=== PATIENT | male | born 1965 | race Caucasian/White ===

== ENCOUNTER → 2017-08-29 08:12 | Outpatient (CLI) | payer OTHER, SELFPAY ==
--- NOTE | 2017-08-29 08:19 | RAD_ITS ---
STUDY: X-RAY CHEST REASON FOR EXAM: Male, 52 years old. Cough. TECHNIQUE: PA and lateral views of the chest. COMPARISON: Comparison is made with prior examination dated July 22, 2017. FINDINGS: Scattered calcified granulomas. There is no demonstrated pleural abnormality. Normal size heart. Normal mediastinum and farhad. Normal visualized pulmonary arteries. Normal visualized aortic arch and descending thoracic aorta. There are diffuse degenerative changes of the visualized thoracic spine. Normal visualized ribs, clavicles, and shoulders. There is no demonstrated abnormality of the visualized soft tissue structures of the upper abdomen. RAD/Chest PA and Lateral IMPRESSION: Scattered calcified granulomas. No acute abnormality is seen. Electronically Signed: Ernesto Schmitt MD at 12:41 EST Tel [phone], Service support ,
== END ==
PROVIDERS: Family Provider Internal Medicine; PCP Internal Medicine; Visit Provider Internal Medicine
DX: R05 Cough (principal)
CPT/HCPCS: 71046

== ENCOUNTER → 2018-02-04 12:45 | Outpatient (CLI) | payer OTHER, SELFPAY ==
--- NOTE | 2018-02-04 12:59 | CT_ITS ---
STUDY: CTA CHEST/THORAX REASON FOR EXAM: Male, 52 years old. Right-sided chest pain for one day. History of hypertension. RADIATION DOSAGE (If Supplied By Facility): CTDIvol = ( 28.57 ) mGy, DLP = ( 1014.52 ) mGycm TECHNIQUE: The examination was performed with the intravenous administration of 100 ml of Isovue 370 contrast material. Post-processing of the angiographic images was performed, with multiplanar reformation and 3D reconstruction. Individualized dose optimization techniques were used for this CT. COMPARISON: PA and lateral chest x-ray August 29, 2017. FINDINGS: Normal enhancement of the main pulmonary artery and right and left pulmonary arteries. Normal enhancement of the bilateral peripheral pulmonary arteries. There is no demonstrated pulmonary embolism. Normal thoracic aorta and visualized great vessels. There is no demonstrated aortic dissection. Normal heart and pericardium. There are calcifications of the coronary arteries. There are several subcentimeter, benign-appearing anterior mediastinal lymph nodes. There are also calcified pericarinal and bilateral hilar lymph nodes. Normal visualized trachea and bronchi. There are calcified granulomata in both lungs. One, measuring 6 mm, is within subsegmental atelectasis in the inferolateral lingula of the left upper lobe. Subsegmental atelectasis also seen in the bibasilar posterior lower lobes and, to a minimal degree, in the anteromedial lung lo. Normal pleura. Normal chest wall structures. There are degenerative changes of the thoracic spine. There is degenerative arthrosis of the left acromial clavicular joint, and degenerative calcifications project along the superior margin of the left glenohumeral articulation. Normal visualized upper abdomen. CT/CTA Chest W/WO Contrast IMPRESSION: 1. No demonstrated pulmonary embolism or arterial dissection. 2. Findings old calcified granulomatous disease. 3. Suboptimal respiratory effort with bilateral subsegmental atelectasis, as noted. 4. Atherosclerotic calcifications of the coronary arteries. Electronically Signed: Paulo Hoskins MD at 13:33 EDT , Service support ,
[2018-02-04 13:13] LABS: Anion Gap 6 (5-15); BUN 15 mg/dL (7-18); BUN/Creat Ratio 16.6 RATIO (10-20); Calcium,Total 8.5 mg/dL (8.5-10.1); Chloride 104 mmol/L (98-107); EST Glomerular Filtration Rate 94 mL/min (>60); Est Glom Filt Rate - Afr Amer 114 mL/min (>60); Glucose 89 mg/dL (74-106); Potassium 4.5 mmol/L (3.5-5.1); Sodium Level 138 mmol/L (136-145)
[2018-02-04 13:17] LABS: D-Dimer Quantitative (DVT/PE) 0.97 FEU/ug/m (0.27-0.49)
== END ==
PROVIDERS: Family Provider Internal Medicine; PCP Internal Medicine; Visit Provider Internal Medicine
DX: R07.9 Chest pain, unspecified (principal)
CPT/HCPCS: 36415; 71275; 80048; 85379; Q9967

== ENCOUNTER → 2018-05-22 09:04 | Outpatient (CLI) | payer OTHER, SELFPAY ==
--- NOTE | 2018-05-22 09:09 | RAD_ITS ---
HISTORY: Right elbow pain. No known injury Comparison: None Findings: No fracture, dislocation, or acute disease. Joint spaces appear preserved. The distal humeral fat pads are not displaced. No effusion. Small hypertrophic spur of the olecranon process at the triceps insertion. No significant bursitis seen. RAD/Elbow min 3 Views IMPRESSION: 1. No fracture or acute disease. 2. Small hypertrophic spur of the olecranon process at the triceps insertion. at 0247 Reported and signed by: Elieser Cortes MD Electronically Signed: Elieser Cortes, at 2:45 EDT Tel , Service support ,
== END ==
PROVIDERS: Family Provider Internal Medicine; PCP Internal Medicine; Referring Provider Internal Medicine; Visit Provider Internal Medicine
DX: M25.521 Pain in right elbow (principal)
CPT/HCPCS: 73080

== ENCOUNTER → 2018-05-29 06:46 | Outpatient (CLI) | payer OTHER, SELFPAY ==
--- NOTE | 2018-05-29 06:53 | ECHOCS_ITS ---
Reason For Study: ABN EKG Procedure This was a 2D Doppler, Color Flow transthoracic echocardiogram. The study was technically difficult. Contrast injection was performed. Exam performed in department. Left Ventricle Normal size and thickness. The estimated ejection fraction is 65 %. Septal motion consistent with IVCD. No regional wall motion abnormalities noted. Right Ventricle Moderately dilated right ventricle. Mild global right ventricular systolic dysfunction. Atria Normal left atrium. Normal right atrium. Normal atrial septum. Mitral Valve The mitral valve is structurally normal. No prolapse or stenosis seen. Tricuspid Valve Normal tricuspid valve. Unable to estimate RV systolic pressure due to inadequate jet, pulmonary artery pressure probably normal. Aortic Valve Normal aortic valve. Trisinus/trileaflet aortic valve. Pulmonic Valve The pulmonic valve is not well visualized. Great Vessels Normal aortic root. Normal arch. Normal inferior vena cava. Inferior vena cava collapse with sniff. Pericardium/Pleural No pericardial effusion. Medication Diluted definity 7ml given slow IV push to enhance endocardial definition. MMode/2D Measurements & Calculations LVIDd: 4.1 cm IVSd: 1.1 cm Ao root diam: 3.8 cm LVIDs: 2.8 cm LVPWd: 1.2 cm RVDd: 5.2 cm FS: 32.6 % LAV(MOD-bp): 60.0 ml LVAd ap4: 39.9 cm2 SV(MOD-sp4): 90.0 ml LAV(MOD-bp) Indexed: 23.9 ml/m2 EDV(MOD-sp4): 149.9 ml LAV(MOD-sp2): 52.9 ml EDV(sp4-el): 158.7 ml LAV(MOD-sp4): 57.8 ml LVAs ap4: 23.4 cm2 ESV(MOD-sp4): 59.9 ml ESV(sp4-el): 64.0 ml EF(MOD-sp4): 60.0 % EF(sp4-el): 59.7 % SV(sp4-el): 94.6 ml LA A4 area: 20.7 cm2 LA dimension(2D): 3.4 cm RA A4 area: 13.7 cm2 Time Measurements MV dec time: 0.43 sec Doppler Measurements & Calculations MV E max aftab: 37.5 cm/sec Lat Peak E' Aftab: 9.7 cm/sec Med Peak E' Aftab: 7.0 cm/sec MV A max aftab: 52.9 cm/sec E/E' lat: 3.9 E/E' med: 5.4 MV E/A: 0.71 Ao V2 max: 103.7 cm/sec LV V1 max: 82.5 cm/sec Ao max P.3 mmHg LV V1 max P.7 mmHg Interpretation Summary The estimated ejection fraction is 65 %. Moderately dilated right ventricle. Mild global right ventricular systolic dysfunction. Unable to estimate RV systolic pressure due to inadequate jet, pulmonary artery pressure probably normal. Compared to echo report dated 12/27/2014, LV function has improved from 50% to 65%. The study was technically difficult. Contrast injection was performed. Ordering Physician: Aparna Gutiérrez Referring Physician: Aparna Gutiérrez Performed By: Tabitha Weinstein, SOFIA, RVT
--- NOTE | 2018-05-29 17:06 | STRESSREP ---
Stress Test Report Pharmacologic myocardial perfusion stress test. 53-year-old male with a history of abnormal EKG. Resting EKG demonstrates normal sinus rhythm with a left bundle branch block patten rate of 70 bpm is noted. Blood pressure 130/90 meters of mercury. 0.4 mg of regadenoson was infused per usual protocol followed by rapid intravenous saline flush injection continuous EKG monitoring was performed. At rest there were no ST or T wave changes noted suggest abnormal flow reserve at peak infusion no ST or T wave changes were noted suggest abnormal flow reserve patient maintained left bundle branch block throughout the recording. The resting blood pressure 130/90 with a peak blood pressure 150/84 mmHg. Myocardial perfusion protocol. 14.7 mCi of technetium 99m sestamibi was injected 0.4 mg of regadenoson was infused per usual protocol peak infusion 44.8 mCi of technetium 99m sestamibi was injected stress images were obtained stress and rest images were reconstructed and compared in the short axis vertical long horizontal long axis. Gated images were also obtained per Perfusion SPECT analysis: Review of the stress images demonstrate normal uptake of tracer noted in the anterior septal wall the mid anterior wall and the anterolateral wall. The inferior septal and mid inferior torres appear to have reduced perfusion. There is significant GI attenuation artifact as well which appears to obscure the images and the above distributions. Obvious ischemia is not present though a previous infarct cannot be completely excluded. Gated SPECT analysis: The gated ejection fraction is noted to be 57%. Conclusion: Myocardial perfusion stress test with no obvious ischemia noted. Previous inferior infarct cannot be completely excluded. Preserved ejection fraction.
== END ==
PROVIDERS: Family Provider Internal Medicine; PCP Internal Medicine; Referring Provider Internal Medicine; Visit Provider Internal Medicine
DX: R94.31 Abnormal electrocardiogram [ECG] [EKG] (principal)
CPT/HCPCS: 78452; 93017; 93306; A9500; Q9957; A4216; C8929; J2785

== ENCOUNTER → 2018-06-19 08:28 | Outpatient (CLI) | payer OTHER, SELFPAY ==
[2018-06-19 08:01] VITALS: BMI 41.8
[2018-06-19 10:30] LABS: Prothrombin Time (Protime)PT. 13.4 SECONDS (11.7-14.9)
[2018-06-19 10:31] LABS: Partial Thromboplast Time 28.4 Seconds (24.1-36.2)
[2018-06-19 10:33] LABS: Absolute Lymphocyte Count 1.46 X10^3/ul (0.83-4.51); Basophil# 0.03 X10^3/uL; Basophil% 0.5 % (0-1); Eosinophil# 0.27 X10^3/uL; Eosinophils% 4.1 % (0-5); Hematocrit 45.8 % (40-54); Hemoglobin 15.8 g/dl (13.0-16.5); Lymphocyte # 1.46 X10^3/ul (4.0); Mean Corp Hgb Conc 34.5 g/gl (32-36); Mean Corpuscular Hgb 33.7 pg (27.0-32.0); Mean Corpuscular Volume 97.7 fL (80-94); Mean Platelet Vol. 10.5 fl (6.2-12.0); Monocyte# 0.87 X10^3/uL; Monocyte% 13.1 % (0-10); Neutrophil # 3.99 X10^3/uL (2.7-7.7); Platelet Count 192 K/mm3 (150-450); RBC Distribution Width CV 13.4 % (11.6-14.6); RBC Distribution Width SD 48.4 fl (35.1-43.9); Red Blood Count 4.69 M/mm3 (4.6-6.2); White Blood Count 6.6 K/mm3 (4.4-11.0)
[2018-06-19 10:36] LABS: Anion Gap 7 (5-15); BUN 25 mg/dL (7-18); BUN/Creat Ratio 28.7 RATIO (10-20); Calcium,Total 8.4 mg/dL (8.5-10.1); Chloride 105 mmol/L (98-107); Creatinine, Serum 0.87 mg/dL (0.70-1.30); EST Glomerular Filtration Rate 98 mL/min (>60); Est Glom Filt Rate - Afr Amer 118 mL/min (>60); Glucose 93 mg/dL (74-106); Potassium 4.6 mmol/L (3.5-5.1); Sodium Level 140 mmol/L (136-145)
[2018-06-19 10:37] LABS: POSITIVE COUNT NO; POSITIVE DIFFERENTIAL NO; POSITIVE MORPHOLOGY NO
--- OUTSIDE RECORDS SUMMARY | 2018-08-14 03:16 | XMS RPT_ITS | Continuity of Care Document ---
:1965 Author Organization [facility] Address [address] [facility] [address] [place] [address] Phone Care Team Providers Name Role Phone Aparna Gutiérrez DO Unavailable Mikey VELAZQUEZ, Prakash Peng Unavailable Desean VELAZQUEZ, Nathan Hightower Unavailable Dr. Sonu Fuentes Unavailable Liat Cruz Unavailable Unavailable Ginger Groves Unavailable Unavailable JARROD English Unavailable Unavailable Susy Rock Unavailable Unavailable Unavailable Unavailable Problems Name Dates Details abnormal echo Status: Active Abnormal echocardiogram (R93.1, 793.2) Status: Active Abnormal EKG (R94.31, 794.31) Status: Active Abnormal glucose tolerance test (R73.02, 790.22) Status: Active Abnormal lung function test (R94.2, 794.2) Status: Active Abnormal nuclear stress test (R94.39, 794.39) Status: Active Acute bilateral low back pain without sciatica (M54.5, 724.2) Comments: improved Status: Active Acute bronchitis (J20.9, 466.0) Status: Active KEV positive (R76.8, 795.79) Comments: double stranded dna neg and indicators of inflammation normal- told will need to monitor with his family hx Status: Active Asymptomatic microscopic hematuria (R31.21, 599.72) Comments: urine good Status: Active Benign positional vertigo (H81.10, 386.11) Comments: gave exercises to do Status: Active BMI 40.0-44.9, adult (Z68.41, V85.41) Status: Active Diverticulosis of large intestine without perforation or abscess without bleeding (K57.30, 562.10) Status: Active 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 (Z02.4, V70.3) Status: Active Epigastric pain (R10.13, 789.06) Status: Active Essential hypertension (I10, 401.9) Comments: chronic stable-continue present regimen Status: Active Gastritis (K29.70, 535.50) Comments: improved Status: Active Hypercholesterolemia (E78.00, 272.0) Comments: increase exerise with low good chol Status: Active Hyperkalemia (E87.5, 276.7) Status: Active Knee pain (M25.569, 719.46) Status: Active [facility] Status: Active Need for prophylactic vaccination and inoculation against influenza (Z23, V04.81) Status: Active Need for prophylactic vaccination and inoculation against influenza (Renamed from Need for immunization against influenza) (Z23, V04.81) Status: Active Need for prophylactic vaccination and inoculation against influenza (Renamed from Need for immunization against influenza) (Z23, V04.81) Status: Active Non-smoker (Z78.9, V49.89) Status: Active Obstructive sleep apnea, adult (G47.33, 327.23) Comments: saw Manju doing ok Status: Active Other allergic rhinitis (J30.89, 477.8) Comments: chronic stable-continue present regimen Status: Active Other general medical examination for administrative purposes (Z02.89, V70.3) Comments: 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 Status: Active Other hyperlipidemia (E78.49, 272.4) Comments: pretty good- hdl improving Status: Active Other premature beats (I49.49, 427.69) Status: Active Pain in unspecified joint (Renamed from Arthralgia) (M25.50, 719.40) Status: Active Psoriasis (L40.9, 696.1) Comments: gave rx mimyx creme which he used in past from [employer] and said worked Status: Active Right elbow pain (M25.521, 719.42) Status: Active Right-sided chest pain (R07.9, 786.50) Status: Active Screening for prostate cancer (Z12.5, V76.44) Status: Active Sinusitis,chronic (473.9) Status: Active Urinary frequency (R35.0, 788.41) Status: Active Varicose veins of left lower extremity with inflammation (I83.12, 454.1) Status: Active Vitamin D deficiency (E55.9, 268.9) Comments: he not taking vit d encoruage Status: Active Medications Name Dates Details FLONASE, 50MCG/ACT (Nasal Suspension) 2 puffs Suspension qd for 0 days Quantity: 1 {Clayton} Refills: 3 Ordered:16-Aug-2013 Fast DOAprila AFast DO, Aparna A Start : 16-Aug-2013 Active Losartan Potassium 100 MG Oral Tablet 1 (one) Tablet qd for 90 days Quantity: 90 {Tablet} Refills: 3 Ordered:27-Feb-2018 Fast DO Aparna AFast DO, Aparna A Start : 27-Feb-2018 Active Meloxicam 15 MG Oral Tablet 1 (one) Tablet daily, prn for 90 days Quantity: 90 {Tablet} Refills: 1 Ordered:27-Feb-2018 Fast DO Aparna AFast DO, Aparna A Start : 27-Feb-2018 Active Vitamin D3 5000 UNIT Oral Tablet 1 (one) Tablet qd for 0 days Quantity: 30 {Tablet} Refills: 0 Ordered:22-May-2018 Fast DO Aparna AFast DO, Aparna A Start : 22-May-2018 Active AVAPRO, 300MG (Oral Tablet) 1 (one) Tablet daily for 90 days Quantity: 90 {Tablet} Refills: 3 Ordered:02-Aug-2015 Ana Lacy Start : 31-Jul-2015 End : 02-Aug-2015 Inactive Biaxin XL Pac 500 MG Oral Tablet Extended Release 24 Hour 2 (two) Tablet ER 24HR daily for 10 days Quantity: 20 {Tablet} Refills: 0 Ordered:23-Jul-2017 Liat Cruz Start : 16-Jul-2017 End : 23-Jul-2017 Inactive BIAXIN XL PAC, 500MG (Oral Tablet Extended Release 24 Hour) 2 (two) Tablet ER 24HR daily for 14 days Quantity: 28 {Tablet_ER_24HR} Refills: 0 Ordered:06-Aug-2010 Yasemin Hills CNP Start : 06-Aug-2010 End : 20-Aug-2010 Inactive CLARINEX, 5MG (Oral Tablet) 1 tab Tablet QD for 0 days Quantity: 90 {Tablet} Refills: 3 Ordered:20-Dec-2009 Bibiana Harris Start : 13-Jan-2008 Inactive CORICIDIN HBP CONGESTION/COUGH, 10-200MG (Oral Capsule) 1 Capsule daily for 0 days Quantity: 30 {Capsule} Refills: 0 Ordered:09-May-2011 JARROD English Start : 06-Aug-2010 End : 09-May-2011 Inactive Cyclobenzaprine HCl 10 MG Oral Tablet 1 (one) Tablet Tablet qhs prn for 0 days Quantity: 20 {Tablet} Refills: 0 Ordered:08-Aug-2017 Aparna Gutiérrez DO, DO, Debra A Start : 01-Jan-2017 End : 08-Aug-2017 Inactive Comments:twenty - dont drive with as can sedate FlavoxATE HCl 100 MG Oral Tablet 2 (two) Tablet tid, prn for 10 days Quantity: 60 {Tablet} Refills: 0 Ordered:05-Jun-2016 Susy Rock Start : 05-Jun-2016 End : 15-Jun-2016 Inactive Levaquin 500 MG Oral Tablet 1 tab Tablet qd a48wzol for 0 days Quantity: 10 {Tablet} Refills: 0 Ordered:08-Aug-2017 Liat Cruz Start : 23-Jul-2017 End : 08-Aug-2017 Inactive Omeprazole 20 MG Oral Capsule Delayed Release 1 (one) Capsule qam for 0 days Quantity: 30 {Capsule} Refills: 1 Ordered:08-Aug-2017 Aparna Gutiérrez DO, DO, Debra A Start : 24-Jun-2017 End : 08-Aug-2017 Inactive PANTOPRAZOLE SODIUM, 40MG (Oral Tablet Delayed Release) [address] qd for 0 days Refills: 0 Ordered:03-Aug-2009 JARROD EnglishInactive PredniSONE 10 MG Oral Tablet 3 (three) Tablet Tablet pills for 3 days 2 pills for 3 days 1 pill for 3 days for 0 days Quantity: 18 {Tablet} Refills: 0 Ordered:08-Aug-2017 Liat Cruz Start : 22-Jul-2017 End : 08-Aug-2017 Inactive Comments:take with food in am SILVADENE, 1% (External Cream) 1 (one) Cream twice daily for 10 days Quantity: 1 {Bottle} Refills: 0 Ordered:07-Feb-2015 Yasemin Hills CNP Start : 07-Feb-2015 End : 17-Feb-2015 Inactive 1CC ALLERGY SYRINGE 28GX1/2 ( Misc) Not sure Not sure for 0 days Refills: 0 Ordered:01-Jun-2010 Susy Rock End : 01-Jun-2010 Discontinued Comments:This order discontinued per [facility]. ADVAIR DISKUS, 100-50MCG/DOSE (Inhalation Miscellaneous) 1 puff Misc bid for 0 days Refills: 0 Ordered:03-Aug-2009 Kera Thompson MD End : 03-Aug-2009 Discontinued Augmentin 875-125 MG Oral Tablet 1 Tablet BID for 0 days Quantity: 20 {Tablet} Refills: 0 Ordered:30-May-2016 Susy Rock Start : 09-Feb-2016 End : 30-May-2016 Discontinued AVALIDE, 300-25MG (Oral Tablet) 1 (one) Tablet qd for 0 days Quantity: 90 {Tablet} Refills: 3 Ordered:13-Feb-2010 Fast DO, Aparna AFast DO, Aparna A Start : 13-Feb-2010 End : 13-Feb-2010 Discontinued BENZONATATE, 100MG (Oral Capsule) 1 (one) Capsule TID/PRN for 0 days Quantity: 30 {Capsule} Refills: 0 Ordered:16-Jul-2006 Bibiana Harris Start : 16-Jul-2006 End : 23-Dec-2006 Discontinued Clarinex 30 mg qd End : 19-Dec-2006 Discontinued CLODERM, 0.1% (External Cream) 1 Cream apply thin layer daily for 2 weeks, then prn for 0 days Quantity: 30 {Gram(s)} Refills: 0 Ordered:23-Jun-2015 Iris Guillen LPN Start : 19-Oct-2012 End : 23-Jun-2015 Discontinued Comments:called to Elayne ROY, 103-18MCG/ACT (Inhalation Aerosol) 2 puffs qid for 0 days Refills: 0 Ordered:08-Feb-2008 Bibiana Harris End : 13-Jan-2008 Discontinued NIASPAN, 500MG (Oral Tablet Extended Release) 4 Tablet ER qd for 0 days Quantity: 120 {Tablet_ER} Refills: 3 Ordered:07-Jul-2015 Susy Rock Start : 10-Feb-2009 End : 07-Jul-2015 Discontinued NYSTATIN, 950554FRIE/ML (Mouth/Throat Suspension) Suspension for 0 days Refills: 0 Ordered:12-Nov-2007 Bibiana Harris Start : 12-Nov-2007 End : 11-Dec-2007 Discontinued Comments:swish and swallow 5 cc qid for 10 days TraMADol HCl 50 MG Oral Tablet 1-2 Tablet q 6hrs, prn for 0 days Quantity: 90 {Tablet} Refills: 0 Ordered:06-Jan-2017 Susy Rock Start : 03-Jan-2017 End : 06-Jan-2017 Discontinued Comments:NINETY WESTCORT, 0.2% (External Cream) apply as directed BID for 0 days Refills: 0 Ordered:08-Feb-2008 Bibiana Harris End : 23-Dec-2006 Discontinued ZETIA, 10MG (Oral Tablet) 1 Tablet qd for 90 days Quantity: 30 {Tablet} Refills: 3 Ordered:07-Jul-2015 Susy Rock Start : 16-Aug-2013 End : 07-Jul-2015 Discontinued Allergies and Adverse Reactions Name Dates Details Dovonex *DERMATOLOGICALS* (Allergy) Reaction: Rash Status: Active Comments: severe with burning Neosporin *DERMATOLOGICALS* (Allergy) Reaction: Rash Status: Active Past Medical History Name Dates Details Abnormal findings on diagnostic imaging of other specified body structures (R93.8, 793.99) Status: Resolved as of 19-May-2009 Acute pain of right knee (M25.561, 719.46) Status: Resolved as of 16-Jul-2017 Acute sinusitis, unspecified (J01.90, 461.9) 19-Jul-2011 Status: Resolved as of 17-Jan-2017 Allergic rhinitis (J30.9, 477.9) Status: Inactive as of 03-Aug-2009 Appendectomy Status: Inactive as of 03-Aug-2009 Bronchitis (J40, 490) 06-Aug-2010 Status: Resolved as of 28-Sep-2010 Burn (T30.0, 949.0) Status: Resolved as of 07-Jul-2015 Bursitis, prepatellar (726.65) 30-Jul-2011 Status: Resolved as of 17-Dec-2013 Carpal tunnel syndrome, unspecified laterality (G56.00, 354.0) Status: Inactive as of 24-Jun-2014 Cellulitis of right lower extremity (L03.115, 682.6) Status: Resolved as of 17-Jan-2017 choking Status: Resolved as of 19-May-2009 Chronic Sinusitis Status: Inactive as of 03-Aug-2009 Cough (R05, 786.2) 06-Aug-2010 Status: Inactive as of 30-Jul-2017 Diverticulitis (K57.92, 562.11) Comments: w/ abcess s/p sigmoid colectomy w/ div. 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 Status: Inactive as of 17-Jan-2017 Hyperlipidemia (E78.5, 272.4) Status: Inactive as of 03-Aug-2009 Hypoxemia (R09.02, 799.02) Status: Resolved as of 13-Apr-2008 hypoxia Status: Resolved as of 10-Feb-2009 lateral epicondylitis- discussed pathophys- tendinitis- nsaids, rest- and if no better call for ortho referral Status: Resolved as of 15-Sep-2009 leucocoytosis Status: Inactive as of 03-Aug-2009 Lung nodule (R91.1, 518.89) Comments: ct scans for 2 years stable Status: Inactive as of 09-May-2011 neck mass on the right Comments: ct neg and mass resolved on exam- will follow Status: Inactive as of 03-Aug-2009 Need for prophylactic vaccination and inoculation against influenza (Renamed from Need for immunization against influenza) (Z23, V04.81) Status: Inactive as of 17-Jan-2017 odot physical Status: Inactive as of 19-May-2009 oral thrush Status: Resolved as of 19-May-2009 Other abnormal glucose (R73.09, 790.29) Status: Resolved as of 07-Jul-2015 Other chest pain (R07.89, 786.59) Status: Resolved as of 17-Jan-2017 Other specified viral infection, in conditions classified elsewhere and of unspecified site (B97.89, 079.89) Status: Resolved as of 17-Jan-2017 Paresthesia (R20.2, 782.0) Status: Resolved as of 25-Dec-2014 Psoriasis Status: Inactive as of 03-Aug-2009 Septic infrapatellar bursitis, right (M71.161, 726.69) Comments: seeing ortho today Status: Resolved as of 17-Jan-2017 SYNCOPE, NOS (780.2) Comments: think vagal- but rule out heart disease with low normal ef Status: Resolved as of 19-May-2009 thumb pain get xray Status: Resolved as of 19-May-2009 Unspecified bacterial pneumonia (J15.9, 482.9) Status: Resolved as of 13-Apr-2008 Unspecified contact dermatitis, unspecified cause (L25.9, 692.9) Status: Inactive as of 03-Aug-2009 Unspecified Diagnosis Status: Inactive as of 17-Jan-2017 Unspecified Diagnosis Status: Inactive as of 19-May-2009 Procedures Procedure Dates Details Appendectomy Completed carpal tunnel- Tanya 2012- right Completed partial colectomy(sigmoidectomy 2003- due to Completed perforated diverticulitis with abscess) Tonsillectomy Completed Comments: with adenoids twice vein surgery both legs winter 2016- Bailey Completed Date Value Details 29-May-2018 Stress Report Result: Comments: See Note; NOTES: [facility] [address] [place] [address] MR#: [id number] Acct: [id number] Name: LISA MARQUES Rep #: [id number] : [birth year] 53 From: Arcenio Mccloud MD Primary Care: Brock DO,Aparna Status: REG CLI Ordering Dr: Sex: M C Stress Test Report Pharmacologic myocardial perfusion stress test. 53-year-old male with a history of abnormal EKG. Resting EKG demonstrates normal sinus rhythm with a left bundle branch block patten rate of 70 bpm is noted. Blood pressure 130/90 meters of mercury. 0.4 mg of regadenoson was infused pe r usual protocol followed by rapid intravenous saline flush injection continuous EKG monitoring was performed. At rest there were no ST or T wave changes noted suggest abnormal flow reserve at peak infu renate no ST or T wave changes were noted suggest abnormal flow reserve patient maintained left bundle branch block throughout the recording. The resting blood pressure 130/90 with a peak blood pressure 1 50/84 mmHg. Myocardial perfusion protocol. 14.7 mCi of technetium 99m sestamibi was injected 0.4 mg of regadenoson was infused per usual protocol peak infusion 44.8 mCi of technetium 99m sestamibi was injected stress images were obtained stress and rest images were reconstructed and compared in the short axis vertical long horizontal long axis. Gated images were also obtained per Perfusion SPECT kev lysis: Review of the stress images demonstrate normal uptake of tracer noted in the anterior septal wall the mid anterior wall and the anterolateral wall. The inferior septal and mid inferior torres appe ar to have reduced perfusion. There is significant GI attenuation artifact as well which appears to obscure the images and the above distributions. Obvious ischemia is not present though a previous infa rct cannot be completely excluded. Gated SPECT analysis: The gated ejection fraction is noted to be 57%. Conclusion: Myocardial perfusion stress test with no obvious ischemia noted. Previous inferior infarct cannot be completely excluded. Preserved ejection fraction. 05/29/180 <Electronically signed by Arcenio Mccloud MD> Date Prisca VELAZQUEZ CC: Aparna Gutiérrez DO Date Dictated: 05/29/181705 Date Transcribed: 05/29/181705 Supervisor Salvage: [place] Signed 29-May-2018 Echo, Complete w/ Contrast Result: Comments: See Note; NOTES: [facility] [address] [place] [address] Echo Complete W/ Contrast 05/29/18 0951 MR#: [id number] Acct: [id number] Name: LISA MARQUES Rep #: [id number] : 1965 53 From: Diallo Henderson MD Attending Dr: Aparna Gutiérrez DO Status: REG CLI Ordering Dr: Aparna Gutiérrez DO Date: 05/29/18 Location: [facility] Sex: M C Admitted: Reason For Study: ABN EKG Procedure This was a 2D Doppler, Color Flow transthoracic echocardiogram. The study was technically difficult. Contrast injection was performed. Exam performed in department. Left Ventr icle Normal size and thickness. The estimated ejection fraction is 65 %. Septal motion consistent with IVCD. No regional wall motion abnormalities noted. Right Ventricle Moderately dilated right ventri aravind. Mild global right ventricular systolic dysfunction. Atria Normal left atrium. Normal right atrium. Normal atrial septum. Mitral Valve The mitral valve is structurally normal. No prolapse or sten osis seen. Tricuspid Valve Normal tricuspid valve. Unable to estimate RV systolic pressure due to inadequate jet, pulmonary artery pressure probably normal. Aortic Valve Normal aortic valve. Trisinus/ trileaflet aortic valve. Pulmonic Valve The pulmonic valve is not well visualized. Great Vessels Normal aortic root. Normal arch. Normal inferior vena cava. Inferior vena cava collapse with sniff. P ericardium/Pleural No pericardial effusion. Medication Diluted definity 7ml given slow IV push to enhance endocardial definition. MMode/2D Measurements AND Calculations LVIDd: 4.1 cm IVSd: 1.1 cm Ao r oot diam: 3.8 cm LVIDs: 2.8 cm LVPWd: 1.2 cm RVDd: 5.2 cm FS: 32.6 % LAV(MOD-bp): 60.0 ml LVAd ap4: 39.9 cm2 SV(MOD-sp4 ): 90.0 ml LAV(MOD-bp) Indexed: 23.9 ml/m2 EDV(MOD-sp4): 149.9 ml LAV(MOD-sp2): 52.9 ml EDV(sp4-el): 158.7 ml LAV(MOD-sp4): 57.8 ml LVAs ap4: 23.4 cm2 ESV(MOD- sp4): 59.9 ml ESV(sp4-el): 64.0 ml EF(MOD-s p4): 60.0 % EF(sp4-el): 59.7 % SV(sp4-el): 94.6 ml LA A4 area: 20.7 cm2 LA dimension(2D): 3.4 cm RA A4 area: 13.7 cm2 Time Measurements MV dec time: 0.43 sec Doppler Measurements AND Calculations MV E max alba: 37.5 cm/sec Lat Peak E' V el: 9.7 cm/sec Med Peak E' Alba: 7.0 cm/sec MV A max alba: 52.9 cm/sec E/E' lat: 3.9 E/E' med: 5.4 MV E/A: 0.71 Ao V2 max : 103.7 cm/sec LV V1 max: 82.5 cm/sec Ao max P.3 mmHg LV V1 max P.7 mmHg Interpretation Summary The estimated ejection fraction is 65 %. Moderately dilated right ventricle. Mild global right ve ntricular systolic dysfunction. Unable to estimate RV systolic pressure due to inadequate jet, pulmonary artery pressure probably normal. Compared to echo report dated 12/27/2014, LV function has improve d from 50% to 65%. The study was technically difficult. Contrast injection was performed. Order ing Physician: Aparna Gutiérrez Referring Physician: Aparna Gutiérrez Performed By: Tabitha Weinstein, SOFIA, RVT 05/29/18 1423 Date _ Diallo Henderson MD CC: Aparna Gutiérrez DO Date Dictated: 05/29/1851 Date Transcribed: 05/29/18 1423 Supervisor Salvage: Signed 22-May-2018 Elbow min 3 Views Result: Comments: See Note; NOTES: [facility] Imaging Services [address] [place] [id number] Elbow min 3 Views MR#: [id number] Acct: [id number] Name: LISA MARQUES Rep #: [id number] : 1965 M 53 From: Elieser Cortes MD PCP: Aparna Gutiérrez DO Status: REG CLI Study: Elbow min 3 Views Date of Exam: 05/22/18 Exam# [id number] Ordering Dr: Aparna Gutiérrez DO HISTORY: Right elbow pain. No kno wn injury Comparison: None Findings: No fracture, dislocation, or acute disease. Joint spaces appear preserved. The distal humeral fat pads are not displaced. No effusion. Small hypertrophic spur of t he olecranon process at the triceps insertion. No significant bursitis seen. RAD/Elbow min 3 Views IMPRESSION: 1. No fracture or acute disease. 2. Small hypertrophic spur of the ole cranon process at the triceps insertion. at 0247 Reported and signed by: Elieser Cortes MD Electronically Signed: Elieser Cortes, 05/23 at 2:45 EDT Tel , Service support , CC: Aparna Gutiérrez DO Supervisor Salvage: Signed 04-Feb-2018 CTA Chest W/WO Contrast Result: Comments: See Note; NOTES: [facility] [address] [place] [address] CTA Chest W/WO Contrast MR#: [id number] Acct: [id number] Name: LISA MARQUES Rep #: [id number] : 1965 M 52 From: Nikunj Hoskins MD PCP: Aparna Gutiérrez DO Status: REG CLI Study: CTA Chest W/WO Contrast Date of Exam: 02/04/18 Exam# [id number] Ordering Dr: Aparna Gutiérrez DO STUDY: CTA CHEST/TH ORAX REASON FOR EXAM: Male, 52 years old. Right-sided chest pain for one day. History of hypertension. RADIATION DOSAGE (If Supplied By Facility): CTDIvol = ( 28.57 ) mGy, DLP = ( 1014.52 ) mGycm EDILMA HNIQUE: The examination was performed with the intravenous administration of 100 ml of Isovue 370 contrast material. Post-processing of the angiographic images was performed, with multiplanar reformatio n and 3D reconstruction. Individualized dose optimization techniques were used for this CT. COMPARISON: PA and lateral chest x-ray August 29, 2017. FINDINGS: Nor mal enhancement of the main pulmonary artery and right and left pulmonary arteries. Normal enhancement of the bilateral peripheral pulmonary arteries. There is no demonstrated pulmonary embolism. Suzi l thoracic aorta and visualized great vessels. There is no demonstrated aortic dissection. Normal heart and pericardium. There are calcifications of the coronary arteries. There are several subcentim eter, benign-appearing anterior mediastinal lymph nodes. There are also calcified pericarinal and bilateral hilar lymph nodes. Normal visualized trachea and bronchi. There are calcified granulomata in both lungs. One, measuring 6 mm, is within subsegmental atelectasis in the inferolateral lingula of the left upper lobe. Subsegmental atelectasis also seen in the bibasilar posterior lower lobes and, t o a minimal degree, in the anteromedial lung lo. Normal pleura. Normal chest wall structures. There are degenerative changes of the thoracic spine. There is degenerative arthrosis of the left acr omial clavicular joint, and degenerative calcifications project along the superior margin of the left glenohumeral articulation. Normal visualized upper abdomen. O RDER #: [id number] CT/CTA Chest W/WO Contrast IMPRESSION: 1. No demonstrated pulmonary embolism or arterial dissection. 2. Findings old calcified granulomatous disease. 3. Suboptimal respiratory effort w ith bilateral subsegmental atelectasis, as noted. 4. Atherosclerotic calcifications of the coronary arteries. Electronically Signed: Paulo Hoskins MD at 13:33 EDT , Se rvice support , CC: Aparna Gutiérrez DO Supervisor Salvage: Signed 29-Aug-2017 Chest PA and Lateral Result: Comments: See Note; NOTES: [facility] Services [address] [place] [id number] Chest PA and Lateral MR#: [id number] Acct: [id number] Name: LISA MARQUES Rep #: [id number] : 1965 M 52 From: Ernesto Schmitt MD PCP: Aparna Gutiérrez DO Status: REG CLI Study: Chest PA and Lateral Date of Exam: 08/29/17 Exam# [id number] Ordering Dr: Aparna Gutiérrez DO STUDY: X-RAY CHEST REASON FOR EXAM: Male, 52 years old. Cough. TECHNIQUE: PA and lateral views of the chest. COMPARISON: Comparison is made with prior examination dated July 22, 2017. __ FINDINGS: Scattered calcified granulomas. There is no demonstrated pleural abnormality. Normal size heart. Normal mediastinum and farhad. Normal visualized pulmonary arteries. Normal visualized aort ic arch and descending thoracic aorta. There are diffuse degenerative changes of the visualized thoracic spine. Normal visualized ribs, clavicles, and shoulders. There is no demonstrated abnormality o f the visualized soft tissue structures of the upper abdomen. RAD/Chest PA and Lateral IMPRESSION: Scattered calcified granulomas. No acute abnor mality is seen. Electronically Signed: Ernesto Schmitt MD at 12:41 EST Tel [phone], Service support , CC: Aparna Gutiérrez DO Supervisor Salvage: Signed 22-Jul-2017 Chest PA and Lateral Result: Comments: See Note; NOTES: [facility] Services [address] [place] [id number] Chest PA and Lateral MR#: [id number] Acct: [id number] Name: LISA MARQUES Rep #: [id number] : 1965 M 52 From: Ernesto Schmitt MD PCP: Aparna Gutiérrez DO Status: REG CLI Study: Chest PA and Lateral Date of Exam: 07/22/17 Exam# [id number] Ordering Dr: Aparna Gutiérrez DO STUDY: X-RAY CHEST REASON FOR EXAM: Male, 52 years old. 3 week history of illness. TECHNIQUE: PA and lateral views of the chest. COMPARISON: Comparison is made with prior study dated September 13, 2013. FINDINGS: Mild increased markings in the lingular segment of the left upper lobe suggestive of early infiltrate. Follow-up is recommended. There is no demonstrated pleural abnormali ty. Normal size heart. Normal mediastinum and farhad. Normal visualized pulmonary arteries. Normal visualized aortic arch and descending thoracic aorta. Normal visualized thoracic spine. Normal visualiz ed ribs, clavicles, and shoulders. There is no demonstrated abnormality of the visualized soft tissue structures of the upper abdomen. RAD/Chest PA and Lateral IMPRESSION: Increased lingular markings. Follow-up is recommended. Electronically Signed: Ernesto Schmitt MD at 14:50 EST Tel [phone], Service support , CC: Aparna Gutiérrez DO Supervisor Salvage: Signed 02-Jul-2017 Gallbladder Result: Comments: See Note; NOTES: [facility] Imaging Services [address] [place] [address] Gallbladder MR#: [id number] Acct: [id number] Name: LISA MARQUES Rep #: [id number] : [birth year] M 52 From: Ernesto Schmitt MD PCP: Aparna Gutiérrez DO Status: REG CLI Study: Gallbladder Date of Exam: 07/02/17 Exam# [id number] Ordering Dr: Aparna Gutiérrez DO STUDY: ABDOMINAL ULTRASOUND - RIGHT UP PER QUADRANT REASON FOR VISIT: Male, 52 years old. Epigastric pain. TECHNIQUE: Ultrasound evaluation of the right upper quadrant was performed with real-time and static corrigan-scale imaging. TECHNICAL QUALITY: Adequate. COMPARISON: None. FINDINGS: Liver: The liver is enlarged and measures 20.0 cm. There is increased echogenicity consistent with fatty infiltratio n. The bile ducts are within normal limits. There is hepatic color flow. The direction of portal flow is hepatopetal. There is no demonstrated mass lesion. Gallbladder: Normal distended gallbladder. Th e gallbladder wall measures 2.8 mm. There is a negative sonographic Gallegos's sign. There is no pericholecystic fluid. There are no gallstones. Common Bile Duct (C.B.D.): The common bile duct measures 5 .2 mm. Pancreas: There is nonvisualization of the pancreas due to overlying bowel gas. There is normal echogenicity of the pancreas. There is no demonstrated pancreatic mass or cyst. Right Kidney: Nor mal size of the right kidney. The right kidney measures 12.3 cm x 5.8 cm x 6.3 cm. Normal renal cortex. The right cortex measures 2.5 cm. There is no demonstrated renal mass or cyst. There is no right h ydronephrosis. US/Gallbladder IMPRESSION: Hepatomegaly and fatty infiltration of the liver. Electronically Signed: Ernesto Schmitt MD 09/02 at 9:24 EST Tel [phone], Service support , CC: Aparna Gutiérrez DO Supervisor Salvage: Signed 28-May-2017 TXT - Blood Flow Screening Result: Comments: See Note; NOTES: [facility] Cardiovascular Services [address] [place] [address] 05/27/17 0904 MR#: [id number] Acct: [id number] Name: LISA MARQUES Rep #: [id number] : 1965 52 From: David Vee MD Attending Dr: Aparna Gutiérrez DO Status: REG REF Ordering Dr: Date: 05/28/17 Location: [facility] Sex: M C Admitted: Reason For Study: Blood flow screening Carotid D uplex Ultrasound Abdominal Aorta The right maximum ICA velocity is 93.2/34.6 cm/s.The maximal outside diameter of the proximal The left maximum ICA velocity is 91.9/29.1 cm/s. aorta measures 2.0 cm in t he longitudinal axis. The right ECA velocity is less than 125 cm/s. The maximal outside diameter of the proximal The left ECA velocity is less than 125 cm/s. aorta measures 2.0 x 2.0 cm in the cross- Th ere is no plaque formation noted on the right sectional axis. side. There is no plaque formation noted on the left side. Ankle Brachial Index The right ankle/ brachial index is 1.0. The left ankle/ bra chial index is 1.0. Medical History and Assessment The client presents with a history of high blood pressure. The heart rate is 72 beats per minute. The heart rhythm is regular. The right blood pressur e is 148/86. The left blood pressure is 144/82. The assessment was performed by Kesha Ayala RVT. Interpretation Summary Normal carotid artery screening (0 to 15% narrowing). Normal aortic ultrasound e xam. The ankle/brachial index is normal (1.0 or greater). .rdering Physician: Aparna Gutiérrez D.O Per formed By: Esther Ayala RVT 05/28/17 0845 Date David Vee MD CC: Aparna bird DO Date Dictated: 05/27/1704 Date Transcribed: 05/28/1745 Supervisor Salvage: Signed 08-Dec-2016 Emergency Department Summary Result: Comments: See Note; NOTES: [facility] Medical Records Department [address] [place] [address] Emergency Department Summary MR#: [id number] Acct: [id number] Name: LISA MARQUES Rep #: [id number] : 1965 51 From: Jake Degroot MD PCP: Aparna Gutiérrez DO Status: [facility] DATE OF SERVICE: 12/07/2016 METHOD OF ARRIVAL: Private car. CHIEF COMPLAINT: Inability to urinate. HIS TORY OF PRESENT ILLNESS: A 51-year-old male patient of Dr. Gutiérrez who does not have a urologist reports that he has a history of psoriasis and that he has psoriasis in his genital region that he began hav ing a weak stream yesterday and last night he went to urinate and it was like a balloon came from the top of his penis and he does not feel like he is emptying his bladder. PHYSICAL EXAMINATION: GENERA L: Reveals alert male in no acute distress. VITAL SIGNS: Stable. GENITOURINARY: Significant physical exam findings includes the genital exam, which shows a normal circumcised male. His urethral meatus i s covered with a thin layer of skin preventing urination. The remainder of the physical exam is unremarkable. Please see T-sheet for details. TEST RESULTS: The patient had UA that shows leukocytes onl y. 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 TREATMENT PLAN: The patient was discussed with Dr. Cartagena, will be discharged with instructions to follow up with him for further definitive treatment. DISPOS ITION: Home, stable condition. IMPRESSION: 1. Stricture, urethral meatus. Jake Degroot MD C C: Aparna Rodrigues MD T: NTS JOB: [id number] 12/08/16 1714 <Electronically si gned by Jake Degroot MD> Date Jake Degroot MD Cosigner Signature (If Indicated): Date CC: Aparna Gutiérrez DO; Suraj Cartagena MD Date Dictated: 12/08/16815 Date Transcribed: 12/08/16815 Supervisor Salvage: Signed 08-Dec-2016 Discharge Instruction Result: Comments: See Note; NOTES: [facility] Medical Records Department [address] [place] [address] Discharge Instruction 12/07/16 1238 MR#: [id number] Acct: [id number] Name: BRADEN MARQUES Rep #: [id number] : 1965 51 From: Jake Degroot MD PCP: Aparna Gutiérrez DO Status: DEP ER ED Disposition - Plan for ED Patient: Chief Complaint: Complaint Instructions: ED Stricture Ure thral Referrals: Aparna Gutiérrez DO [Primary Care Provider] - Suraj Cartagena MD [STAFF PHYSICIAN] - 3-5 Days What to do if you have Problems For any increased pain, shortness of breath, bleeding, n ausea or vomiting, chest pain, or any unexpected problems, contact your Primary Care Provider. Call [facility] ([phone]) or report to the closest Emergency Room. Call 911 if necessary. 11/19 08/06 0659 <Electronically signed by Jake Degroot MD> Date Jake Degroot MD Cosigner Signature (If Indicated): Date ___ CC: Aparna Gutiérrez DO 11-Sep-2016 Venous Duplex Lower Extremity Result: Comments: See Note; NOTES: [facility] Cardiovascular Services [address] [place] [address] Venous Duplex US, Unilateral 09/05/16 0838 MR#: [id number] Acct: [id number] Name: LISA BENNETT Rep #: [id number] : 1965 51 From: Alex Bailey MD Attending Dr: Alex Bailey MD Status: REG CLI Ordering Dr: Alex Bailey MD Date: 09/05/16 Location: [facility] Sex: M C Admitted: Reason For Study: LEG PAIN AND SWELLING RIGHT LEFT CFV is compressible, spontaneous, phasic, CFV is compressible, spontaneous, phasic , competent and demonstrates normal competent, and demonstrates no rmal augmentation. augmentation. FV is compressible, spontaneous, phasic, competent and demonstrates normal augmentation. POP V is compressible, spontaneous, phasic, competent and demonstrates normal au gmentation. T/P Trunk is compressible. PTV is compressible. RT PerV is compressible. SFJ is INCOMPETENT GSV is INCOMPETENT with reflux greater than .5 sec and diameter of .37 x .38 cm SSV is INCOMPETENT with reflux greater than .5 sec and diameter of .31 x .31 cm. Procedure Exam performed in department. Interpretation Summary 1. Right leg no DVT or SVT. 2. Right gsv 4mm with relfux 3. Right lsv 3mm w ith reflux.. Ordering Physician: Alex Bailey Performed By: Esther Ayala RVT Electronical ly signed by: MD Alex Bailey on 09/11/2016 10:13 AM 09/11/16 1013 Date Alex Bailey MD CC: Alex Bailey MD; Aparna Gutiérrez DO Date Dictated: 0838 Date Transcribed: 09/11/16 1013 Supervisor Salvage: Signed 05-Jun-2016 Venous Duplex Lower Extremity Result: Comments: See Note; NOTES: [facility] Cardiovascular Services [address] [place] [address] Venous Duplex US, Unilateral 06/05/16 0849 MR#: [id number] Acct: [id number] Name: LISA BENNETT Rep #: [id number] : 1965 51 From: David Vee MD Attending Dr: Aparna Gutiérrez DO Status: REG CLI Ordering Dr: Aparna Gutiérrez DO Date: 06/05/16 Location: [facility] Sex: M C Admitted: Reason For Study: varicose veins w/inflammation Procedure LEFT Exam performed in department. CFV is compressible, spontaneous, phasic , The exam was diagnostic. competent, and demonstrates normal A prelimina ry report was called and/or faxed augmentation. to Dr. Gutiérrez @ [phone] @ 9:25 am. FV is compressible, spontaneous, phasic, competent and demonstrates normal augmentation. POP V is compressible, spon taneous, phasic, competent and demonstrates normal augmentation. T/P Trunk is compressible. PTV is compressible. LT PerV is compressible. SFJ is incompetent. GSV is incompetent throughout with max diame ter of 1.3 cm x 1.0 cm. SSV is competent. Interpretation Summary Deep veins of the left lower extremity are patent and compressible segmentally. There is no evidence of left lower extremity deep vein t hrombosis. Valvular competence appears intact within the proximal deep venous system on the left . The left greater saphenous vein appears patent and compressible segmentally. The left sapheno-femoral j unction is incompetent . The left greater saphenous vein appears segmentally incompetent. The left small saphenous vein is patent and competent. Ordering Physician: Apanra Gutiérrez Performed By: Rama Isaac, SOFIA, RVT 06/05/16 1016 Date David Vee MD CC: Aparna Gutiérrez DO Date Dictated: 06/05/16 0849 Date Transcribed: 06/05/16 1016 Supervisor Salvage: Signed 09-Feb-2016 Knee 4 or More Views Result: Comments: See Note; NOTES: [facility] Imaging Services [address] [place] [address] Verdana 4d Knee 4 or More Views MR#: [id number] Acct: [id number] Name: Kemi MARQUES Rep #: [id number] : 1965 M 50 From: Ernesto Schmitt MD PCP: Aparna Gutiérrez DO Status: REG CLI Study: Knee 4 or More Views Date of Exam: 02/09/16 Exam# [id number] Ordering Dr: Kiki Gutiérrez ra, DO STUDY: X-RAY - RIGHT KNEE REASON FOR EXAM: Male, 50 years old. Medial knee pain. TECHNIQUE: 5 view(s) of the knee. COMPARISON: None. FINDINGS: Nor mal visualized distal femur. Normal visualized proximal tibia and fibula. Normal proximal tibiofibular articulation. Normal medial femorotibial compartment. Normal lateral femorotibial compartment. Normal patellofemoral articulation. Soft tissue swelling overlying the proximal tibia. IMPRESSION: Soft tissue swelling overlying the proximal tibia. Electron ically Signed: Ernesto Schmitt MD at 12:01 EDT Tel [phone], Service support [phone], RAD/Knee 4 or More Views IMPRESSION: Soft tissue swelling overlying the proximal tibia. Electronically Signed: Ernesto Schmitt MD at 12:01 EDT Tel [phone], Service support [phone], CC: Aparna Gutiérrez DO Supervisor Salvage: Signed 19-Oct-2015 OT D/C Summary Result: Comments: See Note; NOTES: [facility] Occupational Therapy [facility] [address] [place] [address]. [address] [place] [address] Fax REHABILITATIO N SERVICES DISCHARGE SUMMARY MR#: [id number] Acct: [id number] Name: LISA MARQUES Rep #: [id number] : 1965 50 From: Kari Cisneros Referring DrKamilah: Bibiana Sainz MD Status: DIS RCR Eval Date : Discharge Date: 10/19/15 HP - OT D/C Summary It has been my pleasure to treat LISA MARQUES under orders from Bibiana Sainz MD, for the diagnosis of Right MF fracture for a total of 4 visit(s ). Please see the following information for a summary of their discharge status. - Objective Objective/Function: DIP flexion 60 cold,. 70 active and 75 passive after stretch - Goals Patient Goa ls: Regain Mobility, Regain Strength Goal:: Pt will demo increase of 20# in right principal programmer to perform heavier work tasks by d/c. Some progress: Salvage Inspector is now 90#. He is using putty at home. Goal:: Pt will demo R MF ROM=L in order to hold very small objects by d/c. DIP flexion cold is 60 degrees now. Full ROM after stretch. Able to slate picker small objects now. - Plan Plan: D/C - D/C Information Discha rge Comments: Pt states that he is not limited at all now in daily activities. He will continue with putty exercises and using his intrinsic stretcher at home. If there are questions or concerns regar ding this patient's occupational therapy, please fell free to call me at [phone]. Thank you for the referral of this patient. Sincerely, Kari Cisneros <Electronically signed by Kari Cisneros > 10/19/15 1545 CC: Bibiana Sainz MD; Aparna Gutiérrez DO MG Signed 29-Sep-2015 Initial Evaluation - OT Result: Comments: See Note; NOTES: [facility] Occupational Therapy [facility] [facility] [place] [address] Fax REHABILITATIO N SERVICES INITIAL EVALUATION MR#: [id number] Acct: [id number] Name: LISA MARQUES Rep #: [id number] : 1965 50 From: Kari Cisneros Referring DrKamilah: Bibiana Sainz MD Status: REG RCR [facility] Eval Date: Patient's Visit Information LISA MARQUES is a 50 year old M, referred to Occupational Therapy by Bibiana Sainz MD,, with a diagnosis of Right MF fracture. Date of Evaluation: 09/29/15 Occupational Therapist: Kari Cisneros - Visit Plan Frequency: 1-2x /Week Duration: 1-4 weeks - Subjective Right middle finger tip got caught in truck hitch. Crush in jury/fracture. Had stitches. Bothered by stiffness now. Works at [employer]. - ROM DIP: R MF 0/52 L 75 - Strength Salvage Inspector: R 88# L 110# Lateral Pinch: B 28# Tripod Pinch: B 24# - Go als Goal:: Pt will demo increase of 20# in right principal programmer to perform heavier work tasks by d/c. Goal:: Pt will demo R MF ROM=L in order to hold very small objects by d/c. - Rehabilitation Rehabilitatio n Potential: Excellent - Anticipated Interventions Anticipated Interventions: A/AAROM/PROM, Strengthening Thank you for the opportunity to evaluate your patient. For Medicare and Medicare HMO plans, please review the plan of care and approve it. It will need to be FAXED BACK to us at [phone] for Medicare purposes. Please let me know if there are questions or concerns regarding this plan of care. Physician Signature: Date: <Electronically signed by Kari Cisneros > 09/29/15 1029 CC: Bibiana Sainz MD; Aparna Gutiérrez DO MG Signed For Medicare only, by signing this I certify the plan of care. Physicians Signature Date 27-Jun-2015 Emergency Department Summary Result: Comments: See Note; NOTES: [facility] Medical Records Department [address] [place] [address] Emergency Department Summary MR#: [id number] Acct: [id number] Name: LISA MARQUES Rep #: [id number] : 1965 50 From: Diallo Cartwright DO PCP: Aparna Gutiérrez DO Status: DEP ER DATE OF SERVICE: 06/26/2015 CHIEF COMPLAINT: Crush injury. 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 He is unsure of when his last tetanus was. He notes pain over the ____ phalanx of the right lo ng and ring finger. History of hypertension. Nonsmoker. PHYSICAL EXAMINATION: VITAL SIGNS: Afebrile. Vital signs are stable. EXTREMITIES: The patient has a 2 cm T-shaped laceration on the palmar asp ect over the middle phalanx. He has got a very tiny subungual hematoma. He has full range of motion, although ____ painful. The right ring finger shows swelling and tenderness, but no obvious deformi ty and no lacerations. EMERGENCY DEPARTMENT COURSE: Hand films demonstrated a third distal phalanx fracture that is nondisplaced. The patient underwent digital blocking with 1% lidocaine. After adeq uate anesthesia, the wound was washed with Shur-Clens and Betadine and explored, closed using four 4-0 simple interrupted Ethilon sutures. Wounds will be dressed. He will be placed in Alumafoam splint . He will follow up with Workmen's Compensation in 10-14 days for suture removal and for further check of the fracture. His tetanus was updated with Adacel. CLINICAL IMPRESSION: 1. Crush injury to the right long and ring finger. 2. Laceration to the right ring finger, 2 cm with repair. 3. Fracture of the right long distal phalanx. 4. Tetanus update. Diallo Cartwright DO T: TARIQ JOB: [id number] 06/27/15 0003 <Electronically signed by Diallo Cartwright DO> Date Diallo Cartwright DO Cosigner Signature (If Indicated): Date CC: Aparna Gutiérrez DO Date Dictated: 06/26/151641 Date Transcribed: 06/26/151641 Supervisor Salvage: Signed 26-Jun-2015 Discharge Instruction Result: Comments: See Note; NOTES: [facility] Medical Records Department [address] [place] [address] Discharge Instruction 06/26/151630 MR#: [id number] Acct: [id number] Name: LISA MARQUES Rep #: [id number] : 1965 50 From: Diallo Cartwright DO PCP: Aparna Gutiérrez DO Status: REG ER ED Disposition - Plan for ED Patient: Disposition: Home or Assisted Living ief Complaint: Trauma Instructions: ED Crush Injury, Hand/Finger, ED Laceration, Hand Prescriptions: Hydrocodone Bitart/Apap 5-325 [[place] 5/325] 1 - 2 tablet PO Q4H PRN PRN #20 tablet PRN Reason: Pa in Cephalexin [Keflex] 500 mg PO Q6 #28 capsule Referrals: Aparna Gutiérrez DO [Primary Care Provider] - [facility] [GROUP OF PHYSICIANS] - [facility] [[facility]YSICIANS] - Additional Instruct ions: follow up with your doctor in 10 days for suture removal What to do if you have Problems For any increased pain, shortness of breath, bleeding, nausea or vomiting, chest pain, or any unexp ected problems, contact your doctor. Call [facility] ([phone]) or report to the closest Emergency Room. Call 911 if necessary. 06/26/151637 <Electronically signed by Diallo pulido DO> Date Diallo Cartwright DO Cosigner Signature (If Indicated): Date CC: Aparna Gutiérrez DO 26-Jun-2015 Hand Min 3 Views Result: Comments: See Note; NOTES: [facility] Imaging Services [address] [place] [address] Verdana 4d Hand Min 3 Views MR#: [id number] Acct: [id number] Name: LISA MARQUES Rep #: [id number] : 1965 M 50 From: Alton Harding MD PCP: Aparna Gutiérrez DO Status: REG ER Study: Hand Min 3 Views Date of Exam: 06/26/15 Exam# [id number] Ordering Dr: Diallo Cartwright DO STUDY: X-RAY - RIGHT HAND REASON FOR EXAM: Male, 50 years old. Third and fourth digit crush injury at work, distal pain. TECHNIQUE: 3 view(s) of the hand. COMPARISON: None. FINDINGS: Normal visualized carpal bones and carpal articulations. Normal carpometacarpal articulation of the thumb. Normal second through fifth carpometacarpal joints. Normal m etacarpi. Normal metacarpophalangeal (MCP) joints. Normal visualized phalanges and interphalangeal joints. The soft tissue structures are unremarkable. IMPRESSI ON: Normal x-ray examination of the hand. Electronically Signed: Alton Harding MD at 16:52 EST , Service support [phone], 105 RAD/Hand Min 3 Views IMPRESSION: Normal x-ray examination of the hand. Electronically Signed: Alton Harding MD at 16:52 EST , Service support [phone], Fa x [phone] CC: Diallo Cartwright DO; Aparna Gutiérrez DO Supervisor Salvage: Signed 24-Jan-2015 Nuclear Stress Test - Treadmil Result: Comments: See Note; NOTES: [facility] Imaging Services [address] [place] [address] STRESS TEST REPORT 01/24/15 0946 MR#: [id number] Acct: [id number] Name: LISA MARQUES Rep #: [id number] : 1965 49 From: Nathan Anton MD Primary Care: Aparna Gutiérrez DO Status: REG CLI Ordering Dr: Aparna Gutiérrez DO Service Date: 01/24/15 Order Date: 01/24/15 Sex: M C DATE OF SERVICE: 01/24/2015 EXERCISE TOLERANCE TEST: The patient exercised on a [place] protocol for 9 minutes and 30 seconds completing stage 3 and 30 seconds of stage 4 achieving a peak heart rate of 16 2 beats per minute (94% predicted maximum heart rate) and a peak blood pressure of 164/78 mmHg and a peak MET capacity of approximately 10 METS. The baseline ECG demonstrated normal sinus rhythm. Th e peak exercise ECG demonstrated no obvious ECG changes. There was an occasional PVC pretest, during exercise, and recovery. The functional capacity was considered good. The patient had no compla int of chest discomfort during exercise or recovery. The examination was discontinued secondary to leg discomfort. IMPRESSION: 1. Technically adequate (percent predicted maximum heart rate greater than 85%) exercise tolerance test. 2. Peak exercise ECG with no obvious ECG changes. 3. Occasional PVC pretest, during exercise, and recovery. 4. Nuclear images pending. MYOCARDIAL PERFUSION IMAGI NG STUDY: TECHNIQUE: The patient was injected with 15.4 mCi of Tc99m Cardiolite and subsequently rest SPECT Cardiolite nuclear imaging was obtained in the horizontal long, vertical long and short a xes views. The patient exercised on a [place] protocol for 9 minutes and 30 seconds achieving a peak heart rate of 162 beats per minute (94% predicted maximum heart rate) and a peak blood pressure of 16 4/78 mmHg and a peak MET capacity of 10 METS. The patient was injected with 45.5 mCi of Tc99m Cardiolite and subsequently stress SPECT Cardiolite nuclear imaging was obtained in the horizontal long, v ertical long and short axes views. A gated Cardiolite study at peak stress was obtained. INTERPRETATION: Rest and stress SPECT Cardiolite nuclear imaging demonstrate extracardiac/hepatic and gastro intestinal tracer uptake near the inferior segments, which was more prominent on the resting views as opposed to the stress views. There is notation of diminished tracer uptake in portions of the basa l inferoseptal and basal inferior segments, which appears to be somewhat more prominent on the resting views as opposed to the stress views. There was also notation of diminished tracer uptake in the distal anteroseptal segments, which appears to improve and/or normalize following stress. There are similar type findings on the resting and stress polar map images. There was end systolic thickening and brightening. The gated Cardiolite study demonstrates myocardial thickening and inward wall motion. The reported LVEF was 54%. The aforementioned findings appear compatible with the effects of galina fting soft tissue attenuation (diaphragmatic and breast) being more prominent at rest as opposed to stress with no myocardial perfusion changes considered diagnostic for stress induced myocardial isch emia or previous myocardial injury/infarction. IMPRESSION: 1. Rest and stress SPECT Cardiolite nuclear imaging demonstrate myocardial perfusion changes appearing compatible with the effects of shif ting soft tissue attenuation (diaphragmatic and breast) being more prominent at rest as opposed to stress with no myocardial perfusion changes considered diagnostic for stress induced myocardial ische syeda or previous myocardial injury/infarction. 2. The gated Cardiolite study reports an LVEF of 54%. Nathan Anton MD T: NTS JOB: [id number] 01/24/15 1425 <Electronically signed by Huy Anton MD> Date Nathan Anton MD CC: Aparna Gutiérrez DO Date Dictated: 01/24/15945 Date Transcribed: 01/24/15945 Supervisor Salvage: Signed 06-Jan-2015 Echocardiogram Complete Result: Comments: See Note; NOTES: [facility] [address] [place] [address] Echo Complete 01/06/15 1352 MR#: [id number] Acct: [id number] Name: YANG Rep #: [id number] : 1965 49 From: Arcenio Mccloud MD Attending Dr: Aparna Gutiérrez DO Status: REG CLI Ordering Dr: Aparna Gutiérrez DO Date: 01/06/15 Location: [facility] Sex: M C Admitted: Procedure This was a 2D Doppler, Color Flow transthoracic echocardiogram. The study was technically difficult. due to body habitus. Exam performed in department. Left Ventricle Normal LV size. The estimated ejection fraction is 50 %. Left ventricular systolic function is lower limits of normal. No regional wall motion abnormalities noted. Right Ventricle Normal RV size. Normal systolic function. Atr ia Normal left atrium. Normal right atrium. Mitral Valve Normal mitral valve. Tricuspid Valve Normal tricuspid valve. Mild tricuspid valve insufficiency. Aortic Valve The aortic valve is not w ell visualized. Pulmonic Valve The pulmonic valve is not well visualized. Great Vessels Normal aortic root. The pulmonary artery is normal size. Normal inferior vena cava. Pericardium/Pleural N o pericardial effusion. MMode/2D Measurements AND Calculations LVIDd: 5.0 cm IVSd: 1.1 cm Ao root diam: 3.1 cm LAV(MOD-bp): 48.4 ml LVIDs: 3.3 cm LVPWd: 1.0 cm Ao root area: 7.4 cm2 LAV(MOD-bp) Inde xed: 18.9 ml /m2 RVDd: 3.5 cm FS: 33.2 % LA dimension: 3.4 cm LAV(MOD-sp2): 49.0 ml LAV(MOD-sp4): 43.8 ml LA A4 a brendan: 16.9 cm2 RA A4 area: 15.0 cm2 Doppler Measurements AND Calculations MV E max alba: Lat Peak E' Alba: Med Peak E' Alba: Ao V2 max: 48.6 cm/sec 12.6 cm/sec 8.9 cm/sec 100.3 cm/sec MV A max alba: Ao max P.0 mmHg 55.9 cm/sec MV E/A: 0.87 LV V1 max: 92.9 cm/sec PA V2 max: 140.9 cm/sec TR max alba: 201.3 cm/sec E/E' lat: 3.8 LV V1 max P.5 mmHg PA max P.0 mmHg TR max P.3 mmHg E/E' med: 5.4 Interpretation Summa ry Normal LV size. The estimated ejection fraction is 50 %. Left ventricular systolic function is lower limits of normal. Mild tricuspid valve insufficiency. The study was technically difficult. Ordering Physician: Aparna Gutiérrez Performed By: Rama Isaac, SOFIA, RVT 01/06/15 1506 Date Arcenio Mccloud MD CC: Aparna Gutiérrez DO Date Dictated: 01/06/15 1352 Date Transcri bed: 01/06/15 1506 Supervisor Salvage: Signed 13-Sep-2013 Chest PA and Lateral Result: Comments: See Note; NOTES: [facility] Imaging Services [address] [place] [address] Radiology Report MR#: [id number] Acct: [id number] Name: LISA MARQUES Rep #: [id number] : 1965 M 48 From: Ernesto Schmitt MD PCP: Status: REG CLI Study: Chest PA and Lateral Date of Exam: 09/13/13 Exam# [id number] Ordering Dr: Aparna Gutiérrez DO STUDY: X-RAY CHEST REASO N FOR EXAM: Male, 48 years old. 5 day history of cough and fever. TECHNIQUE: PA and lateral views of the chest. COMPARISON: Comparison is made with prior study dated November 02, 2007. FINDINGS: Calcified old granulomatous disease. Mild increased markings in the lingular segment of the left upper lobe suggestive of mild scarring and/or atelectasis. There is no demonstrated pleural abnormality. Normal size heart. Normal mediastinum and farhad. Normal visualized pulmonary arteries. Normal visualized aortic arch and descending thoracic aorta. Normal visua lized thoracic spine. Normal visualized ribs, clavicles, and shoulders. There is no demonstrated abnormality of the visualized soft tissue structures of the upper abdomen. IMPRESSION: Findings suggestive of scarring and/or atelectasis in the lingular segment of the left upper lobe. Electronically Signed: Ernesto Schmitt M.D. at 15:13 EST , Service support [phone], CC: Aparna Gutiérrez DO Supervisor Salvage: Signed Immunization Name Dates Details Pneumococcal (2 years and up) on: 11-Dec-2007 Comments: Lot #: [id number] date: 05/28Amount given: 0.5 mlRoute: IMSite given: Right deltoidGiven by: Danish Stuart LPN Family History Unknown Family Member Name Dates Details Brother 1 Comments: psoriasis arthritis Status: Active Father Comments: living has farmers lung- Status: Active Mother Comments: living with lupus and psoriatic arthritis Status: Active Social History Name Dates Details Caffeine Use Comments: 3 cups qd Status: Active Exercise History: Does not exercise. Status: Active Living Situation Comments: lives with spouse Status: Active Non Drinker/No Alcohol Use Status: Active Non Smoker/No Tobacco Use Status: Active Tobacco use: Never smoker. Comments: updated 05-29-11, 06-20-11, 07-29-11 Status: Active Smoking Status Name Dates Details Never smoker Vital Signs Date Test Result Details :27 Temperature 97.9 f Comments: Method: Temporal Pulse 74 /min Comments: Pattern: Regular Respiration Rate 20 /min Comments: Pattern: Unlabored O2 SAT 98 % Comments: Room air BP Systolic 140 mm[Hg] Comments: Patient Position: Sitting; Cuff Location: Left Arm; Cuff Size: Large BP Diastolic 84 mm[Hg] Comments: Patient Position: Sitting; Cuff Location: Left Arm; Cuff Size: Large Weight 301 lb Height 72 in Body Mass Index Calculated 40.82 kg/m2 Body Surface Area Calculated 2.53 m2 :07 Temperature 97.8 f Comments: Method: Temporal Pulse 79 /min Comments: Pattern: Regular Respiration Rate 16 /min Comments: Pattern: Unlabored BP Systolic 128 mm[Hg] Comments: Patient Position: Sitting; Cuff Location: Left Arm; Cuff Size: Standard BP Diastolic 78 mm[Hg] Comments: Patient Position: Sitting; Cuff Location: Left Arm; Cuff Size: Standard Weight 313 lb Height 70.75 in Body Mass Index Calculated 43.96 kg/m2 Body Surface Area Calculated 2.54 m2 :26 Temperature 98.4 f Comments: Method: Temporal Pulse 80 /min Comments: Pattern: Regular Respiration Rate 16 /min Comments: Pattern: Unlabored BP Systolic 120 mm[Hg] Comments: Patient Position: Sitting; Cuff Location: Left Arm; Cuff Size: Standard BP Diastolic 78 mm[Hg] Comments: Patient Position: Sitting; Cuff Location: Left Arm; Cuff Size: Standard Weight 307 lb Height 70.75 in Body Mass Index Calculated 43.12 kg/m2 Body Surface Area Calculated 2.52 m2 :08 Temperature 97.3 f Comments: Method: Temporal Pulse 79 /min Comments: Pattern: Regular Respiration Rate 16 /min Comments: Pattern: Unlabored BP Systolic 120 mm[Hg] Comments: Patient Position: Sitting; Cuff Location: Left Arm; Cuff Size: Standard BP Diastolic 80 mm[Hg] Comments: Patient Position: Sitting; Cuff Location: Left Arm; Cuff Size: Standard Weight 307 lb Height 70.75 in Body Mass Index Calculated 43.12 kg/m2 Body Surface Area Calculated 2.52 m2 :57 Temperature 97.7 f Comments: Method: Temporal Pulse 79 /min Comments: Pattern: Regular Respiration Rate 16 /min Comments: Pattern: Unlabored BP Systolic 118 mm[Hg] Comments: Patient Position: Sitting; Cuff Location: Left Arm; Cuff Size: Standard BP Diastolic 80 mm[Hg] Comments: Patient Position: Sitting; Cuff Location: Left Arm; Cuff Size: Standard Weight 297 lb Height 70.75 in Body Mass Index Calculated 41.72 kg/m2 Body Surface Area Calculated 2.49 m2 :10 Comments: vision with correction-both eyes 2015right eye 20/20left eye 20/25hearing wnl Temperature 97.9 f Pulse 89 /min Comments: Pattern: Regular Respiration Rate 16 /min Comments: Pattern: Unlabored O2 SAT 95 % Comments: Room air BP Systolic 118 mm[Hg] Comments: Patient Position: Sitting; Cuff Location: Left Arm; Cuff Size: Standard BP Diastolic 76 mm[Hg] Comments: Patient Position: Sitting; Cuff Location: Left Arm; Cuff Size: Standard Weight 294 lb Height 70.75 in Body Mass Index Calculated 41.29 kg/m2 Body Surface Area Calculated 2.48 m2 :46 Temperature 98.2 f Comments: Method: Temporal Pulse 92 /min Comments: Pattern: Regular Respiration Rate 16 /min Comments: Pattern: Unlabored O2 SAT 98 % Comments: Room air BP Systolic 132 mm[Hg] Comments: Patient Position: Sitting; Cuff Location: Left Arm; Cuff Size: Standard BP Diastolic 80 mm[Hg] Comments: Patient Position: Sitting; Cuff Location: Left Arm; Cuff Size: Standard Weight 293 lb Height 70.75 in Body Mass Index Calculated 41.15 kg/m2 Body Surface Area Calculated 2.47 m2 :51 Temperature 97.8 f Comments: Method: Temporal Pulse 86 /min Comments: Pattern: Regular Respiration Rate 20 /min Comments: Pattern: Unlabored O2 SAT 97 % Comments: Room air BP Systolic 130 mm[Hg] Comments: Patient Position: Sitting; Cuff Location: Left Arm; Cuff Size: Large BP Diastolic 90 mm[Hg] Comments: Patient Position: Sitting; Cuff Location: Left Arm; Cuff Size: Large Weight 300 lb Height 70.75 in Body Mass Index Calculated 42.14 kg/m2 Body Surface Area Calculated 2.5 m2 :46 Temperature 97.4 f Comments: Method: Temporal Pulse 83 /min Comments: Pattern: Regular Respiration Rate 16 /min Comments: Pattern: Unlabored BP Systolic 130 mm[Hg] Comments: Patient Position: Sitting; Cuff Location: Left Arm; Cuff Size: Standard BP Diastolic 70 mm[Hg] Comments: Patient Position: Sitting; Cuff Location: Left Arm; Cuff Size: Standard Weight 300 lb Height 70.75 in Body Mass Index Calculated 42.14 kg/m2 Body Surface Area Calculated 2.5 m2 :18 Temperature 96.9 f Comments: Method: Temporal Pulse 70 /min Comments: Pattern: Regular Respiration Rate 16 /min Comments: Pattern: Unlabored O2 SAT 95 % Comments: Room air BP Systolic 124 mm[Hg] Comments: Patient Position: Sitting; Cuff Location: Left Arm; Cuff Size: Large BP Diastolic 76 mm[Hg] Comments: Patient Position: Sitting; Cuff Location: Left Arm; Cuff Size: Large Weight 298 lb Height 70.75 in Body Mass Index Calculated 41.86 kg/m2 Body Surface Area Calculated 2.49 m2 :14 Temperature 97.2 f Comments: Method: Temporal Pulse 76 /min Comments: Pattern: Regular Respiration Rate 16 /min Comments: Pattern: Unlabored O2 SAT 95 % Comments: Room air BP Systolic 122 mm[Hg] Comments: Patient Position: Sitting; Cuff Location: Left Arm; Cuff Size: Large BP Diastolic 86 mm[Hg] Comments: Patient Position: Sitting; Cuff Location: Left Arm; Cuff Size: Large Weight 296 lb Height 70.75 in Body Mass Index Calculated 41.58 kg/m2 Body Surface Area Calculated 2.49 m2 :08 Temperature 97.3 f Comments: Method: Temporal Pulse 82 /min Comments: Pattern: Regular Respiration Rate 17 /min Comments: Pattern: Unlabored O2 SAT 94 % Comments: Room air BP Systolic 124 mm[Hg] Comments: Patient Position: Sitting; Cuff Location: Left Arm; Cuff Size: Standard BP Diastolic 86 mm[Hg] Comments: Patient Position: Sitting; Cuff Location: Left Arm; Cuff Size: Standard Weight 298 lb Height 70.75 in Body Mass Index Calculated 41.86 kg/m2 Body Surface Area Calculated 2.49 m2 :33 Temperature 98 f Pulse 80 /min Comments: Pattern: Regular Respiration Rate 16 /min Comments: Pattern: Unlabored O2 SAT 98 % Comments: Room air BP Systolic 132 mm[Hg] Comments: Patient Position: Sitting; Cuff Location: Left Arm; Cuff Size: Standard BP Diastolic 78 mm[Hg] Comments: Patient Position: Sitting; Cuff Location: Left Arm; Cuff Size: Standard Weight 298 lb Height 70.75 in Body Mass Index Calculated 41.86 kg/m2 Body Surface Area Calculated 2.49 m2 :11 Temperature 97.2 f Comments: Method: Temporal Pulse 74 /min Comments: Pattern: Regular Respiration Rate 16 /min Comments: Pattern: Unlabored O2 SAT 94 % Comments: Room air BP Systolic 116 mm[Hg] Comments: Patient Position: Sitting; Cuff Location: Left Arm; Cuff Size: Large BP Diastolic 74 mm[Hg] Comments: Patient Position: Sitting; Cuff Location: Left Arm; Cuff Size: Large Weight 299 lb Height 70.75 in Body Mass Index Calculated 42 kg/m2 Body Surface Area Calculated 2.5 m2 :12 Temperature 97.2 f Comments: Method: Temporal Pulse 88 /min Comments: Pattern: Regular Respiration Rate 16 /min Comments: Pattern: Unlabored BP Systolic 106 mm[Hg] Comments: Patient Position: Sitting; Cuff Location: Left Arm; Cuff Size: Large BP Diastolic 78 mm[Hg] Comments: Patient Position: Sitting; Cuff Location: Left Arm; Cuff Size: Large Weight 304 lb Height 70.75 in Body Mass Index Calculated 42.7 kg/m2 Body Surface Area Calculated 2.51 m2 :59 Temperature 97.4 f Comments: Method: Temporal Pulse 82 /min Comments: Pattern: Regular Respiration Rate 15 /min Comments: Pattern: Unlabored BP Systolic 122 mm[Hg] Comments: Patient Position: Sitting; Cuff Location: Left Arm; Cuff Size: Large BP Diastolic 90 mm[Hg] Comments: Patient Position: Sitting; Cuff Location: Left Arm; Cuff Size: Large Weight 304 lb Height 70.75 in Body Mass Index Calculated 42.7 kg/m2 Body Surface Area Calculated 2.51 m2 :50 Temperature 97.4 f Comments: Method: Temporal Pulse 82 /min Comments: Pattern: Regular Respiration Rate 16 /min Comments: Pattern: Unlabored O2 SAT 94 % Comments: Room air BP Systolic 118 mm[Hg] Comments: Patient Position: Sitting; Cuff Location: Left Arm; Cuff Size: Large BP Diastolic 82 mm[Hg] Comments: Patient Position: Sitting; Cuff Location: Left Arm; Cuff Size: Large Weight 304 lb Height 70.75 in Body Mass Index Calculated 42.7 kg/m2 Body Surface Area Calculated 2.51 m2 :22 Temperature 97.8 f Comments: Method: Temporal Pulse 80 /min Comments: Pattern: Regular Respiration Rate 15 /min Comments: Pattern: Unlabored BP Systolic 106 mm[Hg] Comments: Patient Position: Sitting; Cuff Location: Left Arm; Cuff Size: Large BP Diastolic 78 mm[Hg] Comments: Patient Position: Sitting; Cuff Location: Left Arm; Cuff Size: Large Weight 294 lb Height 70.75 in Body Mass Index Calculated 41.29 kg/m2 Body Surface Area Calculated 2.48 m2 :59 Temperature 97.4 f Pulse 77 /min Comments: Pattern: Regular Respiration Rate 16 /min Comments: Pattern: Unlabored O2 SAT 95 % Comments: Room air BP Systolic 138 mm[Hg] Comments: Patient Position: Sitting; Cuff Location: Left Arm; Cuff Size: Standard BP Diastolic 86 mm[Hg] Comments: Patient Position: Sitting; Cuff Location: Left Arm; Cuff Size: Standard Weight 294.5 lb Height 70.75 in Body Mass Index Calculated 41.36 kg/m2 Body Surface Area Calculated 2.48 m2 :38 Temperature 98.3 f Comments: Method: Oral Pulse 82 /min Comments: Pattern: Regular Respiration Rate 16 /min Comments: Pattern: Unlabored BP Systolic 104 mm[Hg] Comments: Patient Position: Sitting; Cuff Location: Left Arm; Cuff Size: Large BP Diastolic 80 mm[Hg] Comments: Patient Position: Sitting; Cuff Location: Left Arm; Cuff Size: Large Weight 296 lb Height 70.75 in Body Mass Index Calculated 41.58 kg/m2 Body Surface Area Calculated 2.49 m2 :14 Temperature 97.5 f Comments: Method: Oral Pulse 64 /min Comments: Pattern: Regular Respiration Rate 16 /min Comments: Pattern: Unlabored BP Systolic 128 mm[Hg] Comments: Patient Position: Sitting; Cuff Location: Left Arm; Cuff Size: Large BP Diastolic 74 mm[Hg] Comments: Patient Position: Sitting; Cuff Location: Left Arm; Cuff Size: Large Weight 292 lb Height 70.75 in Body Mass Index Calculated 41.01 kg/m2 Body Surface Area Calculated 2.47 m2 :06 Comments: Va- -1 OU Temperature 98.6 f Comments: Method: Oral Pulse 80 /min Comments: Pattern: Regular Respiration Rate 17 /min O2 SAT 98 % Comments: Room air BP Systolic 122 mm[Hg] Comments: Patient Position: Sitting; Cuff Location: Left Arm; Cuff Size: Standard BP Diastolic 80 mm[Hg] Comments: Patient Position: Sitting; Cuff Location: Left Arm; Cuff Size: Standard Weight 291 lb Height 70.75 in Body Mass Index Calculated 40.87 kg/m2 Body Surface Area Calculated 2.47 m2 :08 Temperature 96.8 f Pulse 74 /min Comments: Pattern: Regular Respiration Rate 16 /min Comments: Pattern: Unlabored BP Systolic 112 mm[Hg] Comments: Patient Position: Sitting; Cuff Location: Left Arm; Cuff Size: Large BP Diastolic 80 mm[Hg] Comments: Patient Position: Sitting; Cuff Location: Left Arm; Cuff Size: Large Weight 287 lb Height 70.75 in Body Mass Index Calculated 40.31 kg/m2 Body Surface Area Calculated 2.45 m2 :03 Temperature 96.9 f Comments: Method: Oral Pulse 72 /min Comments: Pattern: Regular Respiration Rate 16 /min Comments: Pattern: Unlabored O2 SAT 95 % Comments: Room air BP Systolic 120 mm[Hg] Comments: Patient Position: Sitting; Cuff Location: Left Arm; Cuff Size: Standard BP Diastolic 72 mm[Hg] Comments: Patient Position: Sitting; Cuff Location: Left Arm; Cuff Size: Standard Weight 288 lb Height 70.75 in Body Mass Index Calculated 40.45 kg/m2 Body Surface Area Calculated 2.46 m2 :24 Temperature 98.1 f Comments: Method: Oral Pulse 89 /min Comments: Pattern: Regular Respiration Rate 18 /min Comments: Pattern: Unlabored O2 SAT 94 % Comments: Room air BP Systolic 118 mm[Hg] Comments: Patient Position: Sitting; Cuff Location: Left Arm; Cuff Size: Standard BP Diastolic 78 mm[Hg] Comments: Patient Position: Sitting; Cuff Location: Left Arm; Cuff Size: Standard Weight 288 lb Height 70.75 in Body Mass Index Calculated 40.45 kg/m2 Body Surface Area Calculated 2.46 m2 [id number] Temperature 96.8 f Pulse 76 /min Comments: Pattern: Regular Respiration Rate 18 /min Comments: Pattern: Unlabored BP Systolic 112 mm[Hg] Comments: Patient Position: Sitting; Cuff Location: Left Arm; Cuff Size: Large BP Diastolic 74 mm[Hg] Comments: Patient Position: Sitting; Cuff Location: Left Arm; Cuff Size: Large Weight 301 lb Height 70.75 in Body Mass Index Calculated 42.28 kg/m2 Body Surface Area Calculated 2.5 m2 :15 Temperature 99.3 f Pulse 76 /min Comments: Pattern: Regular Respiration Rate 18 /min Comments: Pattern: Unlabored BP Systolic 108 mm[Hg] Comments: Patient Position: Sitting; Cuff Location: Left Arm; Cuff Size: Large BP Diastolic 80 mm[Hg] Comments: Patient Position: Sitting; Cuff Location: Left Arm; Cuff Size: Large Weight 294 lb Height 70.75 in Body Mass Index Calculated 41.29 kg/m2 Body Surface Area Calculated 2.48 m2 :15 Temperature 96.9 f Pulse 72 /min Comments: Pattern: Regular Respiration Rate 16 /min Comments: Pattern: Unlabored BP Systolic 110 mm[Hg] Comments: Patient Position: Sitting; Cuff Location: Left Arm; Cuff Size: Large BP Diastolic 76 mm[Hg] Comments: Patient Position: Sitting; Cuff Location: Left Arm; Cuff Size: Large Weight 295 lb Height 70.75 in Body Mass Index Calculated 41.43 kg/m2 Body Surface Area Calculated 2.48 m2 :33 Temperature 97.6 f Pulse 80 /min Comments: Pattern: Regular Respiration Rate 16 /min Comments: Pattern: Unlabored BP Systolic 120 mm[Hg] Comments: Patient Position: Sitting; Cuff Location: Left Arm; Cuff Size: Large BP Diastolic 84 mm[Hg] Comments: Patient Position: Sitting; Cuff Location: Left Arm; Cuff Size: Large Weight 299 lb Height 70.75 in Body Mass Index Calculated 42 kg/m2 Body Surface Area Calculated 2.5 m2 :36 Temperature 96.7 f Pulse 88 /min Comments: Pattern: Regular Respiration Rate 16 /min Comments: Pattern: Unlabored BP Systolic 106 mm[Hg] Comments: Patient Position: Sitting; Cuff Location: Left Arm; Cuff Size: Large BP Diastolic 72 mm[Hg] Comments: Patient Position: Sitting; Cuff Location: Left Arm; Cuff Size: Large Weight 297 lb Height 70.75 in Body Mass Index Calculated 41.72 kg/m2 Body Surface Area Calculated 2.49 m2 :06 Temperature 96.8 f Pulse 76 /min Comments: Pattern: Regular Respiration Rate 16 /min Comments: Pattern: Unlabored BP Systolic 118 mm[Hg] Comments: Patient Position: Sitting; Cuff Location: Left Arm; Cuff Size: Large BP Diastolic 70 mm[Hg] Comments: Patient Position: Sitting; Cuff Location: Left Arm; Cuff Size: Large Weight 295 lb Height 70.75 in Body Mass Index Calculated 41.43 kg/m2 Body Surface Area Calculated 2.48 m2 :22 Temperature 98.1 f Pulse 80 /min Comments: Pattern: Regular Respiration Rate 18 /min Comments: Pattern: Unlabored BP Systolic 114 mm[Hg] Comments: Patient Position: Sitting; Cuff Location: Left Arm; Cuff Size: Large BP Diastolic 90 mm[Hg] Comments: Patient Position: Sitting; Cuff Location: Left Arm; Cuff Size: Large Weight 301 lb Height 70.75 in Body Mass Index Calculated 42.28 kg/m2 Body Surface Area Calculated 2.5 m2 : Temperature 98.5 f Pulse 84 /min Comments: Pattern: Regular Respiration Rate 18 /min Comments: Pattern: Unlabored BP Systolic 128 mm[Hg] Comments: Patient Position: Sitting; Cuff Location: Left Arm; Cuff Size: Standard BP Diastolic 86 mm[Hg] Comments: Patient Position: Sitting; Cuff Location: Left Arm; Cuff Size: Standard Weight 297 lb Height 70.75 in Body Mass Index Calculated 41.72 kg/m2 Body Surface Area Calculated 2.49 m2 :06 Temperature 96.7 f Pulse 80 /min Comments: Pattern: Regular Respiration Rate 16 /min Comments: Pattern: Unlabored BP Systolic 124 mm[Hg] Comments: Patient Position: Sitting; Cuff Location: Left Arm; Cuff Size: Large BP Diastolic 86 mm[Hg] Comments: Patient Position: Sitting; Cuff Location: Left Arm; Cuff Size: Large Weight 295 lb Height 70.75 in Body Mass Index Calculated 41.43 kg/m2 Body Surface Area Calculated 2.48 m2 :12 Temperature 98.1 f Comments: Method: Oral Pulse 64 /min Comments: Pattern: Regular Respiration Rate 20 /min Comments: Pattern: Unlabored BP Systolic 128 mm[Hg] Comments: Patient Position: Sitting; Cuff Location: Left Arm; Cuff Size: Standard BP Diastolic 78 mm[Hg] Comments: Patient Position: Sitting; Cuff Location: Left Arm; Cuff Size: Standard Weight 295 lb Height 70.75 in Body Mass Index Calculated 41.43 kg/m2 Body Surface Area Calculated 2.48 m2 :31 Temperature 97.9 f Comments: Method: Oral Pulse 72 /min Comments: Pattern: Regular Respiration Rate 16 /min Comments: Pattern: Unlabored BP Systolic 142 mm[Hg] Comments: Patient Position: Sitting; Cuff Location: Left Arm; Cuff Size: Standard BP Diastolic 80 mm[Hg] Comments: Patient Position: Sitting; Cuff Location: Left Arm; Cuff Size: Standard Weight 297 lb Height 70.75 in Body Mass Index Calculated 41.72 kg/m2 Body Surface Area Calculated 2.49 m2 :51 Temperature 98.2 f Comments: Method: Oral Pulse 74 /min Comments: Pattern: Regular Respiration Rate 18 /min Comments: Pattern: Unlabored BP Systolic 120 mm[Hg] Comments: Patient Position: Sitting; Cuff Location: Left Arm; Cuff Size: Standard BP Diastolic 80 mm[Hg] Comments: Patient Position: Sitting; Cuff Location: Left Arm; Cuff Size: Standard Weight 297 lb Height 70.75 in Body Mass Index Calculated 41.72 kg/m2 Body Surface Area Calculated 2.49 m2 :08 Temperature 97.6 f Comments: Method: Oral Pulse 70 /min Comments: Pattern: Regular Respiration Rate 18 /min Comments: Pattern: Unlabored BP Systolic 120 mm[Hg] Comments: Patient Position: Sitting; Cuff Location: Left Arm; Cuff Size: Standard BP Diastolic 80 mm[Hg] Comments: Patient Position: Sitting; Cuff Location: Left Arm; Cuff Size: Standard Weight 293 lb Height 70.75 in Body Mass Index Calculated 41.15 kg/m2 Body Surface Area Calculated 2.47 m2 :14 Temperature 97.9 f Comments: Method: Oral Pulse 68 /min Comments: Pattern: Regular Respiration Rate 18 /min Comments: Pattern: Unlabored BP Systolic 124 mm[Hg] Comments: Patient Position: Sitting; Cuff Location: Left Arm; Cuff Size: Standard BP Diastolic 78 mm[Hg] Comments: Patient Position: Sitting; Cuff Location: Left Arm; Cuff Size: Standard Weight 293 lb Height 70.75 in Body Mass Index Calculated 41.15 kg/m2 Body Surface Area Calculated 2.47 m2 :12 BP Systolic 110 mm[Hg] Comments: Patient Position: Sitting BP Diastolic 82 mm[Hg] Comments: Patient Position: Sitting :49 Temperature 97.8 f Comments: Method: Oral Pulse 80 /min Comments: Pattern: Regular Respiration Rate 16 /min Comments: Pattern: Unlabored BP Systolic 116 mm[Hg] Comments: Patient Position: Sitting; Cuff Location: Left Arm; Cuff Size: Standard BP Diastolic 88 mm[Hg] Comments: Patient Position: Sitting; Cuff Location: Left Arm; Cuff Size: Standard Weight 285 lb Height 70.75 in Body Mass Index Calculated 40.03 kg/m2 Body Surface Area Calculated 2.45 m2 :11 Temperature 97.9 f Comments: Method: Oral Pulse 80 /min Comments: Pattern: Regular Respiration Rate 16 /min Comments: Pattern: Unlabored O2 SAT 94 % Comments: Room air BP Systolic 128 mm[Hg] Comments: Patient Position: Sitting; Cuff Location: Left Arm; Cuff Size: Standard BP Diastolic 84 mm[Hg] Comments: Patient Position: Sitting; Cuff Location: Left Arm; Cuff Size: Standard Weight 282 lb Height 70.25 in Body Mass Index Calculated 40.17 kg/m2 Body Surface Area Calculated 2.42 m2 :36 Temperature 98.1 f Pulse 82 /min Comments: Pattern: Regular Respiration Rate 18 /min Comments: Pattern: Unlabored BP Systolic 110 mm[Hg] Comments: Patient Position: Sitting; Cuff Location: Left Arm; Cuff Size: Large BP Diastolic 64 mm[Hg] Comments: Patient Position: Sitting; Cuff Location: Left Arm; Cuff Size: Large Weight 282 lb Height 70.25 in Body Mass Index Calculated 40.17 kg/m2 Body Surface Area Calculated 2.42 m2 :48 Temperature 98.5 f Pulse 80 /min Comments: Pattern: Regular Respiration Rate 18 /min Comments: Pattern: Unlabored BP Systolic 104 mm[Hg] Comments: Patient Position: Sitting; Cuff Location: Left Arm; Cuff Size: Large BP Diastolic 72 mm[Hg] Comments: Patient Position: Sitting; Cuff Location: Left Arm; Cuff Size: Large Weight 284 lb :52 Temperature 98.2 f Comments: Method: Oral Pulse 84 /min Comments: Pattern: Regular Respiration Rate 18 /min Comments: Pattern: Unlabored BP Systolic 130 mm[Hg] Comments: Patient Position: Sitting; Cuff Location: Left Arm; Cuff Size: Standard BP Diastolic 82 mm[Hg] Comments: Patient Position: Sitting; Cuff Location: Left Arm; Cuff Size: Standard Weight 285 lb :09 Pulse 76 /min Comments: Pattern: Regular Respiration Rate 18 /min Comments: Pattern: Unlabored BP Systolic 116 mm[Hg] Comments: Patient Position: Sitting; Cuff Location: Left Arm; Cuff Size: Standard BP Diastolic 78 mm[Hg] Comments: Patient Position: Sitting; Cuff Location: Left Arm; Cuff Size: Standard Weight 283 lb :41 Temperature 98.4 f Comments: Method: Oral Pulse 78 /min Comments: Pattern: Regular Respiration Rate 18 /min Comments: Pattern: Unlabored BP Systolic 128 mm[Hg] Comments: Patient Position: Sitting; Cuff Location: Left Arm; Cuff Size: Large BP Diastolic 78 mm[Hg] Comments: Patient Position: Sitting; Cuff Location: Left Arm; Cuff Size: Large Weight 287.3125 lb :12 Temperature 97.4 f Pulse 82 /min Comments: Pattern: Regular Respiration Rate 18 /min Comments: Pattern: Unlabored BP Systolic 126 mm[Hg] Comments: Patient Position: Sitting; Cuff Location: Left Arm; Cuff Size: Large BP Diastolic 86 mm[Hg] Comments: Patient Position: Sitting; Cuff Location: Left Arm; Cuff Size: Large Weight 297 lb :40 BP Systolic 130 mm[Hg] Comments: Patient Position: Sitting BP Diastolic 80 mm[Hg] Comments: Patient Position: Sitting :24 Pulse 72 /min Comments: Pattern: Regular Respiration Rate 16 /min Comments: Pattern: Unlabored BP Systolic 140 mm[Hg] Comments: Patient Position: Sitting; Cuff Location: Left Arm; Cuff Size: Large BP Diastolic 80 mm[Hg] Comments: Patient Position: Sitting; Cuff Location: Left Arm; Cuff Size: Large Weight 297 lb Height 72 in Body Mass Index Calculated 40.28 kg/m2 Body Surface Area Calculated 2.52 m2 :02 BP Systolic 130 mm[Hg] Comments: Patient Position: Sitting; Cuff Location: Undefined; Cuff Size: Undefined BP Diastolic 78 mm[Hg] Comments: Patient Position: Sitting; Cuff Location: Undefined; Cuff Size: Undefined Weight 0 lb Height 0 in Head Circumference 0.00 cm :35 Temperature 98.3 f Comments: Method: Undefined Pulse 80 /min Comments: Pattern: Regular Respiration Rate 18 /min Comments: Pattern: Undefined BP Systolic 126 mm[Hg] Comments: Patient Position: Sitting; Cuff Location: Right Arm; Cuff Size: Standard BP Diastolic 88 mm[Hg] Comments: Patient Position: Sitting; Cuff Location: Right Arm; Cuff Size: Standard Weight 295 lb Height 71 in Body Mass Index Calculated 41.14 kg/m2 Body Surface Area Calculated 2.49 m2 Head Circumference 0.00 cm :33 Temperature 97.2 f Comments: Method: Oral Pulse 68 /min Comments: Pattern: Regular Respiration Rate 20 /min Comments: Pattern: Unlabored BP Systolic 120 mm[Hg] Comments: Patient Position: Sitting; Cuff Location: Left Arm; Cuff Size: Large BP Diastolic 78 mm[Hg] Comments: Patient Position: Sitting; Cuff Location: Left Arm; Cuff Size: Large Weight 294 lb Height 0 in Head Circumference 0.00 cm :28 Temperature 98 f Comments: Method: Oral Pulse 72 /min Comments: Pattern: Regular Respiration Rate 20 /min Comments: Pattern: Unlabored BP Systolic 120 mm[Hg] Comments: Patient Position: Sitting; Cuff Location: Left Arm; Cuff Size: Large BP Diastolic 82 mm[Hg] Comments: Patient Position: Sitting; Cuff Location: Left Arm; Cuff Size: Large Weight 295 lb Height 70.25 in Body Mass Index Calculated 42.03 kg/m2 Body Surface Area Calculated 2.47 m2 Head Circumference 0.00 cm :26 Temperature 96.7 f Comments: Method: Undefined Pulse 80 /min Comments: Pattern: Regular Respiration Rate 18 /min Comments: Pattern: Undefined BP Systolic 128 mm[Hg] Comments: Patient Position: Sitting; Cuff Location: Right Arm; Cuff Size: Standard BP Diastolic 80 mm[Hg] Comments: Patient Position: Sitting; Cuff Location: Right Arm; Cuff Size: Standard Weight 289 lb Height 0 in Head Circumference 0.00 cm :58 Temperature 97.8 f Comments: Method: Undefined Pulse 76 /min Comments: Pattern: Regular Respiration Rate 18 /min Comments: Pattern: Undefined BP Systolic 128 mm[Hg] Comments: Patient Position: Sitting; Cuff Location: Right Arm; Cuff Size: Standard BP Diastolic 82 mm[Hg] Comments: Patient Position: Sitting; Cuff Location: Right Arm; Cuff Size: Standard Weight 296 lb Height 0 in Head Circumference 0.00 cm : Temperature 96.7 f Comments: Method: Oral Pulse 100 /min Comments: Pattern: Regular Respiration Rate 18 /min Comments: Pattern: Unlabored BP Systolic 124 mm[Hg] Comments: Patient Position: Sitting; Cuff Location: Left Arm; Cuff Size: Large BP Diastolic 74 mm[Hg] Comments: Patient Position: Sitting; Cuff Location: Left Arm; Cuff Size: Large Weight 305.25 lb Height 72 in Body Mass Index Calculated 41.4 kg/m2 Body Surface Area Calculated 2.55 m2 Head Circumference 0.00 cm :47 Temperature 98.7 f Comments: Method: Oral Pulse 88 /min Comments: Pattern: Regular Respiration Rate 18 /min Comments: Pattern: Unlabored BP Systolic 122 mm[Hg] Comments: Patient Position: Sitting; Cuff Location: Right Arm; Cuff Size: Large BP Diastolic 74 mm[Hg] Comments: Patient Position: Sitting; Cuff Location: Right Arm; Cuff Size: Large Weight 299 lb Height 72 in Body Mass Index Calculated 40.55 kg/m2 Body Surface Area Calculated 2.53 m2 Head Circumference 0.00 cm :52 O2 SAT 98 % Comments: Room air Weight 0 lb Height 0 in Head Circumference 0.00 cm :26 O2 SAT 91 % Comments: Room air Weight 0 lb Height 0 in Head Circumference 0.00 cm :23 Respiration Rate 100 /min Comments: Pattern: Undefined Weight 0 lb Height 0 in Head Circumference 0.00 cm : Temperature 98.5 f Comments: Method: Oral Pulse 88 /min Comments: Pattern: Regular Respiration Rate 18 /min Comments: Pattern: Unlabored BP Systolic 106 mm[Hg] Comments: Patient Position: Sitting; Cuff Location: Left Arm; Cuff Size: Large BP Diastolic 74 mm[Hg] Comments: Patient Position: Sitting; Cuff Location: Left Arm; Cuff Size: Large Weight 299 lb Height 0 in Head Circumference 0.00 cm :57 Pulse 92 /min Comments: Pattern: Regular Respiration Rate 16 /min Comments: Pattern: Undefined BP Systolic 128 mm[Hg] Comments: Patient Position: Sitting; Cuff Location: Right Arm; Cuff Size: Standard BP Diastolic 96 mm[Hg] Comments: Patient Position: Sitting; Cuff Location: Right Arm; Cuff Size: Standard Weight 299 lb Height 0 in Head Circumference 0.00 cm :48 Temperature 98.9 f Comments: Method: Undefined Pulse 112 /min Comments: Pattern: Regular Respiration Rate 20 /min Comments: Pattern: Undefined BP Systolic 128 mm[Hg] Comments: Patient Position: Sitting; Cuff Location: Right Arm; Cuff Size: Large BP Diastolic 80 mm[Hg] Comments: Patient Position: Sitting; Cuff Location: Right Arm; Cuff Size: Large Weight 0 lb Height 0 in Head Circumference 0.00 cm :32 Temperature 97.5 f Comments: Method: Undefined Pulse 92 /min Comments: Pattern: Regular Respiration Rate 18 /min Comments: Pattern: Undefined BP Systolic 122 mm[Hg] Comments: Patient Position: Sitting; Cuff Location: Left Arm; Cuff Size: Large BP Diastolic 78 mm[Hg] Comments: Patient Position: Sitting; Cuff Location: Left Arm; Cuff Size: Large Weight 0 lb Height 0 in Head Circumference 0.00 cm :59 Temperature 97 f Comments: Method: Oral Pulse 72 /min Comments: Pattern: Regular Respiration Rate 18 /min Comments: Pattern: Unlabored BP Systolic 128 mm[Hg] Comments: Patient Position: Sitting; Cuff Location: Left Arm; Cuff Size: Large BP Diastolic 90 mm[Hg] Comments: Patient Position: Sitting; Cuff Location: Left Arm; Cuff Size: Large Weight 301.25 lb Height 0 in Head Circumference 0.00 cm :54 Temperature 97.8 f Comments: Method: Undefined Pulse 88 /min Comments: Pattern: Regular Respiration Rate 18 /min Comments: Pattern: Undefined BP Systolic 132 mm[Hg] Comments: Patient Position: Sitting; Cuff Location: Right Arm; Cuff Size: Large BP Diastolic 88 mm[Hg] Comments: Patient Position: Sitting; Cuff Location: Right Arm; Cuff Size: Large Weight 300 lb Height 72 in Body Mass Index Calculated 40.69 kg/m2 Body Surface Area Calculated 2.53 m2 Head Circumference 0.00 cm :03 Temperature 98.9 f Comments: Method: Oral Pulse 76 /min Comments: Pattern: Regular Respiration Rate 16 /min Comments: Pattern: Unlabored BP Systolic 136 mm[Hg] Comments: Patient Position: Sitting; Cuff Location: Left Arm; Cuff Size: Standard BP Diastolic 86 mm[Hg] Comments: Patient Position: Sitting; Cuff Location: Left Arm; Cuff Size: Standard Weight 302 lb Height 72 in Body Mass Index Calculated 40.96 kg/m2 Body Surface Area Calculated 2.54 m2 Head Circumference 0.00 cm :29 Pulse 64 /min Comments: Pattern: Regular Respiration Rate 16 /min Comments: Pattern: Unlabored BP Systolic 128 mm[Hg] Comments: Patient Position: Sitting; Cuff Location: Left Arm; Cuff Size: Standard BP Diastolic 84 mm[Hg] Comments: Patient Position: Sitting; Cuff Location: Left Arm; Cuff Size: Standard Weight 299.3125 lb Height 72 in Body Mass Index Calculated 40.59 kg/m2 Body Surface Area Calculated 2.53 m2 Head Circumference 0.00 cm :22 Temperature 98.4 f Comments: Method: Oral Pulse 74 /min Comments: Pattern: Regular Respiration Rate 20 /min Comments: Pattern: Unlabored BP Systolic 124 mm[Hg] Comments: Patient Position: Sitting; Cuff Location: Left Arm; Cuff Size: Standard BP Diastolic 78 mm[Hg] Comments: Patient Position: Sitting; Cuff Location: Left Arm; Cuff Size: Standard Weight 0 lb Height 0 in Head Circumference 0.00 cm :57 Temperature 97.3 f Comments: Method: Oral Pulse 84 /min Comments: Pattern: Regular Respiration Rate 16 /min Comments: Pattern: Unlabored BP Systolic 124 mm[Hg] Comments: Patient Position: Sitting; Cuff Location: Left Arm; Cuff Size: Large BP Diastolic 86 mm[Hg] Comments: Patient Position: Sitting; Cuff Location: Left Arm; Cuff Size: Large Weight 295 lb Height 71 in Body Mass Index Calculated 41.14 kg/m2 Body Surface Area Calculated 2.49 m2 Head Circumference 0.00 cm :51 Temperature 98.5 f Comments: Method: Oral Pulse 80 /min Comments: Pattern: Regular Respiration Rate 20 /min Comments: Pattern: Unlabored BP Systolic 126 mm[Hg] Comments: Patient Position: Sitting; Cuff Location: Left Arm; Cuff Size: Large BP Diastolic 86 mm[Hg] Comments: Patient Position: Sitting; Cuff Location: Left Arm; Cuff Size: Large Weight 289 lb Height 71 in Body Mass Index Calculated 40.31 kg/m2 Body Surface Area Calculated 2.47 m2 Head Circumference 0.00 cm :07 Temperature 98.2 f Comments: Method: Oral Pulse 96 /min Comments: Pattern: Regular Respiration Rate 16 /min Comments: Pattern: Unlabored BP Systolic 116 mm[Hg] Comments: Patient Position: Sitting; Cuff Location: Right Arm; Cuff Size: Standard BP Diastolic 72 mm[Hg] Comments: Patient Position: Sitting; Cuff Location: Right Arm; Cuff Size: Standard Weight 294.3125 lb Height 0 in Head Circumference 0.00 cm :46 Temperature 98.7 f Comments: Method: Oral Pulse 84 /min Comments: Pattern: Regular Respiration Rate 16 /min Comments: Pattern: Unlabored BP Systolic 112 mm[Hg] Comments: Patient Position: Sitting; Cuff Location: Left Arm; Cuff Size: Large BP Diastolic 88 mm[Hg] Comments: Patient Position: Sitting; Cuff Location: Left Arm; Cuff Size: Large Weight 295.5625 lb Height 72 in Body Mass Index Calculated 40.09 kg/m2 Body Surface Area Calculated 2.52 m2 Head Circumference 0.00 cm :31 Temperature 98.6 f Comments: Method: Undefined Pulse 72 /min Comments: Pattern: Regular Respiration Rate 20 /min Comments: Pattern: Undefined BP Systolic 120 mm[Hg] Comments: Patient Position: Sitting; Cuff Location: Left Arm; Cuff Size: Standard BP Diastolic 60 mm[Hg] Comments: Patient Position: Sitting; Cuff Location: Left Arm; Cuff Size: Standard Weight 0 lb Height 0 in Head Circumference 0.00 cm :36 Temperature 98.6 f Comments: Method: Undefined Pulse 76 /min Comments: Pattern: Regular Respiration Rate 16 /min Comments: Pattern: Undefined BP Systolic 120 mm[Hg] Comments: Patient Position: Sitting; Cuff Location: Left Arm; Cuff Size: Large BP Diastolic 80 mm[Hg] Comments: Patient Position: Sitting; Cuff Location: Left Arm; Cuff Size: Large Weight 289 lb Height 0 in Head Circumference 0.00 cm :25 Temperature 98.4 f Comments: Method: Oral Pulse 86 /min Comments: Pattern: Regular Respiration Rate 17 /min Comments: Pattern: Undefined BP Systolic 150 mm[Hg] Comments: Patient Position: Sitting; Cuff Location: Undefined; Cuff Size: Undefined BP Diastolic 92 mm[Hg] Comments: Patient Position: Sitting; Cuff Location: Undefined; Cuff Size: Undefined Weight 288 lb Height 0 in Head Circumference 0.00 cm Results Date Description Value Details :32 Prostate-Specific Ag, Serum Comments: PATIENT NOT FASTINGPERFORMED BY: [employer] Pzzhvc4206 [facility] [id number] Prostate Specific Ag, 1.0 ng/mL (Normal) Range: 0.0-4.0 Serum Comments: [employer] methodology. .According to the [place] [employer], Serum PSA shoulddecrease and remain at undetectable levels after radicalprostatectomy. The AUA defines biochemical recurrence as an initialPSA value 0.2 ng/mL or greater followed by a subsequent confirmatoryPSA value 0.2 ng/mL or greater.Values obtained with d ifferent assay methods or kits cannot be usedinterchangeably. Results cannot be interpreted as absolute evidenceof the presence or absence of malignant disease. :32 CBC W/AUTO DIFF WBC Comments: PATIENT NOT FASTINGPERFORMED BY: ZadspacePalisades Medical CenterPdnvkn8638 [facility] [id number] Information: ADD PSA, NURSE DRAW DX.Z 12.5 (30642) Immature Grans (Abs) 0.0 {x10E3/uL} (Normal) Range: 0.0-0.1 Immature Granulocytes 0 % (Normal) Baso (Absolute) 0.0 {x10E3/uL} (Normal) Range: 0.0-0.2 Eos (Absolute) 0.3 {x10E3/uL} (Normal) Range: 0.0-0.4 Monocytes(Absolute) 0.5 {x10E3/uL} (Normal) Range: 0.1-0.9 Lymphs (Absolute) 1.7 {x10E3/uL} (Normal) Range: 0.7-3.1 Neutrophils (Absolute) 3.9 {x10E3/uL} (Normal) Range: 1.4-7.0 Basos 1 % (Normal) Eos 4 % (Normal) Monocytes 8 % (Normal) Lymphs 27 % (Normal) Neutrophils 60 % (Normal) Platelets 194 {x10E3/uL} (Normal) Range: 150-379 RDW 13.9 % (Normal) Range: 12.3-15.4 MCHC 33.8 g/dL (Normal) Range: 31.5-35.7 MCH 32.3 pg (Normal) Range: 26.6-33.0 MCV 96 fL (Normal) Range: 79-97 Hematocrit 45.6 % (Normal) Range: 37.5-51.0 Hemoglobin 15.4 g/dL (Normal) Range: 13.0-17.7 RBC 4.77 {x10E6/uL} (Normal) Range: 4.14-5.80 WBC 6.4 {x10E3/uL} (Normal) Range: 3.4-10.8 40-Glr-17436:32 METABOLIC PANEL, COMPREHENSIVE Comments: PATIENT NOT FASTINGPERFORMED BY: LabCoPalisades Medical CenterMjpzay7651 [facility] [id number] ([id number]) ALT (SGPT) 25 [iU]/L (Normal) Range: 0-44 AST (SGOT) 24 [iU]/L (Normal) Range: 0-40 Alkaline Phosphatase 77 [iU]/L (Normal) Range: 39-117 Bilirubin, Total 0.4 mg/dL (Normal) Range: 0.0-1.2 A/G Ratio 1.5 (Normal) Range: 1.2-2.2 Globulin, Total 2.8 g/dL (Normal) Range: 1.5-4.5 Albumin 4.1 g/dL (Normal) Range: 3.5-5.5 Protein, Total 6.9 g/dL (Normal) Range: 6.0-8.5 Calcium 9.0 mg/dL (Normal) Range: 8.7-10.2 Carbon Dioxide, Total 23 mmol/L (Normal) Range: 20-29 Chloride 101 mmol/L (Normal) Range: 96-106 Potassium 4.7 mmol/L (Normal) Range: 3.5-5.2 Sodium 140 mmol/L (Normal) Range: 134-144 BUN/Creatinine Ratio 20 (Normal) Range: 9-20 eGFR If Africn Am 103 mL/min/1.73 (Normal) eGFR If NonAfricn Am 89 mL/min/1.73 (Normal) Creatinine 0.97 mg/dL (Normal) Range: 0.76-1.27 BUN 19 mg/dL (Normal) Range: 6-24 Glucose 103 mg/dL (Abnormal) Range: 65-99 35-Zvn-93649:43 Potassium Serum (79550) Comments: PATIENT NOT FASTINGPERFORMED BY: [facility] Hrzaph3775 [facility] [id number] Potassium 4.6 mmol/L (Normal) Range: 3.5-5.2 4-Lus-892935:24 Microscopic Examination Comments: PATIENT WAS FASTINGPERFORMED BY: [facility] Trltgt0003 [facility] [id number] Bacteria None seen (Normal) Mucus Threads Present (Normal) Epithelial Cells (non renal) 0-10 {/hpf} (Normal) Range: 0 - 10 RBC 0-2 {/hpf} (Normal) Range: 0 - 2 WBC 0-5 {/hpf} (Normal) Range: 0 - 5 79-Mga-003520:49 Basic Metabolic Profile (BMP) Comments: [facility] [address] [place], [address] GAP 6 (Normal) Range: 5-15 CO2 28.0 mmol/L (Normal) Range: 21.0-32.0 CL 104 mmol/L (Normal) Range: 98-107 K 4.5 mmol/L (Normal) Range: 3.5-5.1 NA 138 mmol/L (Normal) Range: 136-145 CA 8.5 mg/dL (Normal) Range: 8.5-10.1 BUN/CRE 16.6 {RATIO} (Normal) Range: 10-20 EST GFR - AA 114 mL/min (Normal) Comments: GFR Calc EST GFR 94 mL/min (Normal) Comments: Non- GFR Calc CREAT,SERUM 0.90 mg/dL (Normal) Range: 0.70-1.30 Comments: The validity of the calculated GFR AND GFRAA in patients over70 years has not been determined. Clinical correlation isessential. BUN 15 mg/dL (Normal) Range: 7-18 GLU 89 mg/dL (Normal) Range: 74-106 Comments: Please note revised GLUCOSE reference range yonlpcfcn74/02/2018. 13-Xea-151927:49 D-Dimer Quantitative (DVT/PE) Comments: CRITICAL VALUE VERIFIED. CALLED TO KELLE02/04/18 1320 Radha Mack.RESULTS READ BACK BY KELLE .[facility] [address] [place], [address] D-DIMER QUANT 0.97 {FEU/ug/m} (Abnormal) Range: 0.27-0.49 Comments: D-Dimer ELEVATED (>0.49): Additional studies and clinicalassessments are indicated to conclude diagnosis of:Deep Vein Thrombosis (DVT) or Pulmonary Embolism (PE) :59 Vitamin D Hydroxy (84384) Comments: PATIENT WAS FASTINGPERFORMED BY: [employer] [place] [id number] Vitamin D, 25-Hydroxy 32.9 ng/mL (Normal) Range: 30.0-100.0 Comments: Vitamin D deficiency has been defined by the [place] of[facility] Centerc[facility] and an Endocrine Society practice guideline as alevel of serum 25-OH vitamin D less than 20 ng/mL (1,2).The Endocrine Society went on to further define vitamin Dinsufficiency as a level between 21 and 29 ng/mL (2).1. IOM ([place] of Medicine). 2010. Dietary reference intakes for calcium and D. [place]: The National Academies Press.2. Edith MF, Robbie ISAAC, Jose Luis MOSQUERA, et al. Evaluation, treatment, and prevention of vitamin D deficiency: an Endocrine Society clinical practice guideline. JCEM. 2010; 96(7):1911-30. :59 HGB A1C (57301) Comments: PATIENT WAS FASTINGPERFORMED BY: [employer] [address] [place] [id number] Hemoglobin A1c 6.1 % (Abnormal) Range: 4.8-5.6 Comments: . Pre-diabetes: 5.7 - 6.4 Diabetes: >6.4 Glycemic control for adults with diabetes: <7.0 :59 LIPID PANEL (87206) Comments: PATIENT WAS FASTINGPERFORMED BY: [employer] [place] [id number] LDL/HDL Ratio 2.2 {ratio} (Normal) Range: 0.0-3.6 Comments: LDL/HDL Ratio Men Women 1/2 Avg.Risk 1.0 1.5 Av g.Risk 3.6 3.2 2X Avg.Risk 6.2 5.0 3X Avg.Risk 8.0 6.1 LDL Cholesterol Calc 72 mg/dL (Normal) Range: 0-99 VLDL Cholesterol Abhijit 20 mg/dL (Normal) Range: 5-40 HDL Cholesterol 33 mg/dL (Abnormal) Triglycerides 98 mg/dL (Normal) Range: 0-149 Cholesterol, Total 125 mg/dL (Normal) Range: 100-199 21-Nov-20177:59 METABOLIC PANEL, COMPREHENSIVE Comments: PATIENT WAS FASTINGPERFORMED BY: LabCoPalisades Medical CenterRdcrty4893 [facility] [id number] (07629) ALT (SGPT) 21 [iU]/L (Normal) Range: 0-44 AST (SGOT) 21 [iU]/L (Normal) Range: 0-40 Alkaline Phosphatase 79 [iU]/L (Normal) Range: 39-117 Bilirubin, Total 0.6 mg/dL (Normal) Range: 0.0-1.2 A/G Ratio 1.5 (Normal) Range: 1.2-2.2 Globulin, Total 2.7 g/dL (Normal) Range: 1.5-4.5 Albumin 4.0 g/dL (Normal) Range: 3.5-5.5 Protein, Total 6.7 g/dL (Normal) Range: 6.0-8.5 Calcium 9.1 mg/dL (Normal) Range: 8.7-10.2 Carbon Dioxide, Total 28 mmol/L (Normal) Range: 18-29 Chloride 101 mmol/L (Normal) Range: 96-106 Potassium 5.0 mmol/L (Normal) Range: 3.5-5.2 Sodium 142 mmol/L (Normal) Range: 134-144 BUN/Creatinine Ratio 18 (Normal) Range: 9-20 eGFR If Africn Am 97 mL/min/1.73 (Normal) eGFR If NonAfricn Am 84 mL/min/1.73 (Normal) Creatinine 1.03 mg/dL (Normal) Range: 0.76-1.27 BUN 19 mg/dL (Normal) Range: 6-24 Glucose 101 mg/dL (Abnormal) Range: 65-99 3-Fcu-898569:24 URINALYSIS, W/ MICRO (85879) Comments: PATIENT WAS FASTINGPERFORMED BY: Well[employer] HoldingsMckenzie [facility] Hospital6370 [facility] [id number] Microscopic Examination See below: (Normal) Comments: Microscopic was indicated and was performed. Microscopic Examination MICRON (Normal) Comments: Microscopic follows if indicated. Nitrite, Urine Negative (Normal) Urobilinogen,Semi-Qn 0.2 mg/dL (Normal) Range: 0.2-1.0 Bilirubin Negative (Normal) Occult Blood Negative (Normal) Ketones Negative (Normal) Glucose Negative (Normal) Protein Negative (Normal) WBC Esterase Negative (Normal) Appearance Clear (Normal) Urine-Color Yellow (Normal) pH 6.5 (Normal) Range: 5.0-7.5 Specific [place] 1.021 (Normal) Range: 1.005-1.030 :24 Vitamin D Hydroxy (83445) Comments: PATIENT WAS FASTINGPERFORMED BY: [facility] HoldingsMck[facility] Hospital6370 [facility] [id number] Vitamin D, 25-Hydroxy 30.3 ng/mL (Normal) Range: 30.0-100.0 Comments: Vitamin D deficiency has been defined by the [place] ofMedicine and an Endocrine Society practice guideline as alevel of serum 25-OH vitamin D less than 20 ng/mL (1,2).The Endocrine Society went on to further define vitamin Dinsufficiency as a level between 21 and 29 ng/mL (2).1. IOM ([place] of Medicine). 2010. Dietary reference intakes for calcium and D. [place]: The National Academies Press.2. Edith MF, Robbie NC, Jose Luis MOSQUERA, et al. Evaluation, treatment, and prevention of vitamin D deficiency: an Endocrine Society clinical practice guideline. JCEM. 2010; 96(7):1911-30. 8-Lmr-151097:24 LIPID PANEL (48599) Comments: PATIENT WAS FASTINGPERFORMED BY: [facility]6370 [facility] [id number] LDL/HDL Ratio 2.2 {ratio} (Normal) Range: 0.0-3.6 Comments: LDL/HDL Ratio Men Women 1/2 Avg.Risk 1.0 1.5 Av g.Risk 3.6 3.2 2X Avg.Risk 6.2 5.0 3X Avg.Risk 8.0 6.1 LDL Cholesterol Calc 80 mg/dL (Normal) Range: 0-99 VLDL Cholesterol Abhijit 16 mg/dL (Normal) Range: 5-40 HDL Cholesterol 36 mg/dL (Abnormal) Triglycerides 80 mg/dL (Normal) Range: 0-149 Cholesterol, Total 132 mg/dL (Normal) Range: 100-199 2-Mpg-859396:24 CBC with auto diff Comments: PATIENT WAS FASTINGPERFORMED BY: LabCoPalisades Medical CenterLndegn0966 [facility] [id number] Information: [id number] (70858) Immature Grans (Abs) 0.0 {x10E3/uL} (Normal) Range: 0.0-0.1 Immature Granulocytes 0 % (Normal) Baso (Absolute) 0.0 {x10E3/uL} (Normal) Range: 0.0-0.2 Eos (Absolute) 0.4 {x10E3/uL} (Normal) Range: 0.0-0.4 Monocytes(Absolute) 0.9 {x10E3/uL} (Normal) Range: 0.1-0.9 Lymphs (Absolute) 1.6 {x10E3/uL} (Normal) Range: 0.7-3.1 Neutrophils (Absolute) 4.2 {x10E3/uL} (Normal) Range: 1.4-7.0 Basos 1 % (Normal) Eos 5 % (Normal) Monocytes 13 % (Normal) Lymphs 23 % (Normal) Neutrophils 58 % (Normal) Platelets 188 {x10E3/uL} (Normal) Range: 150-379 RDW 14.1 % (Normal) Range: 12.3-15.4 MCHC 33.3 g/dL (Normal) Range: 31.5-35.7 MCH 31.8 pg (Normal) Range: 26.6-33.0 MCV 95 fL (Normal) Range: 79-97 Hematocrit 45.9 % (Normal) Range: 37.5-51.0 Hemoglobin 15.3 g/dL (Normal) Range: 13.0-17.7 RBC 4.81 {x10E6/uL} (Normal) Range: 4.14-5.80 WBC 7.1 {x10E3/uL} (Normal) Range: 3.4-10.8 2-Qay-224619:24 MICROALBUMIN: CREATININE RATIO Comments: PATIENT WAS FASTINGPERFORMED BY: WellA[facility] HoldingsMck[facility] Hospital6370 [facility] [id number] ([id number]) AND (79624) Alb/Creat Ratio <2.6 {mg/g_creat} (Normal) Range: 0.0-30.0 Albumin, Urine <3.0 ug/mL (Normal) Creatinine, Urine 114.9 mg/dL (Normal) 8-Vuj-188835:24 METABOLIC PANEL, COMPREHENSIVE Comments: PATIENT WAS FASTINGPERFORMED BY: [facility]CoPal[facility] CenterVsirpk4136 [facility] [id number] ([id number]) ALT (SGPT) 25 [iU]/L (Normal) Range: 0-44 AST (SGOT) 20 [iU]/L (Normal) Range: 0-40 Alkaline Phosphatase 82 [iU]/L (Normal) Range: 39-117 Bilirubin, Total 0.4 mg/dL (Normal) Range: 0.0-1.2 A/G Ratio 1.5 (Normal) Range: 1.2-2.2 Globulin, Total 2.7 g/dL (Normal) Range: 1.5-4.5 Albumin 4.1 g/dL (Normal) Range: 3.5-5.5 Protein, Total 6.8 g/dL (Normal) Range: 6.0-8.5 Calcium 9.2 mg/dL (Normal) Range: 8.7-10.2 Carbon Dioxide, Total 25 mmol/L (Normal) Range: 20-29 Chloride 100 mmol/L (Normal) Range: 96-106 Potassium 5.3 mmol/L (Abnormal) Range: 3.5-5.2 Sodium 139 mmol/L (Normal) Range: 134-144 BUN/Creatinine Ratio 19 (Normal) Range: 9-20 eGFR If Africn Am 102 mL/min/1.73 (Normal) eGFR If NonAfricn Am 88 mL/min/1.73 (Normal) Creatinine 0.99 mg/dL (Normal) Range: 0.76-1.27 BUN 19 mg/dL (Normal) Range: 6-24 Glucose 110 mg/dL (Abnormal) Range: 65-99 0-Jfk-741774:24 HGB A1C (43795) Comments: PATIENT WAS FASTINGPERFORMED BY: [facility] Z[address] [place] [id number] Hemoglobin A1c 6.3 % (Abnormal) Range: 4.8-5.6 Comments: . Pre-diabetes: 5.7 - 6.4 Diabetes: >6.4 Glycemic control for adults with diabetes: <7.0 :10 CBC W/Diff, Automated Comments: [facility] [address] [place], [place], [id number] ; will review on 08/08 Absolute Lymph 1.85 {X10_3/ul} (Normal) Range: 0.83-4.51 Absolute Neut 4.2 {X10_3/uL} (Normal) Range: 2.0-7.7 IM GRAN % 0.300 % (Normal) Range: 0.0-0.9 Comments: IG% - Immature Granulocytes (promyelocytes, myelocytes andmetamyelocytes) > 1% indicates that a LEFT SHIFT is Present. BASO% 0.3 % (Normal) Range: 0-1 EO% 1.4 % (Normal) Range: 0-5 MONO% 13.5 % (Abnormal) Range: 0-10 LY% 25.8 % (Normal) Range: 19-41 NEUT% 58.7 % (Normal) Range: 47-70 MPV 10.2 fL (Normal) Range: 6.2-12.0 PLT 191 K/mm3 (Normal) Range: 150-450 RDW SD 49.9 fL (Abnormal) Range: 35.1-43.9 RDW CV 13.8 % (Normal) Range: 11.6-14.6 MCHC 32.1 {g/gl} (Normal) Range: 32-36 MCH 31.8 pg (Normal) Range: 27.0-32.0 MCV 99.2 fL (Abnormal) Range: 80-94 HCT 46.7 % (Normal) Range: 40-54 HGB 15.0 g/dL (Normal) Range: 13.0-16.5 RBC 4.71 {M/mm3} (Normal) Range: 4.6-6.2 WBC 7.2 K/mm3 (Normal) Range: 4.4-11.0 67-Qwa-11688:10 Comprehensive Metabolic Profil Comments: [facility] [address] [place], [place], [id number] GAP 7 (Normal) Range: 5-15 CO2 30.0 mmol/L (Normal) Range: 21.0-32.0 CL 101 mmol/L (Normal) Range: 98-107 K 3.9 mmol/L (Normal) Range: 3.5-5.1 NA 138 mmol/L (Normal) Range: 136-145 T BILI 0.90 mg/dL (Normal) Range: 0.20-1.00 ALT 31 U/L (Normal) Range: 12-78 ALK P 83 U/L (Normal) Range: 45-117 AST 18 U/L (Normal) Range: 15-37 CA 8.5 mg/dL (Normal) Range: 8.5-10.1 A/G 0.8 {RATIO} (Abnormal) Range: 0.9-2.4 GLOB 3.9 g/dL (Normal) Range: 2.2-4.2 ALB 3.3 g/dL (Abnormal) Range: 3.4-5.0 Comments: Please note revised Albumin AND Globulin reference rangeeffective 2017. T PROT 7.2 g/dL (Normal) Range: 6.4-8.2 BUN/CRE 19.2 {RATIO} (Normal) Range: 10-20 EST GFR - AA 109 mL/min (Normal) Comments: GFR Calc EST GFR 90 mL/min (Normal) Comments: Non- GFR Calc CREAT,SERUM 0.94 mg/dL (Normal) Range: 0.70-1.30 Comments: The validity of the calculated GFR AND GFRAA in patients over70 years has not been determined. Clinical correlation isessential. BUN 18 mg/dL (Normal) Range: 7-18 GLU 93 mg/dL (Normal) Range: 70-110 :10 Lipid Profile Comments: [facility] [address] [place], [place], [phone] VLDL 22 mg/dL (Normal) Range: 5-40 LDL 53 mg/dL (Normal) Range: 0-130 HDL 42 mg/dL (Normal) Comments: The drugs N-Acetylcysteine and Metamizole may falselydepress this assay. Reference Range HDL <40 mg/dL Low HDL Cholesterol HDL >or= 60 mg/dL High HDL Cholesterol TRIG 112 mg/dL (Normal) Comments: The drugs N-Acetylcysteine and Metamizole may falselydepress this assay.Serum Triglycerides Reference Interval Normal <150 mg/dL Borderline high 150 - 199 mg/dL High 200 - 499 mg/dL Very High > or = 500 mg/dL CHOL 117 mg/dL (Normal) Comments: <200 mg/dL Desirable 200-240 mg/dL Borderline >240 mg/dL High Risk 44-Umz-10726:10 Vitamin D,25 Hydroxy Comments: [facility] [address] [place], [address] Vitamin D 25-OH 25.7 ng/mL (Normal) Comments: Vitamin D 25(OH) Status Range Deficiency <20 ng/mL (50nmol/L) Insuffciency 20 - 30 ng/mL (50 - 75 nmol/L) Sufficiency 30 - 100 ng/mL (75 - 250 nmol/L) Toxicity >100 ng/mL (>250 nmol/L) 10-Ajv-246877:29 Urinalysis, Office (50246) UA - LEUKOCYTE ESTERASE Negative (Normal) UA - NITRITE Negative (Normal) URINE UROBILINGN JUAN TIMED Normal mg/dL (Normal) UA - PROTEIN Negative mg/dL (Normal) UA - PH 6 (Abnormal) UA - BLOOD non-hemolyzed trace (Normal) UA - SPECIFIC GRAVITY 1.020 (Normal) UA - KETONES Negative mg/dL (Normal) UA - BILIRUBIN Negative (Normal) UA - GLUCOSE Negative (Normal) 3-Cag-034637:44 LIPASE (81877) Comments: PATIENT NOT FASTINGPERFORMED BY: [facility] [id number] Lipase, Serum 26 U/L (Normal) Range: 13-78 3-Bei-344353:44 AMYLASE (73014) Comments: PATIENT NOT FASTINGPERFORMED BY: Skulptrp [facility]Critical [facility] hospital [id number] Amylase, Serum 53 U/L (Normal) Range: 31-124 :44 METABOLIC PANEL, COMPREHENSIVE Comments: PATIENT NOT FASTINGPERFORMED BY: [facility]CoPal[facility] Medical CenterLxxmpx1879 [facility] [id number] ([id number]) ALT (SGPT) 17 [iU]/L (Normal) Range: 0-44 AST (SGOT) 15 [iU]/L (Normal) Range: 0-40 Alkaline Phosphatase, S 90 [iU]/L (Normal) Range: 39-117 Bilirubin, Total 0.3 mg/dL (Normal) Range: 0.0-1.2 A/G Ratio 1.4 (Normal) Range: 1.2-2.2 Globulin, Total 2.7 g/dL (Normal) Range: 1.5-4.5 Albumin, Serum 3.9 g/dL (Normal) Range: 3.5-5.5 Protein, Total, Serum 6.6 g/dL (Normal) Range: 6.0-8.5 Calcium, Serum 8.8 mg/dL (Normal) Range: 8.7-10.2 Carbon Dioxide, Total 26 mmol/L (Normal) Range: 18-29 Chloride, Serum 101 mmol/L (Normal) Range: 96-106 Potassium, Serum 4.4 mmol/L (Normal) Range: 3.5-5.2 Sodium, Serum 143 mmol/L (Normal) Range: 134-144 BUN/Creatinine Ratio 17 (Normal) Range: 9-20 eGFR If Africn Am 117 mL/min/1.73 (Normal) eGFR If NonAfricn Am 101 mL/min/1.73 (Normal) Creatinine, Serum 0.84 mg/dL (Normal) Range: 0.76-1.27 BUN 14 mg/dL (Normal) Range: 6-24 Glucose, Serum 80 mg/dL (Normal) Range: 65-99 :44 CBC W/AUTO DIFF WBC (02907) Comments: PATIENT NOT FASTINGPERFORMED BY: [facility]CoPal[facility] CenterTpcnrg7069 [facility] [id number] Immature Grans (Abs) 0.0 {x10E3/uL} (Normal) Range: 0.0-0.1 Immature Granulocytes 0 % (Normal) Baso (Absolute) 0.0 {x10E3/uL} (Normal) Range: 0.0-0.2 Eos (Absolute) 0.3 {x10E3/uL} (Normal) Range: 0.0-0.4 Monocytes(Absolute) 1.3 {x10E3/uL} (Abnormal) Range: 0.1-0.9 Lymphs (Absolute) 1.6 {x10E3/uL} (Normal) Range: 0.7-3.1 Neutrophils (Absolute) 5.1 {x10E3/uL} (Normal) Range: 1.4-7.0 Basos 1 % (Normal) Eos 3 % (Normal) Monocytes 16 % (Normal) Lymphs 19 % (Normal) Neutrophils 61 % (Normal) Platelets 219 {x10E3/uL} (Normal) Range: 150-379 RDW 13.4 % (Normal) Range: 12.3-15.4 MCHC 32.9 g/dL (Normal) Range: 31.5-35.7 MCH 31.7 pg (Normal) Range: 26.6-33.0 MCV 96 fL (Normal) Range: 79-97 Hematocrit 43.1 % (Normal) Range: 37.5-51.0 Hemoglobin 14.2 g/dL (Normal) Range: 13.0-17.7 Comments: Please note reference interval change RBC 4.48 {x10E6/uL} (Normal) Range: 4.14-5.80 WBC 8.3 {x10E3/uL} (Normal) Range: 3.4-10.8 02-Eqa-11345:05 CBC W/AUTO DIFF WBC Comments: PATIENT NOT FASTINGPERFORMED BY: [facility]CoPal[facility] CenterEayypx9590 [facility] [id number] Information: NURSE DRAW (25895) Immature Grans (Abs) 0.0 {x10E3/uL} (Normal) Range: 0.0-0.1 Immature Granulocytes 0 % (Normal) Baso (Absolute) 0.0 {x10E3/uL} (Normal) Range: 0.0-0.2 Eos (Absolute) 0.4 {x10E3/uL} (Normal) Range: 0.0-0.4 Monocytes(Absolute) 0.8 {x10E3/uL} (Normal) Range: 0.1-0.9 Lymphs (Absolute) 1.7 {x10E3/uL} (Normal) Range: 0.7-3.1 Neutrophils (Absolute) 5.1 {x10E3/uL} (Normal) Range: 1.4-7.0 Basos 0 % (Normal) Eos 5 % (Normal) Monocytes 9 % (Normal) Lymphs 22 % (Normal) Neutrophils 64 % (Normal) Platelets 213 {x10E3/uL} (Normal) Range: 150-379 RDW 13.7 % (Normal) Range: 12.3-15.4 MCHC 33.0 g/dL (Normal) Range: 31.5-35.7 MCH 32.4 pg (Normal) Range: 26.6-33.0 MCV 98 fL (Abnormal) Range: 79-97 Hematocrit 46.0 % (Normal) Range: 37.5-51.0 Hemoglobin 15.2 g/dL (Normal) Range: 12.6-17.7 RBC 4.69 {x10E6/uL} (Normal) Range: 4.14-5.80 WBC 8.1 {x10E3/uL} (Normal) Range: 3.4-10.8 96-Lnr-62694:05 METABOLIC PANEL, COMPREHENSIVE Comments: PATIENT NOT FASTINGPERFORMED BY: [facility]CoPal[facility] CenterFjegfy1648 [facility] [id number] (56360) ALT (SGPT) 22 [iU]/L (Normal) Range: 0-44 AST (SGOT) 17 [iU]/L (Normal) Range: 0-40 Alkaline Phosphatase, S 85 [iU]/L (Normal) Range: 39-117 Bilirubin, Total 0.4 mg/dL (Normal) Range: 0.0-1.2 A/G Ratio 1.4 (Normal) Range: 1.2-2.2 Globulin, Total 2.8 g/dL (Normal) Range: 1.5-4.5 Albumin, Serum 4.0 g/dL (Normal) Range: 3.5-5.5 Protein, Total, Serum 6.8 g/dL (Normal) Range: 6.0-8.5 Calcium, Serum 8.9 mg/dL (Normal) Range: 8.7-10.2 Carbon Dioxide, Total 25 mmol/L (Normal) Range: 18-29 Chloride, Serum 97 mmol/L (Normal) Range: 96-106 Potassium, Serum 4.4 mmol/L (Normal) Range: 3.5-5.2 Sodium, Serum 138 mmol/L (Normal) Range: 134-144 BUN/Creatinine Ratio 21 (Abnormal) Range: 9-20 eGFR If Africn Am 117 mL/min/1.73 (Normal) eGFR If NonAfricn Am 101 mL/min/1.73 (Normal) Creatinine, Serum 0.85 mg/dL (Normal) Range: 0.76-1.27 BUN 18 mg/dL (Normal) Range: 6-24 Glucose, Serum 98 mg/dL (Normal) Range: 65-99 56-Cff-04000:43 Microscopic Examination Comments: PATIENT WAS FASTINGPERFORMED BY: [facility] Guevmp4539 [facility] [id number] Bacteria None seen (Normal) Mucus Threads Present (Normal) Epithelial Cells (non renal) 0-10 {/hpf} (Normal) Range: 0 - 10 RBC 0-2 {/hpf} (Normal) Range: 0 - 2 WBC 0-5 {/hpf} (Normal) Range: 0 - 5 83-Ufr-231564:05 PSA,Total - Annual Screen Comments: [facility] [address] [facility] [address] [place], [place], [id number] PSA,TOT SCREEN 0.78 ng/mL (Normal) Range: 0.00-4.00 Comments: This test was performed using the TPSA assay method for the[facility] chemistry system. Values obtained with differentassay methods cannot be used interchangably.When changing PSA assays in the course of monitoring apatient, additional sequential testing should be carriedout to confirm baseline values. 86-Hcv-683499:10 Urinalysis, Complete Comments: Order Date: 12/07/16Has pt arrived? YOrder Date: 12/07/16Ha pt arrived? YHow was Urine Obtained? CLEAN [facility] [address] [place], [place], [id number] MUCUS, URINE 0 SEEN {/hpf} (Normal) BACTERIA 0 SEEN {/hpf} (Normal) SQUAM EPI 0-5 SEEN {/hpf} (Normal) Range: 0-5 RBC-UA 0-5 SEEN {/hpf} (Normal) Range: 0-5 WBC 0-5 SEEN {/hpf} (Normal) Range: 0-5 LEUK ESTERASE 25 /ul (Abnormal) OCCULT BLOOD-UR Negative /ul (Normal) NITRITE UR Negative (Normal) UROBILI Normal mg/dL (Normal) PROT DIPSTX Negative mg/dL (Normal) pH UR 6.0 (Normal) Range: 5.0 - 8.0 SP.GR. DIPSTX 1.015 (Normal) Range: 1.002-1.030 KETONE UR Negative mg/dL (Normal) BILIRUBIN URINE Negative mg/dL (Normal) GLUCOSE, UR Normal mg/dL (Normal) CLARITY Clear (Normal) COLOR Yellow (Normal) :43 URINALYSIS, W/ MICRO (88474) Comments: PATIENT WAS FASTINGPERFORMED BY: [facility] LabCoSoftoCouponEomslf0856 [facility] [id number] Microscopic Examination See below: (Normal) Comments: Microscopic was indicated and was performed. Microscopic Examination MICRON (Normal) Comments: Microscopic follows if indicated. Nitrite, Urine Negative (Normal) Urobilinogen,Semi-Qn 0.2 mg/dL (Normal) Range: 0.2-1.0 Bilirubin Negative (Normal) Occult Blood Negative (Normal) Ketones Negative (Normal) Glucose Negative (Normal) Protein Negative (Normal) WBC Esterase Negative (Normal) Appearance Clear (Normal) Urine-Color Yellow (Normal) pH 6.0 (Normal) Range: 5.0-7.5 Specific Tabor 1.016 (Normal) Range: 1.005-1.030 34-Riz-74977:43 CBC with auto diff (68996) Comments: PATIENT WAS FASTINGPERFORMED BY: [facility] Zngowo5275 [facility] [id number] Immature Grans (Abs) 0.0 {x10E3/uL} (Normal) Range: 0.0-0.1 Immature Granulocytes 0 % (Normal) Baso (Absolute) 0.0 {x10E3/uL} (Normal) Range: 0.0-0.2 Eos (Absolute) 0.4 {x10E3/uL} (Normal) Range: 0.0-0.4 Monocytes(Absolute) 1.2 {x10E3/uL} (Abnormal) Range: 0.1-0.9 Lymphs (Absolute) 1.7 {x10E3/uL} (Normal) Range: 0.7-3.1 Neutrophils (Absolute) 5.7 {x10E3/uL} (Normal) Range: 1.4-7.0 Basos 0 % (Normal) Eos 4 % (Normal) Monocytes 14 % (Normal) Lymphs 19 % (Normal) Neutrophils 63 % (Normal) Platelets 191 {x10E3/uL} (Normal) Range: 150-379 RDW 14.2 % (Normal) Range: 12.3-15.4 MCHC 34.2 g/dL (Normal) Range: 31.5-35.7 MCH 32.2 pg (Normal) Range: 26.6-33.0 MCV 94 fL (Normal) Range: 79-97 Hematocrit 43.8 % (Normal) Range: 37.5-51.0 Hemoglobin 15.0 g/dL (Normal) Range: 12.6-17.7 RBC 4.66 {x10E6/uL} (Normal) Range: 4.14-5.80 WBC 9.0 {x10E3/uL} (Normal) Range: 3.4-10.8 70-Mxp-23175:43 METABOLIC PANEL, COMPREHENSIVE Comments: PATIENT WAS FASTINGPERFORMED BY: [facility]Co[facility] CenterKhyzgn5521 [facility] [id number]; non- emergent till apt (50491) ALT (SGPT) 19 [iU]/L (Normal) Range: 0-44 AST (SGOT) 16 [iU]/L (Normal) Range: 0-40 Alkaline Phosphatase, S 77 [iU]/L (Normal) Range: 39-117 Bilirubin, Total 0.4 mg/dL (Normal) Range: 0.0-1.2 A/G Ratio 1.5 (Normal) Range: 1.2-2.2 Globulin, Total 2.5 g/dL (Normal) Range: 1.5-4.5 Albumin, Serum 3.7 g/dL (Normal) Range: 3.5-5.5 Protein, Total, Serum 6.2 g/dL (Normal) Range: 6.0-8.5 Calcium, Serum 8.7 mg/dL (Normal) Range: 8.7-10.2 Carbon Dioxide, Total 26 mmol/L (Normal) Range: 18-29 Chloride, Serum 101 mmol/L (Normal) Range: 96-106 Potassium, Serum 5.0 mmol/L (Normal) Range: 3.5-5.2 Sodium, Serum 142 mmol/L (Normal) Range: 134-144 BUN/Creatinine Ratio 21 (Abnormal) Range: 9-20 eGFR If Africn Am 107 mL/min/1.73 (Normal) eGFR If NonAfricn Am 93 mL/min/1.73 (Normal) Creatinine, Serum 0.95 mg/dL (Normal) Range: 0.76-1.27 BUN 20 mg/dL (Normal) Range: 6-24 Glucose, Serum 97 mg/dL (Normal) Range: 65-99 :43 MICROALBUMIN: CREATININE RATIO Comments: PATIENT WAS FASTINGPERFORMED BY: [place] [id number] (40147) AND (91006) Microalb/Creat Ratio <3.1 {mg/g_creat} (Normal) Range: 0.0-30.0 Microalbumin, Urine <3.0 ug/mL (Normal) Creatinine, Urine 96.5 mg/dL (Normal) :43 HGB A1C (56758) Comments: PATIENT WAS FASTINGPERFORMED BY: [employer] Nanotherapeutics[address] [place] [id number] Hemoglobin A1c 6.3 % (Abnormal) Range: 4.8-5.6 Comments: . Pre-diabetes: 5.7 - 6.4 Diabetes: >6.4 Glycemic control for adults with diabetes: <7.0 :43 Vitamin D Hydroxy (61236) Comments: PATIENT WAS FASTINGPERFORMED BY: [employer] [place] [id number] Vitamin D, 25-Hydroxy 37.1 ng/mL (Normal) Range: 30.0-100.0 Comments: Vitamin D deficiency has been defined by the [place] ofMedicine and an Endocrine Society practice guideline as alevel of serum 25-OH vitamin D less than 20 ng/mL (1,2).The Endocrine Society went on to further define vitamin Dinsufficiency as a level between 21 and 29 ng/mL (2).1. IOM ([place] of Medicine). 2010. Dietary reference intakes for calcium and D. [place]: The National Academies Press.2. Edith MF, Robbie ISAAC, Jose Luis MOSQUERA, et al. Evaluation, treatment, and prevention of vitamin D deficiency: an Endocrine Society clinical practice guideline. JCEM. 2010; 96(7):1911-30. :28 Anti-dsDNA Antibodies Comments: PATIENT WAS FASTINGPERFORMED BY: [facility] LabAlpineReplay Vetpdp2436 [address] RoadDublin [place] [id number] Anti-DNA (DS) Ab Qn <1 {IU/mL} (Normal) Range: 0-9 Comments: Negative <5 Equivocal 5 - 9 Positive >9; ADDENDA: OV next week Written Authorization WAR (Normal) Comments: PATIENT WAS FASTINGPERFORMED BY: LabHomeTouchrp Vxqnxo8930 [address] RoadDublin [place] [id number] :28 Comments: Written Authorization Received.Authorization received from JARROD ENGLISH [id number] by Natasha Mckenna :31 HGB A1C (71928) Comments: PATIENT WAS FASTINGPERFORMED BY: [facility] Nywbha7653 [address] RoadDublin [place] [id number] Hemoglobin A1c 6.1 % (Abnormal) Range: 4.8-5.6 Comments: . Pre-diabetes: 5.7 - 6.4 Diabetes: >6.4 Glycemic control for adults with diabetes: <7.0 :28 Vitamin D Hydroxy (42376) Comments: PATIENT WAS FASTINGPERFORMED BY: CB [facility] Utrcqj9548 [address]Dublin [place] [id number] Vitamin D, 25-Hydroxy 21.4 ng/mL (Abnormal) Range: 30.0-100.0 Comments: Vitamin D deficiency has been defined by the [place] ofMedicine and an Endocrine Society practice guideline as alevel of serum 25-OH vitamin D less than 20 ng/mL (1,2).The Endocrine Society went on to further define vitamin Dinsufficiency as a level between 21 and 29 ng/mL (2).1. IOM ([place] of Medicine). 2010. Dietary reference intakes for calcium and D. [place]: The National Academies Press.2. Edith MF, Robbie ISAAC, Jose Luis MOSQUERA, et al. Evaluation, treatment, and prevention of vitamin D deficiency: an Endocrine Society clinical practice guideline. JCEM. 2010; 96(7):1911-30. 39-Ygc-11877:28 METABOLIC PANEL, COMPREHENSIVE Comments: PATIENT WAS FASTINGPERFORMED BY: [facility]CoPal[facility] CenterQxbagj9647 [facility] [id number] (42819) ALT (SGPT) 21 [iU]/L (Normal) Range: 0-44 AST (SGOT) 21 [iU]/L (Normal) Range: 0-40 Alkaline Phosphatase, S 74 [iU]/L (Normal) Range: 39-117 Bilirubin, Total 0.7 mg/dL (Normal) Range: 0.0-1.2 A/G Ratio 1.4 (Normal) Range: 1.1-2.5 Comments: Effective September 30, 2016 the reference interval for A/G Ratio will be changing to: Age Male Female 0 - 7 d ays 1.1 - 2.3 1.1 - 2.3 8 - 30 days 1.2 - 2.8 1.2 - 2.8 1 - 6 months 1.3 - 3.6 1.3 - 3.6 7 months - 5 years 1.5 - 2.6 1.5 - 2.6 > 5 years 1.2 - 2.2 1.2 - 2.2 Globulin, Total 2.9 g/dL (Normal) Range: 1.5-4.5 Albumin, Serum 4.1 g/dL (Normal) Range: 3.5-5.5 Protein, Total, Serum 7.0 g/dL (Normal) Range: 6.0-8.5 Calcium, Serum 8.7 mg/dL (Normal) Range: 8.7-10.2 Carbon Dioxide, Total 23 mmol/L (Normal) Range: 18-29 Chloride, Serum 101 mmol/L (Normal) Range: 96-106 Potassium, Serum 4.7 mmol/L (Normal) Range: 3.5-5.2 Sodium, Serum 140 mmol/L (Normal) Range: 134-144 BUN/Creatinine Ratio 29 (Abnormal) Range: 9-20 eGFR If Africn Am 121 mL/min/1.73 (Normal) eGFR If NonAfricn Am 105 mL/min/1.73 (Normal) Creatinine, Serum 0.79 mg/dL (Normal) Range: 0.76-1.27 BUN 23 mg/dL (Normal) Range: 6-24 Glucose, Serum 102 mg/dL (Abnormal) Range: 65-99 96-Mii-68192:28 LIPID PANEL (15250) Comments: PATIENT WAS FASTINGPERFORMED BY: [facility] Grkotm3706 [facility] [id number] LDL/HDL Ratio 1.9 {ratio_units} Range: 0.0-3.6 (Normal) Comments: LDL/HDL Ratio Men Women 1/2 Avg.Risk 1.0 1.5 Av g.Risk 3.6 3.2 2X Avg.Risk 6.2 5.0 3X Avg.Risk 8.0 6.1 LDL Cholesterol Calc 74 mg/dL (Normal) Range: 0-99 VLDL Cholesterol Abhijit 15 mg/dL (Normal) Range: 5-40 HDL Cholesterol 38 mg/dL (Abnormal) Triglycerides 74 mg/dL (Normal) Range: 0-149 Cholesterol, Total 127 mg/dL (Normal) Range: 100-199 01-Jul-2016 COLON BIOPSY (CHOOSE See Note (Normal) Comments: [facility] [address] [place], [address] 12:03 SITE) Comments: Patient: LISA MARQUES : 1965 (51/M) Acct Num: [id number] Phys: Sonu Fuentes Unit Num: [id number] Loc: LABSPEC Specimen: [id number] Received: 07/01/161611 Spec Type: COL ON BX TISSUES TISSUES: COMMENT Clinical correlation is suggested. GROSS DESCRIPTION Received is one container labeled with the patient's name and designated proximal transverse colon biopsy. The specimen consists of multiple irregularfragments of light trimble soft tissue that in aggregate measure 0.3 x 0.3 x 0.1 cm. The specimen is totally submitted in one cassette. / AM:leobardo 07/02/16 TC:2 CPT: 31902 HEADER OPERATION: Colonoscopy with biopsy PRE-OP DIAGNOSIS: Screening TISSUE SUBMITTED: Proximal transverse colon biopsies, rule out UC/Crohn's/ischemic colitis MICROSCOPIC DESCRIPTION Slides are reviewed. Sections show cryptitis and crypt abscess. No fissuring ulcers are seen. There is glandular distortion without dysplasia. No granulomas are seen. 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 AM:rg 07/03/16 Signed Nakul Emily 07/03/16 <signature on file> :28 SED RATE ERYTHROCYTE (50194) Comments: PATIENT WAS FASTINGPERFORMED BY: [employer] [facility] [facility] [id number] Sedimentation Rate-Westergren 12 mm/h (Normal) Range: 0-30 : C-REACTIVE PROTEIN (02063) Comments: PATIENT WAS FASTINGPERFORMED BY: [employer]6370 [facility]rapeuticsCritical access hospital [id number] C-Reactive Protein, Quant 2.0 mg/L (Normal) Range: 0.0-4.9 :28 RHEUMATOID FACTOR-QUANT (32253) Comments: PATIENT WAS FASTINGPERFORMED BY: [employer]6370 [facility] CenterV WaveCritical access hospital [id number] RA Latex Turbid. <10.0 {IU/mL} (Normal) Range: 0.0-13.9 :28 KEV (ANTINUCLEAR ANTIBODY) Comments: PATIENT WAS FASTINGPERFORMED BY: Rithmio70 [facility] [id number] (09962) KEV Direct Positive (Abnormal) :29 Urinalysis, Office (41054) UA - LEUKOCYTE ESTERASE Negative (Normal) UA - NITRITE Negative (Normal) URINE UROBILINGN JUAN TIMED Normal mg/dL (Normal) UA - PROTEIN Negative mg/dL (Normal) UA - PH 7.5 (Normal) UA - BLOOD Negative (Normal) UA - SPECIFIC GRAVITY 1.025 (Normal) UA - KETONES Negative mg/dL (Normal) UA - BILIRUBIN Negative (Normal) UA - GLUCOSE Negative (Normal) 10-Kjx-673481:31 URINE CRISTÓBAL CULTURE-IDENTIFICATN Comments: PATIENT NOT FASTINGPERFORMED BY: MIKAYLA [facility] Kqiwma[address] [place] [id number] Information: SRC:UC ([id number]) Result 1 MUG (Normal) Comments: Mixed urogenital [place]053 Colonies/mL Urine Culture,Comprehensive Final report (Normal) 21-May-20169:46 Basic Metabolic Profile (BMP) Comments: [facility] [address] [place], [address] GAP 5 (Normal) Range: 5-15 CO2 31.0 mmol/L (Normal) Range: 21.0-32.0 CL 105 mmol/L (Normal) Range: 98-107 K 4.3 mmol/L (Normal) Range: 3.5-5.1 NA 141 mmol/L (Normal) Range: 136-145 CA 8.5 mg/dL (Normal) Range: 8.5-10.1 BUN/CRE 20.4 {RATIO} (Abnormal) Range: 10-20 EST GFR - AA 110 mL/min (Normal) Comments: GFR Calc EST GFR 91 mL/min (Normal) Comments: Non- GFR Calc CREAT,SERUM 0.93 mg/dL (Normal) Range: 0.70-1.30 Comments: The validity of the calculated GFR AND GFRAA in patients over70 years has not been determined. Clinical correlation isessential. BUN 19 mg/dL (Abnormal) Range: 7-18 GLU 123 mg/dL (Abnormal) Range: 70-110 Comments: Fasting Glucose result from 110 to <126 mg/dLsuggests IMPAIRED HOMEOSTASIS per A.D.A. criteria. :46 CBC W/Diff, Automated Comments: [facility] [address] [place], [address] Absolute Lymph 1.42 {X10_3/ul} (Normal) Range: 0.83-4.51 Absolute Neut 4.8 {X10_3/uL} (Normal) Range: 2.0-7.7 IM GRAN % 0.000 % (Normal) Range: 0.0-0.9 Comments: IG% - Immature Granulocytes (promyelocytes, myelocytes andmetamyelocytes) > 1% indicates that a LEFT SHIFT is Present. BASO% 0.3 % (Normal) Range: 0-1 EO% 3.2 % (Normal) Range: 0-5 MONO% 10.8 % (Abnormal) Range: 0-10 LY% 19.6 % (Normal) Range: 19-41 NEUT% 66.1 % (Normal) Range: 47-70 MPV 10.4 fL (Normal) Range: 6.2-12.0 PLT 165 K/mm3 (Normal) Range: 150-450 RDW SD 49.8 fL (Abnormal) Range: 35.1-43.9 RDW CV 13.6 % (Normal) Range: 11.6-14.6 MCHC 32.3 {g/gl} (Normal) Range: 32-36 MCH 32.2 pg (Abnormal) Range: 27.0-32.0 MCV 99.8 fL (Abnormal) Range: 80-94 HCT 48.9 % (Normal) Range: 40-54 HGB 15.8 g/dL (Normal) Range: 13.0-16.5 RBC 4.90 {M/mm3} (Normal) Range: 4.6-6.2 WBC 7.2 K/mm3 (Normal) Range: 4.4-11.0 :46 Hep B Surface Antibodies Comments: [facility] (refer to report for specific site)refer to report for address and phone number Hep B Iam AB Non Reactive (Normal) Comments: Non Reactive: Inconsistent with immunity, less than 10 mIU/mL Reactive: Consistent with immunity, greater than 9.9 mIU/ mL :46 Hepatitis C Antibodies Comments: [facility] (refer to report for specific site)refer to report for address and phone number HEP C AB 0.1 {s/co_ratio} (Normal) Range: 0.0-0.9 Comments: Negative: < 0.8 Indeterminate: 0.8 - 0.9 Positive: > 0.9 The CDC recommends that a positive HCV antibody result be followed up with a HCV Nucleic Acid Amplification test (784715).Performed at: [address], [place] [id number] Director: Sonu Springer PhD, Phone: [phone] 21-May-20169:46 Quantiferon TB-Gold Comments: [facility] (refer to report for specific site)refer to report for address and phone number QFT TB INTER Comment (Normal) Comments: The QuantiFERON TB Gold (in Tube) assay is intended for useas an aid in the diagnosis of TB infection. Negativeresults suggest that there is no TB infection. In patientswith high suspicion of exposure, a negative test should berepeated. A positive test indicates infection withMycobacterium tuberculosis. Among individuals withouttuberculosis infection, a positive test may be due toexposure to M. [place] ii, M. szulgai or M. marinum. On theInternet, go to cdc.gov/tb for further details. QFT AG - NIL 0.06 {IU/mL} (Normal) QFT MITOGEN RAYMOND > 10.00 {IU/mL} (Normal) QFT NIL VALUE 0.03 {IU/mL} (Normal) QFT TB AB VALUE 0.09 {IU/mL} (Normal) QFT TB POS CRIT Comment (Normal) Comments: To be considered positive a specimen should have a TB Agminus Nil value greater than or equal to 0.35 IU/mL and inaddition the TB Ag minus Nil value must be greater than orequal to 25% of the Nil value. There may be insufficientinformation in these values to differentiate between somenegative and some indeterminate test values. QFT TB GOLD Negative (Normal) Comments: The specimen received for QuantiFERON testing was incubatedby the ordering institution. Specific procedures outlinedin our Directory of Services and in the package insert forthe QuantiFERON Gold (In Tu be) test must be followed toenable for proper stimulation of cells for the productionof interferon gamma. 92-Jdj-07215:29 Metabolic Panel, Comments: PATIENT NOT FASTINGPERFORMED BY: MIKAYLA [facility] [address] [id number] Information: NURSE DRAW Comprehensive (63431) ALT (SGPT) 25 [iU]/L (Normal) Range: 0-44 AST (SGOT) 24 [iU]/L (Normal) Range: 0-40 Alkaline Phosphatase, S 79 [iU]/L (Normal) Range: 39-117 Bilirubin, Total 0.5 mg/dL (Normal) Range: 0.0-1.2 A/G Ratio 1.1 (Normal) Range: 1.1-2.5 Globulin, Total 3.3 g/dL (Normal) Range: 1.5-4.5 Albumin, Serum 3.7 g/dL (Normal) Range: 3.5-5.5 Protein, Total, Serum 7.0 g/dL (Normal) Range: 6.0-8.5 Calcium, Serum 9.3 mg/dL (Normal) Range: 8.7-10.2 Carbon Dioxide, Total 27 mmol/L (Normal) Range: 18-29 Chloride, Serum 100 mmol/L (Normal) Range: 97-106 Comments: Please note reference interval change Potassium, Serum 5.1 mmol/L (Normal) Range: 3.5-5.2 Comments: Please note reference interval change Sodium, Serum 142 mmol/L (Normal) Range: 136-144 Comments: Please note reference interval change BUN/Creatinine Ratio 19 (Normal) Range: 9-20 eGFR If Africn Am 92 mL/min/1.73 (Normal) eGFR If NonAfricn Am 80 mL/min/1.73 (Normal) Creatinine, Serum 1.08 mg/dL (Normal) Range: 0.76-1.27 BUN 21 mg/dL (Normal) Range: 6-24 Glucose, Serum 100 mg/dL (Abnormal) Range: 65-99 Comments: ADDENDA: non-emergent till apt [id number]-Ldr-[id number]:23 HGB A1C (47096) Comments: PATIENT WAS FASTINGPERFORMED BY: Rithmio70 Chavez OVGuideUNC [facility] [id number] Hemoglobin A1c 6.3 % (Abnormal) Range: 4.8-5.6 Comments: . Pre-diabetes: 5.7 - 6.4 Diabetes: >6.4 Glycemic control for adults with diabetes: <7.0 36-Iwy-[id number]:23 PSA (PROSTATE SPECIFIC Comments: PATIENT WAS FASTINGPERFORMED BY: Rithmio70 [facility] [id number] ANTIGEN) (V76.44) Prostate Specific Ag, 0.9 ng/mL (Normal) Range: 0.0-4.0 Serum Comments: [employer] ECLIA methodology. .According to the [place] [employer], Serum PSA shoulddecrease and remain at undetectable levels after radicalprostatectomy. The AUA defines biochemical recurrence as an initialPSA value 0.2 ng/mL or greater followed by a subsequent confirmatoryPSA value 0.2 ng/mL or greater.Values obtained with d ifferent assay methods or kits cannot be usedinterchangeably. Results cannot be interpreted as absolute evidenceof the presence or absence of malignant disease. :23 SED RATE ERYTHROCYTE (16089) Comments: PATIENT WAS FASTINGPERFORMED BY: [employer]6370 NanotherapeuticsCritical access hospital [id number] Sedimentation Rate-Westergren 7 mm/h (Normal) Range: 0-15 :23 C-REACTIVE PROTEIN (41481) Comments: PATIENT WAS FASTINGPERFORMED BY: Rithmio70 NanotherapeuticsCritical access hospital [id number] C-Reactive Protein, Quant 12.3 mg/L (Abnormal) Range: 0.0-4.9 :23 CBC W/AUTO DIFF WBC Comments: PATIENT WAS FASTINGPERFORMED BY: [employer]6370 PiktochartUNC Health Appalachian [id number] Information: [id number] (72081) Immature Grans (Abs) 0.0 {x10E3/uL} (Normal) Range: 0.0-0.1 Immature Granulocytes 0 % (Normal) Baso (Absolute) 0.0 {x10E3/uL} (Normal) Range: 0.0-0.2 Eos (Absolute) 0.2 {x10E3/uL} (Normal) Range: 0.0-0.4 Monocytes(Absolute) 0.7 {x10E3/uL} (Normal) Range: 0.1-0.9 Lymphs (Absolute) 1.4 {x10E3/uL} (Normal) Range: 0.7-3.1 Neutrophils (Absolute) 5.8 {x10E3/uL} (Normal) Range: 1.4-7.0 Basos 0 % (Normal) Eos 2 % (Normal) Monocytes 8 % (Normal) Lymphs 17 % (Normal) Neutrophils 73 % (Normal) Platelets 210 {x10E3/uL} (Normal) Range: 150-379 RDW 13.7 % (Normal) Range: 12.3-15.4 MCHC 33.9 g/dL (Normal) Range: 31.5-35.7 MCH 32.3 pg (Normal) Range: 26.6-33.0 MCV 96 fL (Normal) Range: 79-97 Hematocrit 44.3 % (Normal) Range: 37.5-51.0 Hemoglobin 15.0 g/dL (Normal) Range: 12.6-17.7 RBC 4.64 {x10E6/uL} (Normal) Range: 4.14-5.80 WBC 8.1 {x10E3/uL} (Normal) Range: 3.4-10.8 29-Rty-434160:23 MICROALBUMIN: CREATININE RATIO Comments: PATIENT WAS FASTINGPERFORMED BY: ZadspaceChinle Comprehensive Health Care FacilityFjfjym9597 [facility] [id number] (37190) AND (95117) Microalb/Creat Ratio <2.3 {mg/g_creat} (Normal) Range: 0.0-30.0 Microalbumin, Urine <3.0 ug/mL (Normal) Creatinine, Urine 132.6 mg/dL (Normal) 81-Qfb-282613:23 METABOLIC PANEL, COMPREHENSIVE Comments: PATIENT WAS FASTINGPERFORMED BY: ZadspacePalisades Medical CenterKwvpis9863 [facility] [id number] (58819) ALT (SGPT) 20 [iU]/L (Normal) Range: 0-44 AST (SGOT) 20 [iU]/L (Normal) Range: 0-40 Alkaline Phosphatase, S 75 [iU]/L (Normal) Range: 39-117 Bilirubin, Total 0.7 mg/dL (Normal) Range: 0.0-1.2 A/G Ratio 1.5 (Normal) Range: 1.1-2.5 Globulin, Total 2.8 g/dL (Normal) Range: 1.5-4.5 Albumin, Serum 4.2 g/dL (Normal) Range: 3.5-5.5 Protein, Total, Serum 7.0 g/dL (Normal) Range: 6.0-8.5 Calcium, Serum 9.0 mg/dL (Normal) Range: 8.7-10.2 Carbon Dioxide, Total 22 mmol/L (Normal) Range: 18-29 Chloride, Serum 98 mmol/L (Normal) Range: 97-108 Potassium, Serum 4.7 mmol/L (Normal) Range: 3.5-5.2 Sodium, Serum 141 mmol/L (Normal) Range: 134-144 BUN/Creatinine Ratio 20 (Normal) Range: 9-20 eGFR If Africn Am 117 mL/min/1.73 (Normal) eGFR If NonAfricn Am 101 mL/min/1.73 (Normal) Creatinine, Serum 0.87 mg/dL (Normal) Range: 0.76-1.27 BUN 17 mg/dL (Normal) Range: 6-24 Glucose, Serum 93 mg/dL (Normal) Range: 65-99 89-Bdy-777805:23 LIPID PANEL (04386) Comments: PATIENT WAS FASTINGPERFORMED BY: LabMckenzie Memorial Hospital6370 [facility] [id number] LDL/HDL Ratio 2.3 {ratio_units} (Normal) Range: 0.0-3.6 Comments: LDL/HDL Ratio Men Women 1/2 Avg.Risk 1.0 1.5 Av g.Risk 3.6 3.2 2X Avg.Risk 6.2 5.0 3X Avg.Risk 8.0 6.1 LDL Cholesterol Calc 81 mg/dL (Normal) Range: 0-99 VLDL Cholesterol Abhijit 18 mg/dL (Normal) Range: 5-40 HDL Cholesterol 36 mg/dL (Abnormal) Comments: According to ATP-III Guidelines, HDL-C >59 mg/dL is considered anegative risk factor for CHD. Triglycerides 88 mg/dL (Normal) Range: 0-149 Cholesterol, Total 135 mg/dL (Normal) Range: 100-199 23-Jun-20158:00 Urinalysis, Office (20846) UA - LEUKOCYTE ESTERASE Negative (Normal) UA - NITRITE Negative (Normal) URINE UROBILINGN JUAN TIMED Normal mg/dL (Normal) UA - PROTEIN Negative mg/dL (Normal) UA - PH 7 (Normal) UA - BLOOD Negative (Normal) UA - SPECIFIC GRAVITY 1.025 (Normal) UA - KETONES Negative mg/dL (Normal) UA - BILIRUBIN Negative (Normal) UA - GLUCOSE Negative (Normal) :56 CBC with auto diff Comments: PATIENT WAS FASTINGPERFORMED BY: ZadspacePalisades Medical CenterIkjyjn4643 [facility] [id number] Information: [id number] (04103) Immature Grans (Abs) 0.0 {x10E3/uL} (Normal) Range: 0.0-0.1 Immature Granulocytes 0 % (Normal) Baso (Absolute) 0.0 {x10E3/uL} (Normal) Range: 0.0-0.2 Eos (Absolute) 0.4 {x10E3/uL} (Normal) Range: 0.0-0.4 Monocytes(Absolute) 0.7 {x10E3/uL} (Normal) Range: 0.1-0.9 Lymphs (Absolute) 1.6 {x10E3/uL} (Normal) Range: 0.7-3.1 Neutrophils (Absolute) 5.0 {x10E3/uL} (Normal) Range: 1.4-7.0 Basos 0 % (Normal) Eos 5 % (Normal) Monocytes 9 % (Normal) Lymphs 21 % (Normal) Neutrophils 65 % (Normal) Platelets 200 {x10E3/uL} (Normal) Range: 150-379 RDW 13.4 % (Normal) Range: 12.3-15.4 MCHC 33.8 g/dL (Normal) Range: 31.5-35.7 MCH 32.4 pg (Normal) Range: 26.6-33.0 MCV 96 fL (Normal) Range: 79-97 Hematocrit 46.5 % (Normal) Range: 37.5-51.0 Hemoglobin 15.7 g/dL (Normal) Range: 12.6-17.7 RBC 4.85 {x10E6/uL} (Normal) Range: 4.14-5.80 WBC 7.7 {x10E3/uL} (Normal) Range: 3.4-10.8 :56 METABOLIC PANEL, COMPREHENSIVE Comments: PATIENT WAS FASTINGPERFORMED BY: [facility]6370 [facility] [id number] (99516) ALT (SGPT) 21 [iU]/L (Normal) Range: 0-44 AST (SGOT) 20 [iU]/L (Normal) Range: 0-40 Alkaline Phosphatase, S 89 [iU]/L (Normal) Range: 39-117 Bilirubin, Total 0.4 mg/dL (Normal) Range: 0.0-1.2 A/G Ratio 1.4 (Normal) Range: 1.1-2.5 Globulin, Total 2.9 g/dL (Normal) Range: 1.5-4.5 Albumin, Serum 4.1 g/dL (Normal) Range: 3.5-5.5 Protein, Total, Serum 7.0 g/dL (Normal) Range: 6.0-8.5 Calcium, Serum 9.4 mg/dL (Normal) Range: 8.7-10.2 Carbon Dioxide, Total 22 mmol/L (Normal) Range: 18-29 Chloride, Serum 102 mmol/L (Normal) Range: 97-108 Potassium, Serum 4.8 mmol/L (Normal) Range: 3.5-5.2 Sodium, Serum 138 mmol/L (Normal) Range: 134-144 BUN/Creatinine Ratio 22 (Abnormal) Range: 9-20 eGFR If Africn Am 113 mL/min/1.73 (Normal) eGFR If NonAfricn Am 97 mL/min/1.73 (Normal) Creatinine, Serum 0.92 mg/dL (Normal) Range: 0.76-1.27 BUN 20 mg/dL (Normal) Range: 6-24 Glucose, Serum 104 mg/dL (Abnormal) Range: 65-99 :56 Hemoglobin Glyclated (HGB A1C) Comments: PATIENT WAS FASTINGPERFORMED BY: Rithmio70 [facility] [id number] (82063) Hemoglobin A1c 6.0 % (Abnormal) Range: 4.8-5.6 Comments: . Pre-diabetes: 5.7 - 6.4 Diabetes: >6.4 Glycemic control for adults with diabetes: <7.0 :56 LIPID PANEL (07502) Comments: PATIENT WAS FASTINGPERFORMED BY: Rithmio70 [facility] [id number]; non-emergent till apt LDL/HDL Ratio 2.2 {ratio_units} Range: 0.0-3.6 (Normal) Comments: LDL/HDL Ratio Men Women 1/2 Avg.Risk 1.0 1.5 Av g.Risk 3.6 3.2 2X Avg.Risk 6.2 5.0 3X Avg.Risk 8.0 6.1 LDL Cholesterol Calc 85 mg/dL (Normal) Range: 0-99 VLDL Cholesterol Abhijit 14 mg/dL (Normal) Range: 5-40 HDL Cholesterol 38 mg/dL (Abnormal) Comments: According to ATP-III Guidelines, HDL-C >59 mg/dL is considered anegative risk factor for CHD. Triglycerides 70 mg/dL (Normal) Range: 0-149 Cholesterol, Total 137 mg/dL (Normal) Range: 100-199 Magnesium, Serum 2.3 mg/dL (Normal) Comments: PATIENT NOT FASTINGPERFORMED BY: ZadspaceRobert Ville [id number] [facility] [id number] :59 Range: 1.6-2.6 TSH 3.040 {uIU/mL} (Normal) Comments: PATIENT NOT FASTINGPERFORMED BY: LabCo[address] [id number] Information: [id number] :59 Range: 0.450-4.500 :51 Comp. Metabolic Panel (14) Comments: PATIENT WAS FASTINGPERFORMED BY: LabHomeTouch[address] [id number] Information: [id number] ALT (SGPT) 21 [iU]/L (Normal) Range: 0-44 AST (SGOT) 21 [iU]/L (Normal) Range: 0-40 Alkaline Phosphatase, S 82 [iU]/L (Normal) Range: 39-117 Bilirubin, Total 0.7 mg/dL (Normal) Range: 0.0-1.2 A/G Ratio 1.5 (Normal) Range: 1.1-2.5 Globulin, Total 2.7 g/dL (Normal) Range: 1.5-4.5 Albumin, Serum 4.1 g/dL (Normal) Range: 3.5-5.5 Protein, Total, Serum 6.8 g/dL (Normal) Range: 6.0-8.5 Calcium, Serum 9.2 mg/dL (Normal) Range: 8.7-10.2 Carbon Dioxide, Total 25 mmol/L (Normal) Range: 18-29 Chloride, Serum 99 mmol/L (Normal) Range: 97-108 Potassium, Serum 4.4 mmol/L (Normal) Range: 3.5-5.2 Sodium, Serum 139 mmol/L (Normal) Range: 134-144 BUN/Creatinine Ratio 21 (Abnormal) Range: 9-20 eGFR If Africn Am 100 mL/min/1.73 (Normal) eGFR If NonAfricn Am 87 mL/min/1.73 (Normal) Creatinine, Serum 1.02 mg/dL (Normal) Range: 0.76-1.27 BUN 21 mg/dL (Normal) Range: 6-24 Glucose, Serum 99 mg/dL (Normal) Range: 65-99 :51 Lipid Panel With LDL/HDL Comments: PATIENT WAS FASTINGPERFORMED BY: [address] [place] [id number] Ratio LDL/HDL Ratio 2.5 {ratio_units} (Normal) Range: 0.0-3.6 Comments: LDL/HDL Ratio Men Women 1/2 Avg.Risk 1.0 1.5 Av g.Risk 3.6 3.2 2X Avg.Risk 6.2 5.0 3X Avg.Risk 8.0 6.1 LDL Cholesterol Calc 91 mg/dL (Normal) Range: 0-99 VLDL Cholesterol Abhijit 13 mg/dL (Normal) Range: 5-40 HDL Cholesterol 36 mg/dL (Abnormal) Comments: According to ATP-III Guidelines, HDL-C >59 mg/dL is considered anegative risk factor for CHD. Triglycerides 67 mg/dL (Normal) Range: 0-149 Cholesterol, Total 140 mg/dL (Normal) Range: 100-199 :51 Microalb/Creat Ratio, Colin Comments: PATIENT NOT FASTINGPERFORMED BY: Rithmio70 NanotherapeuticsCritical access hospital [id number] Information: [id number] Ur Microalb/Creat Ratio 2.3 {mg/g_creat} (Normal) Range: 0.0-30.0 Microalbumin, Urine 4.0 ug/mL (Normal) Range: 0.0-17.0 Creatinine, Urine 175.9 mg/dL (Normal) Range: 22.0-328.0 :51 Prostate-Specific Ag, Serum Comments: PATIENT WAS FASTINGPERFORMED BY: Zadspace Gxsqzg2684 [facility] [id number] Prostate Specific Ag, 1.1 ng/mL (Normal) Range: 0.0-4.0 Serum Comments: [facility] ECLIA methodology. .According to the [place] [employer], Serum PSA shoulddecrease and remain at undetectable levels after radicalprostatectomy. The AUA defines biochemical recurrence as an initialPSA value 0.2 ng/mL or greater followed by a subsequent confirmatoryPSA value 0.2 ng/mL or greater.Values obtained with d ifferent assay methods or kits cannot be usedinterchangeably. Results cannot be interpreted as absolute evidenceof the presence or absence of malignant disease. :14 HgA1C , Office (25545) HgA1C , Office 6.2 % (Normal) Range: 4.6 - 7.1 :35 CBC W/AUTO DIFF WBC Comments: PATIENT WAS FASTINGPERFORMED BY: ZadspacePalisades Medical CenterHtxtqc0313 [facility] [id number] Information: [id number] (71102) Immature Grans (Abs) 0.0 {x10E3/uL} (Normal) Range: 0.0-0.1 Immature Granulocytes 0 % (Normal) Baso (Absolute) 0.0 {x10E3/uL} (Normal) Range: 0.0-0.2 Eos (Absolute) 0.3 {x10E3/uL} (Normal) Range: 0.0-0.4 Monocytes(Absolute) 0.8 {x10E3/uL} (Normal) Range: 0.1-0.9 Lymphs (Absolute) 1.7 {x10E3/uL} (Normal) Range: 0.7-3.1 Neutrophils (Absolute) 4.0 {x10E3/uL} (Normal) Range: 1.4-7.0 Basos 0 % (Normal) Eos 4 % (Normal) Monocytes 12 % (Normal) Lymphs 25 % (Normal) Neutrophils 59 % (Normal) Platelets 190 {x10E3/uL} (Normal) Range: 150-379 RDW 13.1 % (Normal) Range: 12.3-15.4 MCHC 34.5 g/dL (Normal) Range: 31.5-35.7 MCH 32.8 pg (Normal) Range: 26.6-33.0 MCV 95 fL (Normal) Range: 79-97 Hematocrit 49.6 % (Normal) Range: 37.5-51.0 Hemoglobin 17.1 g/dL (Normal) Range: 12.6-17.7 RBC 5.22 {x10E6/uL} (Normal) Range: 4.14-5.80 WBC 6.8 {x10E3/uL} (Normal) Range: 3.4-10.8 :35 METABOLIC PANEL, COMPREHENSIVE Comments: PATIENT WAS FASTINGPERFORMED BY: LabMckenzie [facility] Hospital6370 [facility] [id number] (07400) ALT (SGPT) 24 [iU]/L (Normal) Range: 0-44 AST (SGOT) 21 [iU]/L (Normal) Range: 0-40 Alkaline Phosphatase, S 79 [iU]/L (Normal) Range: 39-117 Bilirubin, Total 1.0 mg/dL (Normal) Range: 0.0-1.2 A/G Ratio 1.7 (Normal) Range: 1.1-2.5 Globulin, Total 2.6 g/dL (Normal) Range: 1.5-4.5 Albumin, Serum 4.3 g/dL (Normal) Range: 3.5-5.5 Protein, Total, Serum 6.9 g/dL (Normal) Range: 6.0-8.5 Calcium, Serum 9.5 mg/dL (Normal) Range: 8.7-10.2 Carbon Dioxide, Total 25 mmol/L (Normal) Range: 18-29 Chloride, Serum 98 mmol/L (Normal) Range: 97-108 Potassium, Serum 5.0 mmol/L (Normal) Range: 3.5-5.2 Sodium, Serum 138 mmol/L (Normal) Range: 134-144 BUN/Creatinine Ratio 18 (Normal) Range: 9-20 eGFR If Africn Am 109 mL/min/1.73 (Normal) eGFR If NonAfricn Am 94 mL/min/1.73 (Normal) Creatinine, Serum 0.95 mg/dL (Normal) Range: 0.76-1.27 BUN 17 mg/dL (Normal) Range: 6-24 Glucose, Serum 94 mg/dL (Normal) Range: 65-99 :35 LIPID PANEL (21746) Comments: PATIENT WAS FASTINGPERFORMED BY: [employer]6370 [facility] [id number] LDL/HDL Ratio 2.3 {ratio_units} (Normal) Range: 0.0-3.6 Comments: LDL/HDL Ratio Men Women 1/2 Avg.Risk 1.0 1.5 Av g.Risk 3.6 3.2 2X Avg.Risk 6.2 5.0 3X Avg.Risk 8.0 6.1 LDL Cholesterol Calc 84 mg/dL (Normal) Range: 0-99 VLDL Cholesterol Abhijit 15 mg/dL (Normal) Range: 5-40 HDL Cholesterol 36 mg/dL (Abnormal) Comments: According to ATP-III Guidelines, HDL-C >59 mg/dL is considered anegative risk factor for CHD. Triglycerides 73 mg/dL (Normal) Range: 0-149 Cholesterol, Total 135 mg/dL (Normal) Range: 100-199 :05 HgA1C , Office (10367) HgA1C , Office 6.0 % (Normal) Range: 4.6 - 7.1 :02 HgA1C , Office (59580) HgA1C , Office 6.0 % (Normal) Range: 4.6 - 7.1 53-Ltl-773338:26 Rapid Flu (39898 x 2) Influenza A Ag negative (Normal) :51 METABOLIC PANEL, Comments: PATIENT WAS FASTINGPERFORMED BY: [employer]6370 [facility] [id number] Information: [id number] COMPREHENSIVE (42942) ALT (SGPT) 17 [iU]/L (Normal) Range: 0-44 AST (SGOT) 18 [iU]/L (Normal) Range: 0-40 Alkaline Phosphatase, S 97 [iU]/L (Normal) Range: 39-117 Bilirubin, Total 0.5 mg/dL (Normal) Range: 0.0-1.2 A/G Ratio 1.6 (Normal) Range: 1.1-2.5 Globulin, Total 2.5 g/dL (Normal) Range: 1.5-4.5 Albumin, Serum 4.0 g/dL (Normal) Range: 3.5-5.5 Protein, Total, Serum 6.5 g/dL (Normal) Range: 6.0-8.5 Calcium, Serum 9.5 mg/dL (Normal) Range: 8.7-10.2 Carbon Dioxide, Total 27 mmol/L (Normal) Range: 19-28 Chloride, Serum 101 mmol/L (Normal) Range: 97-108 Potassium, Serum 4.7 mmol/L (Normal) Range: 3.5-5.2 Sodium, Serum 138 mmol/L (Normal) Range: 134-144 BUN/Creatinine Ratio 22 (Abnormal) Range: 9-20 eGFR If Africn Am 122 mL/min/1.73 (Normal) eGFR If NonAfricn Am 105 mL/min/1.73 (Normal) Creatinine, Serum 0.82 mg/dL (Normal) Range: 0.76-1.27 BUN 18 mg/dL (Normal) Range: 6-24 Glucose, Serum 101 mg/dL (Abnormal) Range: 65-99 :51 MICROALBUMIN: CREATININE RATIO Comments: PATIENT WAS FASTINGPERFORMED BY: Rithmio70 NanotherapeuticsCritical access hospital [id number] (11245) AND (04596) Microalb/Creat Ratio 1.4 {mg/g_creat} (Normal) Range: 0.0-30.0 Microalbumin, Urine 1.3 ug/mL (Normal) Range: 0.0-17.0 Creatinine, Urine 95.1 mg/dL (Normal) Range: 22.0-328.0 :51 LIPID PANEL (65406) Comments: PATIENT WAS FASTINGPERFORMED BY: Rithmio70 NanotherapeuticsCritical access hospital [id number]; nothing urgent...will review at appt. on 12/17/13 LDL/HDL Ratio 2.4 {ratio_units} (Normal) Range: 0.0-3.6 LDL Cholesterol Calc 90 mg/dL (Normal) Range: 0-99 VLDL Cholesterol Abhijit 12 mg/dL (Normal) Range: 5-40 HDL Cholesterol 38 mg/dL (Abnormal) Comments: According to ATP-III Guidelines, HDL-C >59 mg/dL is considered anegative risk factor for CHD. Triglycerides 59 mg/dL (Normal) Range: 0-149 Cholesterol, Total 140 mg/dL (Normal) Range: 100-199 77-Vhd-171258:10 HgA1C , Office (38187) HgA1C , Office 6.0 % (Normal) Range: 4.6 - 7.1 88-Yct-452830:11 PSA (PROSTATE SPECIFIC Comments: PATIENT WAS FASTINGPERFORMED BY: [employer]6370 [address] [id number] ANTIGEN) (V76.44) Prostate Specific Ag, 1.2 ng/mL (Normal) Range: 0.0-4.0 Serum Comments: [facility] ECLIA methodology. .According to the [place] [employer], Serum PSA shoulddecrease and remain at undetectable levels after radicalprostatectomy. The AUA defines biochemical recurrence as an initialPSA value 0.2 ng/mL or greater followed by a subsequent confirmatoryPSA value 0.2 ng/mL or greater.Values obtained with d ifferent assay methods or kits cannot be usedinterchangeably. Results cannot be interpreted as absolute evidenceof the presence or absence of malignant disease. 31-Lfq-243724:11 CREATININE, URINE (08475) Comments: PATIENT WAS FASTINGPERFORMED BY: [employer]6370 [address] [facility] [id number] Creatinine, Urine 75.5 mg/dL (Normal) Range: 22.0-328.0 36-Vro-913410:11 METABOLIC PANEL, Comments: PATIENT WAS FASTINGPERFORMED BY: [employer]6370 [address] [facility] [id number] Information: [id number] COMPREHENSIVE (26192) ALT (SGPT) 18 [iU]/L (Normal) Range: 0-44 AST (SGOT) 15 [iU]/L (Normal) Range: 0-40 Alkaline Phosphatase, S 81 [iU]/L (Normal) Range: 39-117 Bilirubin, Total 0.5 mg/dL (Normal) Range: 0.0-1.2 A/G Ratio 1.6 (Normal) Range: 1.1-2.5 Globulin, Total 2.5 g/dL (Normal) Range: 1.5-4.5 Albumin, Serum 3.9 g/dL (Normal) Range: 3.5-5.5 Protein, Total, Serum 6.4 g/dL (Normal) Range: 6.0-8.5 Calcium, Serum 9.0 mg/dL (Normal) Range: 8.7-10.2 Carbon Dioxide, Total 26 mmol/L (Normal) Range: 19-28 Chloride, Serum 101 mmol/L (Normal) Range: 97-108 Potassium, Serum 4.5 mmol/L (Normal) Range: 3.5-5.2 Sodium, Serum 139 mmol/L (Normal) Range: 134-144 BUN/Creatinine Ratio 23 (Abnormal) Range: 9-20 eGFR If Africn Am 119 mL/min/1.73 (Normal) eGFR If NonAfricn Am 103 mL/min/1.73 (Normal) BUN 20 mg/dL (Normal) Range: 6-24 Creatinine, Serum 0.87 mg/dL (Normal) Range: 0.76-1.27 Glucose, Serum 90 mg/dL (Normal) Range: 65-99 74-Hne-698301:11 LIPID PANEL (21177) Comments: PATIENT WAS FASTINGPERFORMED BY: LabCoPalisades Medical CenterQbkwef9494 [facility] [id number] LDL Cholesterol Calc 77 mg/dL (Normal) Range: 0-99 LDL/HDL Ratio 1.8 {ratio_units} (Normal) Range: 0.0-3.6 HDL Cholesterol 42 mg/dL (Normal) Comments: According to ATP-III Guidelines, HDL-C >59 mg/dL is considered anegative risk factor for CHD. VLDL Cholesterol Abhijit 10 mg/dL (Normal) Range: 5-40 Cholesterol, Total 129 mg/dL (Normal) Range: 100-199 Triglycerides 52 mg/dL (Normal) Range: 0-149 [id number]-Pqp-[id number]:13 HgA1C , Office (27142) HgA1C , Office 5.9 % (Normal) Range: 4.6 - 7.1 [id number]:46 Urinalysis, Office (86458) UA - BILIRUBIN Negative (Normal) UA - BLOOD Negative (Normal) UA - GLUCOSE Negative (Normal) UA - KETONES Negative mg/dL (Normal) UA - LEUKOCYTE ESTERASE Negative (Normal) UA - NITRITE Negative (Normal) UA - PH 6.5 (Normal) UA - PROTEIN Negative mg/dL (Normal) UA - SPECIFIC GRAVITY 1.025 (Normal) URINE UROBILINGN JUAN TIMED Normal mg/dL (Normal) [id number] Aerobic Bacterial Culture Comments: PERFORMED BY: [facility] [id number] Information: SRC:KN LEFT KNEE Result 1 NG36 (Normal) Comments: No growth in 36 - 48 hours. Aerobic Bacterial Culture Final report (Normal) :26 Anaerobic and Aerobic Comments: PERFORMED BY: [facility] [id number] Information: SRC:KN LEFT KNEE Culture Result 1 NG36 (Normal) Comments: No growth in 36 - 48 hours. Aerobic Culture Final report (Normal) Result 1 NANG72 (Normal) Comments: No anaerobic growth in 72 hours. Anaerobic Culture Final report (Normal) :36 PSA (PROSTATE SPECIFIC Comments: PATIENT WAS FASTINGPERFORMED BY: [email or web address] NanotherapeuticsCritical access hospital [id number] ANTIGEN) (V76.44) Prostate Specific Ag, 0.9 ng/mL (Normal) Range: 0.0-4.0 Serum Comments: [place] [employer]IA methodology. .According to the [place] [employer], Serum PSA shoulddecrease and remain at undetectable levels after radicalprostatectomy. The AUA defines biochemical recurrence as an initialPSA value 0.2 ng/mL or greater followed by a subsequent confirmatoryPSA value 0.2 ng/mL or greater.Values obtained with d ifferent assay methods or kits cannot be usedinterchangeably. Results cannot be interpreted as absolute evidenceof the presence or absence of malignant disease. :36 CBC WITH MANUAL DIFF Comments: PATIENT WAS FASTINGPERFORMED BY: [facility] hospital [id number] Information: [id number] ([id number]) Immature Grans (Abs) 0.0 {x10E3/uL} (Normal) Range: 0.0-0.1 Immature Granulocytes 0 % (Normal) Range: 0-2 Baso (Absolute) 0.0 {x10E3/uL} (Normal) Range: 0.0-0.2 Eos (Absolute) 0.3 {x10E3/uL} (Normal) Range: 0.0-0.4 Lymphs (Absolute) 1.6 {x10E3/uL} (Normal) Range: 0.7-4.5 Monocytes(Absolute) 1.0 {x10E3/uL} (Normal) Range: 0.1-1.0 Neutrophils (Absolute) 3.6 {x10E3/uL} (Normal) Range: 1.8-7.8 Basos 0 % (Normal) Range: 0-3 Eos 5 % (Normal) Range: 0-7 Monocytes 15 % (Abnormal) Range: 4-13 Lymphs 24 % (Normal) Range: 14-46 Neutrophils 56 % (Normal) Range: 40-74 Platelets 190 {x10E3/uL} (Normal) Range: 140-415 RDW 13.6 % (Normal) Range: 12.3-15.4 MCHC 33.3 g/dL (Normal) Range: 31.5-35.7 MCH 32.3 pg (Normal) Range: 26.6-33.0 MCV 97 fL (Normal) Range: 79-97 Hematocrit 47.8 % (Normal) Range: 37.5-51.0 Hemoglobin 15.9 g/dL (Normal) Range: 12.6-17.7 RBC 4.93 {x10E6/uL} (Normal) Range: 4.14-5.80 WBC 6.5 {x10E3/uL} (Normal) Range: 4.0-10.5 52-Cgq-68239:36 METABOLIC PANEL, COMPREHENSIVE Comments: PATIENT WAS FASTINGPERFORMED BY: [facility] CenterXqskpr6651 [facility] [id number] ([id number]) ALT (SGPT) 25 [iU]/L (Normal) Range: 0-55 Comments: Effective May 18, 2012 the reference interval for ALT (SGPT) will be changing to: Male Female 0 - 11 years 0 - 29 0 - 28 12 - 17 years 0 - 30 0 - 24 > 17 years 0 - 44 0 - 32 Alkaline Phosphatase, S 78 [iU]/L (Normal) Range: 25-150 AST (SGOT) 23 [iU]/L (Normal) Range: 0-40 Bilirubin, Total 0.5 mg/dL (Normal) Range: 0.0-1.2 A/G Ratio 1.6 (Normal) Range: 1.1-2.5 Globulin, Total 2.5 g/dL (Normal) Range: 1.5-4.5 Albumin, Serum 4.0 g/dL (Normal) Range: 3.5-5.5 Calcium, Serum 9.0 mg/dL (Normal) Range: 8.7-10.2 Protein, Total, Serum 6.5 g/dL (Normal) Range: 6.0-8.5 Carbon Dioxide, Total 23 mmol/L (Normal) Range: 20-32 Chloride, Serum 101 mmol/L (Normal) Range: 97-108 Potassium, Serum 4.7 mmol/L (Normal) Range: 3.5-5.2 Sodium, Serum 137 mmol/L (Normal) Range: 134-144 BUN/Creatinine Ratio 23 (Abnormal) Range: 9-20 eGFR If Africn Am 119 mL/min/1.73 (Normal) eGFR If NonAfricn Am 103 mL/min/1.73 (Normal) Creatinine, Serum 0.88 mg/dL (Normal) Range: 0.76-1.27 BUN 20 mg/dL (Normal) Range: 6-24 Glucose, Serum 105 mg/dL (Abnormal) Range: 65-99 79-Ivy-41449:36 LIPID PANEL (03222) Comments: PATIENT WAS FASTINGPERFORMED BY: [facility]Co[facility] CenterMuelpb2624 [facility] [id number] LDL Cholesterol Calc 72 mg/dL (Normal) Range: 0-99 LDL/HDL Ratio 1.9 {ratio_units} (Normal) Range: 0.0-3.6 HDL Cholesterol 38 mg/dL (Abnormal) Comments: According to ATP-III Guidelines, HDL-C >59 mg/dL is considered anegative risk factor for CHD. VLDL Cholesterol Abhijit 17 mg/dL (Normal) Range: 5-40 Cholesterol, Total 127 mg/dL (Normal) Range: 100-199 Triglycerides 85 mg/dL (Normal) Range: 0-149 :04 HgA1C , Office (08009) HgA1C , Office 6.0 % (Normal) Range: 4.6 - 7.1 :19 CBCMD RBCM NORM C+C {NORMAL} (Normal) PE ADEQUATE (Normal) EOS 2 % (Normal) Range: 0-5 MON 15 % (Abnormal) Range: 0-10 LYMPH 15 % (Abnormal) Range: 19-41 BAND 1 % (Normal) Range: 0-5 PMN 67 % (Normal) Range: 47-70 ANDREW 100 (Normal) ANC 4.1 3/uL (Normal) Range: 2.0-7.7 PLT 174 K/mm3 (Normal) Range: 150-450 RDW 13.6 % (Normal) Range: 11.6-14.6 MCHC 34.3 g/dL (Normal) Range: 32-36 MCH 32.5 pg (Abnormal) Range: 27.0-32.0 MCV 94.7 fL (Abnormal) Range: 80-94 HCT 45.8 % (Normal) Range: 40-54 HGB 15.7 g/dL (Normal) Range: 14.0-18.0 RBC 4.83 {M/mm3} (Normal) Range: 4.6-6.2 WBC 6.6 K/mm3 (Normal) Range: 4.4-11.0 :19 CMP GAP 7 (Normal) Range: 5-15 CO2 29.0 mmol/L (Normal) Range: 21.0-32.0 CL 101 mmol/L (Normal) Range: 98-107 K 4.4 mmol/L (Normal) Range: 3.5-5.1 NA 137 mmol/L (Normal) Range: 136-145 BIT 0.80 mg/dL (Normal) Range: 0.00-1.00 ALK 80 U/L (Normal) Range: 50-136 ALT 36 U/L (Normal) Range: 12-78 AST 23 U/L (Normal) Range: 15-37 CA 8.4 mg/dL (Abnormal) Range: 8.5-10.1 AG 1.1 {RATIO} (Normal) Range: 0.9-2.4 GLOB 3.6 g/dL (Normal) Range: 2.7-4.2 ALB 3.8 g/dL (Normal) Range: 3.4-5.0 TPROT 7.4 g/dL (Normal) Range: 6.4-8.2 BC 18.9 {RATIO} (Normal) Range: 10-20 GFRAA 118 mL/min (Normal) GFR 97 mL/min (Normal) CREAT 0.9 mg/dL (Normal) Range: 0.8-1.3 BUN 17 mg/dL (Normal) Range: 7-18 GLU 97 mg/dL (Normal) Range: 70-110 :19 LIPID VLDL 14 mg/dL (Normal) Range: 5-40 LDL 79 mg/dL (Normal) Range: 0-130 HDL 34 mg/dL (Abnormal) Comments: Reference Range HDL <40 mg/dL Low HDL Cholesterol HDL >or= 60 mg/dL High HDL Cholesterol TRIG 71 mg/dL (Normal) Comments: Serum Triglycerides Reference Interval Normal <150 mg/dL Borderline high 150 - 199 mg/dL High 200 - 499 mg/dL Very High > or = 500 mg/dL CHOL 127 mg/dL (Normal) Comments: <200 mg/dL Desirable 200-240 mg/dL Borderline >240 mg/dL High Risk :19 MIACRE MIALB < 5.0 mg/L (Normal) tMICROCREAT <TEST NOT PERFORMED> {mg/g_CRE} (Normal) CREU 106.1 mg/dL (Normal) :07 CBCD,SMEAR DIFF RED CELL MORPH SeeNote {NORMAL} (Normal) Comments: Result: NORM C+C PLT EST SeeNote (Normal) Comments: Result: ADEQUATE EOS 2 % (Normal) Range: 0-5 MONOCYTE 8 % (Normal) Range: 0-10 LYMPH 16 % (Abnormal) Range: 19-41 BAND 1 % (Normal) Range: 0-5 SEGS 73 % (Abnormal) Range: 47-70 CELLS COUNTED 100 (Normal) ABSOLUTE NEUT 4.5 3/uL (Normal) Range: 2.0-7.7 PLT 171 K/mm3 (Normal) Range: 150-450 RDW 13.7 % (Normal) Range: 11.6-14.6 MCHC 34.3 g/dL (Normal) Range: 32-36 MCH 32.8 pg (Abnormal) Range: 27.0-32.0 MCV 95.6 fL (Abnormal) Range: 80-94 HCT 46.1 % (Normal) Range: 40-54 HGB 15.8 g/dL (Normal) Range: 14.0-18.0 RBC 4.83 {M/mm3} (Normal) Range: 4.6-6.2 WBC 7.0 K/mm3 (Normal) Range: 4.4-11.0 :07 COMP METABOLIC GAP 6 (Normal) Range: 5-15 CO2 29.0 mmol/L (Normal) Range: 21.0-32.0 CL 102 mmol/L (Normal) Range: 98-107 K 4.3 mmol/L (Normal) Range: 3.5-5.1 NA 137 mmol/L (Normal) Range: 136-145 T BILI 0.60 mg/dL (Normal) Range: 0.00-1.00 ALT 31 U/L (Normal) Range: 12-78 ALK P 77 U/L (Normal) Range: 50-136 AST 21 U/L (Normal) Range: 15-37 CA 8.8 mg/dL (Normal) Range: 8.5-10.1 A/G 1.1 {RATIO} (Normal) Range: 0.9-2.4 GLOB 3.3 g/dL (Normal) Range: 2.7-4.2 ALB 3.7 g/dL (Normal) Range: 3.4-5.0 BUN/CRE 18.0 {RATIO} (Normal) Range: 10-20 T PROT 7.0 g/dL (Normal) Range: 6.4-8.2 EST GFR - AA 104 mL/min (Normal) EST GFR 86 mL/min (Normal) CREAT,SERUM 1.0 mg/dL (Normal) Range: 0.8-1.3 BUN 18 mg/dL (Normal) Range: 7-18 GLU 99 mg/dL (Normal) Range: 70-110 :07 LIPID VLDL 17 mg/dL (Normal) Range: 5-40 HDL 32 mg/dL (Abnormal) Comments: Reference Range HDL <40 mg/dL Low HDL Cholesterol HDL >or= 60 mg/dL High HDL Cholesterol LDL 80 mg/dL (Normal) Range: 0-130 TRIG 87 mg/dL (Normal) Comments: Serum Triglycerides Reference Interval Normal <150 mg/dL Borderline high 150 - 199 mg/dL High 200 - 499 mg/dL Very High > or = 500 mg/dL CHOL 129 mg/dL (Normal) Comments: <200 mg/dL Desirable 200-240 mg/dL Borderline >240 mg/dL High Risk :07 MICROALB:CRE UR MALB:CREAT 3.3 {mg/g_CRE} (Normal) MICROALBUMIN,UR 5.3 mg/L (Normal) UR CREAT 158.1 mg/dL (Normal) [id number]-Brd-36861:00 KNEE,4 OR MORE VIEWS Radiology Report See Note (Normal) Comments: PROCEDURES: X-RAY - LEFT KNEE REASON FOR EXAM: Male, 46 years old. Pain and swelling x 2 weeks TECHNIQUE: Four views of the knee. COMPARISON: None. FINDINGS:Mild narrowing of the me dial joint s pace is present. Normal lateralfemorotibial compartment. Mild narrowing of the patellofemoral jointspaceis present. Normal visualized distal femur. Normal visualized proximal tibia andfibula. Normal proximal tibiofibular articulation. IMPRESSION:Mild generalized arthritic changes of medial joint space andpatellofemoraljoint. Dictated on 05/18/11725 by Colton Roland MDTranscribed on 05/18/11732 by ITS IMPORTSign by Colton Roland MD on 05/18/11733 Sign by: Colton Roland MD :16 HgA1C , Office (76072) HgA1C , Office 5.7 % (Normal) Range: 4.6 - 7.1 :16 Blood Glucose , Office (41891) Blood Glucose , Office 92 (Normal) :27 HEMOGLOBIN GLYCLATED (HGB Comments: PATIENT NOT FASTINGPERFORMED BY: [facility]CoCh[facility] FacilityPfvxgr8677 [facility] [id number] Information: [id number] A1C) (46845) Hemoglobin A1c 6.4 % (Abnormal) Range: 4.8-5.6 Comments: Increased risk for diabetes: 5.7 - 6.4 Diabetes: >6.4 Glycemic control for adults with diabetes: <7.0 :44 Urinalysis, Office (42233) UA - BILIRUBIN Negative (Normal) UA - BLOOD Negative (Normal) UA - GLUCOSE Negative (Normal) UA - KETONES Negative mg/dL (Normal) UA - LEUKOCYTE ESTERASE Negative (Normal) UA - NITRITE Negative (Normal) UA - PH 7.0 (Normal) UA - PROTEIN Negative mg/dL (Normal) UA - SPECIFIC GRAVITY 1.025 (Normal) URINE UROBILINGN JUAN TIMED Normal mg/dL (Normal) :45 PSA (PROSTATE SPECIFIC Comments: PATIENT WAS FASTINGPERFORMED BY: [employer]ithm[employer]70 NanotherapeuticsCritical access hospital [id number] ANTIGEN) (V76.44) Prostate Specific Ag, 0.7 ng/mL (Normal) Range: 0.0-4.0 Serum Comments: [facility] ECLIA methodology. .According to the [place] [employer], Serum PSA shoulddecrease and remain at undetectable levels after radicalprostatectomy. The AUA defines biochemical recurrence as an initialPSA value 0.2 ng/mL or greater followed by a subsequent confirmatoryPSA value 0.2 ng/mL or greater.Values obtained with d ifferent assay methods or kits cannot be usedinterchangeably. Results cannot be interpreted as absolute evidenceof the presence or absence of malignant disease. :45 CBC WITH MANUAL DIFF Comments: PATIENT WAS FASTINGPERFORMED BY: [id number] NanotherapeuticsCritical access hospital [id number] Information: [id number] (04426) Baso (Absolute) 0.0 {x10E3/uL} (Normal) Range: 0.0-0.2 Immature Grans (Abs) 0.0 {x10E3/uL} (Normal) Range: 0.0-0.1 Immature Granulocytes 0 % (Normal) Range: 0-1 Eos (Absolute) 0.2 {x10E3/uL} (Normal) Range: 0.0-0.4 Monocytes(Absolute) 0.9 {x10E3/uL} (Normal) Range: 0.1-1.0 Lymphs (Absolute) 1.6 {x10E3/uL} (Normal) Range: 0.7-4.5 Neutrophils (Absolute) 4.4 {x10E3/uL} (Normal) Range: 1.8-7.8 Basos 0 % (Normal) Range: 0-3 Eos 3 % (Normal) Range: 0-7 Lymphs 22 % (Normal) Range: 14-46 Monocytes 12 % (Normal) Range: 4-13 Neutrophils 63 % (Normal) Range: 40-74 Platelets 185 {x10E3/uL} (Normal) Range: 140-415 MCHC 34.1 g/dL (Normal) Range: 32.0-36.0 RDW 13.6 % (Normal) Range: 11.7-15.0 MCH 32.7 pg (Normal) Range: 27.0-34.0 Hematocrit 48.1 % (Normal) Range: 36.0-50.0 MCV 96 fL (Normal) Range: 80-98 Hemoglobin 16.4 g/dL (Normal) Range: 12.5-17.0 RBC 5.01 {x10E6/uL} (Normal) Range: 4.10-5.60 WBC 7.1 {x10E3/uL} (Normal) Range: 4.0-10.5 :45 METABOLIC PANEL, COMPREHENSIVE Comments: PATIENT WAS FASTINGPERFORMED BY: [facility]CoPal[facility] CenterNklwws7937 [facility] [id number] ([id number]) Alkaline Phosphatase, S 87 [iU]/L (Normal) Range: 25-150 ALT (SGPT) 21 [iU]/L (Normal) Range: 0-55 AST (SGOT) 24 [iU]/L (Normal) Range: 0-40 A/G Ratio 1.4 (Normal) Range: 1.1-2.5 Bilirubin, Total 0.7 mg/dL (Normal) Range: 0.0-1.2 Globulin, Total 2.8 g/dL (Normal) Range: 1.5-4.5 Albumin, Serum 4.0 g/dL (Normal) Range: 3.5-5.5 Calcium, Serum 9.0 mg/dL (Normal) Range: 8.7-10.2 Carbon Dioxide, Total 26 mmol/L (Normal) Range: 20-32 Protein, Total, Serum 6.8 g/dL (Normal) Range: 6.0-8.5 Chloride, Serum 102 mmol/L (Normal) Range: 97-108 Potassium, Serum 4.8 mmol/L (Normal) Range: 3.5-5.2 BUN/Creatinine Ratio 15 (Normal) Range: 9-20 Sodium, Serum 139 mmol/L (Normal) Range: 135-145 eGFR >59 mL/min/1.73 (Normal) eGFR AfricanAmerican >59 mL/min/1.73 Comments: Note: Persistent reduction for 3 months or more in an eGFR<60 mL/min/1.73 m2 defines CKD. Patients with eGFR values>/=60 mL/min/1.73 m2 may also have CKD if evidence of persistentproteinuria is (Normal) present. Additional information may be found [email or web address]. BUN 15 mg/dL (Normal) Range: 6-24 Creatinine, Serum 0.97 mg/dL (Normal) Range: 0.76-1.27 Glucose, Serum 101 mg/dL (Abnormal) Range: 65-99 :45 LIPID PANEL (13730) Comments: PATIENT WAS FASTINGPERFORMED BY: InductlyCritical access hospital [id number] LDL/HDL Ratio 2.1 {ratio_units} (Normal) Range: 0.0-3.6 HDL Cholesterol 40 mg/dL (Normal) Comments: According to ATP-III Guidelines, HDL-C >59 mg/dL is considered anegative risk factor for CHD. LDL Cholesterol Calc 85 mg/dL (Normal) Range: 0-99 VLDL Cholesterol Abhijit 15 mg/dL (Normal) Range: 5-40 Cholesterol, Total 140 mg/dL (Normal) Range: 100-199 Triglycerides 73 mg/dL (Normal) Range: 0-149 :38 HgA1C , Office (76118) HgA1C , Office 6.1 % (Normal) Range: 4.6 - 7.1 :38 Blood Glucose , Office (30373) Blood Glucose , Office 105 (Normal) :57 LIPID PANEL (95374) Comments: PATIENT NOT FASTINGPERFORMED BY: [employer] [facility] [id number] LDL Cholesterol Calc 91 mg/dL (Normal) Range: 0-99 LDL/HDL Ratio 2.6 {ratio_units} (Normal) Range: 0.0-3.6 Cholesterol, Total 139 mg/dL (Normal) Range: 100-199 HDL Cholesterol 35 mg/dL (Abnormal) Comments: According to ATP-III Guidelines, HDL-C >59 mg/dL is considered anegative risk factor for CHD. Triglycerides 66 mg/dL (Normal) Range: 0-149 VLDL Cholesterol Abhijit 13 mg/dL (Normal) Range: 5-40 :57 METABOLIC PANEL, Comments: PATIENT NOT FASTINGPERFORMED BY: [facility] Mtzhtb4537 [facility] [id number] Information: [id number] COMPREHENSIVE (09119) ALT (SGPT) 21 [iU]/L (Normal) Range: 0-55 Alkaline Phosphatase, S 82 [iU]/L (Normal) Range: 25-150 AST (SGOT) 23 [iU]/L (Normal) Range: 0-40 Bilirubin, Total 0.8 mg/dL (Normal) Range: 0.0-1.2 A/G Ratio 1.6 (Normal) Range: 1.1-2.5 Albumin, Serum 4.1 g/dL (Normal) Range: 3.5-5.5 Globulin, Total 2.6 g/dL (Normal) Range: 1.5-4.5 Protein, Total, Serum 6.7 g/dL (Normal) Range: 6.0-8.5 Calcium, Serum 9.0 mg/dL (Normal) Range: 8.7-10.2 Carbon Dioxide, Total 27 mmol/L (Normal) Range: 20-32 Chloride, Serum 100 mmol/L (Normal) Range: 97-108 Potassium, Serum 4.9 mmol/L (Normal) Range: 3.5-5.2 BUN/Creatinine Ratio 16 (Normal) Range: 8-27 Sodium, Serum 139 mmol/L (Normal) Range: 135-145 eGFR AfricanAmerican >59 mL/min/1.73 Comments: Note: Persistent reduction for 3 months or more in an eGFR<60 mL/min/1.73 m2 defines CKD. Patients with eGFR values>/=60 mL/min/1.73 m2 may also have CKD if evidence of persistentproteinuria is (Normal) present. Additional information may be found [email or web address]. BUN 15 mg/dL (Normal) Range: 5-26 Creatinine, Serum 0.94 mg/dL (Normal) Range: 0.76-1.27 eGFR >59 mL/min/1.73 (Normal) Glucose, Serum 89 mg/dL (Normal) Range: 65-99 :57 MICROALBUMIN: CREATININE RATIO Comments: PATIENT NOT FASTINGPERFORMED BY: [facility]Co[facility] CenterMsfmqu5983 [facility] [id number] (45209) AND (38848) Microalb/Creat Ratio 1.7 {mg/g_creat} (Normal) Range: 0.0-30.0 Microalbumin, Urine 2.1 ug/mL (Normal) Range: 0.0-17.0 Creatinine, Urine 126.1 mg/dL (Normal) Range: 22.0-328.0 :03 HgA1C , Office (09215) HgA1C , Office 5.9 % (Normal) Range: 4.6 - 7.1 :03 Blood Glucose , Office (52969) Blood Glucose , Office 94 (Normal) :18 COMP METABOLIC CL 94 mmol/L (Abnormal) Range: 98-107 CO2 30.0 mmol/L (Normal) Range: 21.0-32.0 GAP 9 (Normal) Range: 5-15 A/G 1.0 {RATIO} (Normal) Range: 0.9-2.4 ALB 3.6 g/dL (Normal) Range: 3.4-5.0 ALK P 90 U/L (Normal) Range: 50-136 ALT 32 U/L (Normal) Range: 12-78 AST 15 U/L (Normal) Range: 15-37 CA 8.6 mg/dL (Normal) Range: 8.5-10.1 GLOB 3.6 g/dL (Normal) Range: 2.7-4.2 K 3.9 mmol/L (Normal) Range: 3.5-5.1 NA 133 mmol/L (Abnormal) Range: 136-145 T BILI 0.70 mg/dL (Normal) Range: 0.00-1.00 T PROT 7.2 g/dL (Normal) Range: 6.4-8.2 BUN 23 mg/dL (Abnormal) Range: 7-18 BUN/CRE 25.6 {RATIO} (Abnormal) Range: 10-20 CREAT,SERUM 0.9 mg/dL (Normal) Range: 0.8-1.3 EST GFR 98 mL/min (Normal) EST GFR - AA 119 mL/min (Normal) GLU 91 mg/dL (Normal) Range: 70-110 60-Rrs-96146:18 LIPID LDL 72 mg/dL (Normal) Range: 0-130 VLDL 19 mg/dL (Normal) Range: 5-40 CHOL 124 mg/dL (Normal) Comments: <200 mg/dL Ikeohltng668-444 mg/dL Borderline>240 mg/dL High Risk HDL 33 mg/dL (Abnormal) Comments: Reference RangeHDL <40 mg/dL Low HDL CholesterolHDL >or= 60 mg/dL High HDL Cholesterol TRIG 94 mg/dL (Normal) Comments: Serum Triglycerides Reference IntervalNormal <150 mg/dLBorderline high 150 - 199 mg/dLHigh 200 - 499 mg/ dLVery High > or = 500 mg/dL 85-Fmv-64751:50 CHEST WITHOUT CONTRAST Radiology Report See Note (Normal) Comments: Exam Number: [id number] CLINICAL:44-year-old male with history of lung nodules CT CHEST WITHOUT CONTRAST TECHNIQUE:High resolution transaxial imaging was performed without theadministration of intravenou s contrast material. COMPARISON:CT of the chest dated 04/07/2009 FINDINGS:Normal visualized trachea and bronchi. The lungs are well expanded. Again identified are the numerous, bilateral calcified andnon calcified nodules, unchanged in size, measuring up to 8 mm in theright lower lobe (series 3 image 82), and 10 mm in the left lowerlobe (series 3 image 85). There are no new nodules identified.There is no focal consolidation. Normal pleura. There are calcifications of the coronary arteries. Normal pulmonary arteries. Normal thoracic aorta and visualized great vessels. There are several mediastinal lym ph nodes some demonstratingcalcification, with the largest node seen in the right pretrachealspace measuring up to 12 mm in short axis (series 3 image 35). Thishas not significantly changed. There are calcified right hilarlymph nodes. Normal chest wall structures. Normal osseous structures. Normal visualized upper abdomen. IMPRESSION:No significant interval change since the prior examination. Ther eare numerous bilateral calcified and noncalcified nodules withseveral mediastinal and hilar lymph nodes some of which demonstratecalcification. These findings are compatible with priorgranulomatous disease. Reported By: MUKUL MONTOYA M.D. :21 Basic Metabolic Panel (8) Comments: PERFORMED BY: [facility] [id number] Calcium, Serum 9.3 mg/dL (Normal) Range: 8.7-10.2 Carbon Dioxide, Total 26 mmol/L (Normal) Range: 20-32 Chloride, Serum 100 mmol/L (Normal) Range: 97-108 BUN/Creatinine Ratio 20 (Normal) Range: 8-27 eGFR AfricanAmerican >59 mL/min/1.73 Comments: Note: Persistent reduction for 3 months or more in an eGFR<60 mL/min/1.73 m2 defines CKD. Patients with eGFR values>/=60 mL/min/1.73 m2 may also have CKD if evidence of persistentproteinuria is (Normal) present. Additional information may be found [email or web address]. Potassium, Serum 5.0 mmol/L (Normal) Range: 3.5-5.2 Sodium, Serum 137 mmol/L (Normal) Range: 135-145 Creatinine, Serum 0.92 mg/dL (Normal) Range: 0.76-1.27 eGFR >59 mL/min/1.73 (Normal) BUN 18 mg/dL (Normal) Range: 5-26 Glucose, Serum 107 mg/dL (Abnormal) Range: 65-99 :11 HgA1C , Office (40311) HgA1C , Office 6.3 % (Normal) Range: 4.6 - 7.1 :11 Blood Glucose , Office (15315) Blood Glucose , Office 88 (Normal) :38 Comp. Metabolic Panel (14) Comments: PATIENT WAS FASTINGPERFORMED BY: [facility] [id number] [facility] [id number] A/G Ratio 1.4 (Normal) Range: 1.1-2.5 Alkaline Phosphatase, S 90 [iU]/L (Normal) Range: 25-150 ALT (SGPT) 21 [iU]/L (Normal) Range: 0-55 AST (SGOT) 18 [iU]/L (Normal) Range: 0-40 Bilirubin, Total 0.6 mg/dL (Normal) Range: 0.1-1.2 Albumin, Serum 4.0 g/dL (Normal) Range: 3.5-5.5 Calcium, Serum 9.2 mg/dL (Normal) Range: 8.7-10.2 Carbon Dioxide, Total 26 mmol/L (Normal) Range: 20-32 Chloride, Serum 101 mmol/L (Normal) Range: 97-108 Globulin, Total 2.8 g/dL (Normal) Range: 1.5-4.5 Protein, Total, Serum 6.8 g/dL (Normal) Range: 6.0-8.5 BUN/Creatinine Ratio 18 (Normal) Range: 8-27 eGFR AfricanAmerican >59 mL/min/1.73 Comments: Note: Persistent reduction for 3 months or more in an eGFR<60 mL/min/1.73 m2 defines CKD. Patients with eGFR values>/=60 mL/min/1.73 m2 may also have CKD if evidence of persistentproteinuria is (Normal) present. Additional information may be found [email or web address]. Potassium, Serum 4.8 mmol/L (Normal) Range: 3.5-5.2 Sodium, Serum 138 mmol/L (Normal) Range: 135-145 BUN 17 mg/dL (Normal) Range: 5-26 Creatinine, Serum 0.96 mg/dL (Normal) Range: 0.76-1.27 eGFR >59 mL/min/1.73 (Normal) Glucose, Serum 97 mg/dL (Normal) Range: 65-99 10-Tuk-38963:38 Lipid Panel With LDL/HDL Comments: PATIENT WAS FASTINGPERFORMED BY: [facility]CoPal[facility] CenterYbbnup4685 [facility] [id number] Ratio LDL Cholesterol Calc 94 mg/dL (Normal) Range: 0-99 LDL/HDL Ratio 2.7 {ratio_units} (Normal) Range: 0.0-3.6 VLDL Cholesterol Abhijit 16 mg/dL (Normal) Range: 5-40 Cholesterol, Total 145 mg/dL (Normal) Range: 100-199 HDL Cholesterol 35 mg/dL (Abnormal) Comments: According to ATP-III Guidelines, HDL-C >59 mg/dL is considered anegative risk factor for CHD. Triglycerides 82 mg/dL (Normal) Range: 0-149 :26 Urinalysis, Office (88474) UA - LEUKOCYTE ESTERASE Negative (Normal) UA - NITRITE Negative (Normal) URINE UROBILINGN JUAN TIMED 2 mg/dL (Normal) UA - PROTEIN Negative mg/dL (Normal) UA - PH 8.5 (Normal) UA - BLOOD Negative (Normal) UA - SPECIFIC GRAVITY 1.020 (Normal) UA - KETONES Negative mg/dL (Normal) UA - BILIRUBIN Negative (Normal) UA - GLUCOSE Negative (Normal) :40 Blood Glucose , Office (71794) Blood Glucose , Office 100 (Normal) :40 HgA1C , Office (97990) HgA1C , Office 5.9 % (Normal) Range: 4.6 - 7.1 :26 CHEST WITHOUT CONTRAST Radiology Report See Note (Normal) Comments: Exam Number: [id number] CLINICAL:Follow- up pulmonary nodules. CT CHEST WITHOUT CONTRAST COMPARISON:Chest CT dated 09/26/08 TECHNIQUE:High resolution transaxial imaging was performed without the administr ation of intravenous contrast material. FINDINGS:Numerous subcentimeter nodules are again identified throughout the lungs which are not significantly changed. The majority of the nodules contain foci o f calcification and are most compatible with granulomas. These measure up to 7 mm in the right lower lobe (series 2 image 86) and up to 9 mm in the left upper lobe (series 2 image 55). No new parenchy mal nodules or infiltrates are seen. Normal pleura without pleural thickening, a mass lesion or calcifications. There are no pleural effusions. Multiple mildly prominent mediastinal and subcarinal lymp h nodes are not significantly changed measuring up to 1.1 x 1.4 cm and the right paratracheal region (series 2 image 42). Calcified right hilar and mediastinal nodes are again noted compatible with jason or granulomatous disease. Normal cardiac size without demonstrated pericardial fluid or thickening. There is calcification of the coronary arteries indicative of coronary artery atherosclerotic disease . A calcium cardiac scoring examination would be the modality of choice for further quantification of the extent of the coronary atherosclerotic calcific plaque disease. There are no valvular calcifica tions. Normal main pulmonary artery with normal right and left pulmonary arteries. Normal bilateral peripheral pulmonary arteries without vascular prominence. Normal thoracic aorta without aneurysmal di latation. Normal thoracic esophagus. There is no lymphadenopathy of the axillary or supraclavicular lymph nodes. Normal visualized liver, spleen, gallbladder, pancreas and adrenal glands. There are stab le degenerative changes of the spine. Normal visualized chest wall structures. IMPRESSION:Numerous subcentimeter nodules throughout the lungs, not significantly changed, with the majority of the nodul es containing foci of calcification. These are most compatible with granulomas. No new parenchymal nodules or infiltrates. Mildly prominent mediastinal and subcarinal lymph nodes, not significantly ch anged. Calcified mediastinal and right hilar nodes compatible with prior granulomatous disease. Reported By: KOLBY PEREZ M.D. 29-Bsy-65521:38 CBC WITH MANUAL DIFF ([id number]) Comments: PATIENT WAS FASTINGClinical Information: [id number] PERFORMED BY: [facility]6370 [facility] [id number] Baso (Absolute) 0.0 {x10E3/uL} (Normal) Range: 0.0-0.2 Basos 0 % (Normal) Range: 0-3 Eos 2 % (Normal) Range: 0-7 Eos (Absolute) 0.1 {x10E3/uL} (Normal) Range: 0.0-0.4 Hematocrit 47.4 % (Normal) Range: 36.0-50.0 Hemoglobin 15.9 g/dL (Normal) Range: 12.5-17.0 Lymphs 22 % (Normal) Range: 14-46 Lymphs (Absolute) 1.5 {x10E3/uL} (Normal) Range: 0.7-4.5 MCH 33.2 pg (Normal) Range: 27.0-34.0 MCHC 33.6 g/dL (Normal) Range: 32.0-36.0 MCV 99 fL (Abnormal) Range: 80-98 Monocytes 13 % (Normal) Range: 4-13 Monocytes(Absolute) 0.9 {x10E3/uL} (Normal) Range: 0.1-1.0 Neutrophils 63 % (Normal) Range: 40-74 Neutrophils (Absolute) 4.3 {x10E3/uL} (Normal) Range: 1.8-7.8 Platelets 181 {x10E3/uL} (Normal) Range: 140-415 RBC 4.80 {x10E6/uL} (Normal) Range: 4.10-5.60 RDW 13.8 % (Normal) Range: 11.7-15.0 WBC 6.8 {x10E3/uL} (Normal) Range: 4.0-10.5 :38 MICROALBUMIN: CREATININE RATIO Comments: PATIENT WAS FASTINGPERFORMED BY: [employer] [facility] [id number] ([id number]) AND ([id number]) Creatinine, Urine 147.1 mg/dL (Normal) Range: 22.0-328.0 Microalb/Creat Ratio 1.3 {mg/g_creat} (Normal) Range: 0.0-30.0 Microalbumin, Urine 1.9 ug/mL (Normal) Range: 0.0-17.0 :38 LIPID PANEL ([id number]) Comments: PATIENT WAS FASTINGPERFORMED BY: [employer] [facility] [id number] Cholesterol, Total 145 mg/dL (Normal) Range: 100-199 HDL Cholesterol 38 mg/dL (Abnormal) Comments: According to ATP-III Guidelines, HDL-C >59 mg/dL is considered anegative risk factor for CHD. LDL Cholesterol Calc 91 mg/dL (Normal) Range: 0-99 LDL/HDL Ratio 2.4 {ratio_units} (Normal) Range: 0.0-3.6 Triglycerides 82 mg/dL (Normal) Range: 0-149 VLDL Cholesterol Abhijit 16 mg/dL (Normal) Range: 5-40 :38 METABOLIC PANEL, COMPREHENSIVE Comments: PATIENT WAS FASTINGPERFORMED BY: [employer]6370 [facility] [id number] ([id number]) A/G Ratio 1.4 (Normal) Range: 1.1-2.5 Albumin, Serum 4.1 g/dL (Normal) Range: 3.5-5.5 Alkaline Phosphatase, S 87 [iU]/L (Normal) Range: 25-150 ALT (SGPT) 26 [iU]/L (Normal) Range: 0-55 AST (SGOT) 25 [iU]/L (Normal) Range: 0-40 Bilirubin, Total 0.7 mg/dL (Normal) Range: 0.1-1.2 BUN 19 mg/dL (Normal) Range: 5-26 BUN/Creatinine Ratio 19 (Normal) Range: 8-27 Calcium, Serum 9.6 mg/dL (Normal) Range: 8.5-10.6 Carbon Dioxide, Total 24 mmol/L (Normal) Range: 20-32 Chloride, Serum 102 mmol/L (Normal) Range: 97-108 Creatinine, Serum 0.99 mg/dL (Normal) Range: 0.76-1.27 eGFR >59 mL/min/1.73 (Normal) eGFR AfricanAmerican >59 mL/min/1.73 Comments: Note: Persistent reduction for 3 months or more in an eGFR<60 mL/min/1.73 m2 defines CKD. Patients with eGFR values>/=60 mL/min/1.73 m2 may also have CKD if evidence of persistentproteinuria is (Normal) present. Additional information may be found [email or web address]. Globulin, Total 2.9 g/dL (Normal) Range: 1.5-4.5 Glucose, Serum 98 mg/dL (Normal) Range: 65-99 Potassium, Serum 4.9 mmol/L (Normal) Range: 3.5-5.2 Protein, Total, Serum 7.0 g/dL (Normal) Range: 6.0-8.5 Sodium, Serum 139 mmol/L (Normal) Range: 135-145 :31 HgA1C , Office ([id number]) HgA1C , Office 6.0 % (Normal) Range: 4.6 - 7.1 :31 Blood Glucose , Office (29195) Blood Glucose , Office 87 (Normal) :34 HgA1C , Office (67351) HgA1C , Office 5.8 % (Normal) Range: 4.6 - 7.1 :34 Blood Glucose , Office (23096) Blood Glucose , Office 99 (Normal) :24 CHEST WITHOUT CONTRAST Radiology Report See Note (Normal) Comments: Exam Number: [id number] CT CHEST WITHOUT CONTRAST STATEMENTAbnormal CT, followup nodules. COMPARISONChest CT April 18, 2008. TECHNIQUERoutine noncontrast enhanced CT of the chest was performed andcom pared to the prior study. FINDINGSOverall evaluation is limited by lack of intravenous contrast.Allowing for this, the heart size is within normal limits. There isno pericardial or pleural effusion. Mild atheroscleroticcalcifications are shown within the coronary vessels. Evaluation ofthe hilum for lymphadenopathy is limited. There are several smallmediastinal lymph nodes identified which appear unchanged whencompared to the prior study. There is precarinal lymph node measuringapproximately 9 mm in short axis unchanged from the prior study.There is stable l0-mm peritracheal lymph node. This appears tocontain a small amount of intrinsic fat and likely represents a benign reactive lymph node. There are multiple less than l cmanterior mediastinal and prevascular lymph nodes which appear stab le.Subcarinal lymph nodes were present measuring less than l cm. Thelargest of which is approximately 9 mm in short axis. There are numerous scattered pulmonary nodules present throughout thelungs. The majority of nodules demonstrate central calcification andlikely represent remote granulomas. Not all nodules containcalcification but do appear stable compared to the prior study. Nonew nodules ar e shown. There is no pleural effusion, acuteinfiltrate or focal parenchymal consolidations. The chest wallstructures appear intact. IMPRESSIONStable pattern of mediastinal lymph nodes and multiple s catteredbilateral pulmonary nodules. Findings are likely secondary to granulomatous process. There has been no significant changecompared to April 18, 2008. Several of the nodules within thelungs demonstrate central calcification and would be compatible with benign calcified granulomas. To confirm continued stability, suggesta followup chest CT in 6 to 12 months. Overall, there has been nosig nificant change when compared to the prior study. Reported By: DERRICK OLIVAS M.D. 26-Sep-20089:10 MICROALBUMIN: CREATININE RATIO Comments: PATIENT WAS FASTINGPERFORMED BY: [facility]CoPal[facility] CenterTnigfg6226 [facility] [id number] ([id number]) AND ([id number]) Creatinine, Urine 147.1 mg/dL (Normal) Range: 22.0-328.0 Microalb/Creat Ratio 1.8 {ug/mg_creat} (Normal) Range: 0.0-30.0 Microalbum.,U,Random 2.6 ug/mL (Normal) Range: 0.0-17.0 :10 LIPID PANEL ([id number]) Comments: PATIENT WAS FASTINGPERFORMED BY: [facility] Dixbvf8418 [facility] [id number] Cholesterol, Total 139 mg/dL (Normal) Range: 100-199 HDL Cholesterol 37 mg/dL (Abnormal) Comments: According to ATP-III Guidelines, HDL-C >59 mg/dL is considered anegative risk factor for CHD. LDL Cholesterol Calc 87 mg/dL (Normal) Range: 0-99 LDL/HDL Ratio 2.4 {ratio_units} (Normal) Range: 0.0-3.6 Triglycerides 76 mg/dL (Normal) Range: 0-149 VLDL Cholesterol Abhijit 15 mg/dL (Normal) Range: 5-40 :10 CBC WITH MANUAL DIFF ([id number]) Comments: PATIENT WAS FASTINGClinical Information: ADD DRAW FEE [id number] ADD [id number] PERFORMED BY: [facility] [employer]6343 [facility] [id number] Baso (Absolute) 0.0 {x10E3/uL} (Normal) Range: 0.0-0.2 Basos 0 % (Normal) Range: 0-3 Eos 2 % (Normal) Range: 0-7 Eos (Absolute) 0.1 {x10E3/uL} (Normal) Range: 0.0-0.4 Hematocrit 47.1 % (Normal) Range: 36.0-50.0 Hemoglobin 16.1 g/dL (Normal) Range: 12.5-17.0 Lymphs 21 % (Normal) Range: 14-46 Lymphs (Absolute) 1.6 {x10E3/uL} (Normal) Range: 0.7-4.5 MCH 33.2 pg (Normal) Range: 27.0-34.0 MCHC 34.3 g/dL (Normal) Range: 32.0-36.0 MCV 97 fL (Normal) Range: 80-98 Monocytes 11 % (Normal) Range: 4-13 Monocytes(Absolute) 0.8 {x10E3/uL} (Normal) Range: 0.1-1.0 Neutrophils 66 % (Normal) Range: 40-74 Neutrophils (Absolute) 4.9 {x10E3/uL} (Normal) Range: 1.8-7.8 Platelets 198 {x10E3/uL} (Normal) Range: 140-415 RBC 4.86 {x10E6/uL} (Normal) Range: 4.10-5.60 RDW 13.8 % (Normal) Range: 11.7-15.0 WBC 7.4 {x10E3/uL} (Normal) Range: 4.0-10.5 26-Sep-20089:10 METABOLIC PANEL, COMPREHENSIVE Comments: PATIENT WAS FASTINGPERFORMED BY: [facility]CoPal[facility]ades Medical CenterLlxmen2769 [facility] [id number] ([id number]) A/G Ratio 1.6 (Normal) Range: 1.1-2.5 Albumin, Serum 4.2 g/dL (Normal) Range: 3.5-5.5 Alkaline Phosphatase, S 95 [iU]/L (Normal) Range: 25-150 ALT (SGPT) 23 [iU]/L (Normal) Range: 0-55 AST (SGOT) 21 [iU]/L (Normal) Range: 0-40 Bilirubin, Total 0.4 mg/dL (Normal) Range: 0.1-1.2 BUN 15 mg/dL (Normal) Range: 5-26 BUN/Creatinine Ratio 16 (Normal) Range: 8-27 Calcium, Serum 9.5 mg/dL (Normal) Range: 8.5-10.6 Carbon Dioxide, Total 28 mmol/L (Normal) Range: 20-32 Chloride, Serum 104 mmol/L (Normal) Range: 97-108 Creatinine, Serum 0.93 mg/dL (Normal) Range: 0.76-1.27 Globulin, Total 2.6 g/dL (Normal) Range: 1.5-4.5 Glom Filt Rate, Est >59 mL/min/1.73 (Normal) Glucose, Serum 101 mg/dL (Abnormal) Range: 65-99 If -Bermudian >59 mL/min/1.73 Comments: Note: Persistent reduction for 3 months or more in an eGFR<60 mL/min/1.73 m2 defines CKD. Patients with eGFR values>/=60 mL/min/1.73 m2 may also have CKD if evidence of persistentproteinur ia is (Normal) present. Additional information may be found [email or web address]. Potassium, Serum 5.0 mmol/L (Normal) Range: 3.5-5.2 Protein, Total, Serum 6.8 g/dL (Normal) Range: 6.0-8.5 Sodium, Serum 141 mmol/L (Normal) Range: 135-145 :30 HgA1C , Office (24635) HgA1C , Office 5.7 % (Normal) Range: 4.6 - 7.1 :30 Blood Glucose , Office (05517) Blood Glucose , Office 99 (Normal) :19 FINGER(S),MIN 2 VIEWS (MT) Radiology Report See Note (Normal) Comments: Exam Number: [id number] FIRST DIGIT, RIGHT HAND REASON FOR EXAMINATIONPalpable deformity at the base of the 1st digit, right hand. There is a metallic foreign body within the soft tissues adj acent tothe 1st MCP joint. Articular surfaces are smooth and well maintained. IMPRESSIONMetallic foreign embedded within the soft tissues lateral to the 1stMCP joint of the right hand. Reported By: TERESA SPEARS M.D. :09 CHEST W/WO CONTRAST Radiology Report See Note (Normal) Comments: Exam Number: [id number] CT SCAN OF CHEST. HISTORYAbnormal CT. TECHNIQUEScans were obtained at 2.5-mm intervals from the lung apices to thebases without intravenous contrast enhancement. Scans we re thenobtained at 5-mm intervals from the lung apices to the adrenals withthe intravenous administration of 150 ml of Isovue 300. COMPARISONThe current study is compared to the examination of Apri l 2007. FINDINGSOn the previous examination, there was a paratracheal lymph node,which measured 13 ml in short axis. It now measured 8 ml in shortaxis. There was a pretracheal lymph node measur ing 10 ml in shortaxis. This is unchanged. There was a right paratracheal lymph node,measuring 16 ml in short axis. This now measures 11 ml. There is asmall amount of fat within it, and this is most likely a normallymph node. Subcarinal lymph nodes were previously seen, measuring 13and 12 ml. They now measure 9 and 8 ml. There is still a 13-ml lymphnode in the right hilum. This is unchanged. There is also a 6-mllymph node in the right hilum, and small lymph nodes are seen in theleft hilum. There is, therefore, only a single enlarged lymph nodeon the current study that is the right hilar ly mph node, [id number] ml in short axis. That is stable compared to the previousexamination. There are numerous scattered nodules throughout thelungs. Although some of these can be shown to be calcifi ed, many ofthem are not. They are all stable and are likely to representgranulomas. There is no dilatation of the thoracic aorta. What isseen of the liver is normal. There is no hilar adenopathy. F orfurther evaluation of the nodules identified within the lungparenchyma, an additional 6-month followup CT is suggested. IMPRESSION1. Mediastinal lymph nodes are smaller than seen on the examination of November 04, 2007. They are now within normal limits. 2. There is a single, mildly enlarged right hilar lymph node, which is stable. 3. There are numerous parenchymal nodules, which are stable and most likely granulomas. For further evaluation, and additional 6-month followup CT is suggested. Reported By: NABIL JIMENEZ M.D. 30-Wxp-38598:11 LIPID PANEL ([id number]) Comments: PATIENT WAS FASTINGPERFORMED BY: [employer]6370 [facility] [id number] Cholesterol, Total 149 mg/dL (Normal) Range: 100-199 HDL Cholesterol 33 mg/dL (Abnormal) Range: 40-59 LDL Cholesterol Calc 96 mg/dL (Normal) Range: 0-99 LDL/HDL Ratio 2.9 {ratio_units} (Normal) Range: 0.0-3.6 Triglycerides 102 mg/dL (Normal) Range: 0-149 VLDL Cholesterol Abhijit 20 mg/dL (Normal) Range: 5-40 44-Dzi-19846:11 TSH ([id number]) Comments: PATIENT WAS FASTINGPERFORMED BY: [facility]ulptPalisades Medical CenterJtfitx2758 [facility] [id number] TSH 1.936 {uIU/mL} (Normal) Range: 0.450-4.500 Comments: Please note reference interval change :11 METABOLIC PANEL, COMPREHENSIVE Comments: PATIENT WAS FASTINGPERFORMED BY: [facility] Nxhdmy3172 [facility] [id number] ([id number]) A/G Ratio 1.7 (Normal) Range: 1.1-2.5 Albumin, Serum 4.2 g/dL (Normal) Range: 3.5-5.5 Alkaline Phosphatase, S 98 [iU]/L (Normal) Range: 25-150 ALT (SGPT) 21 [iU]/L (Normal) Range: 0-55 AST (SGOT) 21 [iU]/L (Normal) Range: 0-40 Bilirubin, Total 0.2 mg/dL (Normal) Range: 0.1-1.2 BUN 17 mg/dL (Normal) Range: 5-26 BUN/Creatinine Ratio 19 (Normal) Range: 8-27 Calcium, Serum 9.3 mg/dL (Normal) Range: 8.5-10.6 Carbon Dioxide, Total 26 mmol/L (Normal) Range: 20-32 Chloride, Serum 104 mmol/L (Normal) Range: 97-108 Creatinine, Serum 0.90 mg/dL (Normal) Range: 0.76-1.27 Globulin, Total 2.5 g/dL (Normal) Range: 1.5-4.5 Glom Filt Rate, Est >60 mL/min/1.73 Range: 60-137 (Normal) Glucose, Serum 102 mg/dL (Abnormal) Range: 65-99 If -Bermudian >60 mL/min/1.73 Range: 60-137 (Normal) Comments: Note: Persistent reduction for 3 months or more in an eGFR<60 mL/min/1.73 m2 defines CKD. Patients with eGFR values>/=60 mL/min/1.73 m2 may also have CKD if evidence of persistentproteinuria is present. Additional information may be found [email or web address]. Potassium, Serum 4.6 mmol/L (Normal) Range: 3.5-5.2 Protein, Total, Serum 6.7 g/dL (Normal) Range: 6.0-8.5 Sodium, Serum 142 mmol/L (Normal) Range: 135-145 :11 CBC WITH MANUAL DIFF ([id number]) Comments: PATIENT WAS FASTINGClinical Information: ADD DRAW FEE [id number] ADD J [id number] PERFORMED BY: [facility]CoPal[facility] CenterFbzghk3199 [facility] [id number] Baso (Absolute) 0.0 {x10E3/uL} (Normal) Range: 0.0-0.2 Basos 0 % (Normal) Range: 0-3 Eos 3 % (Normal) Range: 0-7 Eos (Absolute) 0.2 {x10E3/uL} (Normal) Range: 0.0-0.4 Hematocrit 44.9 % (Normal) Range: 36.0-50.0 Hemoglobin 14.9 g/dL (Normal) Range: 12.5-17.0 Lymphs 23 % (Normal) Range: 14-46 Lymphs (Absolute) 1.3 {x10E3/uL} (Normal) Range: 0.7-4.5 MCH 31.7 pg (Normal) Range: 27.0-34.0 MCHC 33.3 g/dL (Normal) Range: 32.0-36.0 MCV 95 fL (Normal) Range: 80-98 Monocytes 13 % (Normal) Range: 4-13 Monocytes(Absolute) 0.8 {x10E3/uL} (Normal) Range: 0.1-1.0 Neutrophils 61 % (Normal) Range: 40-74 Neutrophils (Absolute) 3.5 {x10E3/uL} (Normal) Range: 1.8-7.8 Platelets 204 {x10E3/uL} (Normal) Range: 140-415 RBC 4.72 {x10E6/uL} (Normal) Range: 4.10-5.60 RDW 13.9 % (Normal) Range: 11.7-15.0 WBC 5.8 {x10E3/uL} (Normal) Range: 4.0-10.5 :04 HgA1C , Office (56729) HgA1C , Office 6.2 % (Normal) Range: 4.6 - 7.1 :04 Blood Glucose , Office (98014) Blood Glucose , Office 104 (Normal) :03 Blood Glucose , Office (12765) Blood Glucose , Office 87 (Normal) :45 LIPID CHOL 140 mg/dL (Normal) Comments: <200 mg/dL Desirable 200-240 mg/dL Borderline >240 mg/dL High Risk HDL 40 mg/dL (Normal) Comments: Reference Range HDL <40 mg/dL Low HDL Cholesterol HDL >or= 60 mg/dL High HDL Cholesterol LDL 84 mg/dL (Normal) Range: 0-130 TRIG 78 mg/dL (Normal) Comments: Serum Triglycerides Reference Interval Normal <150 mg/dL Borderline high 150 - 199 mg/dL High 200 - 499 mg/dL Very High > or = 500 mg/dL VLDL 16 mg/dL (Normal) Range: 5-40 :45 LIVER ALB 3.5 g/dL (Normal) Range: 3.4-5.0 ALK P 102 U/L (Normal) Range: 50-136 ALT 38 U/L (Normal) Range: 30-65 AST 18 U/L (Normal) Range: 15-37 D BILI 0.06 mg/dL (Normal) Range: 0.00-0.30 T BILI 0.54 mg/dL (Normal) Range: 0.00-1.00 T PROT 7.0 g/dL (Normal) Range: 6.4-8.2 48-Ccy-369313:02 CBCD CELLS COUNTED 100 (Normal) HCT 50.9 % (Normal) Range: 40-54 HGB 17.1 g/dL (Normal) Range: 14.0-18.0 LYMPH 4 % (Abnormal) Range: 19-41 MCH 32.2 pg (Abnormal) Range: 27.0-32.0 MCHC 33.6 g/dL (Normal) Range: 32-36 MCV 95.8 fL (Abnormal) Range: 80-94 MONOCYTE 3 % (Normal) Range: 0-10 MPV 8.3 fL (Normal) Range: 6.5-12.0 NRBC,LH FLAGGED 0 % (Normal) Range: 0-5 PLT 239 K/mm3 (Normal) Range: 150-450 PLT EST SeeNote (Normal) Comments: Result: ADEQUATE RBC 5.31 {M/mm3} (Normal) Range: 4.6-6.2 RDW 13.7 % (Normal) Range: 11.6-14.6 RED CELL MORPH SeeNote {NORMAL} (Normal) Comments: Result: NORM C+C SEGS 93 % (Abnormal) Range: 47-70 WBC 16.2 K/mm3 (Abnormal) Range: 4.4-11.0 :55 BMP BUN 10 mg/dL (Normal) Range: 7-18 BUN/CRE 10.0 {RATIO} (Normal) Range: 10-20 CA 8.1 mg/dL (Abnormal) Range: 8.5-10.1 CL 101 mmol/L (Normal) Range: 98-107 CO2 31.0 mmol/L (Normal) Range: 21.0-32.0 CREAT,SERUM 1.0 mg/dL (Normal) Range: 0.8-1.3 GAP 5 (Normal) Range: 5-15 GLU 113 mg/dL (Abnormal) Range: 70-110 Comments: Fasting Glucose result from 110 to <126 mg/dL suggests IMPAIRED HOMEOSTASIS per A.D.A. criteria. K 4.2 mmol/L (Normal) Range: 3.5-5.1 NA 137 mmol/L (Normal) Range: 136-145 :55 CBCD,SMEAR DIFF BAND 4 % (Normal) Range: 0-5 BASOPHIL 1 % (Normal) Range: 0-1 CELLS COUNTED 100 (Normal) EOS 2 % (Normal) Range: 0-5 HCT 43.4 % (Normal) Range: 40-54 HGB 14.8 g/dL (Normal) Range: 14.0-18.0 LYMPH 29 % (Normal) Range: 19-41 MCH 32.7 pg (Abnormal) Range: 27.0-32.0 MCHC 34.2 g/dL (Normal) Range: 32-36 MCV 95.6 fL (Abnormal) Range: 80-94 MONOCYTE 5 % (Normal) Range: 0-10 PLT 169 K/mm3 (Normal) Range: 150-450 PLT EST SeeNote (Normal) Comments: Result: ADEQUATE RBC 4.54 {M/mm3} (Abnormal) Range: 4.6-6.2 RDW 13.9 % (Normal) Range: 11.6-14.6 REACTIVE LYMPH 1+ (Normal) RED CELL MORPH SeeNote {NORMAL} (Normal) Comments: Result: NORM C+C SEGS 59 % (Normal) Range: 47-70 WBC 7.3 K/mm3 (Normal) Range: 4.4-11.0 37-Rsb-992049:30 BC No growth in 5 days. Comments: HOLD IN OE UNTIL SPECIMEN COLLECTED? (Y/N)* N (Normal) :30 CBCD,SMEAR DIFF PLT EST SeeNote (Normal) Comments: Result: ADEQUATE RED CELL MORPH SeeNote {NORMAL} (Normal) Comments: Result: NORM C+C BAND 1 % (Normal) Range: 0-5 CELLS COUNTED 100 (Normal) EOS 4 % (Normal) Range: 0-5 HCT 48.7 % (Normal) Range: 40-54 HGB 16.5 g/dL (Normal) Range: 14.0-18.0 LYMPH 18 % (Abnormal) Range: 19-41 MCH 31.9 pg (Normal) Range: 27.0-32.0 MCHC 33.9 g/dL (Normal) Range: 32-36 MCV 94.1 fL (Abnormal) Range: 80-94 MONOCYTE 3 % (Normal) Range: 0-10 PLT 190 K/mm3 (Normal) Range: 150-450 RBC 5.17 {M/mm3} (Normal) Range: 4.6-6.2 RDW 13.8 % (Normal) Range: 11.6-14.6 SEGS 74 % (Abnormal) Range: 47-70 WBC 7.4 K/mm3 (Normal) Range: 4.4-11.0 :30 COMP METABOLIC A/G 0.9 {RATIO} (Normal) Range: 0.9-2.4 ALB 3.5 g/dL (Normal) Range: 3.4-5.0 ALK P 83 U/L (Normal) Range: 50-136 ALT 35 [iU]/L (Normal) Range: 30-65 AST 24 U/L (Normal) Range: 15-37 BUN 10 mg/dL (Normal) Range: 7-18 BUN/CRE 11.1 {RATIO} (Normal) Range: 10-20 CA 8.4 mg/dL (Abnormal) Range: 8.5-10.1 CL 98 mmol/L (Normal) Range: 98-107 CO2 29.9 mmol/L (Normal) Range: 21.0-32.0 CREAT,SERUM 0.9 mg/dL (Normal) Range: 0.8-1.3 GAP 8 (Normal) Range: 5-15 GLOB 4.0 g/dL (Normal) Range: 2.7-4.2 GLU 100 mg/dL (Normal) Range: 70-110 K 4.2 mmol/L (Normal) Range: 3.5-5.1 NA 136 mmol/L (Normal) Range: 136-145 T BILI 0.41 mg/dL (Normal) Range: 0.00-1.00 T PROT 7.5 g/dL (Normal) Range: 6.4-8.2 :25 BC No growth in 5 days. Comments: HOLD IN OE UNTIL SPECIMEN COLLECTED? (Y/N)* N (Normal) :25 CULTURE, SPUTUM Comments: HOLD IN OE UNTIL SPECIMEN COLLECTED? (Y/N)* N GRAM STAIN See Note (Normal) Comments: GRAM STAIN 2+ EPITHELIAL CELLS 3+ WHITE BLOOD CELLS 4+ GRAM POSITIVE COCCI 4+ GRAM POSITIVE RODS RESP CULTURE See Note (Normal) Comments: No Streptococcus pneumoniae, beta- hemolyticStreptococcus or Staphylococcus aureus isolated. :13 CHEST, PA AND LATERAL Radiology Report See Note (Normal) Comments: Exam Number: [id number] PA AND LATERAL CHEST HISTORY Being done for shortness of breath. FINDINGSCardiac configuration is normal. There is some discoid atelectasisand/or scarring in the left lower lung. No definite infiltrate,effusion, or pneumothorax is identified. On the requisition andaccording to the chart, the patient has left lower lobe pneumonia. NOeffusion or pneumothorax is noted. There is spur formation in thelower dorsal spine. IMPRESSIONNo acute infiltrate identified. Reported By: NATHAN KELLER M.D. :13 MYOCARD PERF SPECT REST/STRESS Radiology Report See Note (Normal) Comments: Exam Number: [id number] MYOCARDIAL PERFUSION SCAN 14.3 millicuries of Tc99m sestamibi was injected at rest. The patientthen exercised according to the [place] protocol for a total duration of10 minutes at taining 98% of the maximum predicted heart rate for awork load of 11.7 METs. At peak exercise, 44.6 millicuries of Cn77bhuxtstysd was injected. Stress images were then obtained. Stress andrest images w ere reconstructed and compared in the short axis,vertical long and horizontal long axes. Gated images were alsoobtained. Review of the stress images demonstrate uniform uptake of tracer notedin all are as of the myocardium. There is mild GI uptake noted. Thereis thickening of all torres with perfusion noted in all torres.The gated ejection fraction is 55%. CONCLUSION1. Exercise myocardial perfusion s can with no evidence of ischemia benja high work load.2. Preserved ejection fraction. Reported By: ARCENIO MCCLOUD M.D. :49 ESOPHAGUS ONLY Radiology Report See Note (Normal) Comments: Exam Number: [id number] ESOPHAGRAM. HISTORYBeing done for dysphagia. FINDINGSThe swallowing mechanism was normal. There is symmetric location andmovement of the vocal cords. No aspiration was noted. T here was ahold up of the 12-mm barium tablet at the D2 level. Another swallowof water pushed it to the gastroesophageal junction where there wasslight hold up. No hiatus hernia was noted; however, the re isgastroesophageal reflux. IMPRESSIONSome hold up of the barium tablet but no apparent explanation forthis. The after film shows the esophagus to be widely patent. Reported By: NATHAN KELLER M.D. :46 BRAIN/HEAD W/WO CONTRAST Radiology Report See Note (Normal) Comments: Exam Number: [id number] CT BRAIN WITHOUT AND WITH INTRAVENOUS CONTRAST CLINICAL STATEMENTHeadache, syncope. There is no intracranial hemorrhage or mass. Brain density anddistinction of corrigan and white ma tter are appropriate with normalenhancement following 100 mL Isovue 300 intravenous contrast. Ventricles are unremarkable. With widely windowed images there issome opacity in the ethmoid air cells and mucoperiosteal thickeningposteriorly in the left sphenoid sinus. No layering fluid is found. IMPRESSION1. Normal brain.2. Sinusitis. Reported By: DERIAN BARRAGAN M.D. :08 HgA1C , Office (42589) HgA1C , Office 5.6 % (Normal) Range: 4.6 - 7.1 :08 Blood Glucose , Office (59396) Blood Glucose , Office 80 (Normal) :55 CBCD,SMEAR DIFF CELLS COUNTED 100 (Normal) EOS 2 % (Normal) Range: 0-5 LYMPH 20 % (Normal) Range: 19-41 MONOCYTE 9 % (Normal) Range: 0-10 PLT 202 K/mm3 (Normal) Range: 150-450 PLT EST SeeNote (Normal) Comments: Result: ADEQUATE RED CELL MORPH SeeNote {NORMAL} (Normal) Comments: Result: NORM C+C SEGS 69 % (Normal) Range: 47-70 HCT 48.7 % (Normal) Range: 40-54 HGB 16.5 g/dL (Normal) Range: 14.0-18.0 MCH 32.6 pg (Abnormal) Range: 27.0-32.0 MCHC 33.8 g/dL (Normal) Range: 32-36 MCV 96.6 fL (Abnormal) Range: 80-94 RBC 5.04 {M/mm3} (Normal) Range: 4.6-6.2 RDW 13.3 % (Normal) Range: 11.6-14.6 WBC 7.5 K/mm3 (Normal) Range: 4.4-11.0 :55 COMP METABOLIC A/G 0.9 {RATIO} (Normal) Range: 0.9-2.4 ALB 3.3 g/dL (Abnormal) Range: 3.4-5.0 ALK P 81 U/L (Normal) Range: 50-136 ALT 41 [iU]/L (Normal) Range: 30-65 AST 22 U/L (Normal) Range: 15-37 BUN 19 mg/dL (Abnormal) Range: 7-18 BUN/CRE 21.1 {RATIO} (Abnormal) Range: 10-20 CA 8.7 mg/dL (Normal) Range: 8.5-10.1 CL 104 mmol/L (Normal) Range: 98-107 CO2 31.9 mmol/L (Normal) Range: 21.0-32.0 Comments: Please Note Reference Interval Change CREAT,SERUM 0.9 mg/dL (Normal) Range: 0.8-1.3 GAP 4 (Abnormal) Range: 5-15 GLOB 3.5 g/dL (Normal) Range: 2.7-4.2 Comments: Please Note Reference Interval Change GLU 94 mg/dL (Normal) Range: 70-110 K 4.7 mmol/L (Normal) Range: 3.5-5.1 NA 140 mmol/L (Normal) Range: 136-145 T BILI 0.49 mg/dL (Normal) Range: 0.00-1.00 T PROT 6.8 g/dL (Normal) Range: 6.4-8.2 :55 LIPID CHOL 119 mg/dL (Normal) Comments: <200 mg/dL Desirable 200-240 mg/dL Borderline >240 mg/dL High Risk HDL 34 mg/dL (Abnormal) Comments: Reference Range HDL <40 mg/dL Low HDL Cholesterol HDL >or= 60 mg/dL High HDL Cholesterol LDL 74 mg/dL (Normal) Range: 0-130 TRIG 55 mg/dL (Normal) Comments: Serum Triglycerides Reference Interval Normal <150 mg/dL Borderline high 150 - 199 mg/dL High 200 - 499 mg/dL Very High > or = 500 mg/dL VLDL 11 mg/dL (Normal) Range: 5-40 :55 MICROALB:CRE UR MALB:CREAT 1.8 {mg/g_CRE} (Normal) MICROALBUMIN,UR 1.8 mg/L (Normal) UR CREAT 99.4 mg/dL (Normal) :37 Urinalysis, Office ([id number]) Comments: done km UA - BILIRUBIN Negative (Normal) UA - BLOOD Negative (Normal) UA - GLUCOSE Negative (Normal) UA - KETONES Negative mg/dL (Normal) UA - LEUKOCYTE ESTERASE Negative (Normal) UA - NITRITE Negative (Normal) UA - PH 6.0 (Normal) UA - SPECIFIC GRAVITY 1.025 (Normal) URINE UROBILINGN JUAN TIMED Normal mg/dL (Normal) :11 HgA1C , Office (92028) Comments: done-[facility] HgA1C , Office 5.7 % (Normal) Range: 4.6 - 7.1 :11 Blood Glucose , Office (79897) Comments: done-[facility] Blood Glucose , Office 80 (Normal) :12 LIPID CHOL 117 mg/dL (Normal) Comments: <200 mg/dL Desirable 200-240 mg/dL Borderline >240 mg/dL High Risk HDL 32 mg/dL (Abnormal) Comments: Reference Range HDL <40 mg/dL Low HDL Cholesterol HDL >or= 60 mg/dL High HDL Cholesterol LDL 65 mg/dL (Normal) Range: 0-130 TRIG 99 mg/dL (Normal) Comments: Serum Triglycerides Reference Interval Normal <150 mg/dL Borderline high 150 - 199 mg/dL High 200 - 499 mg/dL Very High > or = 500 mg/dL VLDL 20 mg/dL (Normal) Range: 5-40 :12 LIVER ALB 3.6 g/dL (Normal) Range: 3.4-5.0 ALK P 94 U/L (Normal) Range: 50-136 ALT 35 [iU]/L (Normal) Range: 30-65 AST 18 U/L (Normal) Range: 15-37 D BILI 0.08 mg/dL (Normal) Range: 0.00-0.30 T BILI 0.41 mg/dL (Normal) Range: 0.00-1.00 T PROT 7.2 g/dL (Normal) Range: 6.4-8.2 :04 HgA1C , Office (56595) Comments: [facility] HgA1C , Office 5.8 % (Normal) Range: 4.6 - 7.1 :04 Blood Glucose , Office (28904) Comments: [facility] Blood Glucose , Office 77 (Normal) :16 Blood Glucose , Office (99841) Comments: [facility] Blood Glucose , Office 98 (Normal) :21 CBCD,SMEAR DIFF CELLS COUNTED 100 (Normal) EOS 4 % (Normal) Range: 0-5 HCT 47.0 % (Normal) Range: 40-54 HGB 15.8 g/dL (Normal) Range: 14.0-18.0 LYMPH 32 % (Normal) Range: 19-41 MCH 31.8 pg (Normal) Range: 27.0-32.0 MCHC 33.5 g/dL (Normal) Range: 32-36 MCV 94.7 fL (Abnormal) Range: 80-94 MONOCYTE 2 % (Normal) Range: 0-10 PLT 224 K/mm3 (Normal) Range: 150-450 PLT EST SeeNote (Normal) Comments: Result: ADEQUATE RBC 4.96 {M/mm3} (Normal) Range: 4.6-6.2 RDW 13.8 % (Normal) Range: 11.6-14.6 RED CELL MORPH SeeNote {NORMAL} (Normal) Comments: Result: NORM C&C SEGS 62 % (Normal) Range: 47-70 WBC 6.7 K/mm3 (Normal) Range: 4.4-11.0 :21 COMP METABOLIC A/G 1.0 {RATIO} (Normal) Range: 0.9-2.4 ALB 3.6 g/dL (Normal) Range: 3.4-5.0 ALK P 91 U/L (Normal) Range: 50-136 ALT 42 [iU]/L (Normal) Range: 30-65 AST 20 U/L (Normal) Range: 15-37 BUN 14 mg/dL (Normal) Range: 7-18 BUN/CRE 14.0 {RATIO} (Normal) Range: 10-20 CA 9.0 mg/dL (Normal) Range: 8.5-10.1 CL 101 mmol/L (Normal) Range: 98-107 CO2 27.6 mmol/L (Normal) Range: 22.0-29.0 CREAT,SERUM 1.0 mg/dL (Normal) Range: 0.8-1.3 GAP 7 (Normal) Range: 5-15 GLOB 3.7 g/dL (Abnormal) Range: 2.3-3.5 GLU 103 mg/dL (Normal) Range: 70-110 K 4.1 mmol/L (Normal) Range: 3.5-5.1 NA 136 mmol/L (Normal) Range: 136-145 T BILI 0.46 mg/dL (Normal) Range: 0.00-1.00 T PROT 7.3 g/dL (Normal) Range: 6.4-8.2 :21 HGB A1C 5.9 % (Normal) Range: 4.0-6.3 Comments: The methodology of Hgb A1C has changed to Tod BehringDimension RXL. No significant changes in patientresults are expected. The reference range remains the same. :21 LIPID CHOL 110 mg/dL (Normal) Comments: <200 mg/dL Desirable 200-240 mg/dL Borderline >240 mg/dL High Risk HDL 30 mg/dL (Abnormal) Comments: Reference Range HDL <40 mg/dL Low HDL Cholesterol HDL >or= 60 mg/dL High HDL Cholesterol LDL 66 mg/dL (Normal) Range: 0-130 TRIG 72 mg/dL (Normal) Comments: Serum Triglycerides Reference Interval Normal <150 mg/dL Borderline high 150 - 199 mg/dL High 200 - 499 mg/dL Very High > or = 500 mg/dL VLDL 14 mg/dL (Normal) Range: 5-40 :21 MICROALBUMIN,UR < 1.3 mg/L (Normal) :21 ROUTINE UA BILIRUBIN URINE SeeNote (Normal) Comments: Result: NEGATIVE CLARITY CLEAR (Normal) COLOR YELLOW (Normal) GLUCOSE, UR SeeNote (Normal) Comments: Result: NEGATIVE KETONE UR SeeNote mg/dL (Normal) Comments: Result: NEGATIVE LEUK ESTERASE SeeNote (Normal) Comments: Result: NEGATIVE NITRITE UR SeeNote (Normal) Comments: Result: NEGATIVE OCCULT BLOOD-UR SeeNote (Normal) Comments: Result: NEGATIVE pH UR 6.5 (Normal) Range: 5.0-8.0 PROT DIPSTX SeeNote (Normal) Comments: Result: NEGATIVE SP.GR. DIPSTX 1.025 (Normal) Range: 1.002-1.030 UROBILI 0.2 EU/dl (Normal) Range: 0.2 - 1.0 :21 TSH 3.40 {uIU/mL} (Normal) Range: 0.34-4.82 68-Osb-213112:06 Blood Glucose , Office (91293) Blood Glucose , Office 82 (Normal) :06 HgA1C , Office (72526) HgA1C , Office 5.5 % (Normal) Range: 4.6 - 7.1 Plan of Care Name Dates Details Instructions Right-sided chest pain : Eprescribed prescriptions (G8553) Indication: Right-sided chest pain Essential hypertension : Eprescribed prescriptions (G8553) Indication: Essential hypertension Abnormal glucose tolerance test : Eprescribed prescriptions (G8553) Indication: Abnormal glucose tolerance test 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 : Eprescribed prescriptions (G8553) Indication: 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 Cough : Eprescribed prescriptions (G8553) Indication: Cough BMI 40.0-44.9, adult : Eprescribed prescriptions (G8553) Indication: BMI 40.0-44.9, adult [facility] : Eprescribed prescriptions (G8553) Indication: [facility] Non-smoker : Eprescribed prescriptions (G8553) Indication: Non-smoker Non-smoker : Eprescribed prescriptions (G8553) Indication: Non-smoker Hypercholesterolemia : Eprescribed prescriptions (G8553) Indication: Hypercholesterolemia Encounter for screening for malignant neoplasm of colon (Renamed from Special screening for malignant neoplasms, colon) : *Colon Cancer Screening Indication: Encounter for screening for malignant neoplasm of colon (Renamed from Special screening for malignant neoplasms, colon) [facility] : Eprescribed prescriptions (G8553) Indication: [facility] Hypercholesterolemia : Eprescribed prescriptions (G8553) Indication: Hypercholesterolemia Septic infrapatellar bursitis, right : Eprescribed prescriptions (G8553) Indication: Septic infrapatellar bursitis, right Acute pain of right knee : Eprescribed prescriptions (G8553) Indication: Acute pain of right knee Essential hypertension : Eprescribed prescriptions (G8553) Indication: Essential hypertension Obstructive sleep apnea, adult : 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 year 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 Indication: Obstructive sleep apnea, adult Obstructive sleep apnea, adult : Reviewed Diagnostic Tests Indication: Obstructive sleep apnea, adult Essential hypertension : Reviewed Diagnostic Tests Indication: Essential hypertension Obstructive sleep apnea, adult : Follow up in 1 year or as needed Indication: Obstructive sleep apnea, adult Essential hypertension : Eprescribed prescriptions (G8553) Indication: Essential hypertension Obstructive sleep apnea, adult : Reviewed Diagnostic Tests Indication: Obstructive sleep apnea, adult Obstructive sleep apnea, adult : Reviewed Lab Indication: Obstructive sleep apnea, adult Essential hypertension : Reviewed Diagnostic Tests Indication: Essential hypertension Essential hypertension : Reviewed Lab Indication: Essential hypertension Other general medical examination for administrative purposes : Reviewed Diagnostic Tests Indication: Other general medical examination for administrative purposes Other general medical examination for administrative purposes : Reviewed Lab Indication: Other general medical examination for administrative purposes Obstructive sleep apnea, adult : Follow up as needed Indication: Obstructive sleep apnea, adult Abnormal glucose tolerance test : Eprescribed prescriptions (G8553) Indication: Abnormal glucose tolerance test Essential hypertension : Blood Pressure: hypertension Indication: Essential hypertension Fever : Fever: body temperature Indication: Fever Essential hypertension : High Blood Pressure (Essential Hypertension) *: blood pressure Indication: Essential hypertension Knee pain : Patellar Tendonitis (Jumper's Knee): knee Indication: Knee pain Bursitis, prepatellar : Bursitis: bursa Indication: Bursitis, prepatellar Bursitis, prepatellar : patella bursa Injection with Drainage Indication: Bursitis, prepatellar Other specified viral infection, in conditions classified elsewhere and of unspecified site : *URI Symptoms Indication: Other specified viral infection, in conditions classified elsewhere and of unspecified site Other specified viral infection, in conditions classified elsewhere and of unspecified site : *URI Treatment Indication: Other specified viral infection, in conditions classified elsewhere and of unspecified site Bronchitis : *URI Treatment Indication: Bronchitis Bronchitis : *URI Symptoms Indication: Bronchitis Bronchitis : *Antibiotic Usage Education - Female Indication: Bronchitis Acute sinusitis, unspecified : *Antibiotic Usage Education - Male Indication: Acute sinusitis, unspecified Bursitis, prepatellar : Knee Injection with Drainage Indication: Bursitis, prepatellar Hypercholesterolemia : Diet, Exercise, and Wt loss Indication: Hypercholesterolemia Other hyperlipidemia : Diet and Exercise Indication: Other hyperlipidemia Essential hypertension : FOLLOW UP NEEDED Indication: Essential hypertension Bronchitis : FOLLOW UP IN 2 WEEKS Indication: Bronchitis Essential hypertension : BP MONITORING - SELF Indication: Essential hypertension Hypoxemia : FOLLOW UP IN 2 WEEKS Indication: Hypoxemia Bronchitis : *URI Treatment Indication: Bronchitis Bronchitis : URI Symptoms Indication: Bronchitis Unspecified bacterial pneumonia : Antibiotic Usage Education - Male Indication: Unspecified bacterial pneumonia Acute sinusitis, unspecified : *URI Treatment Indication: Acute sinusitis, unspecified Acute sinusitis, unspecified : Antibiotic Usage Education - Male Indication: Acute sinusitis, unspecified Acute sinusitis, unspecified : URI Symptoms Indication: Acute sinusitis, unspecified Other abnormal glucose : FOLLOW UP IN 3 MONTHS Indication: Other abnormal glucose Acute sinusitis, unspecified : Antibiotic Usage Education - Male Indication: Acute sinusitis, unspecified Acute sinusitis, unspecified : URI Symptoms Indication: Acute sinusitis, unspecified Acute sinusitis, unspecified : URI treament Indication: Acute sinusitis, unspecified Bronchitis : URI Symptoms Indication: Bronchitis Essential hypertension : FOLLOW UP - MAKE APPT AFTER DIAGNOSTIC TESTS Indication: Essential hypertension Diverticulosis of large intestine without perforation or abscess without bleeding : FOLLOW UP IN 3 MONTHS Indication: Diverticulosis of large intestine without perforation or abscess without bleeding Planned Observations Vitamin D Hydroxy (75759)Indication: Vitamin D deficiency On: :48 Request METABOLIC PANEL, COMPREHENSIVE (45438)Indication: Abnormal glucose tolerance test On: :48 Request HGB A1C (71824)Indication: Abnormal glucose tolerance test On: :48 Request KEV (ANTINUCLEAR ANTIBODY) (20883)Indication: Right elbow pain On: :46 Request RHEUMATOID FACTOR-QUANT (20795)Indication: Right elbow pain On: :46 Request C-REACTIVE PROTEIN (29915)Indication: Right elbow pain On: :46 Request SED RATE ERYTHROCYTE (12663)Indication: Right elbow pain On: :46 Request Metabolic Panel, Basic (37491)Indication: Right-sided chest pain On: 81-Vkw-786996:15 Request Comments: stat D-Dimer (61839)Indication: Right-sided chest pain On: 99-Jda-437943:05 Request Comments: stat METABOLIC PANEL, COMPREHENSIVE (70484)Indication: Abnormal glucose tolerance test On: :22 Request Vitamin D Hydroxy (68119)Indication: Vitamin D deficiency On: 83-Toc-94571:56 Request LIPID PANEL (08035)Indication: Other hyperlipidemia On: :55 Request CBC W/AUTO DIFF WBC (27268)Indication: Essential hypertension On: :55 Request METABOLIC PANEL, COMPREHENSIVE (38978)Indication: Essential hypertension On: :55 Request METABOLIC PANEL, COMPREHENSIVE (48292)Indication: Pain in unspecified joint (Renamed from Arthralgia) On: 38-Mba-49037:40 Request PSA (PROSTATE SPECIFIC ANTIGEN) (V76.44)Indication: Encounter for screening for malignant neoplasm of prostate (Renamed from Screening for prostate cancer) On: :52 Request Hemoglobin Glyclated (HGB A1C) (44657)Indication: Abnormal glucose tolerance test On: :51 Request MICROALBUMIN: CREATININE RATIO (11104) AND (05960)Indication: Abnormal glucose tolerance test On: :51 Request METABOLIC PANEL, COMPREHENSIVE (35338)Indication: Essential hypertension On: :51 Request LIPID PANEL (67186)Indication: Other hyperlipidemia On: :51 Request MAGNESIUM (92185)Indication: Other premature beats On: :54 Request TSH (95170)Indication: Other premature beats On: :54 Request MICROALBUMIN: CREATININE RATIO (57733) AND (36946)Indication: Abnormal glucose tolerance test On: :30 Request LIPID PANEL (90967)Indication: Abnormal glucose tolerance test On: :32 Request METABOLIC PANEL, COMPREHENSIVE (43445)Indication: Abnormal glucose tolerance test On: :32 Request PSA (PROSTATE SPECIFIC ANTIGEN) (V76.44)Indication: Screening for prostate cancer On: :31 Request Urinalysis, Office (29785)Indication: Other general medical examination for administrative purposes On: 69-Yuk-97216:45 Request CBC WITH MANUAL DIFF (38683)Indication: Essential hypertension On: :23 Request METABOLIC PANEL, COMPREHENSIVE (00147)Indication: Essential hypertension On: :23 Request LIPID PANEL (37337)Indication: Hypercholesterolemia On: :23 Request LIPID PANEL (22212)Indication: Hypercholesterolemia On: :24 Request CBC WITH MANUAL DIFF ([id number])Indication: Essential hypertension On: :23 Request METABOLIC PANEL, COMPREHENSIVE (20732)Indication: Abnormal glucose tolerance test On: 70-Edo-21447:23 Request MICROALBUMIN: CREATININE RATIO (71419) AND ([id number])Indication: Abnormal glucose tolerance test On: :23 Request HgA1C , Office (55471)Indication: Abnormal glucose tolerance test On: 67-Yks-53010:03 Request CRISTÓBAL CULTURE-OTHER (98941)Indication: Bursitis, prepatellar On: 29-Ppk-571733:00 Request CRISTÓBAL CULTURE-OTHER (42796)Indication: Bursitis, prepatellar On: 62-Snf-34879:55 Request CBC WITH MANUAL DIFF (98043)Indication: BMI 40.0-44.9, adult On: 26-Nov-2011 Request LIPID PANEL (65447)Indication: BMI 40.0-44.9, adult On: 26-Nov-2011 Request METABOLIC PANEL, COMPREHENSIVE (86540)Indication: BMI 40.0-44.9, adult On: 26-Nov-2011 Request MICROALBUMIN: CREATININE RATIO (37540) AND (62650)Indication: BMI 40.0-44.9, adult On: 26-Nov-2011 Request Urinalysis, Office (08650)Indication: Other general medical examination for administrative purposes On: :56 Request MICROALBUMIN: CREATININE RATIO (10039) AND (95737)Indication: BMI 40.0-44.9, adult On: :19 Request METABOLIC PANEL, COMPREHENSIVE (20593)Indication: BMI 40.0-44.9, adult On: : Request LIPID PANEL (17751)Indication: BMI 40.0-44.9, adult On: : Request CBC WITH MANUAL DIFF ([id number])Indication: BMI 40.0-44.9, adult On: :19 Request MICROALBUMIN: CREATININE RATIO (16868) AND (37440)Indication: Essential hypertension On: :30 Request METABOLIC PANEL, COMPREHENSIVE (88249)Indication: Essential hypertension On: :30 Request LIPID PANEL (82305)Indication: Essential hypertension On: :30 Request CBC WITH MANUAL DIFF (81203)Indication: Essential hypertension On: :30 Request CBC WITH MANUAL DIFF ([id number])Indication: Essential hypertension On: :22 Request METABOLIC PANEL, COMPREHENSIVE (41465)Indication: Essential hypertension On: :22 Request LIPID PANEL (43122)Indication: Hypercholesterolemia On: :22 Request METABOLIC PANEL, COMPREHENSIVE (13988)Indication: Abnormal glucose tolerance test On: :50 Request LIPID PANEL (27392)Indication: Hypercholesterolemia On: :50 Request HEPATIC FUNCTION PANEL (46109)Indication: Other hyperlipidemia On: :04 Request LIPID PANEL (08743)Indication: Other hyperlipidemia On: :04 Request HEPATIC FUNCTION PANEL (01478)Indication: Hypercholesterolemia On: :55 Request LIPID PANEL (48381)Indication: Hypercholesterolemia On: :55 Request CBC WITH MANUAL DIFF (60841)Indication: leucocoytosis On: 24-Ypu-666654:16 Request HEPATIC FUNCTION PANEL (10474)Indication: Hypercholesterolemia On: :24 Request LIPID PANEL (01703)Indication: Hypercholesterolemia On: 76-Cig-347124:24 Request METABOLIC PANEL, COMPREHENSIVE (50342)Indication: Abnormal glucose tolerance test On: :43 Request CBC WITH MANUAL DIFF (59201)Indication: Abnormal glucose tolerance test On: 8-Til-114767:43 Request MICROALBUMIN: CREATININE RATIO (33590) AND (32374)Indication: Abnormal glucose tolerance test On: :43 Request LIPID PANEL (53004)Indication: Other hyperlipidemia On: :43 Request HEPATIC FUNCTION PANEL (69668)Indication: Other hyperlipidemia On: :48 Request Comments: 4 mos LIPID PANEL (60456)Indication: Other hyperlipidemia On: :48 Request HgA1C , Office (17012)Indication: Other abnormal glucose On: 16-Ajj-891731:16 Request Comments: [facility] LIPID PANEL (91774)Indication: Hyperlipidemia On: 45-Cdv-491271:11 Request MICROALBUMIN URINE QUANT (69059)Indication: Abnormal glucose tolerance test On: 70-Cmt-097859:11 Request TSH (75170)Indication: Essential hypertension On: 28-Vym-655390:11 Request URINALYSIS W/O MICRO ([id number])Indication: Essential hypertension On: 66-Kjs-426082:11 Request CBC WITH MANUAL DIFF ([id number])Indication: Essential hypertension On: 59-Ekj-666208:10 Request METABOLIC PANEL, COMPREHENSIVE (37861)Indication: Essential hypertension On: 09-Awq-942224:10 Request HgA1C , Office (82641)Indication: Glucose Intolerance On: 5-Sip-655230:41 Request Planned Encounters Medical; [facility] 3 Month FU - On: 04-Sep-2018 7:00 [facility] Fast DO, Aparna A Fast DO, Aparna A Planned Procedures Radiology - Elbow - RightBy: Fast On: 22-May-2018 Intent DO, Aparna A Fast DO, Aparna A Nuclear Stress Test/Stress On: 22-May-2018 Intent SPECT/TreadmillBy: Fast DO, Aparna A Fast DO, Aparna A Echo CompleteBy: Fast DO, Aparna A On: 22-May-2018 Intent Fast DO, Aparna A ELECTROCARDIOGRAM, COMPLETE (ECG) On: 22-May-2018 Intent (90223)By: Aparna Gutiérrez DO A Brock Comments: ekg showed normal sinus rhythym, normal axis, t wave inversion inf and ant DO Aparna A Flu Vaccine (Quadrivalent) On: 22-May-2018 Intent [id number]: Brock DO Aparna A Fast DO, Comments: Lot #[id number]/2019Site-L dltd, IMDose prefilled syringegiven by: Maxine reviewed and ABN signed Aparna A CT - Chest (IV Contrast Needed)By: On: 04-Feb-2018 Intent April Gutiérrez DOa A Brock DO, Aparna A Comments: cta with pe protocol- stat CHEST X-RAY, PA AND LATERAL On: 23-Jul-2017 Intent (09260)By: Aparna Gutiérrez DO Comments: patient to have rechecked in early August 2017 Aparna MCCLAIN A Radiology - Chest- PA and LatBy: On: 22-Jul-2017 Intent Aparna Gutiérrez DO A Brock DO Aparna A Comments: stat call results US GALLBLADDER ([id number])By: Brock MCCLAIN, On: 27-Jun-2017 Intent Aparna Gutiérrez DO, Aparna A ELECTROCARDIOGRAM, COMPLETE (ECG) On: 02-Jun-2017 Intent (02881)By: Aparna Gutiérrez DO Comments: ekg showed normal sinus rhythym, normal axis, no acute st/t wave changes DO Aparna A Flu Vaccine (Quadrivalent) On: 16-May-2017 Intent [id number]: April Gutiérrez DOa A Brock DO, Comments: Lot #:[id number] date: 01/05/18Amount given: 0.5mlRoute: IMSite given: left deltoidGiven by: RASHI Soto A ELECTROCARDIOGRAM, COMPLETE (ECG) On: 30-May-2016 Intent (99256)By: Aparna Gutiérrez DO Comments: ekg showed normal sinus rhythym, normal axis, no acute st/t wave changes DO Aparna A PFT - CompleteBy: Brock MCCLAIN Aparna A On: 30-May-2016 Intent Brock MCCLAIN Aparna A Comments: at [facility] Flu Vaccine (Quadrivalent) On: 30-May-2016 Intent [id number]: Aparna Gutiérrez DO A Brock DO, Comments: Lot #:[id number] date: 11/2016Amount given:0.5mlRoute: IMSite given: right deltoidGiven by: RASHI Soto ADMINISTRATION OF INFLUENZA VIRUS On: 30-May-2016 Intent VACCINE (G0008)By: Brock MCCLAIN, Aparna A Fast DO, Aparna A Doppler Ultrasound OtherBy: Fast On: 30-May-2016 Intent DO, Aparna A Fast DO, Aparna A Comments: lower ext- check valve competence Rocephin Injection, 2 Gram On: 09-Feb-2016 Intent ([id number])By: April Gutiérrez DOa A Brock Comments: rocephin w lidolot:[id number]:05/21/18ite:rt and lt glutroute:IMdose 2gmD.RASHI Brand DO, Aparna A Radiology - Knee - Right - Weight On: 09-Feb-2016 Intent BearingBy: Brock DO, Aparna A Brock Comments: stat call wet read DO, Aparna A Nuclear Stress Test/Stress On: 16-Jan-2015 Intent SPECT/TreadmillBy: Brock DO, Aparna A Fast DO, Aparna A EKG ([id number])By: Brock MCCLAIN Aparna A On: 23-Dec-2014 Intent Fast DO Aparna A Comments: ekg showed normal sinus rhythym, normal axis, no acute st/t wave changes pvc and nonspecific intravent conduction delay Echo CompleteBy: Brock DO, Aparna A On: 23-Dec-2014 Intent Fast DO, Aparna A Holter Monitor 24 hrsBy: Brock DO, On: 23-Dec-2014 Intent Aparna A Fast DO, Aparna A Eprescribed prescriptions On: 17-Dec-2013 Intent (G8553)By: Brock DO, Aparna A Fast DO, Aparna A Radiology - Chest- PA and LatBy: On: 13-Sep-2013 Intent Fast DO, Aparna A Fast DO, Aparna A Comments: stat call wet read Aerosol Treatment ([id number])By: Brock On: 13-Sep-2013 Intent DO, Aparna A Fast DO, Aparna A Pulse Oximetry (27483)By: Brock DO, On: 13-Sep-2013 Intent Aparna A Fast DO, Aparna A EKG (22051)By: Susy Rock On: 16-Aug-2013 Intent Comments: ekg showed normal sinus rhythym, normal axis, no acute st/t wave changes nsivcd no change Eprescribed prescriptions On: 16-Aug-2013 Intent (G8553)By: Susy Rock Eprescribed prescriptions On: 08-Jan-2013 Intent (G8553)By: Susy Rock Eprescribed prescriptions On: 25-Nov-2012 Intent (G8553)By: Susy Rock Nerve ConductionBy: Fast DO, Aparna On: 16-Oct-2012 Intent A Fast DO, Aparna A Comments: both upper ext EMGBy: Fast DO, Aparna A Fast DO, On: 16-Oct-2012 Intent Aparna A Comments: both upper ext- Eprescribed prescriptions On: 16-Oct-2012 Intent (G8553)By: Susy Rock Eprescribed prescriptions On: 08-Jul-2012 Intent (G8553)By: Susy Rock Eprescribed prescriptions On: 08-May-2012 Intent (G8553)By: Susy oRck FLU VAC, SPLIT, >3 YEARS, On: 08-Nov-2011 Intent INTRAMUSC ([id number])By: Shweta, Comments: doesnt get them Susy EKG (16533)By: Kera Thompson MD On: 09-May-2011 Intent Radiology - Knee - LeftBy: Jay On: 09-May-2011 Intent Kera VELAZQUEZ EKG (65225)By: Susy Rock On: 13-Feb-2010 Intent Comments: ekg showed normal sinus rhythym, normal axis, no acute st/t wave changes nsivcd CT - ChestBy: Fast DO, Aparna A On: 15-Sep-2009 Intent Fast DO, Aparna A Comments: september or october TDAP VACCINE >7 IM ([id number])By: Brock On: 15-Sep-2009 Intent DO, Aparna A Fast DO, Aparna A Comments: Lot:[id number]:09/13/11Dose:0.5MLRoute:IMSite:RIGHT DELTOID Given by: DANIEL Lopez CT - ChestBy: Fast DO, Aparna A On: 10-Feb-2009 Intent Fast DO, Aparna A Comments: mar EKG (75387)By: Carmela Payne RN On: 18-Oct-2008 Intent Comments: ekg showed normal sinus rhythym, normal axis, no acute st/t wave changes borderline intraventricular conduction delay CT - ChestBy: Fast DO, Aparna A On: 08-Jul-2008 Intent Fast DO, Aparna A CT - ChestBy: Fast DO, Aparna A On: 13-Apr-2008 Intent Fast DO, Aparna A Aerosol Treatment ([id number])By: Jeana On: 13-Jan-2008 Intent Yasemin REYES Pulse Oximetry (54748)By: Jeana On: 13-Jan-2008 Intent Yasemin REYES PNEUM VAC ADLT/IMUMNOSPR, On: 11-Dec-2007 Intent SBC/INTRM ([id number])By: Brock MCCLAIN, Comments: Lot #: [id number] date: 05/28Amount given: 0.5 mlRoute: IMSite given: Right deltoidGiven by: Danish Stuart LPN Aparna A Fast DO, Aparna A Pulse Oximetry ([id number])By: Brock MCCLAIN, On: 12-Nov-2007 Intent Aparna A Fast DO, Aparna A Comments: 93- room air Aerosol Treatment ([id number])By: Brock On: 02-Nov-2007 Intent DO, Aparna A Fast DO, Aparna A Pulse Oximetry ([id number])By: Brock MCCLAIN, On: 02-Nov-2007 Intent Aparna A Fast DO, Aparna A Spirometry ([id number])By: Brock MCCLAIN, On: 02-Nov-2007 Intent Aparna A Fast DO, Aparna A Radiology - Chest- PA and LatBy: On: 02-Nov-2007 Intent Fast DO, Aparna A Fast DO, Aparna A Nuclear Stress Test/Stress On: 26-Oct-2007 Intent SPECT/TreadmillBy: Fast DO, Aparna A Fast DO, Aparna A CT - Brain/HeadBy: Fast DO, Aparna On: 12-Oct-2007 Intent A Fast DO, Aparna A EsophagramBy: Fast DO, Aparna A On: 12-Oct-2007 Intent Fast DO, Aparna A Comments: with 12 mm tablet Cartoid DopplerBy: Fast DO Aparna On: 12-Oct-2007 Intent A Fast DO, Aparna A Echo CompleteBy: Fast DO, Aparna A On: 12-Oct-2007 Intent Fast DO, Aparna A EKG ([id number])By: Susy Rock On: 05-Aug-2007 Intent Comments: ekg showed normal sinus rhythym, normal axis, no acute st/t wave changes isolated q wave in lead 3 unchanged EKG ([id number])By: Fast DO, Aparna A On: 08-Jul-2006 Intent Fast DO, Aparna A Comments: ekg showed normal sinus rhythym, normal axis, no acute st/t wave changes Planned Medications INJECTION, CEFTRIAXONE SODIUM, PER 250 MG Ordered: 09-Feb-2016 Pending Fast DO, Aparna A Fast DO, Aparna A Instructions Name Dates Details [facility] Wellness Physical : How to access health information online Indication: [facility] : How to access health information online - Detail Indication: [facility] : Patient Instructions Indication: [facility] BMI 40.0-44.9, adult : How to access health information online Indication: BMI 40.0-44.9, adult BMI 40.0-44.9, adult : How to access health information online - Detail Indication: BMI 40.0-44.9, adult BMI 40.0-44.9, adult : Patient Instructions Indication: BMI 40.0-44.9, adult Right-sided chest pain : How to access health information online Indication: Right-sided chest pain Right-sided chest pain : How to access health information online - Detail Indication: Right-sided chest pain Right-sided chest pain : Patient Instructions Indication: Right-sided chest pain Essential hypertension : How to access health information online Indication: Essential hypertension Essential hypertension : How to access health information online - Detail Indication: Essential hypertension Essential hypertension : Patient Instructions Indication: Essential hypertension Abnormal glucose tolerance test : How to access health information online Indication: Abnormal glucose tolerance test Abnormal glucose tolerance test : How to access health information online - Detail Indication: Abnormal glucose tolerance test Abnormal glucose tolerance test : Patient Instructions Indication: Abnormal glucose tolerance test 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 : How to access health information online Indication: 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 : How to access health information online - Detail Indication: 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 : Patient Instructions Indication: 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 Cough : How to access health information online - Detail Indication: Cough Cough : Patient Instructions Indication: Cough Cough : How to access health information online Indication: Cough Cough : How to access health information online - Detail Indication: Cough Cough : Patient Instructions Indication: Cough BMI 40.0-44.9, adult : How to access health information online Indication: BMI 40.0-44.9, adult BMI 40.0-44.9, adult : How to access health information online - Detail Indication: BMI 40.0-44.9, adult BMI 40.0-44.9, adult : Patient Instructions Indication: BMI 40.0-44.9, adult [facility] Wellness Physical : How to access health information online Indication: [facility] Wellness Physical [facility] Wellness Physical : How to access health information online - Detail Indication: [facility] Wellness Physical [facility] Wellness Physical : Patient Instructions Indication: [facility] Wellness Physical Non-smoker : How to access health information online Indication: Non-smoker Non-smoker : How to access health information online - Detail Indication: Non-smoker Non-smoker : Patient Instructions Indication: Non-smoker Non-smoker : How to access health information online Indication: Non-smoker Non-smoker : How to access health information online - Detail Indication: Non-smoker Non-smoker : Patient Instructions Indication: Non-smoker Hypercholesterolemia : How to access health information online Indication: Hypercholesterolemia Hypercholesterolemia : How to access health information online - Detail Indication: Hypercholesterolemia Hypercholesterolemia : Patient Instructions Indication: Hypercholesterolemia [facility] Wellness Physical : How to access health information online Indication: [facility] Wellness Physical [facility] Wellness Physical : How to access health information online - Detail Indication: [facility] Wellness Physical : Patient Instructions Indication: [facility] Wellness Physical Hypercholesterolemia : How to access health information online Indication: Hypercholesterolemia Hypercholesterolemia : How to access health information online - Detail Indication: Hypercholesterolemia Hypercholesterolemia : Patient Instructions Indication: Hypercholesterolemia Septic infrapatellar bursitis, right : How to access health information online Indication: Septic infrapatellar bursitis, right Septic infrapatellar bursitis, right : How to access health information online - Detail Indication: Septic infrapatellar bursitis, right Septic infrapatellar bursitis, right : Patient Instructions Indication: Septic infrapatellar bursitis, right Acute pain of right knee : How to access health information online Indication: Acute pain of right knee Acute pain of right knee : How to access health information online - Detail Indication: Acute pain of right knee Acute pain of right knee : Patient Instructions Indication: Acute pain of right knee Essential hypertension : How to access health information online Indication: Essential hypertension Essential hypertension : How to access health information online - Detail Indication: Essential hypertension Essential hypertension : Patient Instructions Indication: Essential hypertension Other premature beats : Patient Instructions Indication: Other premature beats Essential hypertension : Patient Instructions Indication: Essential hypertension Abnormal glucose tolerance test : Patient Instructions Indication: Abnormal glucose tolerance test Essential hypertension : Patient Instructions Indication: Essential hypertension Fever : Patient Instructions Indication: Fever Abnormal glucose tolerance test : Patient Instructions Indication: Abnormal glucose tolerance test Abnormal glucose tolerance test : Patient Instructions Indication: Abnormal glucose tolerance test Carpal tunnel syndrome, unspecified laterality : Patient Instructions Indication: Carpal tunnel syndrome, unspecified laterality Psoriasis : Patient Instructions Indication: Psoriasis Other general medical examination for administrative purposes : Patient Instructions Indication: Other general medical examination for administrative purposes Essential hypertension : Patient Instructions Indication: Essential hypertension Encounters Office Visit On: 01-Jun-2018 13:27 Encounter Diagnosis: Abnormal nuclear stress test, Abnormal echocardiogram End: 01-Jun-2018 14:24 [facility] Review On: 22-May-2018 7:26 Encounter Reason: Physical male exam - Last seen between 3-6 months ago. General health: feels well with minor complaints, has decreased energy level and is sleeping well. The patient's appetite is normal. Nutrition: nor mal/adequate. Exercises 2 days per week. Sleeps on average 7 hours per night. Normal bowel and bladder habits. Safety measures include appropriate use of safety belts and home smoke detectors. There are no current emotional problems. The patient's libido is normal. Preventative measures done by patient are screening, visual acuity (Jul 2017) and PSA (18). Note for Physical exam: he didnt take bp meds this am so bp high- feeling ok but he has had some achiness in knees and hips - so was taking meloxicam and helping and right elbow on and off aching- just mid arm-left handed but uses right arm alotEncounter Diagnosis: BMI 40.0- 44.9, adult, [facility], Non-smoker, Need for prophylactic vaccination and inoculation against influenza (Renamed from Need for immunization against influenza), Abnormal glucose tolerance test, Abnormal EKG, Vitamin D deficiency, Right elbow pain [facility] Office Visit On: 27-Feb-2018 7:02 Encounter Reason: Follow up tests - Date: (02/20 blood work)., [ADDITIONAL REASON] Follow up for chronic medical issues - The patient feels well with no complaints End: 27-Feb-2018 7:44 , has good energy level and is sleeping well. Patient has been compliant with instructions. Current medication use: no side effects, compliant with dosing regimen and considered effective by patient. Huy del angel sleeps 7 hours per night. Nutrition: inappropriate diet and supplemental vitamins. The medical issues the patient is following up for include blood sugar issues, cardiac issues, high blood pressur e, high cholesterol and other (obesity, DAVID, psoriasis ). Note for Follow up for chronic medical issues: he feeling better got rid of chest pain took 2 days off work- weight up a little and bp is good - discussed ct results has some plaque needs to get sugar down - not taking vit d routinely- back doing ok has seen chiropractor and joints pretty good - occ knees bother depending on what he does- uses meloxicam Encounter Diagnosis: Non-smoker, BMI 40.0-44.9, adult, Essential hypertension, Hyperkalemia, Abnormal glucose tolerance test, Vitamin D deficiency, Other hyperlipidemia, Asymptomatic microscopic hematuria, Knee pain (719.46) [facility] Office Visit On: 04-Feb-2018 11:23 Encounter Reason: Muscle pain - The onset of the muscle pain has been sudden (was working and lifting something and thats when the pain started in the R side of the chest. Denies any SOB, radiation down arm or into jaw.) End: 05-Feb-2018 20:54 and has been occurring in a persistent pattern for 1 day. The course has been constant. The muscle pain is described as a dull aching, sharp stabbing and burning sensation. The muscle pain is located i n the shoulder (R side of chest). The symptoms are aggravated by physical activity. The symptoms are relieved by rest. 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 Patient has been compliant with instructions. Current medication use: no marisol End: 21-Nov-2017 7:32 e effects, compliant with dosing regimen and considered effective by patient. Patient sleeps 7 hours per night. Nutrition: inappropriate diet and supplemental vitamins. The medical issues the patient is following up for include blood sugar issues, cardiac issues, high blood pressure, high cholesterol and other (obesity, DAVID, psoriasis ). Note for Follow up for chronic medical issues: weight up 10 po unds - long witner- didnt get labs but fasting today - bp is good and got rid of cough and feels well- no vertigo or gastritis sx his sciatic pretty good- had 3 laser vein surgeries this winter on varicose veins- has les leg aching Encounter Diagnosis: BMI 40.0-44.9, adult, Non-smoker, Essential hypertension, Other hyperlipidemia, Abnormal glucose tolerance test, Vitamin D deficiency [facility] Office Visit On: 08-Aug-2017 6:54 Encounter Reason: Follow up for chronic medical issues - The patient feels well with no complaints, has good energy level and is sleeping well. Patient has been compliant with instructions. Current medication use: no marisol End: 08-Aug-2017 9:36 e effects, compliant with dosing regimen and considered effective by patient. Patient sleeps 7 hours per night. Nutrition: inappropriate diet and supplemental vitamins. The medical issues the patient is following up for include blood sugar issues, cardiac issues, high blood pressure, high cholesterol and other (obesity, DAVID, psoriasis ). Note for Follow up for chronic medical issues: cough better we dnesday was last allergy shot he going to get retested his epigastric pain is gone and actually has been off the omerazole for a while- bp isgood- bowels moving ok- no routine vertigo no back pain or leg pain, [ADDITIONAL REASON] Follow up tests - Date: (08/01 blood work). Encounter Diagnosis: Non-smoker, BMI 40.0-44.9, adult, Essential hypertension, Other hyperlipidemia, Abnormal glucose tolerance test, Gastritis, Vitamin D deficiency, Acute bilateral low back pain without sciatica, Asymptomatic microscopic hematuria [facility] Office Visit On: 30-Jul-2017 14:28 Encounter Reason: Physical male exam - Last seen less than 1 month ago. General health: feels well with no complaints, has good energy level and is sleeping well. The patient's appetite is normal. Nutrition: inappropriat End: 30-Jul-2017 15:47 e diet. Exercises 0 days per week. Sleeps on average 8 hours per night. Normal bowel and bladder habits. Safety measures include appropriate use of safety belts and home smoke detectors. There are no cu rrent emotional problems. The patient's libido is normal. Preventative measures done by patient are screening, colonoscopy.Encounter Diagnosis: 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 [facility] Phone Encounter On: 23-Jul-2017 14:02 Encounter Diagnosis: Cough (786.2) End: 23-Jul-2017 14:08 [facility] Office Visit On: 22-Jul-2017 13:41 Encounter Reason: Follow up acute care visit - The patient does not feel well (was seen on 07/16 for same issue. Was treated with Biaxin which he has 3 days left. Still having all the same symptoms, worried about pneumon End: 22-Jul-2017 14:04 ia) and has decreased energy level. Patient has been compliant with instructions. Current medication use: experiencing side effects (dry mouth), compliant with dosing regimen and not considered effectiv e by patient. Note for Follow up acute care visit: stomach feels better taking the biaxin and no more fever chills and more clear more coughing just still and still frontal pressure- sore in sternum - not sob- maybe little wheezing- initially had spinning that betterEncounter Diagnosis: BMI 40.0-44.9, adult, Non-smoker, Cough (786.2), Acute bronchitis [facility] Office Visit On: 16-Jul-2017 11:51 Encounter Reason: Cough - The last clinic visit was 2 week(s) ago. Symptoms include cough, chills, stuffy nose and pleuritic chest pain. Note for Cough: cordicin HBP took one this am. not feel any better. some yellwo greenEncounter Diagnosis: End: 16-Jul-2017 12:30 BMI 40.0-44.9, adult, Non-smoker, Cough (786.2) [facility] Annotation/Addendum On: 27-Jun-2017 14:52 Encounter Diagnosis: Epigastric pain End: 27-Jun-2017 14:56 [facility] Office Visit On: 24-Jun-2017 11:41 Encounter Reason: Abdominal Pain, Male - Symptoms include abdominal pain and diarrhea (loose stools), while symptoms do not include nausea. The pain is located in the epigastric area (all upper abd). The patient describe End: 24-Jun-2017 22:33 s the pain as crampy. Onset was 2 week(s) ago. Symptoms are not exacerbated by eating or drinking. Associated symptoms do not include hematuria. Note for Abdominal pain: some foods make worse than oth ers- vomited- appetite ok no fever or gerd -- couple stools a day- no blood- symptoms for 11/2 weeks- has been off of meloxicam and not taking omepraxoleEncounter Diagnosis: Non-smoker, BMI 40.0-44.9, adult, Epigastric pain [facility] Office Visit On: 16-May-2017 7:13 Encounter Reason: Physical male exam - General health: feels well with minor complaints (headache), has decreased energy level and is sleeping well. The patient's appetite is normal. Nutrition: inappropriate diet. Exerci End: 03-Jun-2017 8:58 ses 0 days per week. Sleeps on average 8 hours per night. Elimination problems include urinary frequency. Safety measures include appropriate use of safety belts and home smoke detectors. There are no c urrent emotional problems. The patient's libido is normal. Note for Physical exam: [facility]- Pt has had a headache since yesterday. Heating pad on head and slept most of day. Sick at [facility] and lightheaded. He has a hx of migraines and feels this is one.- no gerd gastritis did have flare of diverticuli but better- when weather gets cold his back will flare little but better now- take s the meloxicam as needed- prior to yesterday enpreeti ok- he saw manju last year and had pft with him and was told it was good, [ADDITIONAL REASON] Vertigo - Note for Vertigo: yesterday woke up with frontal headache and vertig o and nausea- vertigo happens if moves head- no double vision weak or numb- no light bother eyes heating pad helped today some better Encounter Diagnosis: Acute bilateral low back pain without sciatica, BMI 40.0-44.9, adult, Non-smoker, [facility], Need for prophylactic vaccination and inoculation against influenza (Renamed from Need for immunization against influenza), Essential hypertension, Abnormal glucose tolerance test, Benign positional vertigo, Vitamin D deficiency, Other hyperlipidemia [facility] Office Visit On: 17-Jan-2017 7:05 Encounter Reason: Follow up for chronic medical issues - The patient feels well with minor complaints (mid abdomen- thought maybe pred - / weeks- sick to stomach -not pain - some foods make worse some dont affect- bow End: 17-Jan-2017 7:46 els little softer=- no blood no ??fever no vomit), has good energy level and is sleeping well. Patient has been compliant with instructions. Current medication use: no side effects, compliant with dosin g regimen and considered effective by patient. Patient sleeps 5 hours per night. Nutrition: inappropriate diet and supplemental vitamins. The medical issues the patient is following up for include blood sugar issues, cardiac issues, high blood pressure, high cholesterol and other (obesity, DAVID, psoriasis ). Note for Follow up for chronic medical issues: he has been doing ok other than ??stomach -- b ack improving with chiropractic- bp is good and had belly no feel like his diverticulitis- and sugar up bit with pred- and rest of labs pretty good he is taking vit d not always remember, [ADDITIONAL REASON] Follow up, Laboratory Test Results - Date: (01/10/17). , [ADDITIONAL REASON] Nausea - Symptoms include nausea and abdominal pain, while symptoms do not inclu de emesis or bloating. Symptom onset was sudden 1 week(s) ago. Onset followed a change in medication. The symptoms occur constantly. The patient describes this as improving. Associated symptoms include diarrhea, while associated symptoms do not include constipation, dizziness, headache, fatigue or fever. Encounter Diagnosis: Non-smoker, BMI 40.0-44.9, adult, Essential hypertension, Acute bilateral low back pain without sciatica, Vitamin D deficiency, Abnormal glucose tolerance test, Other hyperlipidemia, Gastritis [facility] Phone Encounter On: 03-Jan-2017 14:55 Encounter Diagnosis: Acute bilateral low back pain without sciatica End: 03-Jan-2017 14:57 [facility] Office Visit On: 01-Jan-2017 13:05 Encounter Reason: Back pain - The onset of the pain has been gradual and has been occurring in a persistent pattern for 2 weeks. The course has been increasing. The pain is characterized as a dull ache, stabbing, piercin End: 03-Jan-2017 8:58 g and shooting. The pain is described as being located in the lower back and lumbar area. The pain radiates to the no radiation (goes across his back to left side). The pain is precipitated by trauma (a lot of bending over at work and lifted a big heavy lady on friday). The symptoms are aggravated by exertion, prolonged standing and prolonged sitting. The symptoms have no relieving factors. There has b een no associated abdominal pain, chills, dysuria, fever, hip pain, incontinence of stool, incontinence of urine or leg weakness. Note for Pain: tried ice aspirin mobic - no leg pain no buttock pain- - no weak or numb in legs- - little ache with sit but worse with movements or bending- - no loss of bowel or bladder controlEncounter Diagnosis: BMI 40.0-44.9, adult, Non-smoker, Acute bilateral low back pain without sciatica [facility] Office Visit On: 25-Sep-2016 15:02 Encounter Reason: Follow up for chronic medical issues - The patient feels well with no complaints, has good energy level and is sleeping well (other than his finger bothering him). Patient has been compliant with instru End: 26-Sep-2016 20:09 ctions. Current medication use: no side effects, compliant with dosing regimen and considered effective by patient. Patient sleeps 4 hours per night. Nutrition: inappropriate diet and supplemental vitam ins. The medical issues the patient is following up for include blood sugar issues, cardiac issues, high blood pressure, high cholesterol and other (obesity, DAVID, psoriasis ). Note for Follow up for ch ronic medical issues: he is feeling pretty good working on diet and amking changes- his bp goodand sugar coming down and chol improving - no gerd-had colonosocopy and ok andeye exam, [ADDITIONAL REASON] Follow up, Laboratory Test Results - Date: (09/13/2016). Encounter Diagnosis: Hypercholesterolemia, Non-smoker, BMI 40.0-44.9, adult, Abnormal glucose tolerance test, Vitamin D deficiency, Essential hypertension, KEV positive, Abnormal lung function test, Obstructive sleep apnea, adult [facility] Phone Encounter On: 06-Sep-2016 9:10 Encounter Diagnosis: Abnormal glucose tolerance test End: 06-Sep-2016 9:13 [facility] Office Visit On: 30-May-2016 8:04 Encounter Reason: Physical male exam - General health: feels well with minor complaints (urinary freq), feels well with no complaints, has good energy level and is sleeping well. The patient's appetite is normal. Nutriti End: 06-Jun-2016 21:36 on: inappropriate diet. Exercises 0 days per week. Sleeps on average 8 hours per night. Elimination problems include urinary frequency. Safety measures include appropriate use of safety belts and home s moke detectors. There are no current emotional problems. The patient's libido is normal. Note for Physical exam: [facility]- Pt having issues with his Psoriasis but got a injection last w koi from derm and may get another one.- having urinary freq since before shot no dysuria not drinkig more or more caffeine- no egg allergy going to take flu shot since had psorias injection -- has appt with Manju for followup with cpap, [ADDITIONAL REASON] Follow up, Laboratory Test Results - Date: (05/2016). Encounter Diagnosis: [facility], BMI 40.0-44.9, adult, Non-smoker, Urinary frequency, Obstructive sleep apnea, adult, Hypercholesterolemia, Abnormal glucose tolerance test, Essential hypertension, Pain in unspecified joint (Renamed from Arthralgia), Encounter for screening for malignant neoplasm of colon (Renamed from Special screening for malignant neoplasms, colon), Varicose veins of left lower extremity with inflammation, Need for prophylactic vaccination and inoculation against influenza (Renamed from Need for immunization against influenza), Vitamin D deficiency, Abnormal lung function test [facility] Historical Summary On: 15-May-2016 15:43 Encounter Diagnosis: Essential hypertension End: 15-May-2016 15:48 [facility] Office Visit On: 13-Feb-2016 8:05 Encounter Reason: Follow up for chronic medical issues - The patient feels well with no complaints, has good energy level and is sleeping well (other than his finger bothering him). Patient has been compliant with instru End: 13-Feb-2016 9:21 ctions. Current medication use: no side effects, compliant with dosing regimen and considered effective by patient. Patient sleeps 7 hours per night. Nutrition: inappropriate diet and supplemental vitam ins. The medical issues the patient is following up for include blood sugar issues, cardiac issues, high blood pressure, high cholesterol and other (obesity, DAVID, psoriasis ). Note for Follow up for ronic medical issues: At first when switched bp meds he had some lightheadedness but that has resolved now.- bp is good and other than knee issue which he is seeing ortho at 10 am he is feeling well - he is keeping up on water and fluid intake, [ADDITIONAL REASON] Follow up, Laboratory Test Results - Date: (02/09/16). Encounter Diagnosis: Hypercholesterolemia, Essential hypertension, Septic infrapatellar bursitis, right, Other allergic rhinitis [facility] Office Visit On: 12-Feb-2016 12:56 Encounter Reason: Follow up acute care visit - The patient feels the same and worsening. Patient has been compliant with instructions. Current medication use: no side effects and compliant with dosing regimen. The medica End: 12-Feb-2016 13:34 l issues the patient is following up for include All identified problems below and other (Right knee painful and swollen area- now has redness around the swollen area and pt seen red streaks down his le g over weekend.). Note for Follow up acute care visit: if puts leg up looks better but cyr to stand - no feverEncounter Diagnosis: Septic infrapatellar bursitis, right [facility] Office Visit On: 09-Feb-2016 10:46 Encounter Reason: Leg pain - The leg pain began suddenly and has been occurring for 6 days. The symptoms have been occurring in a persistent pattern. The symptoms are described as a burning sensation (sometimes pins n ne End: 09-Feb-2016 11:33 edles), dull ache and pain and are mild in severity. The symptoms occur during the day. There is involvement of the right lower extremity. There are no precipitating factors. Relief is provided by cold compress (a little). There has been no associated chest pain, dyspnea, numbness and tingling in toes, calf swelling or fever. Note for Leg pain: no feer no trauma no feel bad more red swollen and painful - taking mobic resting this weekend Encounter Diagnosis: Acute pain of right knee, Cellulitis of right lower extremity, Essential hypertension, Hypercholesterolemia, Screening for prostate cancer, Abnormal glucose tolerance test [facility] Phone Encounter On: 02-Aug-2015 11:31 Encounter Diagnosis: Unspecified Diagnosis End: 02-Aug-2015 11:44 [facility] Office Visit On: 07-Jul-2015 7:04 Encounter Reason: Follow up for chronic medical issues - The patient feels well with no complaints,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
--- OUTSIDE RECORDS SUMMARY | 2018-08-14 03:17 | XMS RPT_ITS ---
:1965 Author Organization [facility] Support Name Relationship Address Phone STEFA Unavailable [id number] + [place] [id number] CAREN MARQUESNIFER Unavailable [address] + [place] [address] WOOD, VIDA Unavailable [address] + [place] [address] STEFA Unavailable [address] + [place] [address] CAREN MARQUESNIFER Unavailable [address] + [place] [address] WOOD, VIDA Unavailable [address] + [place] [address] STEFA Unavailable [address] + [place] [address] SHELLI ADDISON Unavailable [address] + [place] [address] WOOD, VIDA Unavailable [address] + [place] [address] STEFA Unavailable [address] + [place] [address] WOOD ADDISON Unavailable [address] + [place] [address] WOOD, VIDA Unavailable [address] + [place] [address] STEFA Unavailable [address] + [place] [address] WOOD ADDISON Unavailable [address] + [place] [address] WOOD, VIDA Unavailable [address] [place] + [place] [address] STEFA Unavailable [address] + [place] [address] WOOD, ADIDSON Unavailable [address] + [place] [address] WOOD, VIDA Unavailable [address] + [place] [address] STEFA Unavailable [address] + [place] [address] WOOD, ADDISON Unavailable [address] + [place] [address] WOOD, VIDA Unavailable [address] + [place] [address] STEFA Unavailable [address] + [place] [address] WOOD, ADDISON Unavailable [address] + [place] [address] WOOD, VIDA Unavailable [address] + [place] [address] STEFA Unavailable [address] + [place] [address] WOOD, ADDISON Unavailable [address] + [place] [address] WOOD, VIDA Unavailable [address] [place] [address] + [place] [address] STEFA Unavailable [address] + [place] [address] WOOD, ADDISON Unavailable [address] + [place] [address] WOOD, VIDA Unavailable [address] [place] [address] + [place] [address] STEFA Unavailable [address] + [place] [address] WOOD, ADDISON Unavailable [address] + [place] [address] WOOD, VIDA Unavailable [address] [place] + [place] [address] STEFA Unavailable [address] + [place] [address] CAREN MARQUESNIFER Unavailable [address] [phone] [place] [address] FOOTHILL RANCH, VIDA Unavailable [address] + [place] [address] STEFA Unavailable [address] + [place] [address] CAREN MARQUESNIFER Unavailable [address] [phone] [place] [address] STEFA Unavailable [address] + [place] [address] CAREN MARQUESNIFER Unavailable [address] [phone] [place] [address] FOOTHILL RANCH, VIDA Unavailable [address] + [place] [address] STEFA Unavailable [address] + [place] [address] CAREN MARQUESNIFER Unavailable [address] [phone] [place] [address] FOOTHILL RANCH, VIDA Unavailable [address] + [place] [address] Care Team Providers Name Role Phone Gisselle Shi Attending Unavailable Fast, Aparna Attending Unavailable Fast, Aparna Primary Care Unavailable Fast, Aparna Attending Unavailable Fast, Aparna Referring Unavailable Fast, Aparna Primary Care Unavailable Fast, Aparna Attending Unavailable Fast, Aparna Primary Care Unavailable Fast, Aparna Attending Unavailable Fast, Aparna Attending Unavailable Fast, Aparna Referring Unavailable Fast, Aparna Primary Care Unavailable Fast, Aparna Attending Unavailable Fast, Aparna Referring Unavailable Fast, Aparna Primary Care Unavailable Fast, Aparna Attending Unavailable Fast, Aparna Primary Care Unavailable Fast, Aparna Referring Unavailable Nolt, Vivi Attending Unavailable Gisselle Shi Attending Unavailable Rogers, Arcenio Attending Unavailable Fast, Aparna Referring Unavailable Diallo Henderson Attending Unavailable Fast, Aparna Referring Unavailable Rogers, Tennille Attending Unavailable Fast, Aparna Referring Unavailable Rogers, Arcenio Attending Unavailable Rogers, Arcenio Referring Unavailable Fast, Aparna Primary Care Unavailable Rogers, Arcenio Attending Unavailable Rogers, Arcenio Referring Unavailable Fast, Aparna Primary Care Unavailable PROBLEMS PROBLEMS DATE TYPE CONDITION / CODE ATTENDING STATUS SOURCE 06/19/2018 Unknown R94.31 - Abnormal Rogers, Arcenio Active [facility] electro[facility]ogram Community [ECG] [EKG] / Hospital R94.31(ICD-10) Repository 06/19/2018 Unknown E78.5 - Rogers, Tennille Active [facility] Hyperlipidemia, Community unspecified / Hospital E78.5(ICD-10) Repository 06/19/2018 Unknown I10 - Essential Rogers, Arcenio Active [facility] (primary) hypertension Community / I10(ICD-10) Hospital Repository 06/19/2018 Unknown I44.7 - Left Rogers, Tennille Active [facility] bundle-branch block, [facility] unspecified / Hospital I44.7(ICD-10) Repository 06/19/2018 Unknown R94.39 - Abnormal Rogers, Arcenio Active [facility] result of other [facility] cardiovascular Hospital function study / Repository R94.39(ICD-10) 02/04/2018 Unknown R07.9 - Chest pain, Fast, Aparna Active [facility] unspecified / Community R07.9(ICD-10) Hospital Repository PROCEDURES PROCEDURES No Procedure Records FoundRESULTS RESULTS OFFICE VISIT REPORT Observed: 06/19/2018 Status: F Source: [place] 8:40 AM [facility] REPOSITORY [place] [address] [place] [address] OFFICE VISIT Date of Service: 06/19/18 MR#: [id number] Acct: [id number] Patient: LISA MARQUES Rep #: [id number] : 1965 Provider: Arcenio Mccloud MD Age/Sex: 53/M Location: [facility] Status: Signed Intake Vital Signs06/19/18 Body Mass Index (BMI) 41.8 Intake Visit Reasons: heart cath Chief Complaint: Initial visit Allergies calcipotriene [From Dovonex] Allergy (Severe, Verified 06/10/18 10:57) rash, burning bacitracin [From Neosporin (msu-rzw-ckahd)] Allergy (Verified 06/10/18 10:57) Rash neomycin [From Neosporin (npx-gtr-kuvea)] Allergy (Verified 06/10/18 10:57) Rash polymyxin B [From Neosporin (zbg-ksm-awszu)] Allergy (Verified 06/10/18 10:57) Rash Medications Losartan Potassium [Cozaar] 100 mg PO DAILY 12/07/16 [History Confirmed 06/05/18] cholecalciferol (vitamin D3) 2,000 unit tablet 4,000 unit PO DAILY tab 06/05/18 [History Confirmed 06/05/18] fluticasone 50 mcg/actuation nasal spray,suspension 2 spray INTRANASAL DAILY 06/05/18 [History Confirmed 06/05/18] meloxicam 15 mg tablet 15 mg PO DAILY PRN 06/10/18 [History Confirmed 06/10/18] aspirin 81 mg tablet,delayed release 81 mg PO DAILY 06/17/18 [History] clopidogrel 75 mg tablet 75 mg PO DAILY #30 tab 06/19/18 [Rx Confirmed 06/19/18] Assessment AND Plan Orders Orders: Medications New: Nursing Note Cardiac Cath teaching completed. Labs, EKG completed and plavix ordered. 06/19/18 0840 <Electronically signed by Niko ROLAND> Date Niko ROLAND Cosigner Signature: Date (if applicable) CC: BASIC METABOLIC Collected: 06/19/2018 Status: F Source: [place] PROFILE (BMP) 8:34 AM [facility] REPOSITORY TYPE CODE TESTS RESULT OUT OF RANGE REFERENCE UNITS LAB L501.0100 74-106 mg/dL Normal GLU 93 Result Comment: Please note revised GLUCOSE reference range effective 2017. LAB L501.1000 7-18 mg/dL High BUN 25 LAB L501.1100 0.70-1.30 mg/dL Normal CREAT,SERUM 0.87 Result Comment: The validity of the calculated GFR AND GFRAA in patients over 70 years has not been determined. Clinical correlation is essential. LAB L501.1110 >60 mL/min Normal EST GFR 98 Result Comment: Non- GFR Calc LAB L501.1115 >60 mL/min Normal EST GFR - AA 118 Result Comment: GFR Calc LAB L501.1300 10-20 RATIO High BUN/CRE 28.7 LAB L501.2200 8.5-10.1 mg/dL Low CA 8.4 LAB L501.5300 136-145 mmol/L NA Normal 140 LAB L501.5600 3.5-5.1 mmol/L K Normal 4.6 LAB L501.5900 98-107 mmol/L CL Normal 105 LAB L501.6100 21.0-32.0 mmol/L Normal CO2 28.0 LAB L501.6200 5-15 Normal GAP 7 Performed By: #### L500.2500 #### [facility] [address] [place], [place], [address] CBC W/DIFF, AUTOMATED Collected: 06/19/2018 Status: F Source: [place] 8:34 AM [facility] REPOSITORY TYPE CODE TESTS RESULT OUT OF RANGE REFERENCE UNITS LAB L100.1000 4.4-11.0 K/mm3 Normal WBC 6.6 LAB L100.1200 4.6-6.2 M/mm3 Normal RBC 4.69 LAB L100.1300 13.0-16.5 g/dl Normal HGB 15.8 LAB L100.1400 40-54 % Normal HCT 45.8 LAB L100.1500 80-94 fL High MCV 97.7 LAB L100.1600 27.0-32.0 pg High MCH 33.7 LAB L100.1700 32-36 g/gl Normal MCHC 34.5 LAB L100.1810 11.6-14.6 % Normal RDW CV 13.4 LAB L100.1820 35.1-43.9 fl High RDW SD 48.4 LAB L100.1900 150-450 K/mm3 Normal PLT 192 LAB L100.2000 6.2-12.0 fl Normal MPV 10.5 LAB L100.2100 47-70 % Normal NEUT% 60.0 LAB L100.2200 19-41 % Normal LY% 22.0 LAB L100.2300 0-10 % High MONO% 13.1 LAB L100.2400 0-5 % Normal EO% 4.1 LAB L100.2500 0-1 % Normal BASO% 0.5 LAB L100.2550 0.0-0.9 % Normal IM GRAN % 0.300 Result Comment: IG% - Immature Granulocytes (promyelocytes, myelocytes and metamyelocytes) > 1% indicates that a LEFT SHIFT is Present. LAB L100.2620 2.0-7.7 X10 3/uL Normal Absolute Neut 4.0 LAB L100.2720 0.83-4.51 X10 3/ul Normal Absolute Lymph 1.46 Performed By: #### L100.0100 #### [facility] [address] [place], [address] PROTHROMBIN TIME W/INR Collected: 06/19/2018 Status: F Source: [place] 8:34 AM [facility] REPOSITORY TYPE CODE TESTS RESULT OUT OF RANGE REFERENCE UNITS LAB L300.4150 11.7-14.9 SECONDS Normal PROTIME 13.4 LAB L300.4200 Normal INR 1.0 Performed By: #### L300.3900, L300.4310 #### [facility] [address] [place], [address] PARTIAL THROMBOPLAST Collected: 06/19/2018 Status: F Source: [place] TIME 8:34 AM [facility] REPOSITORY TYPE CODE TESTS RESULT OUT OF RANGE REFERENCE UNITS LAB L300.4310 24.1-36.2 Seconds Normal PTT 28.4 Performed By: #### L300.3900, L300.4310 #### [facility] [address] [place], [address] 12 LEAD EKG PERFORMED Observed: 06/19/2018 Status: F Source: [place] BY [facility] 7:44 AM [facility] REPOSITORY [facility] [address] [place] [address] 12 Lead EKG performed by [facility] 06/19/18 0741 MR#: [id number] Acct: [id number] Name: LISA MARQUES Rep #: [id number] : 1965 53 From: Arcenio Mccloud MD Attending Dr: Arcenio Mccloud MD Status: DEP AMB Ordering Dr: Arcenio Mccloud MD Date: 06/19/18 Location: [facility] Sex: M C Admitted: BMS/12 Lead EKG performed by [facility] Sinus Rhythm -Nonspecific QRS widening. - T-abnormality - Anterior and nferior ischemia. ABNORMAL 06/22/18840 <Electronically signed by Arcenio Mccloud MD> Date Arcenio Mccloud MD CC: Aparna Gutiérrez DO Date Dictated: 06/19/18740 Date Transcribed: 06/19/18740 Contracts Administrator: [place] Signed CARDIOLOGY VISIT Observed: 06/11/2018 Status: F Source: [place] REPORT 10:48 AM [facility] REPOSITORY [facility] [address] [place] [address] OFFICE VISIT Date of Service: 06/10/18 MR#: [id number] Acct: [id number] Name: LISA MARQUES Rep #: [id number] : 1965 Provider: Arcenio Mccloud MD Age/Sex: 53/M Location: [facility] Status: Signed HPI HPI Chief Complaint: Initial visit Details: LISA MARQUES, is a 53 M who presents to the office today for an initial visit. He is a gentleman who had initially seen the primary care physician for a physical. As part of his workup he had an echocardiogram performed with demonstrated preserved ejection fraction of 65% septal motion consistent with an IVCD was noted he was noted to have a moderately dilated right ventricle but no wall motion of normalities were noted. He had a stress test done which demonstrated left bundle branch block and inability to visualize the inferior wall very clearly. It is of note that he had had a CAT scan in January of this year which demonstrated no evidence of pulmonary emboli or right ventricular enlargement. The echo test was of technical difficulty as well as the stress test. He has had no dizziness or diaphoresis no near syncope or syncope is been compliant with his medications. His physical exam demonstrates clear lung lo regular rate and rhythm and no pedal edema. Intake Vital Signs06/10/18 Height 6 ft 06/10/18 Weight: 308 lb 06/10/18 Body Mass Index (BMI) 41.8 06/10/18 Blood Pressure 102/60 Intake Visit Reasons: PCP ref'd for abn echo AND stress Mat Sewer Required: No Accompanied by: Is patient in pain?: No Allergies calcipotriene [From Dovonex] Allergy (Severe, Verified 06/10/18 10:57) rash, burning bacitracin [From Neosporin (eom-rts-sgxwo)] Allergy (Verified 06/10/18 10:57) Rash neomycin [From Neosporin (kyw-nej-bvmzx)] Allergy (Verified 06/10/18 10:57) Rash polymyxin B [From Neosporin (oyz-qjg-lcgay)] Allergy (Verified 06/10/18 10:57) Rash Medications Losartan Potassium [Cozaar] 100 mg PO DAILY 12/07/16 [History Confirmed 06/05/18] cholecalciferol (vitamin D3) 2,000 unit tablet 4,000 unit PO DAILY tab 06/05/18 [History Confirmed 06/05/18] fluticasone 50 mcg/actuation nasal spray,suspension 2 spray INTRANASAL DAILY 06/05/18 [History Confirmed 06/05/18] meloxicam 15 mg tablet 15 mg PO DAILY PRN 06/10/18 [History Confirmed 06/10/18] [facility] Medical History Incomplete left bundle branch block (Chronic) Hyperlipidemia (Chronic) Essential hypertension (Chronic) Obesity (Chronic) Obstructive sleep apnea (Chronic) History of diverticulosis (Chronic) Hyperkalemia (Chronic) Psoriasis (Chronic) Vitamin deficiency (Chronic) History of diverticulitis (Resolved) Surgical History History of partial colectomy (Chronic 2003) History of adenoidectomy (Resolved) History of appendectomy (Resolved) History of carpal tunnel surgery of right wrist (Resolved 2012) History of tonsillectomy and adenoidectomy (Resolved) History of vein stripping (Resolved 2016) Family History Father [place]' lung Mother Lupus Psoriatic arthritis Brother Psoriatic arthritis Social History Smoking Status: Never smoker alcohol intake: never caffeine: Yes Type: coffee Number of servings: 3 ROS Const Const: Positive for other (Dr. Gutiérrez sent pt for stress AND echo d/t abn ekg: stressok, poss prev inf [place]); negative for fatigue, weakness, difficulty sleeping, frequent falls, excessive sweating or headache(s) Eyes Eyes: Negative for loss of peripheral vision, transient loss of vision, blurry vision, tunnel vision or double vision ENT ENT: Negative for headache(s), dizziness, Nosebleed/epistaxis or balance problems Cardio Chest Pain: No Palpitations: No Edema: None Muscle aches with walking: None Resp Respiratory: Positive for other (Does have sleep apnea, wear CPAP); negative for SOB with activity, SOB at rest, SOB orthopnea\SOB lying down, Cough, Coughing up blood/hemoptysis, chest congestion, pain on inspiration, snoring, stridor, wheezing, crackles or paroxysmal nocturnal dyspnea GI GI: Negative nausea, heartburn, black,tarry stools or vomiting : Negative for hematuria Musc Musc: Negative for balance problems, muscle aches/ myalgia, muscle weakness or joint pain Skin Skin: Negative non-healing lesions, unusual bruising or rash Neuro Neuro: Negative for weakness, frequent falls, headache(s), blurry vision, double vision, dizziness, lightheadedness, orthostatic symptoms, near syncope, syncope or lack of coordination Alex Hematologic/Lymphatic: Negative for easy bruising or easy bleeding Endo Endo: Negative for fatigue, excessive sweating or increased thirst/drinking Psych Psych: Negative for anxiety or depression Allergy Allergy/Immunology: Negative for hives, Negative for rash Cardiology Exam Const Appearance: cooperative, healthy appearing, well developed, well groomed and no acute distress Nutritional Appearance: well nourished and average body habitus Orientation: alert, awake and oriented x3 Head Head: normal to inspection, normocephalic and atraumatic Ears: hearing grossly normal bilaterally and external ears normal Nose: external nose normal, nasal mucous membranes and turbinates normal, nares normal, septum normal, no nasal discharge Face and Sinus: face symmetric Mouth: oral mucosae normal, tongue normal, oropharynx normal and moist mucous membranes Teeth and gingiva: dentition normal Throat: posterior oropharynx normal, tonsils normal and uvula midline Eyes General: appearance normal, both eyes and all related structures Eyelids: eyelids normal Conjunctivae: conjunctivae normal Pupils: PERRL, normal by confrontation and accommodation normal EOM: EOM intact bilaterally Neck Neck: normal visual inspection, trachea midline and no JVD JVD: +5 Carotids: normal carotid upstroke and bounding pulses Chest Chest inspection: normal inspection of the chest, symmetric chest movement and normal respiratory effort Auscultation: Bilateral: Clear to Auscultation Cardio Palpation: normal PMI Rate: regular rate Rhythm: regular rhythm Heart sounds: S1 normal, S2 normal and normal, physiologic split S2; negative rub, gallop or murmur GI GI: normal to inspection, soft, no hepatosplenomegaly and bowel sounds present Neuro General: alert, awake, oriented x3, no focal sensory deficit, gait normal and moves all extremities Skin Skin: no rashes or lesions noted Extremities Pulses: Normal: Right Femoral Pulse, Left Femoral Pulse, Right Dorsalis Pedis Pulse, Left Dorsalis Pedis Pulse, Right Posterior Tibial Pulse, Left Posterior Tibial Pulse, Right Radial Pulse, Left Radial Pulse Lower Extremity Edema: None: Bilateral Musculoskel Musculoskeletal: No joint tenderness Psych Psychological: normal affect Assessment AND Plan 1. Abnormal echocardiogram R93.1 Plan He does have a mildly abnormal echo which I suspect is secondary to poor visualization. He does have evidence of hypertension which is well controlled. His CAT scan was reassuring and at this time I would not suggest that we pursue any edges on his echocardiogram. 2. Essential hypertension I10 Plan His blood pressure is under excellent control at this particular time he will continue the losartan at the same dose. Weight loss has been emphasized as well as salt restriction. 3. Hyperlipidemia E78.5 Plan He does have a history of hyperlipidemia his most recent lipid profile demonstrated total cholesterol 131, calculated LDL of 80 and an HDL of 33. Once again weight loss has been emphasized as a way of getting his triglycerides, and HDL in appropriate levels. No other changes will be made. Thank you for allowing me to participate in the care of your patient. Please don't hesitate to call if any issues arise Plan Detail Follow Up 1 Year (jhr) Coding Level of Care Code Off vis,new,level 4 Diagnoses Abnormal echocardiogram R93.1 Essential hypertension I10 Hyperlipidemia E78.5 Coding Level of Care Code Off vis,new,level 4 Diagnoses Abnormal echocardiogram R93.1 Essential hypertension I10 Hyperlipidemia E78.5 06/11/18 1048 <Electronically signed by Arcenio Mccloud MD> Date Arcenio Mccloud MD Cosigner Signature: Date (if applicable) CC: Aparna Fast DO STRESS REPORT Observed: 05/29/2018 Status: F Source: [place] 5:10 PM [facility] REPOSITORY [facility] Cardiovascular Services [address] [place] [address] MR#: [id number] Acct: [id number] Name: LISA MARQUES Rep #: [id number] : 1965 53 From: Arcenio Mccloud MD Primary Care: Fast DO,Aparna Status: REG CLI Ordering Dr: Sex: M C Stress Test Report Pharmacologic myocardial perfusion stress test. 53-year-old male with a history of abnormal EKG. Resting EKG demonstrates normal sinus rhythm with a left bundle branch block patten rate of 70 bpm is noted. Blood pressure 130/90 meters of mercury. 0.4 mg of regadenoson was infused per usual protocol followed by rapid intravenous saline flush injection continuous EKG monitoring was performed. At rest there were no ST or T wave changes noted suggest abnormal flow reserve at peak infusion no ST or T wave changes were noted suggest abnormal flow reserve patient maintained left bundle branch block throughout the recording. The resting blood pressure 130/90 with a peak blood pressure 150/84 mmHg. Myocardial perfusion protocol. 14.7 mCi of technetium 99m sestamibi was injected 0.4 mg of regadenoson was infused per usual protocol peak infusion 44.8 mCi of technetium 99m sestamibi was injected stress images were obtained stress and rest images were reconstructed and compared in the short axis vertical long horizontal long axis. Gated images were also obtained per Perfusion SPECT analysis: Review of the stress images demonstrate normal uptake of tracer noted in the anterior septal wall the mid anterior wall and the anterolateral wall. The inferior septal and mid inferior torres appear to have reduced perfusion. There is significant GI attenuation artifact as well which appears to obscure the images and the above distributions. Obvious ischemia is not present though a previous infarct cannot be completely excluded. Gated SPECT analysis: The gated ejection fraction is noted to be 57%. Conclusion: Myocardial perfusion stress test with no obvious ischemia noted. Previous inferior infarct cannot be completely excluded. Preserved ejection fraction. 05/29/18 1710 <Electronically signed by Arcenio Mccloud MD> Date Arcenio Mccloud MD CC: Aparna Gutiérrez DO Date Dictated: 05/29/181705 Date Transcribed: 05/29/181705 Contracts Administrator: [place] Signed ECHO, COMPLETE W/ Observed: 05/29/2018 Status: F Source: [place] CONTRAST 2:23 PM [facility] REPOSITORY [facility] Cardiovascular Services [address] [facility] [place] [address] Echo Complete W/ Contrast 05/29/18950 MR#: [id number] Acct: [id number] Name: LISA MARQUES Rep #: [id number] : 1965 53 From: Diallo Henderson MD Attending Dr: Aparna Gutiérrez DO Status: REG CLI Ordering Dr: Aparna Gutiérrez DO Date: 05/29/18 Location: [facility] Sex: M C Admitted: Reason For Study: ABN EKG Procedure This was a 2D Doppler, Color Flow transthoracic echocardiogram. The study was technically difficult. Contrast injection was performed. Exam performed in department. Left Ventricle Normal size and thickness. The estimated ejection fraction is 65 %. Septal motion consistent with IVCD. No regional wall motion abnormalities noted. Right Ventricle Moderately dilated right ventricle. Mild global right ventricular systolic dysfunction. Atria Normal left atrium. Normal right atrium. Normal atrial septum. Mitral Valve The mitral valve is structurally normal. No prolapse or stenosis seen. Tricuspid Valve Normal tricuspid valve. Unable to estimate RV systolic pressure due to inadequate jet, pulmonary artery pressure probably normal. Aortic Valve Normal aortic valve. Trisinus/trileaflet aortic valve. Pulmonic Valve The pulmonic valve is not well visualized. Great Vessels Normal aortic root. Normal arch. Normal inferior vena cava. Inferior vena cava collapse with sniff. Pericardium/Pleural No pericardial effusion. Medication Diluted definity 7ml given slow IV push to enhance endocardial definition. MMode/2D Measurements AND Calculations LVIDd: 4.1 cm IVSd: 1.1 cm Ao root diam: 3.8 cm LVIDs: 2.8 cm LVPWd: 1.2 cm RVDd: 5.2 cm FS: 32.6 % LAV(MOD-bp): 60.0 ml LVAd ap4: 39.9 cm2 SV(MOD-sp4): 90.0 ml LAV(MOD-bp) Indexed: 23.9 ml/m2 EDV(MOD-sp4): 149.9 ml LAV(MOD-sp2): 52.9 ml EDV(sp4-el): 158.7 ml LAV(MOD-sp4): 57.8 ml LVAs ap4: 23.4 cm2 ESV(MOD-sp4): 59.9 ml ESV(sp4-el): 64.0 ml EF(MOD-sp4): 60.0 % EF(sp4-el): 59.7 % SV(sp4-el): 94.6 ml LA A4 area: 20.7 cm2 LA dimension(2D): 3.4 cm RA A4 area: 13.7 cm2 Time Measurements MV dec time: 0.43 sec Doppler Measurements AND Calculations MV E max aftab: 37.5 cm/sec Lat Peak E' Aftab: 9.7 cm/sec Med Peak E' Aftab: 7.0 cm/sec MV A max aftab: 52.9 cm/sec E/E' lat: 3.9 E/E' med: 5.4 MV E/A: 0.71 Ao V2 max: 103.7 cm/sec LV V1 max: 82.5 cm/sec Ao max P.3 mmHg LV V1 max P.7 mmHg Interpretation Summary The estimated ejection fraction is 65 %. Moderately dilated right ventricle. Mild global right ventricular systolic dysfunction. Unable to estimate RV systolic pressure due to inadequate jet, pulmonary artery pressure probably normal. Compared to echo report dated 12/27/2014, LV function has improved from 50% to 65%. The study was technically difficult. Contrast injection was performed. Ordering Physician: Aparna Gutiérrez Referring Physician: Aparna Gutiérrez Performed By: Tabitha Weinstein, SOFIA, RVT 05/29/18 1423 Date Diallo Hnederson MD CC: Aparna Gutiérrez DO Date Dictated: 05/29/18 0951 Date Transcribed: 05/29/18 1423 Contracts Administrator: Signed ELBOW MIN 3 VIEWS Observed: 05/22/2018 Status: F Source: [place] 9:09 AM [facility] REPOSITORY [facility] Imaging Services [address] [place] [address] Elbow min 3 Views MR#: [id number] Acct: [id number] Name: LISA MARQUES Rep #: [id number] : 1965 M 53 From: Elieser Cortes MD PCP: Aparna Gutiérrez DO Status: REG CLI Study: Elbow min 3 Views Date of Exam: 05/22/18 Exam# [id number] Ordering Dr: Aparna Gutiérrez DO HISTORY: Right elbow pain. No known injury Comparison: None Findings: No fracture, dislocation, or acute disease. Joint spaces appear preserved. The distal humeral fat pads are not displaced. No effusion. Small hypertrophic spur of the olecranon process at the triceps insertion. No significant bursitis seen. RAD/Elbow min 3 Views IMPRESSION: 1. No fracture or acute disease. 2. Small hypertrophic spur of the olecranon process at the triceps insertion. at 0247 Reported and signed by: Elieser Cortes MD Electronically Signed: Elieser Cortes, at 2:45 EDT Tel , Service support , CC: Aparna Gutiérrez DO Contracts Administrator: Signed CTA CHEST W/WO Observed: 02/04/2018 Status: F Source: [place] CONTRAST 12:59 PM [facility] REPOSITORY [facility] Imaging Services [address] [place] [address] CTA Chest W/WO Contrast MR#: [id number] Acct: [id number] Name: LISA MARQUES Rep #: [id number] : 1965 M 52 From: Nikunj Hoskins MD PCP: Aparna Gutiérrez DO Status: REG CLI Study: CTA Chest W/WO Contrast Date of Exam: 02/04/18 Exam# [id number] Ordering Dr: Aparna Gutiérrez DO STUDY: CTA CHEST/THORAX REASON FOR EXAM: Male, 52 years old. Right-sided chest pain for one day. History of hypertension. RADIATION DOSAGE (If Supplied By Facility): CTDIvol = ( 28.57 ) mGy, DLP = ( 1014.52 ) mGycm TECHNIQUE: The examination was performed with the intravenous administration of 100 ml of Isovue 370 contrast material. Post-processing of the angiographic images was performed, with multiplanar reformation and 3D reconstruction. Individualized dose optimization techniques were used for this CT. COMPARISON: PA and lateral chest x-ray August 29, 2017. FINDINGS: Normal enhancement of the main pulmonary artery and right and left pulmonary arteries. Normal enhancement of the bilateral peripheral pulmonary arteries. There is no demonstrated pulmonary embolism. Normal thoracic aorta and visualized great vessels. There is no demonstrated aortic dissection. Normal heart and pericardium. There are calcifications of the coronary arteries. There are several subcentimeter, benign-appearing anterior mediastinal lymph nodes. There are also calcified pericarinal and bilateral hilar lymph nodes. Normal visualized trachea and bronchi. There are calcified granulomata in both lungs. One, measuring 6 mm, is within subsegmental atelectasis in the inferolateral lingula of the left upper lobe. Subsegmental atelectasis also seen in the bibasilar posterior lower lobes and, to a minimal degree, in the anteromedial lung lo. Normal pleura. Normal chest wall structures. There are degenerative changes of the thoracic spine. There is degenerative arthrosis of the left acromial clavicular joint, and degenerative calcifications project along the superior margin of the left glenohumeral articulation. Normal visualized upper abdomen. CT/CTA Chest W/WO Contrast IMPRESSION: 1. No demonstrated pulmonary embolism or arterial dissection. 2. Findings old calcified granulomatous disease. 3. Suboptimal respiratory effort with bilateral subsegmental atelectasis, as noted. 4. Atherosclerotic calcifications of the coronary arteries. Electronically Signed: Paulo Hoskins MD at 13:33 EDT , Service support , CC: Aparna Gutiérrez DO Contracts Administrator: Signed BASIC METABOLIC Collected: 02/04/2018 Status: F Source: [place] PROFILE (BMP) 12:49 PM [facility] REPOSITORY TYPE CODE TESTS RESULT OUT OF RANGE REFERENCE UNITS LAB L501.0100 74-106 mg/dL Normal GLU 89 Result Comment: Please note revised GLUCOSE reference range effective 2017. LAB L501.1000 7-18 mg/dL Normal BUN 15 LAB L501.1100 0.70-1.30 mg/dL Normal CREAT,SERUM 0.90 Result Comment: The validity of the calculated GFR AND GFRAA in patients over 70 years has not been determined. Clinical correlation is essential. LAB L501.1110 >60 mL/min Normal EST GFR 94 Result Comment: Non- GFR Calc LAB L501.1115 >60 mL/min Normal EST GFR - AA 114 Result Comment: GFR Calc LAB L501.1300 10-20 RATIO Normal BUN/CRE 16.6 LAB L501.2200 8.5-10.1 mg/dL CA Normal 8.5 LAB L501.5300 136-145 mmol/L NA Normal 138 LAB L501.5600 3.5-5.1 mmol/L K Normal 4.5 LAB L501.5900 98-107 mmol/L CL Normal 104 LAB L501.6100 21.0-32.0 mmol/L Normal CO2 28.0 LAB L501.6200 5-15 Normal GAP 6 Performed By: #### L500.2500 #### [facility] [address] [place], [address] D-DIMER QUANTITATIVE Collected: 02/04/2018 Status: F Source: [place] (DVT/PE) 12:49 PM [facility] REPOSITORY Order Comment: CRITICAL VALUE VERIFIED. CALLED TO KELLE 02/04/18 1320 Radha Mack. RESULTS READ BACK BY KELLE . TYPE CODE TESTS RESULT OUT OF RANGE REFERENCE UNITS LAB L300.8000 0.27-0.49 FEU/ug/m High alert D-DIMER 0.97 QUANT Result Comment: D-Dimer ELEVATED (>0.49): Additional studies and clinical assessments are indicated to conclude diagnosis of: Deep Vein Thrombosis (DVT) or Pulmonary Embolism (PE) Performed By: #### L300.8000 #### [facility] [address] [place], [address] CHEST PA AND LATERAL Observed: 08/29/2017 Status: F Source: [place] 8:19 AM [facility] REPOSITORY [facility] Imaging Services [address] [place] [address] Chest PA and Lateral MR#: [id number] Acct: [id number] Name: LISA MARQUES Rep #: [id number] : 1965 M 52 From: Ernesto Schmitt MD PCP: Aparna Gutiérrez DO Status: REG CLI Study: Chest PA and Lateral Date of Exam: 08/29/17 Exam# [id number] Ordering Dr: Aparna Gutiérrez DO STUDY: X-RAY CHEST REASON FOR EXAM: Male, 52 years old. Cough. TECHNIQUE: PA and lateral views of the chest. COMPARISON: Comparison is made with prior examination dated July 22, 2017. FINDINGS: Scattered calcified granulomas. There is no demonstrated pleural abnormality. Normal size heart. Normal mediastinum and farhad. Normal visualized pulmonary arteries. Normal visualized aortic arch and descending thoracic aorta. There are diffuse degenerative changes of the visualized thoracic spine. Normal visualized ribs, clavicles, and shoulders. There is no demonstrated abnormality of the visualized soft tissue structures of the upper abdomen. RAD/Chest PA and Lateral IMPRESSION: Scattered calcified granulomas. No acute abnormality is seen. Electronically Signed: Ernesto Schmitt MD at 12:41 EST Tel [phone], Service support , CC: Aparna Gutiérrez DO Contracts Administrator: Signed CBC W/DIFF, AUTOMATED Collected: 08/01/2017 Status: F Source: [place] 7:10 AM [facility] REPOSITORY TYPE CODE TESTS RESULT OUT OF RANGE REFERENCE UNITS LAB L100.1000 4.4-11.0 K/mm3 Normal WBC 7.2 LAB L100.1200 4.6-6.2 M/mm3 Normal RBC 4.71 LAB L100.1300 13.0-16.5 g/dl Normal HGB 15.0 LAB L100.1400 40-54 % Normal HCT 46.7 LAB L100.1500 80-94 fL High MCV 99.2 LAB L100.1600 27.0-32.0 pg Normal MCH 31.8 LAB L100.1700 32-36 g/gl Normal MCHC 32.1 LAB L100.1810 11.6-14.6 % Normal RDW CV 13.8 LAB L100.1820 35.1-43.9 fl High RDW SD 49.9 LAB L100.1900 150-450 K/mm3 Normal PLT 191 LAB L100.2000 6.2-12.0 fl Normal MPV 10.2 LAB L100.2100 47-70 % Normal NEUT% 58.7 LAB L100.2200 19-41 % Normal LY% 25.8 LAB L100.2300 0-10 % High MONO% 13.5 LAB L100.2400 0-5 % Normal EO% 1.4 LAB L100.2500 0-1 % Normal BASO% 0.3 LAB L100.2550 0.0-0.9 % Normal IM GRAN % 0.300 Result Comment: IG% - Immature Granulocytes (promyelocytes, myelocytes and metamyelocytes) > 1% indicates that a LEFT SHIFT is Present. LAB L100.2620 2.0-7.7 X10 3/uL Normal Absolute Neut 4.2 LAB L100.2720 0.83-4.51 X10 3/ul Normal Absolute Lymph 1.85 Performed By: #### L100.0100 #### [facility] [address] [place], [place], [address] COMPREHENSIVE METABOLIC Collected: 08/01/2017 Status: F [facility] REPOSIT[facility] TYPE CODE TESTS RESULT OUT OF RANGE REFERENCE UNITS LAB L501.0100 70-110 mg/dL Normal GLU 93 LAB L501.1000 7-18 mg/dL Normal BUN 18 LAB L501.1100 0.70-1.30 mg/dL Normal 0.94 CREAT,SERUM Result Comment: The validity of the calculated GFR AND GFRAA in patients over 70 years has not been determined. Clinical correlation is essential. LAB L501.1110 >60 mL/min Normal EST GFR 90 Result Comment: Non- GFR Calc LAB L501.1115 >60 mL/min Normal EST GFR - AA 109 Result Comment: GFR Calc LAB L501.1300 10-20 RATIO Normal BUN/CRE 19.2 LAB L501.1500 6.4-8.2 g/dL T Normal PROT 7.2 LAB L501.1800 3.4-5.0 g/dL Low ALB 3.3 Result Comment: Please note revised Albumin AND Globulin reference range effective 2017. LAB L501.1950 2.2-4.2 g/dL Normal GLOB 3.9 LAB L501.2000 0.9-2.4 RATIO Low A/G 0.8 LAB L501.2200 8.5-10.1 mg/dL Normal CA 8.5 LAB L501.4100 15-37 U/L Normal AST 18 LAB L501.4305 45-117 U/L Normal ALK P 83 LAB L501.4405 12-78 U/L Normal ALT 31 LAB L501.4600 0.20-1.00 mg/dL Normal T BILI 0.90 LAB L501.5300 136-145 mmol/L Normal NA 138 LAB L501.5600 3.5-5.1 mmol/L Normal K 3.9 LAB L501.5900 98-107 mmol/L Normal CL 101 LAB L501.6100 21.0-32.0 mmol/L Normal CO2 30.0 LAB L501.6200 5-15 Normal GAP 7 Performed By: #### L500.4050, L500.4100 #### [facility] [address] [place], [place], [address] LIPID PROFILE Collected: 08/01/2017 Status: F Source: [place] 7:10 AM [facility] REPOSITORY TYPE CODE TESTS RESULT OUT OF RANGE REFERENCE UNITS LAB L501.4900 200 mg/dL Normal CHOL 117 Result Comment: <200 mg/dL Desirable 200-240 mg/dL Borderline >240 mg/dL High Risk LAB L501.5000 mg/dL Normal TRIG 112 Result Comment: The drugs N-Acetylcysteine and Metamizole may falsely depress this assay. Serum Triglycerides Reference Interval Normal <150 mg/dL Borderline high 150 - 199 mg/dL High 200 - 499 mg/dL Very High > or = 500 mg/dL LAB L501.6400 mg/dL Normal HDL 42 Result Comment: The drugs N-Acetylcysteine and Metamizole may falsely depress this assay. Reference Range HDL <40 mg/dL Low HDL Cholesterol HDL >or= 60 mg/dL High HDL Cholesterol LAB L501.6500 0-130 mg/dL Normal LDL 53 LAB L501.6600 5-40 mg/dL Normal VLDL 22 Performed By: #### L500.4050, L500.4100 #### [facility] [address] [place], [address] VITAMIN D,25 HYDROXY Collected: 08/01/2017 Status: F Source: [place] 7:10 AM [facility] REPOSITORY TYPE CODE TESTS RESULT OUT OF RANGE REFERENCE UNITS LAB L506.1000 ng/mL Normal Vitamin D 25.7 25-OH Result Comment: Vitamin D 25(OH) Status Range Deficiency <20 ng/mL (50nmol/L) Insuffciency 20 - 30 ng/mL (50 - 75 nmol/L) Sufficiency 30 - 100 ng/mL (75 - 250 nmol/L) Toxicity >100 ng/mL (>250 nmol/L) Performed By: #### L506.1000 #### [facility] [address] [facility] [place], [address] CHEST PA AND LATERAL Observed: 07/22/2017 Status: F Source: [place] 2:08 PM [facility] REPOSITORY [facility] Imaging Services [address] [facility] [place] [address] Chest PA and Lateral MR#: [id number] Acct: [id number] Name: LISA MARQUES Rep #: [id number] : 1965 M 52 From: Ernesto Schmitt MD PCP: Aparna Gutiérrez DO Status: REG CLI Study: Chest PA and Lateral Date of Exam: 07/22/17 Exam# [id number] Ordering Dr: Aparna Gutiérrez DO STUDY: X-RAY [...] is recommended. There is no demonstrated pleural abnormality. Normal size heart. Normal mediastinum and farhad. Normal visualized pulmonary arteries. Normal visualized aortic arch and descending thoracic aorta. Normal visualized thoracic spine. Normal visualized ribs, clavicles, and shoulders. There is no demonstrated abnormality of the visualized soft tissue structures of the upper abdomen. RAD/Chest PA and Lateral IMPRESSION: Increased lingular markings. Follow-up is recommended. Electronically Signed: Ernesto Schmitt MD at 14:50 EST Tel [phone], Service support , CC: Aparna Gutiérrez DO Contracts Administrator: Signed ALLERGIES ALLERGIES DATE TYPE / CODE NAME / CODE REACTION SEVERITY SOURCE 06/10/2018 Drug neomycin/[id number] Rash Unknown [facility] Allergy/416 775(RXNO) [facility] 299822(SN Repository ED CT) 06/10/2018 Drug bacitracin/F0060 Rash Unknown [facility] 224365(SN Repository ED CT) 06/10/2018 Drug calcipotriene/F0 rash, burning SV [facility] Allergy/416 51021119[facility] 748513[facility] ED CT) 06/10/2018 Drug polymyxin Rash Unknown [facility] Allergy/416 B/[id number]([facility] 654609[facility] Repository ED CT) ENCOUNTERS ENCOUNTERS ADMIT/DISCHARGE ACCOUNT ADMITTING ENCOUNTER LOCATION SOURCE NUMBER CLASS 07/02/2018 [id number] Ambulatory BMSBuilding:[place] 0 [facility] Repository 07/02/2018/ [id number] Ambulatory [place] 8 6 [facility] ing:CLSP Repository 06/19/2018 [id number] [facility] [place] [facility] Repository 06/19/2018/ [id number] Ambulatory BMSBuilding:B [place] 8 9 [facility] Repository 06/10/2018/ [id number] Ambulatory BMSBuilding:B [place] 8 7 [facility] Repository 06/09/2018 [id number] Ambulatory BMSBuilding:B [place] 7 [facility] Repository 06/05/2018 [id number] Ambulatory BMSBuilding:B [place] 1 [facility] Repository 05/29/2018 [id number] Ambulatory [place] 6 [facility] ing:CVS Repository 05/29/2018 [id number] Ambulatory BMSBuilding:W [place] 2 [facility] Repository 05/22/2018 [id number] Ambulatory [place] 4 [facility] ing:HPRAD Repository 02/04/2018 [id number] Ambulatory [place] 5 [facility] ing:CT Repository 08/29/2017 [id number] Ambulatory [place] 0 [facility] ing:RAD.FUTUR Repository E 08/29/2017 [id number] Ambulatory [place] 1 [facility] ing:HPRAD Repository 08/01/2017 [id number] Ambulatory [place] 4 [facility] ing:MTLAB Repository 07/22/2017 [id number] Ambulatory [place] 8 [facility] ing:HPRAD Repository PAYERS PAYERS ENCOUNTER GUARANTOR PAYER SUBSCRIBER SOURCE 07/02/2018 LISA [id number] Insurance:MEDICAL WOODB: [facility] [id number] Number: Repository [address]Jki: [phone] [id number] [phone] () Date:5544-57-62YI[address] [address]CM: 07/02/2018 Secondary NOT GIVENUNK [place] Insurance:SELF PAY [facility] Number: Effective Repository Date:2018-07-02 07/02/2018 LISA Seay Primary ADDISON Wallace [place] [id number] Insurance:MEDICAL WOODDOB: [facility] [id number] Number: Repository [address]Wcx: 330 [id number] [phone] () Date:2718-48-81VA [address] [address]SL: 07/02/2018 Secondary NOT GIVENUNK [place] Insurance:SELF PAY [facility] Number: Effective Repository Date:2018-06-17 06/19/2018 LISA Seay Primary ADDISON [address] [place] [id number] Insurance:MEDICAL WOODDOB: [facility] [id number] Number: Repository [address]Szd: 330 [id number] [phone] () Date:6113-26-97WO [address] [address]KO: 06/19/2018 Secondary NOT GIVENUNK [place] Insurance:SELF PAY [facility] Number: Effective Repository Date:2018-06-19 06/19/2018 LISA Seay Primary ADDISON Wallace [place] [id number] Insurance:MEDICAL WOODDOB: [facility] [id number], [place] Number: Repository [address]Eur: 330 [id number] [phone] () Date:2451-84-50KF [address] [address]HQ: 06/19/2018 Secondary NOT GIVENUNK [place] Insurance:SELF PAY [facility] Number: Effective Repository Date:2018-06-19 06/10/2018 LISA Seay Primary ADDISON Wallace [place] [id number] Insurance:MEDICAL WOODDOB: [facility] [id number] Number: Repository [id number]: 330 [id number] [phone] (HP) Date:6382-62-03XV [address] [address]KX: 06/10/2018 Secondary NOT GIVENUNK [place] Insurance:SELF PAY [facility] Number: Effective Repository Date:2018-06-10 06/09/2018 LISA Seay Primary ADDISON D [place] [id number] Insurance:MEDICAL WOODDOB: [facility] [id number] Number: Repository [address]Jok: 330 [id number] [phone] (HP) Date:3248-18-98LG [address] [address]AS: 06/09/2018 Secondary NOT GIVENUNK [place] Insurance:SELF PAY [facility] Number: Effective Repository Date:2018-06-09 06/05/2018 LISA Seay Primary ADDISON D [place] [id number] Insurance:MEDICAL WOODDOB: [facility] [id number] Number: Repository [address]Fzk: 330 [id number] [phone] () Date:9515-65-74XS[address] [address]DU: 06/05/2018 Secondary NOT GIVENUNK [place] Insurance:SELF PAY [facility] Number: Effective Repository Date:2018-06-05 05/29/2018 LISA Seay Primary ADDISON D [place] [id number] Insurance:MEDICAL WOODDOB: [facility] [id number] Number: Repository [address]Ovb: 330 [id number] [phone] (HP) Date:5932-88-56RU [address] [address]EV: 05/29/2018 Secondary NOT GIVENUNK [place] Insurance:SELF PAY [facility] Number: Effective Repository Date:2018-05-22 05/29/2018 LISA Seay Primary ADDISON Wallace [place] [id number] Insurance:MEDICAL WOODDOB: [facility] [id number], [place] Number: Repository [address]Thd: 330 [id number] [phone] (HP) Date:7171-90-24FY [address] [place] [address]MK: 05/29/2018 Secondary NOT GIVENUNK [place] Insurance:SELF PAY [facility] Number: Effective Repository Date:2018-05-29 05/22/2018 LISA Seay Primary ADDISON D [place] [id number] Insurance:MEDICAL WOODDOB: [facility] [id number], [place] Number: Repository [id number]: 330 [id number] [phone] (HP) Date:1523-31-37ZF [address] [place] [address]TF: 05/22/2018 Secondary NOT GIVENUNK [place] Insurance:SELF PAY [facility] Number: Effective Repository Date:2018-05-22 02/04/2018 Lisa Seay Primary ADDISON Wallace [place] [id number] Insurance:MEDICAL WOODDOB: [facility] [id number] Number: Repository [address]Zih: 330 [id number] [phone] (HP) Date:1574-57-35AP [address] [address]WR: 02/04/2018 Secondary NOT GIVENUNK [place] Insurance:SELF PAY [facility] Number: Effective Repository Date:2018-02-04 08/29/2017 Lisa Seay Primary ADDISON Wallace [place] [id number] Insurance:MEDICAL WOODDOB: [facility] [id number] Number: Repository [address]Ind: [id number] [phone] Date:8396-23-38MF [address] (HP) [address] [place] [address]HW: 08/29/2017 Secondary NOT GIVENUNK [place] Insurance:SELF PAY [facility] Number: Effective Repository Date:2017-08-08 08/29/2017 WOOD Primary NOT GIVENUNK [place] [id number] Insurance:SELF PAY [facility] [address]Ddr: Number: Effective Repository [phone] Date:2017-08-29 () 08/01/2017 Lisa Seay Primary [address] [id number] Insurance:MEDICAL WOODDOB: [facility] [id number] Number: Repository [address]Gby: [id number] [phone] Date:2780-24-38RJ [address] () [address], [place] [address]SB: 08/01/2017 Secondary NOT GIVENUNK [place] Insurance:SELF PAY [facility] Number: Effective Repository Date:2017-08-01 07/22/2017 Lisa Seay Primary ADDISON [address] [id number] Insurance:MEDICAL WOODDOB: [facility] [id number] Number: Repository [address]Qbj: [id number] [phone] Date:6321-28-13ZP [address] () [address] [address]UU: 07/22/2017 Secondary NOT GIVENUNK [place] Insurance:SELF PAY [facility] Number: Effective Repository Date:2017-07-22
== END ==
PROVIDERS: Family Provider Internal Medicine; PCP Internal Medicine; Referring Provider Internal Medicine Cardiovascular Disease; Visit Provider Internal Medicine Cardiovascular Disease
DX: R94.31 Abnormal electrocardiogram [ECG] [EKG] (principal); I44.7 Left bundle-branch block, unspecified; E78.5 Hyperlipidemia, unspecified; I10 Essential (primary) hypertension; R94.39 Abnormal result of other cardiovascular function study; R93.1 Abnormal findings on diagnostic imaging of heart and coronary circulation
CPT/HCPCS: 36415; 80048; 85025; 85610; 85730

== ENCOUNTER 2018-07-02 06:48 | Day surgery (SDC) | payer OTHER, SELFPAY ==
[2018-06-10 10:56] VITALS: BMI 41.8
[2018-06-19 08:01] VITALS: BMI 41.8
[2018-07-01 10:18] VITALS: BMI 41.8
--- NOTE | 2018-07-02 08:41 | CL.D_ITS ---
Patient Name: LISA MARQUES Study Date: 07/02/2018 Performing: Arcenio Mccloud MD Ht: 72.04 inches 183 cm : 1965 Wt: 308.65 lbs 140 kg Age: 53 Gender: male BSA: 2.56 PROCEDURE(S) PERFORMED TP26-XML/COR/LV CLINICAL PROFILE AND INDICATIONS Indications: Suspected CAD Heart Failure: None Stress/Imaging Stress Test w/SPECT MPI: Yes Result: NegativeStress Test with SPECT MPI: Negative CAD Presentations: No Sxs, no angina. CONCLUSIONS Non obstructive coronary arteries RECOMMENDATIONS Medical therapy DESCRIPTION OF PROCEDURE The patient arrived to the procedure lab. The risks and benefits of the procedure as well as a full d escription of our services here and current unavailability of surgical backup were fully explained to the patient and/or their significant other prior to the catheterization. The Timeout was completed, verifying the correct patient and procedure. The patient's procedural site was prepped and draped in the usual fashion. Local anesthetic was given subcutaneously to right radial region with Lidocaine 2% . Using a modified Seldinger technique, arterial access was obtained via the right radial artery, a 6 Fr sheath was inserted. Right Coronary Artery selective angiography was then performed in multiple v iews using a 5 Fr. 4.0 [place] catheter. Left Coronary Artery selective angiography was performed in mu ltiple views using a 5 Fr. 4.0 [place] catheter. Left Ventriculography was performed in ENGLISH projection using a 5 Fr. [place] catheter. LV to AO pullback pressures were then recorded.The arterial sheath was pulled and a TR Band was applied for hemostasis CORONARY ANGIOGRAPHY DOMINANCE: Right Dominant LEFT HEART ASSESSMENT Left Ventricular Ejection Fraction: by LV Gram 50 % Normal LV wall motion Normal Left Ventricular systolic function Intermittent left bundle branch block noted which may affect ventricular contractility LEFT MAIN: Angiographically normal LEFT ANTERIOR DECENDING ARTERY: No significant disease noted CIRCUMFLEX ARTERY: No significant disease noted RIGHT CORONARY ARTERY: No significant disease noted COMPLICATIONS No Complications PROCEDURE MEDICATIONS Versed 1 mg IV Fentanyl 50 mcg IV Versed 1 mg IV Oxygen: 2 L/min via nasal cannula Heparin diluted in 23cc Heparinized saline. Patient given 10cc IA of this solution. 07/02/2018 08:14 :33 Verapamil 2.5mg, Ntg 100mcgs, 2000 units of Heparin diluted in 23cc Heparinized saline. Patient give n 10cc IA of this solution. 07/02/2018 08:14:33 IV Bolus: .9 NaCl 200 ml total 07/02/2018 08:18:48 SUMMARY OF HEMODYNAMIC DATA Time AIR REST ECG 07:05:37 AO 97/66 (80) SA 08:17:04 LV 104/-19, -6 08:24:39 LV 107/-21, -5 08:24:46 LV 97/-15, 0 08:25:39 LV 103/-14, 1 08:25:46 LVp 103/-15, -3 08:25:50 AOp 93/48 (67) 08:25:55 Signed By Arcenio Mccloud MD On 07/02/2018 08:41:07 Arcenio Mccloud MD
--- OUTSIDE RECORDS SUMMARY | 2018-08-18 00:21 | XMS RPT_ITS | Continuity of Care Document ---
:1965 Author Organization [facility] Address [address] [facility] [address] [place] [address] Phone Care Team Providers Name Role Phone [...] creme which he used in past from [employer] and said worked Status: Active Right elbow [...] Suspension qd for 0 days Quantity: 1 {[place]} Refills: 3 Ordered:16-Aug-2013 Fast DOAprila AFast DO, [...] MG Oral Tablet 1 tab Tablet qd h74xkbz for 0 days Quantity: 10 {Tablet} Refills: [...] : 10-Feb-2009 End : 07-Jul-2015 Discontinued NYSTATIN, 096521KXIW/ML (Mouth/Throat Suspension) Suspension for 0 days Refills: [...] Stress Report Result: Comments: See Note; NOTES: [facility] Cardiovascular Services [address] [place] [address] MR#: [id number] Acct: [id number] Name: LISA MARQUES Rep #: [id number] : [birth year] 53 From: Arcenio Mccloud MD [...] DO Date Dictated: 05/29/181705 Date Transcribed: 05/29/181705 Relations Liaison: CO Signed 29-May-2018 Echo, Complete w/ Contrast Result: Comments: See Note; NOTES: [facility] Cardiovascular Services [address] [place] [address] Echo Complete W/ Contrast 05/29/18 0951 MR#: [id number] Acct: [id number] Name: LISA MARQUES Rep #: [id number] : 1965 53 From: Diallo Henderson MD Attending Dr: Aparna Gutiérrez DO Status: REG CLI Ordering Dr: Aparna Gutiérrez DO Date: 05/29/18 Location: [facility] Sex: M C Admitted: Reason [...] Date Dictated: 05/29/1851 Date Transcribed: 05/29/18 1423 Relations Liaison: Signed 22-May-2018 Elbow min 3 Views Result: Comments: See Note; NOTES: [facility] Imaging Services [address] [place] [address] Elbow min 3 Views MR#: [id number] Acct: [id number] Name: LISA MARQUES Rep #: [id number] : 1965 M 53 From: Elieser Cortes MD PCP: Aparna Gutiérrez DO Status: REG CLI Study: Elbow min 3 Views Date of Exam: 05/22/18 Exam# [id number] Ordering Dr: Aparna Gutiérrez DO HISTORY: Right [...] Service support , CC: Aparna Gutiérrez DO Relations Liaison: Signed 04-Feb-2018 CTA Chest W/WO Contrast Result: Comments: See Note; NOTES: [facility] Imaging Services [address] [place] [address] CTA Chest W/WO Contrast MR#: [id number] Acct: [id number] Name: LISA MARQUES Rep #: [id number] : 1965 M 52 From: Nikunj Hoskins MD PCP: Aparna Gutiérrez DO Status: REG CLI Study: CTA Chest W/WO Contrast Date of Exam: 02/04/18 Exam# [id number] Ordering Dr: Aparna Gutiérrez DO STUDY: CTA [...] Normal visualized upper abdomen. O RDER #: [id number] CT/CTA Chest W/WO Contrast IMPRESSION: 1. No demonstrated pulmonary embolism or arterial dissection. 2. Findings old calcified granulomatous disease. 3. Suboptimal respiratory effort w ith bilateral subsegmental atelectasis, as noted. 4. Atherosclerotic calcifications of the coronary arteries. Electronically Signed: Paulo Hoskins MD at 13:33 EDT , Se rvice support , CC: Aparna Gutiérrez DO Relations Liaison: Signed 29-Aug-2017 Chest PA and Lateral Result: Comments: See Note; NOTES: [facility] Imaging Services [address] [place] [address] Chest PA and Lateral MR#: [id number] Acct: [id number] Name: LISA MARQUES Rep #: [id number] : 1965 M 52 From: Ernesto Schmitt MD PCP: Aparna Gutiérrez DO Status: REG CLI Study: Chest PA and Lateral Date of Exam: 08/29/17 Exam# [id number] Ordering Dr: Aparna Gutiérrez DO STUDY: X-RAY [...] Ernesto Schmitt MD at 12:41 EST Tel [phone], Service support , CC: Aparna Gutiérrez DO Relations Liaison: Signed 22-Jul-2017 Chest PA and Lateral Result: Comments: See Note; NOTES: [facility] Imaging Services [address] [place] [address] Chest PA and Lateral MR#: [id number] Acct: [id number] Name: LISA MARQUES Rep #: [id number] : 1965 M 52 From: Ernesto Schmitt MD PCP: Aparna Gutiérrez DO Status: REG CLI Study: Chest PA and Lateral Date of Exam: 07/22/17 Exam# [id number] Ordering Dr: Aparna Gutiérrez DO STUDY: X-RAY [...] Ernesto Schmitt MD at 14:50 EST Tel [phone], Service support , CC: Aparna Gutiérrez DO Relations Liaison: Signed 02-Jul-2017 Gallbladder Result: Comments: See Note; NOTES: [facility] Imaging Services [address] [place] [address] Gallbladder MR#: [id number] Acct: [id number] Name: LISA MARQUES Rep #: [id number] : [birth year] M 52 From: Ernesto Schmitt MD PCP: Aparna Gutiérrez DO Status: REG CLI Study: Gallbladder Date of Exam: 07/02/17 Exam# [id number] Ordering Dr: Aparna Gutiérrez DO STUDY: ABDOMINAL [...] Schmitt MD 09/02 at 9:24 EST Tel [phone], Service support , CC: Aparna Gutiérrez DO Relations Liaison: Signed 28-May-2017 TXT - Blood Flow Screening Result: Comments: See Note; NOTES: [facility] Cardiovascular Services [address] [place] [address] 05/27/17 0904 MR#: [id number] Acct: [id number] Name: LISA MARQUES Rep #: [id number] : 1965 52 From: David Vee MD Attending Dr: Aparna Gutiérrez DO Status: REG REF Ordering Dr: Date: 05/28/17 Location: [facility] Sex: M C Admitted: Reason [...] DO Date Dictated: 05/27/1704 Date Transcribed: 05/28/1745 Relations Liaison: Signed 08-Dec-2016 Emergency Department Summary Result: Comments: See Note; NOTES: [facility] Medical Records Department [address] [place] [address] Emergency Department Summary MR#: [id number] Acct: [id number] Name: LISA MARQUES Rep #: [id number] : 1965 51 From: Jake Degroot MD PCP: Aparna Gutiérrez DO Status: [facility] DATE OF SERVICE: 12/07/2016 METHOD OF ARRIVAL: [...] C: Aparna Rodrigues MD T: NTS JOB: [id number] 12/08/16 1714 <Electronically si gned by Jake Degroot MD> Date Jake Degroot MD Cosigner Signature (If Indicated): Date CC: Aparna Gutiérrez DO; Suraj Cartagena MD Date Dictated: 12/08/16815 Date Transcribed: 12/08/16815 Relations Liaison: Signed 08-Dec-2016 Discharge Instruction Result: Comments: See Note; NOTES: [facility] Medical Records Department [address] [place] [address] Discharge Instruction 12/07/16 1238 MR#: [id number] Acct: [id number] Name: BRADEN MARQUES Rep #: [id number] : 1965 51 From: Jake Degroot MD [...] problems, contact your Primary Care Provider. Call [facility] ([phone]) or report to the closest Emergency Room. Call 911 if necessary. 11/19 08/06 0659 <Electronically signed by Jake Degroot MD> Date Jake Degroot MD Cosigner Signature (If Indicated): Date ___ CC: Aparna Gutiérrez DO 11-Sep-2016 Venous Duplex Lower Extremity Result: Comments: See Note; NOTES: [facility] Cardiovascular Services [address] [place] [address] Venous Duplex US, Unilateral 09/05/16 0838 MR#: [id number] Acct: [id number] Name: LISA BENNETT Rep #: [id number] : 1965 51 From: Alex Bailey MD [...] Date Dictated: 0838 Date Transcribed: 09/11/16 1013 Relations Liaison: Signed 05-Jun-2016 Venous Duplex Lower Extremity Result: Comments: See Note; NOTES: [facility] Cardi[facility] Services [address] [place] [address] Venous Duplex US, Unilateral 06/05/16 0849 MR#: [id number] Acct: [id number] Name: LISA BENNETT Rep #: [id number] : 1965 51 From: David Vee MD [...] and/or faxed augmentation. to Dr. Gutiérrez @ [phone] @ 9:25 am. FV is compressible, spontaneous, [...] vein is patent and competent. Ordering Physician: Aparna Gutiérrez Performed By: Rama Isaac, SOIFA, RVT 06/05/16 1016 Date David Vee MD CC: Aparna Gutiérrez DO Date Dictated: 06/05/16 0849 Date Transcribed: 06/05/16 1016 Relations Liaison: Signed 09-Feb-2016 Knee 4 or More Views Result: Comments: See Note; NOTES: [facility] Imaging Services [address] [place] [address] Verdana 4d Knee 4 or More Views MR#: [id number] Acct: [id number] Name: Kemi MARQUES Rep #: [id number] : 1965 M 50 From: Ernesto Schmitt MD PCP: Aparna Gutiérrez DO Status: REG CLI Study: Knee 4 or More Views Date of Exam: 02/09/16 Exam# [id number] Ordering Dr: Kiki Gutiérrez ra, DO STUDY: [...] Ernesto Schmitt MD at 12:01 EDT Tel [phone], Service support [phone], RAD/Knee 4 or More Views IMPRESSION: Soft tissue swelling overlying the proximal tibia. Electronically Signed: Ernesto Schmitt MD at 12:01 EDT Tel [phone], Service support [phone], CC: Aparna Gutiérrez DO Relations Liaison: Signed 19-Oct-2015 OT D/C Summary Result: Comments: See Note; NOTES: [facility] Occupational Therapy [facility] [address] [place] [address]. 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 Some progress: Buffing Wheel Presser is now 90#. He is using putty at home. Goal:: Pt will demo R MF ROM=L in order to hold very small objects by d/c. DIP flexion cold is 60 degrees now. Full ROM after stretch. 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 - Plan Plan: D/C - D/C Information Discha rge Comments: Pt states that he is not limited at all now in daily activities. He will continue with putty exercises and using his intrinsic stretcher at home. If there are questions or concerns regar ding this patient's occupational therapy, please fell free to call me at [phone]. Thank you for the referral of this patient. Sincerely, Kari Cisneros <Electronically signed by Kari Cisneros > 10/19/15 1545 CC: Bibiana Sainz MD; Aparna Gutiérrez DO MG Signed 29-Sep-2015 Initial Evaluation - OT Result: Comments: See Note; NOTES: [facility] Occupational Therapy [facility] [facility]. [address] [place] [address] Fax REHABILITATIO N SERVICES INITIAL EVALUATION MR#: [id number] Acct: [id number] Name: LISA MARQUES Rep #: [id number] : 1965 50 From: Kari Cisneros Referring DrKamilah: Bibiana Sainz MD Status: REG RCR [facility]ur[facility] e: [facility] Eval Date: Patient's Visit Information LISA MARQUES [...] stitches. Bothered by stiffness now. Works at [employer]. 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 [...] to be FAXED BACK to us at [phone] for Medicare purposes. Please let me know if there are questions or concerns regarding this plan of care. Physician Signature: Date: <Electronically signed by Kari Cisneros > 09/29/15 1029 CC: Bibiana Sainz MD; Aparna Gutiérrez DO MG Signed For Medicare only, by signing this I certify the plan of care. Physicians Signature Date 27-Jun-2015 Emergency Department Summary Result: Comments: See Note; NOTES: [facility] Medical Records Department [address] [place] [address] Emergency Department Summary MR#: [id number] Acct: [id number] Name: LISA MARQUES Rep #: [id number] : 1965 50 From: Diallo Cartwright DO PCP: Aparna Gutiérrez DO Status: DEP ER DATE OF SERVICE: 06/26/2015 CHIEF COMPLAINT: Crush injury. 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 He is unsure of when his last [...] update. Diallo Cartwright DO T: TARIQ JOB: [id number] 06/27/15 0003 <Electronically signed by Diallo Cartwright DO> Date Diallo Cartwright DO Cosigner Signature (If Indicated): Date CC: Aparna Gutiérrez DO Date Dictated: 06/26/151641 Date Transcribed: 06/26/151641 Relations Liaison: Signed 26-Jun-2015 Discharge Instruction Result: Comments: See Note; NOTES: [facility] Medical Records Department [address] [place] [address] Discharge Instruction 06/26/151630 MR#: [id number] Acct: [id number] Name: LISA MARQUES Rep #: [id number] : 1965 50 From: Diallo Cartwright DO PCP: Aparna Gutiérrez DO Status: REG ER ED Disposition - Plan for ED Patient: Disposition: Home or Assisted Living ief Complaint: Trauma Instructions: ED Crush Injury, Hand/Finger, ED Laceration, Hand Prescriptions: Hydrocodone Bitart/Apap 5-325 [[place] 5/325] 1 - 2 tablet PO Q4H [...] problems, contact your doctor. Call [facility] ([phone]) or report to the closest Emergency Room. Call 911 if necessary. 06/26/151637 <Electronically signed by Diallo pulido DO> Date Diallo Cartwright DO Cosigner Signature (If Indicated): Date CC: Aparna Gutiérrez DO 26-Jun-2015 Hand Min 3 Views Result: Comments: See Note; NOTES: [facility] Imaging Services [address] [place] [address] Verdana 4d Hand Min 3 Views MR#: [id number] Acct: [id number] Name: LISA MARQUES Rep #: [id number] : 1965 M 50 From: Alton Harding MD PCP: Aparna Gutiérrez DO Status: REG ER Study: Hand Min 3 Views Date of Exam: 06/26/15 Exam# [id number] Ordering Dr: Diallo Cartwright DO STUDY: X-RAY [...] MD at 16:52 EST , Service support [phone], 105 RAD/Hand Min 3 Views IMPRESSION: Normal x-ray examination of the hand. Electronically Signed: Alton Harding MD at 16:52 EST , Service support [phone], Fa x [phone] CC: Diallo Cartwright DO; Aparna Gutiérrez DO Relations Liaison: Signed 24-Jan-2015 Nuclear Stress Test - Treadmil Result: Comments: See Note; NOTES: [facility] Imaging Services [address] [place] [address] STRESS TEST REPORT 01/24/15 0946 MR#: [id number] Acct: [id number] Name: LISA MARQUES Rep #: [id number] : 1965 49 From: Nathan Anton MD [...] 54%. Nathan Anton MD T: NTS JOB: [id number] 01/24/15 1425 <Electronically signed by Huy Anton MD> Date Nathan Anton MD CC: Aparna Gutiérrez DO Date Dictated: 01/24/15945 Date Transcribed: 01/24/15945 Relations Liaison: Signed 06-Jan-2015 Echocardiogram Complete Result: Comments: See Note; NOTES: [facility] Cardiovascular Services [address] [place] [address] Echo Complete 01/06/15 1352 MR#: [id number] Acct: [id number] Name: YANG Rep #: [id number] : 1965 49 From: Arcenio Mccloud MD Attending Dr: Aparna Gutiérrez DO Status: REG CLI Ordering Dr: Aparna Gutiérrez DO Date: 01/06/15 Location: [facility] Sex: M C Admitted: Procedure This was [...] 01/06/15 1352 Date Transcri bed: 01/06/15 1506 Relations Liaison: Signed 13-Sep-2013 Chest PA and Lateral Result: Comments: See Note; NOTES: [facility] Imaging Services [address] [place] [address] Radiology Report MR#: [id number] Acct: [id number] Name: LISA MARQUES Rep #: [id number] : 1965 M 48 From: Ernesto Schmitt MD PCP: Status: REG CLI Study: Chest PA and Lateral Date of Exam: 09/13/13 Exam# [id number] Ordering Dr: Aparna Gutiérrez DO STUDY: X-RAY [...] M.D. at 15:13 EST , Service support [phone], CC: Aparna Gutiérrez DO Relations Liaison: Signed Immunization Name Dates Details Pneumococcal (2 [...] kg/m2 Body Surface Area Calculated 2.46 m2 38-Uks-084944:20 Temperature 96.8 f Pulse 76 /min Comments: [...] Ag, Serum Comments: PATIENT NOT FASTINGPERFORMED BY: [employer] Becere3540 [facility] [id number] Prostate Specific Ag, 1.0 ng/mL (Normal) Range: 0.0-4.0 Serum Comments: CreatiVasc MedicalIA methodology. .According to the [place] [employer], Serum PSA shoulddecrease and remain [...] DIFF WBC Comments: PATIENT NOT FASTINGPERFORMED BY: Access SystemsJFK Medical CenterSvfviv0291 [facility] [id number] Information: ADD PSA, NURSE DRAW DX.Z 12.5 (34045) Immature Grans (Abs) 0.0 {x10E3/uL} (Normal) Range: [...] 4.14-5.80 WBC 6.4 {x10E3/uL} (Normal) Range: 3.4-10.8 34-Ckx-31329:32 METABOLIC PANEL, COMPREHENSIVE Comments: PATIENT NOT FASTINGPERFORMED BY: LabCoJFK Medical CenterSlxorl0824 [facility] [id number] (41168) ALT (SGPT) 25 [iU]/L (Normal) Range: 0-44 [...] 6-24 Glucose 103 mg/dL (Abnormal) Range: 65-99 80-Stq-67715:43 Potassium Serum (23424) Comments: PATIENT NOT FASTINGPERFORMED BY: [facility] Afgcgl8534 [facility] [id number] Potassium 4.6 mmol/L (Normal) Range: 3.5-5.2 9-Boo-881808:24 Microscopic Examination Comments: PATIENT WAS FASTINGPERFORMED BY: [facility] Qyyyox9184 [facility] [id number] Bacteria None seen (Normal) Mucus Threads Present (Normal) Epithelial Cells (non renal) 0-10 {/hpf} (Normal) Range: 0 - 10 RBC 0-2 {/hpf} (Normal) Range: 0 - 2 WBC 0-5 {/hpf} (Normal) Range: 0 - 5 07-Yah-089181:49 Basic Metabolic Profile (BMP) Comments: [facility] [address] [place], [address] GAP 6 (Normal) Range: 5-15 CO2 28.0 [...] Comments: Please note revised GLUCOSE reference range bhjjocluo30/02/2018. 90-Nho-481218:49 D-Dimer Quantitative (DVT/PE) Comments: CRITICAL VALUE VERIFIED. CALLED TO KELLE02/04/18 1320 Radha Mack.RESULTS READ BACK BY KELLE .[facility] [address] [place], [address] D-DIMER QUANT 0.97 {FEU/ug/m} (Abnormal) Range: 0.27-0.49 Comments: D-Dimer ELEVATED (>0.49): Additional studies and clinicalassessments are indicated to conclude diagnosis of:Deep Vein Thrombosis (DVT) or Pulmonary Embolism (PE) :59 Vitamin D Hydroxy (62804) Comments: PATIENT WAS FASTINGPERFORMED BY: [employer] [place] [id number] Vitamin D, 25-Hydroxy 32.9 ng/mL (Normal) Range: 30.0-100.0 Comments: Vitamin D deficiency has been defined by the [place] of[facility] and an Endocrine Society practice guideline as alevel of serum 25-OH vitamin D less than 20 ng/mL (1,2).The Endocrine Society went on to further define vitamin Dinsufficiency as a level between 21 and 29 ng/mL (2).1. IOM ([place] of Medicine). 2010. Dietary reference intakes for calcium and D. [place]: The National Academies Press.2. Edith MF, Robbie ISAAC, Jose Luis MOSQUERA, et al. Evaluation, treatment, and prevention of vitamin D deficiency: an Endocrine Society clinical practice guideline. JCEM. 2010; 96(7):1911-30. :59 HGB A1C (64367) Comments: PATIENT WAS FASTINGPERFORMED BY: [employer] [address] [place] [id number] Hemoglobin A1c 6.1 % (Abnormal) Range: 4.8-5.6 Comments: . Pre-diabetes: 5.7 - 6.4 Diabetes: >6.4 Glycemic control for adults with diabetes: <7.0 :59 LIPID PANEL (76431) Comments: PATIENT WAS FASTINGPERFORMED BY: [employer] [place] [id number] LDL/HDL Ratio 2.2 {ratio} (Normal) Range: 0.0-3.6 [...] PANEL, COMPREHENSIVE Comments: PATIENT WAS FASTINGPERFORMED BY: LabCoJFK Medical CenterKixbar1922 [facility] [id number] (68811) ALT (SGPT) 21 [iU]/L (Normal) Range: 0-44 [...] 6-24 Glucose 101 mg/dL (Abnormal) Range: 65-99 4-Buf-422448:24 URINALYSIS, W/ MICRO (17226) Comments: PATIENT WAS FASTINGPERFORMED BY: [facility] [id number] Microscopic Examination See below: (Normal) Comments: Microscopic was indicated and was performed. Microscopic Examination MICRON (Normal) Comments: Microscopic follows if indicated. Nitrite, Urine Negative (Normal) Urobilinogen,Semi-Qn 0.2 mg/dL (Normal) Range: 0.2-1.0 Bilirubin Negative (Normal) Occult Blood Negative (Normal) Ketones Negative (Normal) Glucose Negative (Normal) Protein Negative (Normal) WBC Esterase Negative (Normal) Appearance Clear (Normal) Urine-Color Yellow (Normal) pH 6.5 (Normal) Range: 5.0-7.5 Specific [place] 1.021 (Normal) Range: 1.005-1.030 :24 Vitamin D Hydroxy (60835) Comments: PATIENT WAS FASTINGPERFORMED BY: [facility]6370 [facility] [id number] Vitamin D, 25-Hydroxy 30.3 ng/mL (Normal) Range: 30.0-100.0 Comments: Vitamin D deficiency has been defined by the [place] ofMedicine and an Endocrine Society practice guideline as alevel of serum 25-OH vitamin D less than 20 ng/mL (1,2).The Endocrine Society went on to further define vitamin Dinsufficiency as a level between 21 and 29 ng/mL (2).1. IOM ([place] of Medicine). 2010. Dietary reference intakes for calcium and D. [place]: The National Academies Press.2. Edith MF, Robbie [place], Jose Luis MOSQUERA, et al. Evaluation, treatment, and prevention of vitamin D deficiency: an Endocrine Society clinical practice guideline. JCEM. 2010; 96(7):1911-30. 2-Nhd-467900:24 LIPID PANEL (32937) Comments: PATIENT WAS FASTINGPERFORMED BY: [facility] [id number] LDL/HDL Ratio 2.2 {ratio} (Normal) Range: 0.0-3.6 Comments: LDL/HDL Ratio Men Women 1/2 Avg.Risk 1.0 1.5 Av g.Risk 3.6 3.2 2X Avg.Risk 6.2 5.0 3X Avg.Risk 8.0 6.1 LDL Cholesterol Calc 80 mg/dL (Normal) Range: 0-99 VLDL Cholesterol Abhijit 16 mg/dL (Normal) Range: 5-40 HDL Cholesterol 36 mg/dL (Abnormal) Triglycerides 80 mg/dL (Normal) Range: 0-149 Cholesterol, Total 132 mg/dL (Normal) Range: 100-199 2-Cfm-507642:24 CBC with auto diff Comments: PATIENT WAS FASTINGPERFORMED BY: LabCoJFK Medical CenterQrqohy5761 [facility] [id number] Information: [id number] (58175) Immature Grans (Abs) 0.0 {x10E3/uL} (Normal) Range: [...] 4.14-5.80 WBC 7.1 {x10E3/uL} (Normal) Range: 3.4-10.8 7-Eem-505921:24 MICROALBUMIN: CREATININE RATIO Comments: PATIENT WAS FASTINGPERFORMED BY: [facility]6370 [facility] [id number] (23282) AND (34712) Alb/Creat Ratio <2.6 {mg/g_creat} (Normal) Range: 0.0-30.0 Albumin, Urine <3.0 ug/mL (Normal) Creatinine, Urine 114.9 mg/dL (Normal) 3-Plc-636732:24 METABOLIC PANEL, COMPREHENSIVE Comments: PATIENT WAS FASTINGPERFORMED BY: LabCoJFK Medical CenterLqflif3634 [facility] [id number] (20448) ALT (SGPT) 25 [iU]/L (Normal) Range: 0-44 [...] 6-24 Glucose 110 mg/dL (Abnormal) Range: 65-99 6-Zsw-697570:24 HGB A1C (68730) Comments: PATIENT WAS FASTINGPERFORMED BY: [facility] Bqdgmg2138 [address] Gonzalez [place] [id number] Hemoglobin A1c 6.3 % (Abnormal) Range: 4.8-5.6 Comments: . Pre-diabetes: 5.7 - 6.4 Diabetes: >6.4 Glycemic control for adults with diabetes: <7.0 :10 CBC W/Diff, Automated Comments: [facility] [address] [place], [place], [id number] ; will review on 08/08 Absolute Lymph [...] 4.6-6.2 WBC 7.2 K/mm3 (Normal) Range: 4.4-11.0 41-Jmx-75505:10 Comprehensive Metabolic Profil Comments: [facility] [address] [place], [place], [address] GAP 7 (Normal) Range: 5-15 CO2 30.0 [...] (Normal) Range: 70-110 :10 Lipid Profile Comments: [facility] [address] [place], [place], [phone] VLDL 22 mg/dL (Normal) Range: 5-40 LDL [...] 200-240 mg/dL Borderline >240 mg/dL High Risk 74-Kom-12716:10 Vitamin D,25 Hydroxy Comments: [facility] [address] [place], [address] Vitamin D 25-OH 25.7 ng/mL (Normal) Comments: Vitamin D 25(OH) Status Range Deficiency <20 ng/mL (50nmol/L) Insuffciency 20 - 30 ng/mL (50 - 75 nmol/L) Sufficiency 30 - 100 ng/mL (75 - 250 nmol/L) Toxicity >100 ng/mL (>250 nmol/L) 59-Xnc-231223:29 Urinalysis, Office (39088) UA - LEUKOCYTE ESTERASE Negative (Normal) UA - NITRITE Negative (Normal) URINE UROBILINGN JUAN TIMED Normal mg/dL (Normal) UA - PROTEIN Negative mg/dL (Normal) UA - PH 6 (Abnormal) UA - BLOOD non-hemolyzed trace (Normal) UA - SPECIFIC GRAVITY 1.020 (Normal) UA - KETONES Negative mg/dL (Normal) UA - BILIRUBIN Negative (Normal) UA - GLUCOSE Negative (Normal) 6-Kfm-823475:44 LIPASE (12717) Comments: PATIENT NOT FASTINGPERFORMED BY: [employer] [facility] [id number] Lipase, Serum 26 U/L (Normal) Range: 13-78 1-Zmw-803431:44 AMYLASE (59778) Comments: PATIENT NOT FASTINGPERFORMED BY: [employer] [facility] [id number] Amylase, Serum 53 U/L (Normal) Range: 31-124 :44 METABOLIC PANEL, COMPREHENSIVE Comments: PATIENT NOT FASTINGPERFORMED BY: LabCoJFK Medical CenterFhtoja1310 [facility] [id number] (81550) ALT (SGPT) 17 [iU]/L (Normal) Range: 0-44 [...] Range: 65-99 :44 CBC W/AUTO DIFF WBC (76970) Comments: PATIENT NOT FASTINGPERFORMED BY: LabCoJFK Medical CenterVlgvhd8943 [facility] [id number] Immature Grans (Abs) 0.0 {x10E3/uL} (Normal) Range: [...] 4.14-5.80 WBC 8.3 {x10E3/uL} (Normal) Range: 3.4-10.8 66-Ovv-76555:05 CBC W/AUTO DIFF WBC Comments: PATIENT NOT FASTINGPERFORMED BY: LabCoJFK Medical CenterAepxzq5277 [facility] [id number] Information: NURSE DRAW (59456) Immature Grans (Abs) 0.0 {x10E3/uL} (Normal) Range: [...] 4.14-5.80 WBC 8.1 {x10E3/uL} (Normal) Range: 3.4-10.8 15-Lhz-35832:05 METABOLIC PANEL, COMPREHENSIVE Comments: PATIENT NOT FASTINGPERFORMED BY: LabCoJFK Medical CenterEtdlkb0311 [facility] [id number] (86570) ALT (SGPT) 22 [iU]/L (Normal) Range: 0-44 [...] Glucose, Serum 98 mg/dL (Normal) Range: 65-99 90-Vhd-38597:43 Microscopic Examination Comments: PATIENT WAS FASTINGPERFORMED BY: [facility] Rsavxq0587 [facility] [id number] Bacteria None seen (Normal) Mucus Threads Present (Normal) Epithelial Cells (non renal) 0-10 {/hpf} (Normal) Range: 0 - 10 RBC 0-2 {/hpf} (Normal) Range: 0 - 2 WBC 0-5 {/hpf} (Normal) Range: 0 - 5 87-Xmz-977023:05 PSA,Total - Annual Screen Comments: [facility] Ywtkvenqpi2877 [facility] [address] [place], [place], [id number] PSA,TOT SCREEN 0.78 ng/mL (Normal) Range: 0.00-4.00 Comments: This test was performed using the TPSA assay method for the[facility] chemistry system. Values obtained with differentassay methods cannot be used interchangably.When changing PSA assays in the course of monitoring apatient, additional sequential testing should be carriedout to confirm baseline values. 24-Hqg-758158:10 Urinalysis, Complete Comments: Order Date: 12/07/16Has pt arrived? YOrder Date: 12/07/16Ha pt arrived? YHow was Urine Obtained? CLEAN [facility] [address] [place], [place], [id number] MUCUS, URINE 0 SEEN {/hpf} (Normal) BACTERIA [...] COLOR Yellow (Normal) :43 URINALYSIS, W/ MICRO (64501) Comments: PATIENT WAS FASTINGPERFORMED BY: Captalis LabCoARC Medical DevicesInegku5537 un[facility]iaM[facility] [id number] Microscopic Examination See below: (Normal) Comments: Microscopic was indicated and was performed. Microscopic Examination MICRON (Normal) Comments: Microscopic follows if indicated. Nitrite, Urine Negative (Normal) Urobilinogen,Semi-Qn 0.2 mg/dL (Normal) Range: 0.2-1.0 Bilirubin Negative (Normal) Occult Blood Negative (Normal) Ketones Negative (Normal) Glucose Negative (Normal) Protein Negative (Normal) WBC Esterase Negative (Normal) Appearance Clear (Normal) Urine-Color Yellow (Normal) pH 6.0 (Normal) Range: 5.0-7.5 Specific [place] 1.016 (Normal) Range: 1.005-1.030 23-Dlo-52130:43 CBC with auto diff (20481) Comments: PATIENT WAS FASTINGPERFORMED BY: Captalis [facility] Xrbnlp0271 [facility] [id number] Immature Grans (Abs) 0.0 {x10E3/uL} (Normal) Range: [...] 4.14-5.80 WBC 9.0 {x10E3/uL} (Normal) Range: 3.4-10.8 96-Zgg-83055:43 METABOLIC PANEL, COMPREHENSIVE Comments: PATIENT WAS FASTINGPERFORMED BY: LabCoJFK Medical CenterKxchsh5098 [facility] [id number]; non- emergent till apt (75224) ALT (SGPT) 19 [iU]/L (Normal) Range: 0-44 [...] CREATININE RATIO Comments: PATIENT WAS FASTINGPERFORMED BY: [employer] [place] [id number] (33049) AND (58268) Microalb/Creat Ratio <3.1 {mg/g_creat} (Normal) Range: 0.0-30.0 Microalbumin, Urine <3.0 ug/mL (Normal) Creatinine, Urine 96.5 mg/dL (Normal) :43 HGB A1C (70891) Comments: PATIENT WAS FASTINGPERFORMED BY: Audioair6370 FIXObl[address] [place] [id number] Hemoglobin A1c 6.3 % (Abnormal) Range: 4.8-5.6 Comments: . Pre-diabetes: 5.7 - 6.4 Diabetes: >6.4 Glycemic control for adults with diabetes: <7.0 :43 Vitamin D Hydroxy (92468) Comments: PATIENT WAS FASTINGPERFORMED BY: Audioair[address] [employer] Networkblin [place] [id number] Vitamin D, 25-Hydroxy 37.1 ng/mL (Normal) Range: 30.0-100.0 Comments: Vitamin D deficiency has been defined by the [place] of[place]icine and an Endocrine Society practice guideline as alevel of serum 25-OH vitamin D less than 20 ng/mL (1,2).The Endocrine Society went on to further define vitamin Dinsufficiency as a level between 21 and 29 ng/mL (2).1. IOM ([place] of [employer]). 2010. Dietary reference intakes for calcium and D. [place]: The National Academies Press.2. Edith MF, Robbie ISAAC, Jose Luis MOSQUERA, et al. Evaluation, treatment, and prevention of vitamin D deficiency: an Endocrine Society clinical practice guideline. JCEM. 2010; 96(7):1911-30. :28 Anti-dsDNA Antibodies Comments: PATIENT WAS FASTINGPERFORMED BY: Captalis LabClicks2Customers Yzazun3092 Chavez RoadDublin [place] [id number] Anti-DNA (DS) Ab Qn <1 {IU/mL} (Normal) Range: 0-9 Comments: Negative <5 Equivocal 5 - 9 Positive >9; ADDENDA: OV next week Written Authorization WAR (Normal) Comments: PATIENT WAS FASTINGPERFORMED BY: LabZolpyrp Dmphtk5566 Chavez RoadDublin [place] [id number] :28 Comments: Written Authorization Received.Authorization received from JARROD ENGLISH [id number] by Natasha Mckenna :31 HGB A1C (91214) Comments: PATIENT WAS FASTINGPERFORMED BY: [facility] Cnkyqx5877 [address]avez RoadDublin [place] [id number] Hemoglobin A1c 6.1 % (Abnormal) Range: 4.8-5.6 Comments: . Pre-diabetes: 5.7 - 6.4 Diabetes: >6.4 Glycemic control for adults with diabetes: <7.0 :28 Vitamin D Hydroxy (31651) Comments: PATIENT WAS FASTINGPERFORMED BY: CB [facility] Blvzek2095 [address]avez RoadDublin [place] [id number] Vitamin D, 25-Hydroxy 21.4 ng/mL (Abnormal) Range: 30.0-100.0 Comments: Vitamin D deficiency has been defined by the [place] of[place] and an Endocrine Society practice guideline as alevel of serum 25-OH vitamin D less than 20 ng/mL (1,2).The Endocrine Society went on to further define vitamin Dinsufficiency as a level between 21 and 29 ng/mL (2).1. IOM ([place] of [employer]). 2010. Dietary reference intakes for calcium and D. [place]: The National Academies Press.2. Edith MF, Robbie ISAAC, Jose Luis MOSQUERA, et al. Evaluation, treatment, and prevention of vitamin D deficiency: an Endocrine Society clinical practice guideline. JCEM. 2010; 96(7):1911-30. 45-Ncm-34789:28 METABOLIC PANEL, COMPREHENSIVE Comments: PATIENT WAS FASTINGPERFORMED BY: LabCoJFK Medical CenterOrziac3832 [facility] [id number] (14654) ALT (SGPT) 21 [iU]/L (Normal) Range: 0-44 [...] Glucose, Serum 102 mg/dL (Abnormal) Range: 65-99 84-Gye-32400:28 LIPID PANEL (55439) Comments: PATIENT WAS FASTINGPERFORMED BY: [facility] Haohad9156 [facility] [id number] LDL/HDL Ratio 1.9 {ratio_units} Range: 0.0-3.6 (Normal) [...] COLON BIOPSY (CHOOSE See Note (Normal) Comments: [facility] [address] [place], [address] 12:03 SITE) Comments: Patient: LISA MARQUES : 1965 (51/M) Acct Num: [id number] Phys: Sonu Fuentes Unit Num: [id number] Loc: LABSPEC Specimen: [id number] Received: 07/01/161611 Spec Type: COL ON BX [...] one cassette. / AM:leobardo 07/02/16 TC:2 CPT: 89187 HEADER OPERATION: Colonoscopy with biopsy PRE-OP DIAGNOSIS: [...] <signature on file> :28 SED RATE ERYTHROCYTE (15461) Comments: PATIENT WAS FASTINGPERFORMED BY: Audioair6370 [facility] [id number] Sedimentation Rate-Westergren 12 mm/h (Normal) Range: 0-30 : C-REACTIVE PROTEIN (77183) Comments: PATIENT WAS FASTINGPERFORMED BY: Audioair6370 [facility] [id number] C-Reactive Protein, Quant 2.0 mg/L (Normal) Range: 0.0-4.9 :28 RHEUMATOID FACTOR-QUANT (32116) Comments: PATIENT WAS FASTINGPERFORMED BY: Audioair6370 [facility] HospitalDATYDuke [facility] Hospital [id number] RA Latex Turbid. <10.0 {IU/mL} (Normal) Range: 0.0-13.9 :28 KEV (ANTINUCLEAR ANTIBODY) Comments: PATIENT WAS FASTINGPERFORMED BY: [employer]70 [facility] [id number] (72222) KEV Direct Positive (Abnormal) :29 Urinalysis, Office (45143) UA - LEUKOCYTE ESTERASE Negative (Normal) UA - NITRITE Negative (Normal) URINE UROBILINGN JUAN TIMED Normal mg/dL (Normal) UA - PROTEIN Negative mg/dL (Normal) UA - PH 7.5 (Normal) UA - BLOOD Negative (Normal) UA - SPECIFIC GRAVITY 1.025 (Normal) UA - KETONES Negative mg/dL (Normal) UA - BILIRUBIN Negative (Normal) UA - GLUCOSE Negative (Normal) 65-Wlk-351143:31 URINE CRISTÓBAL CULTURE-IDENTIFICATN Comments: PATIENT NOT FASTINGPERFORMED BY: MIKAYLA [facility] Zfstjj[address] [place] [id number] Information: SRC:UC (79459) Result 1 MUG (Normal) Comments: Mixed urogenital [id number] Colonies/mL Urine Culture,Comprehensive Final report (Normal) 21-May-20169:46 Basic Metabolic Profile (BMP) Comments: [facility] Ahxvlzudpu30[address] [facility] [place], [address] GAP 5 (Normal) Range: 5-15 [...] A.D.A. criteria. :46 CBC W/Diff, Automated Comments: [facility] [address] [place], [address] Absolute Lymph 1.42 {X10_3/ul} (Normal) [...] 4.4-11.0 :46 Hep B Surface Antibodies Comments: [facility] (refer to report for specific site)refer to report for address and phone number Hep B Iam AB Non Reactive (Normal) Comments: Non Reactive: Inconsistent with immunity, less than 10 mIU/mL Reactive: Consistent with immunity, greater than 9.9 mIU/ mL :46 Hepatitis C Antibodies Comments: [facility] (refer to report for specific site)refer to report for address and phone number HEP C AB 0.1 {s/co_ratio} (Normal) Range: 0.0-0.9 Comments: Negative: < 0.8 Indeterminate: 0.8 - 0.9 Positive: > 0.9 The CDC recommends that a positive HCV antibody result be followed up with a HCV Nucleic Acid Amplification test (744519).Performed at: [address], [place] [id number] Director: Sonu Springer PhD, Phone: [phone] 21-May-20169:46 Quantiferon TB-Gold Comments: [facility] (refer to [...] of cells for the productionof interferon gamma. 65-Dfh-91547:29 Metabolic Panel, Comments: PATIENT NOT FASTINGPERFORMED BY: MIKAYLA [facility] [address] [id number] Information: NURSE DRAW Comprehensive (52241) ALT (SGPT) 25 [iU]/L (Normal) Range: 0-44 [...] Range: 65-99 Comments: ADDENDA: non-emergent till apt 95-Uwx-488476:23 HGB A1C (77623) Comments: PATIENT WAS FASTINGPERFORMED BY: [employer] Che[address] FeedQu[facility] Health [id number] Hemoglobin A1c 6.3 % (Abnormal) Range: 4.8-5.6 Comments: . Pre-diabetes: 5.7 - 6.4 Diabetes: >6.4 Glycemic control for adults with diabetes: <7.0 75-Aux-093063:23 PSA (PROSTATE SPECIFIC Comments: PATIENT WAS FASTINGPERFORMED BY: [employer] [facility] [id number] ANTIGEN) (V76.44) Prostate Specific Ag, 0.9 ng/mL (Normal) Range: 0.0-4.0 Serum Comments: Kika ECLIA methodology. .According to the [place] [employer], Serum PSA shoulddecrease and remain [...] of malignant disease. :23 SED RATE ERYTHROCYTE (68614) Comments: PATIENT WAS FASTINGPERFORMED BY: Audioair6370 [facility]OD[facility] [id number] Sedimentation Rate-Westergren 7 mm/h (Normal) Range: 0-15 :23 C-REACTIVE PROTEIN (97769) Comments: PATIENT WAS FASTINGPERFORMED BY: [employer]70 [facility]OD[facility] [id number] C-Reactive Protein, Quant 12.3 mg/L (Abnormal) Range: 0.0-4.9 :23 CBC W/AUTO DIFF WBC Comments: PATIENT WAS FASTINGPERFORMED BY: Audioair6370 MoviePassQuorum Health [id number] Information: [id number] (63071) Immature Grans (Abs) 0.0 {x10E3/uL} (Normal) Range: [...] 4.14-5.80 WBC 8.1 {x10E3/uL} (Normal) Range: 3.4-10.8 61-Lch-135562:23 MICROALBUMIN: CREATININE RATIO Comments: PATIENT WAS FASTINGPERFORMED BY: Access SystemsCrownpoint Health Care FacilityNuhngj5282 [facility] [id number] (79621) AND (46038) Microalb/Creat Ratio <2.3 {mg/g_creat} (Normal) Range: 0.0-30.0 Microalbumin, Urine <3.0 ug/mL (Normal) Creatinine, Urine 132.6 mg/dL (Normal) 77-Vbg-013243:23 METABOLIC PANEL, COMPREHENSIVE Comments: PATIENT WAS FASTINGPERFORMED BY: Access SystemsJFK Medical CenterWoxcgh6123 [facility] [id number] (35542) ALT (SGPT) 20 [iU]/L (Normal) Range: 0-44 [...] Glucose, Serum 93 mg/dL (Normal) Range: 65-99 12-Pvq-601626:23 LIPID PANEL (15949) Comments: PATIENT WAS FASTINGPERFORMED BY: LabHarbor [facility] Hospital6370 [facility] [id number] LDL/HDL Ratio 2.3 {ratio_units} (Normal) Range: 0.0-3.6 [...] mg/dL (Normal) Range: 100-199 23-Jun-20158:00 Urinalysis, Office (12377) UA - LEUKOCYTE ESTERASE Negative (Normal) UA [...] auto diff Comments: PATIENT WAS FASTINGPERFORMED BY: Access SystemsJFK Medical CenterGabnup4308 [facility] [id number] Information: [id number] (61093) Immature Grans (Abs) 0.0 {x10E3/uL} (Normal) Range: [...] PANEL, COMPREHENSIVE Comments: PATIENT WAS FASTINGPERFORMED BY: [facility]6370 [facility] [id number] (82823) ALT (SGPT) 21 [iU]/L (Normal) Range: 0-44 [...] (HGB A1C) Comments: PATIENT WAS FASTINGPERFORMED BY: [employer]70 [facility] [id number] (47108) Hemoglobin A1c 6.0 % (Abnormal) Range: 4.8-5.6 Comments: . Pre-diabetes: 5.7 - 6.4 Diabetes: >6.4 Glycemic control for adults with diabetes: <7.0 :56 LIPID PANEL (33339) Comments: PATIENT WAS FASTINGPERFORMED BY: [employer]70 [facility] [id number]; non-emergent till apt LDL/HDL Ratio 2.2 {ratio_units} [...] mg/dL (Normal) Comments: PATIENT NOT FASTINGPERFORMED BY: Access SystemsBrandon Ville 2883670 [facility] [id number] :59 Range: 1.6-2.6 TSH 3.040 {uIU/mL} (Normal) Comments: PATIENT NOT FASTINGPERFORMED BY: LabCo[address] [id number] Information: [id number] :59 Range: 0.450-4.500 :51 Comp. Metabolic Panel (14) Comments: PATIENT WAS FASTINGPERFORMED BY: LabZolpy[address] [id number] Information: [id number] ALT (SGPT) 21 [iU]/L (Normal) Range: 0-44 [...] With LDL/HDL Comments: PATIENT WAS FASTINGPERFORMED BY: [employer] [place] [id number] Ratio LDL/HDL Ratio 2.5 {ratio_units} (Normal) Range: [...] Ratio, Colin Comments: PATIENT NOT FASTINGPERFORMED BY: [employer]70 [facility]OD[facility] [id number] Information: [id number] Ur Microalb/Creat Ratio 2.3 {mg/g_creat} (Normal) Range: 0.0-30.0 Microalbumin, Urine 4.0 ug/mL (Normal) Range: 0.0-17.0 Creatinine, Urine 175.9 mg/dL (Normal) Range: 22.0-328.0 :51 Prostate-Specific Ag, Serum Comments: PATIENT WAS FASTINGPERFORMED BY: [employer] Rsszmx8689 [facility] [id number] Prostate Specific Ag, 1.1 ng/mL (Normal) Range: 0.0-4.0 Serum Comments: Vitriflex ECLIA methodology. .According to the [place] [employer], Serum PSA shoulddecrease and remain [...] of malignant disease. :14 HgA1C , Office (76571) HgA1C , Office 6.2 % (Normal) Range: 4.6 - 7.1 :35 CBC W/AUTO DIFF WBC Comments: PATIENT WAS FASTINGPERFORMED BY: Access SystemsJFK Medical CenterImvush2219 [facility] [id number] Information: [id number] (24361) Immature Grans (Abs) 0.0 {x10E3/uL} (Normal) Range: [...] PANEL, COMPREHENSIVE Comments: PATIENT WAS FASTINGPERFORMED BY: LabHar[facility] Hospital6370 [facility] [id number] (26264) ALT (SGPT) 24 [iU]/L (Normal) Range: 0-44 [...] mg/dL (Normal) Range: 65-99 :35 LIPID PANEL (07412) Comments: PATIENT WAS FASTINGPERFORMED BY: Audioair6370 [facility] [id number] LDL/HDL Ratio 2.3 {ratio_units} (Normal) Range: 0.0-3.6 [...] (Normal) Range: 100-199 :05 HgA1C , Office (33996) HgA1C , Office 6.0 % (Normal) Range: 4.6 - 7.1 :02 HgA1C , Office (67593) HgA1C , Office 6.0 % (Normal) Range: 4.6 - 7.1 23-Ujw-596507:26 Rapid Flu (03133 x 2) Influenza A Ag negative (Normal) :51 METABOLIC PANEL, Comments: PATIENT WAS FASTINGPERFORMED BY: Audioair6370 [facility] [id number] Information: [id number] COMPREHENSIVE (09216) ALT (SGPT) 17 [iU]/L (Normal) Range: 0-44 [...] CREATININE RATIO Comments: PATIENT WAS FASTINGPERFORMED BY: [employer]70 [facility]OD[facility] [id number] (76971) AND (36883) Microalb/Creat Ratio 1.4 {mg/g_creat} (Normal) Range: 0.0-30.0 Microalbumin, Urine 1.3 ug/mL (Normal) Range: 0.0-17.0 Creatinine, Urine 95.1 mg/dL (Normal) Range: 22.0-328.0 :51 LIPID PANEL (71477) Comments: PATIENT WAS FASTINGPERFORMED BY: [employer]70 [facility]OD[facility] [id number]; nothing urgent...will review at appt. on 12/17/13 LDL/HDL Ratio 2.4 {ratio_units} (Normal) Range: 0.0-3.6 LDL Cholesterol Calc 90 mg/dL (Normal) Range: 0-99 VLDL Cholesterol Abhijit 12 mg/dL (Normal) Range: 5-40 HDL Cholesterol 38 mg/dL (Abnormal) Comments: According to ATP-III Guidelines, HDL-C >59 mg/dL is considered anegative risk factor for CHD. Triglycerides 59 mg/dL (Normal) Range: 0-149 Cholesterol, Total 140 mg/dL (Normal) Range: 100-199 12-Mab-369781:10 HgA1C , Office (85060) HgA1C , Office 6.0 % (Normal) Range: 4.6 - 7.1 36-Wcn-515971:11 PSA (PROSTATE SPECIFIC Comments: PATIENT WAS FASTINGPERFORMED BY: Audioair[address] [facility] [id number] ANTIGEN) (V76.44) Prostate Specific Ag, 1.2 ng/mL (Normal) Range: 0.0-4.0 Serum Comments: Vitriflex ECLIA methodology. .According to the [place] [employer] Association, Serum PSA shoulddecrease and remain at undetectable levels after radicalprostatectomy. The AUA defines biochemical recurrence as an initialPSA value 0.2 ng/mL or greater followed by a subsequent confirmatoryPSA value 0.2 ng/mL or greater.Values obtained with d ifferent assay methods or kits cannot be usedinterchangeably. Results cannot be interpreted as absolute evidenceof the presence or absence of malignant disease. 38-Nhe-830494:11 CREATININE, URINE (25285) Comments: PATIENT WAS FASTINGPERFORMED BY: Audioair[address] [facility] [id number] Creatinine, Urine 75.5 mg/dL (Normal) Range: 22.0-328.0 38-Gah-420899:11 METABOLIC PANEL, Comments: PATIENT WAS FASTINGPERFORMED BY: Audioair[address] [facility] [id number] Information: [id number] COMPREHENSIVE (34207) ALT (SGPT) 18 [iU]/L (Normal) Range: 0-44 [...] Glucose, Serum 90 mg/dL (Normal) Range: 65-99 34-Mug-647492:11 LIPID PANEL (15239) Comments: PATIENT WAS FASTINGPERFORMED BY: LabCoJFK Medical CenterAbmqeg2076 [facility] [id number] LDL Cholesterol Calc 77 mg/dL (Normal) Range: 0-99 LDL/HDL Ratio 1.8 {ratio_units} (Normal) Range: 0.0-3.6 HDL Cholesterol 42 mg/dL (Normal) Comments: According to ATP-III Guidelines, HDL-C >59 mg/dL is considered anegative risk factor for CHD. VLDL Cholesterol Abhijit 10 mg/dL (Normal) Range: 5-40 Cholesterol, Total 129 mg/dL (Normal) Range: 100-199 Triglycerides 52 mg/dL (Normal) Range: 0-149 61-Lbu-203219:13 HgA1C , Office (48945) HgA1C , Office 5.9 % (Normal) Range: 4.6 - 7.1 04-Gux-342085:46 Urinalysis, Office (18598) UA - BILIRUBIN Negative (Normal) UA - BLOOD Negative (Normal) UA - GLUCOSE Negative (Normal) UA - KETONES Negative mg/dL (Normal) UA - LEUKOCYTE ESTERASE Negative (Normal) UA - NITRITE Negative (Normal) UA - PH 6.5 (Normal) UA - PROTEIN Negative mg/dL (Normal) UA - SPECIFIC GRAVITY 1.025 (Normal) URINE UROBILINGN JUAN TIMED Normal mg/dL (Normal) 66-Wtn-019776:19 Aerobic Bacterial Culture Comments: PERFORMED BY: FannectQuorum Health [id number] Information: SRC:KN LEFT KNEE Result 1 NG36 (Normal) Comments: No growth in 36 - 48 hours. Aerobic Bacterial Culture Final report (Normal) :26 Anaerobic and Aerobic Comments: PERFORMED BY: InauraD[facility] Hospital [id number] Information: SRC:KN LEFT KNEE Culture Result 1 NG36 (Normal) Comments: No growth in 36 - 48 hours. Aerobic Culture Final report (Normal) Result 1 NANG72 (Normal) Comments: No anaerobic growth in 72 hours. Anaerobic Culture Final report (Normal) :36 PSA (PROSTATE SPECIFIC Comments: PATIENT WAS FASTINGPERFORMED BY: [employer]70 [facility]OD[facility] [id number] ANTIGEN) (V76.44) Prostate Specific Ag, 0.9 ng/mL (Normal) Range: 0.0-4.0 Serum Comments: CreatiVasc MedicalIA methodology. .According to the [place] U[employer] Association, Serum PSA shoulddecrease and remain [...] MANUAL DIFF Comments: PATIENT WAS FASTINGPERFORMED BY: InauraDuke [facility] Hospital [id number] Information: [id number] (32078) Immature Grans (Abs) 0.0 {x10E3/uL} (Normal) Range: [...] 4.14-5.80 WBC 6.5 {x10E3/uL} (Normal) Range: 4.0-10.5 71-Nce-42935:36 METABOLIC PANEL, COMPREHENSIVE Comments: PATIENT WAS FASTINGPERFORMED BY: LabCoJFK Medical CenterAnzcek1616 [facility] [id number] (54130) ALT (SGPT) 25 [iU]/L (Normal) Range: 0-55 [...] Glucose, Serum 105 mg/dL (Abnormal) Range: 65-99 78-Ude-11351:36 LIPID PANEL (09543) Comments: PATIENT WAS FASTINGPERFORMED BY: LabCoJFK Medical CenterDvewva8091 [facility] [id number] LDL Cholesterol Calc 72 mg/dL (Normal) Range: 0-99 LDL/HDL Ratio 1.9 {ratio_units} (Normal) Range: 0.0-3.6 HDL Cholesterol 38 mg/dL (Abnormal) Comments: According to ATP-III Guidelines, HDL-C >59 mg/dL is considered anegative risk factor for CHD. VLDL Cholesterol Abhijit 17 mg/dL (Normal) Range: 5-40 Cholesterol, Total 127 mg/dL (Normal) Range: 100-199 Triglycerides 85 mg/dL (Normal) Range: 0-149 :04 HgA1C , Office (99338) HgA1C , Office 6.0 % (Normal) Range: [...] mg/L (Normal) UR CREAT 158.1 mg/dL (Normal) 88-Iua-27966:00 KNEE,4 OR MORE VIEWS Radiology Report See [...] Colton Roland MD :16 HgA1C , Office (26849) HgA1C , Office 5.7 % (Normal) Range: 4.6 - 7.1 :16 Blood Glucose , Office (26399) Blood Glucose , Office 92 (Normal) :27 HEMOGLOBIN GLYCLATED (HGB Comments: PATIENT NOT FASTINGPERFORMED BY: LabCoCrownpoint Health Care FacilityEulwvg6958 [facility] [id number] Information: [id number] A1C) (80487) Hemoglobin A1c 6.4 % (Abnormal) Range: 4.8-5.6 Comments: Increased risk for diabetes: 5.7 - 6.4 Diabetes: >6.4 Glycemic control for adults with diabetes: <7.0 :44 Urinalysis, Office (07746) UA - BILIRUBIN Negative (Normal) UA - [...] (PROSTATE SPECIFIC Comments: PATIENT WAS FASTINGPERFORMED BY: [employer]70 [facility]OD[facility] [id number] ANTIGEN) (V76.44) Prostate Specific Ag, 0.7 ng/mL (Normal) Range: 0.0-4.0 Serum Comments: Vitriflex ECLIA methodology. .According to the [place] U[employer], Serum PSA shoulddecrease and remain [...] MANUAL DIFF Comments: PATIENT WAS FASTINGPERFORMED BY: Audioair6370 [facility]OD[facility] [id number] Information: [id number] (14546) Baso (Absolute) 0.0 {x10E3/uL} (Normal) Range: 0.0-0.2 [...] PANEL, COMPREHENSIVE Comments: PATIENT WAS FASTINGPERFORMED BY: LabCoJFK Medical CenterDvrzlm6088 [facility] [id number] (56671) Alkaline Phosphatase, S 87 [iU]/L (Normal) Range: [...] mg/dL (Abnormal) Range: 65-99 :45 LIPID PANEL (27079) Comments: PATIENT WAS FASTINGPERFORMED BY: InauraD[facility] [id number] LDL/HDL Ratio 2.1 {ratio_units} (Normal) Range: 0.0-3.6 HDL Cholesterol 40 mg/dL (Normal) Comments: According to ATP-III Guidelines, HDL-C >59 mg/dL is considered anegative risk factor for CHD. LDL Cholesterol Calc 85 mg/dL (Normal) Range: 0-99 VLDL Cholesterol Abhijit 15 mg/dL (Normal) Range: 5-40 Cholesterol, Total 140 mg/dL (Normal) Range: 100-199 Triglycerides 73 mg/dL (Normal) Range: 0-149 :38 HgA1C , Office (40390) HgA1C , Office 6.1 % (Normal) Range: 4.6 - 7.1 :38 Blood Glucose , Office (34464) Blood Glucose , Office 105 (Normal) :57 LIPID PANEL (78239) Comments: PATIENT NOT FASTINGPERFORMED BY: [employer] [facility] [id number] LDL Cholesterol Calc 91 mg/dL (Normal) Range: [...] PANEL, Comments: PATIENT NOT FASTINGPERFORMED BY: [facility] Maddil1229 [facility] [id number] Information: [id number] COMPREHENSIVE (85286) ALT (SGPT) 21 [iU]/L (Normal) Range: 0-55 [...] CREATININE RATIO Comments: PATIENT NOT FASTINGPERFORMED BY: LabCoJFK Medical CenterJsmafa7160 [facility] [id number] (23958) AND (87738) Microalb/Creat Ratio 1.7 {mg/g_creat} (Normal) Range: 0.0-30.0 Microalbumin, Urine 2.1 ug/mL (Normal) Range: 0.0-17.0 Creatinine, Urine 126.1 mg/dL (Normal) Range: 22.0-328.0 :03 HgA1C , Office (43674) HgA1C , Office 5.9 % (Normal) Range: 4.6 - 7.1 :03 Blood Glucose , Office (21164) Blood Glucose , Office 94 (Normal) :18 [...] (Normal) GLU 91 mg/dL (Normal) Range: 70-110 06-Afa-56644:18 LIPID LDL 72 mg/dL (Normal) Range: 0-130 VLDL 19 mg/dL (Normal) Range: 5-40 CHOL 124 mg/dL (Normal) Comments: <200 mg/dL Tgukvpubb444-643 mg/dL Borderline>240 mg/dL High Risk HDL 33 mg/dL (Abnormal) Comments: Reference RangeHDL <40 mg/dL Low HDL CholesterolHDL >or= 60 mg/dL High HDL Cholesterol TRIG 94 mg/dL (Normal) Comments: Serum Triglycerides Reference IntervalNormal <150 mg/dLBorderline high 150 - 199 mg/dLHigh 200 - 499 mg/ dLVery High > or = 500 mg/dL 68-Tcv-95475:50 CHEST WITHOUT CONTRAST Radiology Report See Note (Normal) Comments: Exam Number: [id number] CLINICAL:44-year-old male with history of lung nodules [...] Basic Metabolic Panel (8) Comments: PERFORMED BY: [facility] [id number] Calcium, Serum 9.3 mg/dL (Normal) Range: 8.7-10.2 [...] (Abnormal) Range: 65-99 :11 HgA1C , Office (16879) HgA1C , Office 6.3 % (Normal) Range: 4.6 - 7.1 :11 Blood Glucose , Office (60167) Blood Glucose , Office 88 (Normal) :38 Comp. Metabolic Panel (14) Comments: PATIENT WAS FASTINGPERFORMED BY: [facility] [id number] [facility] [id number] A/G Ratio 1.4 (Normal) Range: 1.1-2.5 Alkaline [...] Glucose, Serum 97 mg/dL (Normal) Range: 65-99 60-Zgt-61895:38 Lipid Panel With LDL/HDL Comments: PATIENT WAS FASTINGPERFORMED BY: [facility]CoJ[facility] CenterYlslrn4970 [facility] [id number] Ratio LDL Cholesterol Calc 94 mg/dL (Normal) Range: 0-99 LDL/HDL Ratio 2.7 {ratio_units} (Normal) Range: 0.0-3.6 VLDL Cholesterol Abhijit 16 mg/dL (Normal) Range: 5-40 Cholesterol, Total 145 mg/dL (Normal) Range: 100-199 HDL Cholesterol 35 mg/dL (Abnormal) Comments: According to ATP-III Guidelines, HDL-C >59 mg/dL is considered anegative risk factor for CHD. Triglycerides 82 mg/dL (Normal) Range: 0-149 :26 Urinalysis, Office (57108) UA - LEUKOCYTE ESTERASE Negative (Normal) UA - NITRITE Negative (Normal) URINE UROBILINGN JUAN TIMED 2 mg/dL (Normal) UA - PROTEIN Negative mg/dL (Normal) UA - PH 8.5 (Normal) UA - BLOOD Negative (Normal) UA - SPECIFIC GRAVITY 1.020 (Normal) UA - KETONES Negative mg/dL (Normal) UA - BILIRUBIN Negative (Normal) UA - GLUCOSE Negative (Normal) :40 Blood Glucose , Office (25064) Blood Glucose , Office 100 (Normal) :40 HgA1C , Office (02751) HgA1C , Office 5.9 % (Normal) Range: 4.6 - 7.1 :26 CHEST WITHOUT CONTRAST Radiology Report See Note (Normal) Comments: Exam Number: [id number] CLINICAL:Follow- up pulmonary nodules. CT CHEST WITHOUT [...] granulomatous disease. Reported By: KOLBY PEREZ M.D. 06-Bav-73971:38 CBC WITH MANUAL DIFF (72630) Comments: PATIENT WAS FASTINGClinical Information: [id number] PERFORMED BY: [facility]6370 [facility] [id number] Baso (Absolute) 0.0 {x10E3/uL} (Normal) Range: 0.0-0.2 [...] CREATININE RATIO Comments: PATIENT WAS FASTINGPERFORMED BY: [email or web address] [facility] [id number] ([id number]) AND (05060) Creatinine, Urine 147.1 mg/dL (Normal) Range: 22.0-328.0 Microalb/Creat Ratio 1.3 {mg/g_creat} (Normal) Range: 0.0-30.0 Microalbumin, Urine 1.9 ug/mL (Normal) Range: 0.0-17.0 :38 LIPID PANEL (89068) Comments: PATIENT WAS FASTINGPERFORMED BY: [employer] [facility] [id number] Cholesterol, Total 145 mg/dL (Normal) Range: 100-199 [...] PANEL, COMPREHENSIVE Comments: PATIENT WAS FASTINGPERFORMED BY: [employer]6370 [facility] [id number] (71660) A/G Ratio 1.4 (Normal) Range: 1.1-2.5 Albumin, [...] (Normal) Range: 135-145 :31 HgA1C , Office (83500) HgA1C , Office 6.0 % (Normal) Range: 4.6 - 7.1 :31 Blood Glucose , Office (88506) Blood Glucose , Office 87 (Normal) :34 HgA1C , Office (56156) HgA1C , Office 5.8 % (Normal) Range: 4.6 - 7.1 :34 Blood Glucose , Office (91460) Blood Glucose , Office 99 (Normal) :24 CHEST WITHOUT CONTRAST Radiology Report See Note (Normal) Comments: Exam Number: [id number] CT CHEST WITHOUT CONTRAST STATEMENTAbnormal CT, followup [...] CREATININE RATIO Comments: PATIENT WAS FASTINGPERFORMED BY: [facility]CoJ[facility] CenterQxcyom7355 [facility] [id number] ([id number]) AND (06376) Creatinine, Urine 147.1 mg/dL (Normal) Range: 22.0-328.0 Microalb/Creat Ratio 1.8 {ug/mg_creat} (Normal) Range: 0.0-30.0 Microalbum.,U,Random 2.6 ug/mL (Normal) Range: 0.0-17.0 :10 LIPID PANEL (22553) Comments: PATIENT WAS FASTINGPERFORMED BY: [facility] Nnckml1798 [facility] [id number] Cholesterol, Total 139 mg/dL (Normal) Range: 100-199 HDL Cholesterol 37 mg/dL (Abnormal) Comments: According to ATP-III Guidelines, HDL-C >59 mg/dL is considered anegative risk factor for CHD. LDL Cholesterol Calc 87 mg/dL (Normal) Range: 0-99 LDL/HDL Ratio 2.4 {ratio_units} (Normal) Range: 0.0-3.6 Triglycerides 76 mg/dL (Normal) Range: 0-149 VLDL Cholesterol Abhijit 15 mg/dL (Normal) Range: 5-40 :10 CBC WITH MANUAL DIFF (45727) Comments: PATIENT WAS FASTINGClinical Information: ADD DRAW FEE [id number] ADD [id number] PERFORMED BY: [facility] Tbmvrf1993 [facility] [id number] Baso (Absolute) 0.0 {x10E3/uL} (Normal) Range: 0.0-0.2 [...] PANEL, COMPREHENSIVE Comments: PATIENT WAS FASTINGPERFORMED BY: [facility]CoJ[facility] CenterJlkxbl8007 [facility] [id number] ([id number]) A/G Ratio 1.6 (Normal) Range: 1.1-2.5 Albumin, [...] Serum 101 mg/dL (Abnormal) Range: 65-99 If -Beninese >59 mL/min/1.73 Comments: Note: Persistent reduction for [...] (Normal) Range: 135-145 :30 HgA1C , Office (16687) HgA1C , Office 5.7 % (Normal) Range: 4.6 - 7.1 :30 Blood Glucose , Office (11371) Blood Glucose , Office 99 (Normal) :19 FINGER(S),MIN 2 VIEWS (MT) Radiology Report See Note (Normal) Comments: Exam Number: [id number] FIRST DIGIT, RIGHT HAND REASON FOR EXAMINATIONPalpable [...] Report See Note (Normal) Comments: Exam Number: [id number] CT SCAN OF CHEST. HISTORYAbnormal CT. TECHNIQUEScans [...] is the right hilar ly mph node, zseysfvep59 ml in short axis. That is stable [...] is suggested. Reported By: NABIL JIMENEZ M.D. 18-Srz-73381:11 LIPID PANEL (32141) Comments: PATIENT WAS FASTINGPERFORMED BY: [employer]6370 [facility] [id number] Cholesterol, Total 149 mg/dL (Normal) Range: 100-199 HDL Cholesterol 33 mg/dL (Abnormal) Range: 40-59 LDL Cholesterol Calc 96 mg/dL (Normal) Range: 0-99 LDL/HDL Ratio 2.9 {ratio_units} (Normal) Range: 0.0-3.6 Triglycerides 102 mg/dL (Normal) Range: 0-149 VLDL Cholesterol Abhijit 20 mg/dL (Normal) Range: 5-40 02-Qfp-67978:11 TSH (68810) Comments: PATIENT WAS FASTINGPERFORMED BY: VideojugJFK Medical CenterPeskjh8335 [facility] [id number] TSH 1.936 {uIU/mL} (Normal) Range: 0.450-4.500 Comments: Please note reference interval change :11 METABOLIC PANEL, COMPREHENSIVE Comments: PATIENT WAS FASTINGPERFORMED BY: [facility] Hzyvbl2687 [facility] [id number] ([id number]) A/G Ratio 1.7 (Normal) Range: 1.1-2.5 Albumin, [...] Serum 102 mg/dL (Abnormal) Range: 65-99 If -Beninese >60 mL/min/1.73 Range: 60-137 (Normal) Comments: Note: [...] Range: 135-145 :11 CBC WITH MANUAL DIFF (63459) Comments: PATIENT WAS FASTINGClinical Information: ADD DRAW FEE [id number] ADD J 08104 PERFORMED BY: [facility]CoJ[facility] CenterXefsgv4[address] [facility] [facility] [id number] Baso (Absolute) 0.0 {x10E3/uL} (Normal) Range: 0.0-0.2 [...] (Normal) Range: 4.0-10.5 :04 HgA1C , Office (68344) HgA1C , Office 6.2 % (Normal) Range: 4.6 - 7.1 :04 Blood Glucose , Office (37888) Blood Glucose , Office 104 (Normal) :03 Blood Glucose , Office (53473) Blood Glucose , Office 87 (Normal) :45 [...] T PROT 7.0 g/dL (Normal) Range: 6.4-8.2 14-Yol-244363:02 CBCD CELLS COUNTED 100 (Normal) HCT 50.9 [...] 47-70 WBC 7.3 K/mm3 (Normal) Range: 4.4-11.0 78-Ehl-792750:30 BC No growth in 5 days. Comments: [...] Report See Note (Normal) Comments: Exam Number: [id number] PA AND LATERAL CHEST HISTORY Being done [...] Report See Note (Normal) Comments: Exam Number: [id number] MYOCARDIAL PERFUSION SCAN 14.3 millicuries of Tc99m sestamibi was injected at rest. The patientthen exercised according to the [place] protocol for a total duration of10 minutes at taining 98% of the maximum predicted heart rate for awork load of 11.7 METs. At peak exercise, 44.6 millicuries of Vg52rfxqplvelf was injected. Stress images were then obtained. Stress andrest images w ere reconstructed and compared in the short axis,vertical long and horizontal long axes. Gated images were alsoobtained. Review of the stress images demonstrate uniform uptake of tracer notedin all are as of the myocardium. There is mild GI uptake noted. Thereis thickening of all otrres with perfusion noted in all torres.The gated ejection fraction is 55%. CONCLUSION1. Exercise myocardial perfusion s can with no evidence of ischemia benja high work load.2. Preserved ejection fraction. Reported By: ARCENIO MCCLOUD M.D. :49 ESOPHAGUS ONLY Radiology Report See Note (Normal) Comments: Exam Number: [id number] ESOPHAGRAM. HISTORYBeing done for dysphagia. FINDINGSThe swallowing [...] Report See Note (Normal) Comments: Exam Number: [id number] CT BRAIN WITHOUT AND WITH INTRAVENOUS CONTRAST [...] DERIAN BARRAGAN M.D. :08 HgA1C , Office (88744) HgA1C , Office 5.6 % (Normal) Range: 4.6 - 7.1 :08 Blood Glucose , Office (82371) Blood Glucose , Office 80 (Normal) :55 [...] CREAT 99.4 mg/dL (Normal) :37 Urinalysis, Office (20041) Comments: done km UA - BILIRUBIN Negative (Normal) UA - BLOOD Negative (Normal) UA - GLUCOSE Negative (Normal) UA - KETONES Negative mg/dL (Normal) UA - LEUKOCYTE ESTERASE Negative (Normal) UA - NITRITE Negative (Normal) UA - PH 6.0 (Normal) UA - SPECIFIC GRAVITY 1.025 (Normal) URINE UROBILINGN JUAN TIMED Normal mg/dL (Normal) :11 HgA1C , Office (75371) Comments: [facility] HgA1C , Office 5.7 % (Normal) Range: 4.6 - 7.1 :11 Blood Glucose , Office (07877) Comments: [facility] Blood Glucose , Office 80 (Normal) :12 [...] (Normal) Range: 6.4-8.2 :04 HgA1C , Office (37537) Comments: [facility] HgA1C , Office 5.8 % (Normal) Range: 4.6 - 7.1 :04 Blood Glucose , Office (11439) Comments: [facility] Blood Glucose , Office 77 (Normal) :16 Blood Glucose , Office (80449) Comments: [facility] Blood Glucose , Office 98 (Normal) :21 [...] :21 TSH 3.40 {uIU/mL} (Normal) Range: 0.34-4.82 90-Xai-620258:06 Blood Glucose , Office (01074) Blood Glucose , Office 82 (Normal) :06 HgA1C , Office (66838) HgA1C , Office 5.5 % (Normal) Range: [...] without bleeding Planned Observations Vitamin D Hydroxy (47677)Indication: Vitamin D deficiency On: :48 Request METABOLIC PANEL, COMPREHENSIVE (59633)Indication: Abnormal glucose tolerance test On: :48 Request HGB A1C (68346)Indication: Abnormal glucose tolerance test On: :48 Request KEV (ANTINUCLEAR ANTIBODY) (68249)Indication: Right elbow pain On: :46 Request RHEUMATOID FACTOR-QUANT (07439)Indication: Right elbow pain On: :46 Request C-REACTIVE PROTEIN (68098)Indication: Right elbow pain On: :46 Request SED RATE ERYTHROCYTE (18764)Indication: Right elbow pain On: :46 Request Metabolic Panel, Basic (45554)Indication: Right-sided chest pain On: 33-Gsr-057780:15 Request Comments: stat D-Dimer (61847)Indication: Right-sided chest pain On: 69-Una-538450:05 Request Comments: stat METABOLIC PANEL, COMPREHENSIVE (41632)Indication: Abnormal glucose tolerance test On: :22 Request Vitamin D Hydroxy (58302)Indication: Vitamin D deficiency On: 34-Xhp-17439:56 Request LIPID PANEL (03281)Indication: Other hyperlipidemia On: :55 Request CBC W/AUTO DIFF WBC (49980)Indication: Essential hypertension On: :55 Request METABOLIC PANEL, COMPREHENSIVE (85423)Indication: Essential hypertension On: :55 Request METABOLIC PANEL, COMPREHENSIVE (24457)Indication: Pain in unspecified joint (Renamed from Arthralgia) On: 24-Ycs-49178:40 Request PSA (PROSTATE SPECIFIC ANTIGEN) (V76.44)Indication: Encounter for screening for malignant neoplasm of prostate (Renamed from Screening for prostate cancer) On: :52 Request Hemoglobin Glyclated (HGB A1C) (80897)Indication: Abnormal glucose tolerance test On: :51 Request MICROALBUMIN: CREATININE RATIO (17930) AND (54025)Indication: Abnormal glucose tolerance test On: :51 Request METABOLIC PANEL, COMPREHENSIVE (40455)Indication: Essential hypertension On: :51 Request LIPID PANEL (18479)Indication: Other hyperlipidemia On: :51 Request MAGNESIUM (68036)Indication: Other premature beats On: :54 Request TSH (34644)Indication: Other premature beats On: :54 Request MICROALBUMIN: CREATININE RATIO (47822) AND (31989)Indication: Abnormal glucose tolerance test On: :30 Request LIPID PANEL (57723)Indication: Abnormal glucose tolerance test On: :32 Request METABOLIC PANEL, COMPREHENSIVE (66577)Indication: Abnormal glucose tolerance test On: :32 Request PSA (PROSTATE SPECIFIC ANTIGEN) (V76.44)Indication: Screening for prostate cancer On: :31 Request Urinalysis, Office (68800)Indication: Other general medical examination for administrative purposes On: 41-Nok-18598:45 Request CBC WITH MANUAL DIFF (05481)Indication: Essential hypertension On: :23 Request METABOLIC PANEL, COMPREHENSIVE (22882)Indication: Essential hypertension On: :23 Request LIPID PANEL (64681)Indication: Hypercholesterolemia On: :23 Request LIPID PANEL (50911)Indication: Hypercholesterolemia On: :24 Request CBC WITH MANUAL DIFF (29466)Indication: Essential hypertension On: :23 Request METABOLIC PANEL, COMPREHENSIVE (53017)Indication: Abnormal glucose tolerance test On: 96-Wtn-67295:23 Request MICROALBUMIN: CREATININE RATIO (63907) AND (35970)Indication: Abnormal glucose tolerance test On: :23 Request HgA1C , Office (30735)Indication: Abnormal glucose tolerance test On: 47-Xtr-80602:03 Request CRISTÓBAL CULTURE-OTHER (53082)Indication: Bursitis, prepatellar On: 56-Ozv-028565:00 Request CRISTÓBAL CULTURE-OTHER (88755)Indication: Bursitis, prepatellar On: 33-Zdc-75962:55 Request CBC WITH MANUAL DIFF (56918)Indication: BMI 40.0-44.9, adult On: 26-Nov-2011 Request LIPID PANEL (86659)Indication: BMI 40.0-44.9, adult On: 26-Nov-2011 Request METABOLIC PANEL, COMPREHENSIVE (80428)Indication: BMI 40.0-44.9, adult On: 26-Nov-2011 Request MICROALBUMIN: CREATININE RATIO (37120) AND (95120)Indication: BMI 40.0-44.9, adult On: 26-Nov-2011 Request Urinalysis, Office (59811)Indication: Other general medical examination for administrative purposes On: :56 Request MICROALBUMIN: CREATININE RATIO (37666) AND (69763)Indication: BMI 40.0-44.9, adult On: :19 Request METABOLIC PANEL, COMPREHENSIVE (54112)Indication: BMI 40.0-44.9, adult On: : Request LIPID PANEL (04202)Indication: BMI 40.0-44.9, adult On: : Request CBC WITH MANUAL DIFF (69813)Indication: BMI 40.0-44.9, adult On: :19 Request MICROALBUMIN: CREATININE RATIO (59866) AND (25345)Indication: Essential hypertension On: :30 Request METABOLIC PANEL, COMPREHENSIVE (76905)Indication: Essential hypertension On: :30 Request LIPID PANEL (63927)Indication: Essential hypertension On: :30 Request CBC WITH MANUAL DIFF (69847)Indication: Essential hypertension On: :30 Request CBC WITH MANUAL DIFF (65902)Indication: Essential hypertension On: :22 Request METABOLIC PANEL, COMPREHENSIVE (00031)Indication: Essential hypertension On: :22 Request LIPID PANEL (09940)Indication: Hypercholesterolemia On: :22 Request METABOLIC PANEL, COMPREHENSIVE (67862)Indication: Abnormal glucose tolerance test On: :50 Request LIPID PANEL (53574)Indication: Hypercholesterolemia On: :50 Request HEPATIC FUNCTION PANEL (45887)Indication: Other hyperlipidemia On: :04 Request LIPID PANEL (89458)Indication: Other hyperlipidemia On: :04 Request HEPATIC FUNCTION PANEL (68172)Indication: Hypercholesterolemia On: :55 Request LIPID PANEL (20118)Indication: Hypercholesterolemia On: :55 Request CBC WITH MANUAL DIFF (87656)Indication: leucocoytosis On: 88-Xig-953912:16 Request HEPATIC FUNCTION PANEL (53146)Indication: Hypercholesterolemia On: :24 Request LIPID PANEL (41633)Indication: Hypercholesterolemia On: 97-Vzi-946870:24 Request METABOLIC PANEL, COMPREHENSIVE (70966)Indication: Abnormal glucose tolerance test On: :43 Request CBC WITH MANUAL DIFF (70958)Indication: Abnormal glucose tolerance test On: 1-Mjt-863782:43 Request MICROALBUMIN: CREATININE RATIO (61453) AND (47065)Indication: Abnormal glucose tolerance test On: :43 Request LIPID PANEL (51369)Indication: Other hyperlipidemia On: :43 Request HEPATIC FUNCTION PANEL (48075)Indication: Other hyperlipidemia On: :48 Request Comments: 4 mos LIPID PANEL (38407)Indication: Other hyperlipidemia On: :48 Request HgA1C , Office (82136)Indication: Other abnormal glucose On: 90-Rwi-389676:16 Request Comments: [facility] LIPID PANEL (94516)Indication: Hyperlipidemia On: 04-Nbi-347979:11 Request MICROALBUMIN URINE QUANT (60026)Indication: Abnormal glucose tolerance test On: 21-Mjg-952920:11 Request TSH (98122)Indication: Essential hypertension On: 75-Jwi-288899:11 Request URINALYSIS W/O MICRO (34536)Indication: Essential hypertension On: 07-Ncy-482082:11 Request CBC WITH MANUAL DIFF (35161)Indication: Essential hypertension On: 45-Cdn-475598:10 Request METABOLIC PANEL, COMPREHENSIVE (15786)Indication: Essential hypertension On: 13-Gvc-746611:10 Request HgA1C , Office (65404)Indication: Glucose Intolerance On: 6-Oab-273270:41 Request Planned Encounters Medical; [facility] 3 Month [...] A ELECTROCARDIOGRAM, COMPLETE (ECG) On: 22-May-2018 Intent (59044)By: Aparna Gutiérerz DO A Brock Comments: ekg showed normal sinus rhythym, normal axis, t wave inversion inf and ant DO Aparna A Flu Vaccine (Quadrivalent) On: 22-May-2018 Intent 24624Ra: Brock DO Aparna A Fast DO, Comments: Lot #[id number]-L dltd, IMDose prefilled syringegiven by: Maxine reviewed and ABN signed Aparna A CT - Chest (IV Contrast Needed)By: On: 04-Feb-2018 Intent April Gutiérrez DOa A Brock DO, Aparna A Comments: cta with pe protocol- stat CHEST X-RAY, PA AND LATERAL On: 23-Jul-2017 Intent (17191)By: Aparna Gutiérrez DO Comments: patient to have rechecked in early August 2017 Aparna MCCLAIN A Radiology - Chest- PA and LatBy: On: 22-Jul-2017 Intent Aparan Gutiérrez DO A Brock DO Aparna A Comments: stat call results US GALLBLADDER (74841)By: Brock MCCLAIN, On: 27-Jun-2017 Intent Aparna Gutiérrez DO, Aparna A ELECTROCARDIOGRAM, COMPLETE (ECG) On: 02-Jun-2017 Intent (07336)By: Aparna Gutiérrez DO Comments: ekg showed normal sinus rhythym, normal axis, no acute st/t wave changes DO Aparna A Flu Vaccine (Quadrivalent) On: 16-May-2017 Intent 30758Ca: April Gutiérrez DOa A Brock DO, Comments: Lot #:[id number] date: 01/05/18Amount given: 0.5mlRoute: IMSite given: left deltoidGiven by: RASHI Soto A ELECTROCARDIOGRAM, COMPLETE (ECG) On: 30-May-2016 Intent (00578)By: Aparna Gutiérrez DO Comments: ekg showed normal sinus rhythym, normal axis, no acute st/t wave changes DO Aparna A PFT - CompleteBy: Brock MCCLAIN Aparna A On: 30-May-2016 Intent Brock MCCLAIN Aparna A Comments: at [facility] Flu Vaccine (Quadrivalent) On: 30-May-2016 Intent 49881Dv: Aparna Gutiérrez DO A Brock DO, Comments: Lot #:[id number] date: 11/2016Amount given:0.5mlRoute: IMSite given: right deltoidGiven by: RASHI Soto [facility] On: 30-May-2016 Intent VACCINE (G0008)By: Brock MCCLAIN, Aparna A Fast DO, Aparna A Doppler Ultrasound OtherBy: Fast On: 30-May-2016 Intent DO, Aparna A Fast DO, Aparna A Comments: lower ext- check valve competence Rocephin Injection, 2 Gram On: 09-Feb-2016 Intent (J0696)By: April Gutiérrez DOa A Brock Comments: rocephin w lidolot:[id number]:05/21/18ite:rt and lt glutroute:IMdose 2gmD.RASHI Brand DO, Aparna A Radiology - Knee - Right - Weight On: 09-Feb-2016 Intent BearingBy: Brock DO, Aparna A Brock Comments: stat call wet read DO, Aparna A Nuclear Stress Test/Stress On: 16-Jan-2015 Intent SPECT/TreadmillBy: Brock DO, Aparna A Fast DO, Aparna A EKG (93937)By: Brock MCCLAIN Aparna A On: 23-Dec-2014 Intent [...] Comments: stat call wet read Aerosol Treatment (97721)By: Brock On: 13-Sep-2013 Intent DO, Aparna A Fast DO, Aparna A Pulse Oximetry (30488)By: Brock DO, On: 13-Sep-2013 Intent Aparna A Fast DO, Aparna A EKG (77501)By: Susy Rock On: 16-Aug-2013 Intent Comments: ekg [...] Eprescribed prescriptions On: 08-May-2012 Intent (G8553)By: Susy Rock FLU VAC, SPLIT, >3 YEARS, On: 08-Nov-2011 Intent INTRAMUSC (88156)By: Shweta, Comments: doesnt get them Susy EKG (04618)By: Kera Thompson MD On: 09-May-2011 Intent Radiology - Knee - LeftBy: Jay On: 09-May-2011 Intent Kera VELAZQUEZ EKG (91816)By: Susy Rock On: 13-Feb-2010 Intent Comments: ekg showed normal sinus rhythym, normal axis, no acute st/t wave changes nsivcd CT - ChestBy: Fast DO, Aparna A On: 15-Sep-2009 Intent Fast DO, Aparna A Comments: september or october TDAP VACCINE >7 IM (28796)By: Brock On: 15-Sep-2009 Intent DO, Aparna A Fast DO, Aparna A Comments: Lot:[id number]:09/13/11Dose:0.5MLRoute:IMSite:RIGHT DELTOID Given by: DANIEL Lopez CT - ChestBy: Fast DO, Aparna A On: 10-Feb-2009 Intent Fast DO, Aparna A Comments: mar EKG (00026)By: Carmela Payne RN On: 18-Oct-2008 Intent Comments: ekg showed normal sinus rhythym, normal axis, no acute st/t wave changes borderline intraventricular conduction delay CT - ChestBy: Fast DO, Aparna A On: 08-Jul-2008 Intent Fast DO, Aparna A CT - ChestBy: Fast DO, Aparna A On: 13-Apr-2008 Intent Fast DO, Aparna A Aerosol Treatment (35156)By: Jeana On: 13-Jan-2008 Intent Yasemin REYES Pulse Oximetry (06287)By: Jeana On: 13-Jan-2008 Intent Yasemin REYES PNEUM VAC ADLT/IMUMNOSPR, On: 11-Dec-2007 Intent SBC/INTRM (78812)By: Brock MCCLAIN, Comments: Lot #: [id number] date: 05/28Amount given: 0.5 mlRoute: IMSite given: Right deltoidGiven by: Danish Stuart LPN Aparna A Fast DO, Aparna A Pulse Oximetry (20122)By: Brock MCCLAIN, On: 12-Nov-2007 Intent Aparna A Fast DO, Aparna A Comments: 93- room air Aerosol Treatment (04987)By: Brock On: 02-Nov-2007 Intent DO, Aparna A Fast DO, Aparna A Pulse Oximetry (88197)By: Brock MCCLAIN, On: 02-Nov-2007 Intent Aparna A Fast DO, Aparna A Spirometry (39734)By: Brock MCCLAIN, On: 02-Nov-2007 Intent Aparna A [...] 12-Oct-2007 Intent Fast DO, Aparna A EKG (56741)By: Susy Rock On: 05-Aug-2007 Intent Comments: ekg showed normal sinus rhythym, normal axis, no acute st/t wave changes isolated q wave in lead 3 unchanged EKG (28655)By: Fast DO, Aparna A On: 08-Jul-2006 Intent Fast DO, Aparna A Comments: ekg showed normal sinus rhythym, normal axis, no acute st/t wave changes Planned Medications INJECTION, CEFTRIAXONE SODIUM, PER 250 MG Ordered: 09-Feb-2016 Pending Fast DO, Aparna A Fast DO, Aparna A Instructions Name Dates Details [facility] Wellness Physical : How to access health [...] : Patient Instructions Indication: BMI 40.0-44.9, adult [facility] Wellness Physical : How to access health information online Indication: [facility] Wellness Physical [facility] Wellness Physical : How to access health information online - Detail Indication: [facility] Wellness Physical [facility] Wellness Physical : Patient Instructions Indication: [facility] Wellness Physical Non-smoker : How to access [...] Hypercholesterolemia Hypercholesterolemia : Patient Instructions Indication: Hypercholesterolemia [facility] Wellness Physical : How to access health information online Indication: [facility] Wellness Physical [facility] Wellness Physical : How to access health information online - Detail Indication[facility] Physical [facility] Wellness Physical : Patient Instructions Indication: [facility] Wellness Physical Hypercholesterolemia : How to access [...] dosing regimen and considered effective by patient. uHy del angel sleeps 7 hours per night. 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 Sick at [facility] and lightheaded. He has a hx of [...] Psoriasis but got a injection last w nisqually from derm and may get another one.- [...] this time of the year). 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
--- OUTSIDE RECORDS SUMMARY | 2018-08-18 00:22 | XMS RPT_ITS ---
:1965 Author Organization [place] Support Name Relationship Address Phone STEFA [place] [id number] + [place] [address] SUSY MARQUES [address] + [place] [address] VIDA MARQUES Mother [address] [place] + [place] [address] [address] [id number] + [place] [address] SUSY MARQUES [address] + [place] [address] VIDA MARQUES Mother [address] + [place] [address] STEFA Unknown [id number] + [place] [address] SUSY MARQUES [address] + [place] [address] VIDA MARQUES Mother [address] [place] + [place] [address] STEFA Unknown [id number] + [place] [address] SUSY MARQUES [address] + [place] [address] MONIQUE MARQUESRY Mother [address] + [place] [address] [address] [id number] + [place] [address] SUSY MARQU[address] + [place] [address] VDIA MARQUES Mother [address] + [place] [address] STEFA Unknown [id number] + [place] [address] SHELLI, SUSY [address] + [place] [address] WOOD, VIDA Mother [address] + [place] [address] STEFA [id number] + [place] [address] SHELLI, SUSY [address] + [place] [address] WOOD, VIDA Mother [address] [place] + [place] [address] STEFA Unknown [address] + [place] [address] SHELLI, SUSY [address] + [place] [address] WOOD, VIDA Mother [address] [place] [address] + [place] [address] STEFA Unknown [address] + [place] [address] SHELLI, SUSY [address] + [place] [address] WOOD, VIDA Mother [address] [place] + [place] [address] STEFA Unknown [address] + [place] [address] SHELLI, SUSY [address] + [place] [address] SHELLI, VIDA Mother [address] + [place] [address] STEFA Unknown [address] + [place] [address] SHELLI, SUSY [address] + [place] [address] WOOD, VIDA Mother [address] + [place] [address] STEFA Unknown [id number] + [place] [address] SUSY MARQUES [address] + [place] [address] VIDA MARQUES Mother [address] + [place] [address] STEFA Unknown [address] + [place] [address]SUSY ALLRED [address] [phone] [place] [address] VIDA MARQUES Mother [address] + [place] [address] STEFA Unknown [address] + [place] [address]SUSY ALLRED [address] [phone] [place] [address] Care Team Providers Name Role Phone Fast DO, Aparna A Attending Unavailable Fast DO, Aparna A Referring Unavailable Fast DO, Aparna A Consulting Unavailable Gisselle Shi Attending Unavailable Rogers, Lakeview Attending Unavailable Rogers, Lakeview Referring Unavailable Fast, Aparna Attending Unavailable Fast, Aparna Primary Care Unavailable Fast, Aparna Attending Unavailable Fast, Aparna Attending Unavailable Fast, Aparna Referring Unavailable Fast, Aparna Primary Care Unavailable Fast, Aparna Attending Unavailable Fast, Aparna Referring Unavailable Fast, Aparna Primary Care Unavailable Fast, Aparna Attending Unavailable Fast, Aparna Primary Care Unavailable Fast, Aparna Referring Unavailable Nolt Vivi Attending Unavailable Gisselle Shi Attending Unavailable Rogers, Lakeview Attending Unavailable Fast, Aparna Referring Unavailable Diallo Henderson Attending Unavailable Fast, Aparna Referring Unavailable Rogers, Arcenio Attending Unavailable Fast, Aaprna Referring Unavailable Rogers, Lakeview Attending Unavailable Rogers, Lakeview Referring Unavailable Fast, Aparna Primary Care Unavailable Rogers, Arcenio Attending Unavailable Rogers, Arcenio Referring Unavailable Fast, Aparna Primary Care Unavailable Purpose Purpose PROBLEMS PROBLEMS DATE TYPE CONDITION / CODE ATTENDING STATUS SOURCE 06/19/2018 Unknown R94.31 - Abnormal Rogers, Arcenio Active [place] electrocardiogram Community [ECG] [EKG] / Hospital R94.31(ICD-10) Repository 06/19/2018 Unknown E78.5 - Rogers, Arcenio Active [place] Hyperlipidemia, Community unspecified / Hospital E78.5(ICD-10) Repository 06/19/2018 Unknown I10 - Essential Rogers, Lakeview Active [place] (primary) hypertension Community / I10(ICD-10) Hospital Repository 06/19/2018 Unknown I44.7 - Left Rogers, Arcenio Active [place] bundle-branch block, Community unspecified / Hospital I44.7(ICD-10) Repository 06/19/2018 Unknown R94.39 - Abnormal Rogers, Arcenio Active [facility] cardiovascular Hospital function study / Repository R94.39(ICD-10) 02/04/2018 Unknown R07.9 - Chest pain, Fast, Aparna Active [place] unspecified / Community R07.9(ICD-10) Hospital Repository PROCEDURES PROCEDURES No Procedure Records FoundVITAL SIGNS VITAL SIGNS No Vital Signs Records FoundRESULTS RESULTS OFFICE VISIT REPORT Observed: 06/19/2018 Status: F Source: [facility] 8:40 AM [facility] REPOSITORY [facility] Services [address] [place] [address]. [place] [address] OFFICE VISIT Date of Service: 06/19/18 MR#: [id number] Acct: [id number] Patient: LISA MARQUES Rep #: [id number] : 1965 Provider: Arcenio Mccloud MD Age/Sex: 53/M Location: [facility] Status: Signed Intake Vital Signs06/19/18 Body Mass Index (BMI) 41.8 Intake Visit Reasons: heart cath Chief Complaint: Initial visit Allergies calcipotriene [From Dovonex] Allergy (Severe, Verified 06/10/18 10:57) rash, burning bacitracin [From Neosporin (wgi-gcj-idoxk)] Allergy (Verified 06/10/18 10:57) Rash neomycin [From Neosporin (wmp-pjs-mdqle)] Allergy (Verified 06/10/18 10:57) Rash polymyxin B [From Neosporin (cek-yta-wenec)] Allergy (Verified 06/10/18 10:57) Rash Medications Losartan [...] ordered. 06/19/18 0840 <Electronically signed by Niko SANCHESC> Date Niko Steiner NP-C Cosigner Signature: Date (if applicable) CC: BASIC METABOLIC Collected: 06/19/2018 Status: F Source: [facility] PROFILE ([facility]) 8:34 AM [facility] REPOSITORY TYPE CODE TESTS RESULT OUT OF [...] GAP 7 Performed By: #### L500.2500 #### [facility] Corina Banerjee [place], [place], [address] CBC W/DIFF, AUTOMATED Collected: 06/19/2018 Status: F Source: [facility] 8:34 AM [facility] REPOSITORY TYPE CODE TESTS RESULT OUT OF [...] Lymph 1.46 Performed By: #### L100.0100 #### [facility] [address] [place], [address] PROTHROMBIN TIME W/INR Collected: 06/19/2018 Status: F Source: [facility] 8:34 AM [facility] REPOSITORY TYPE CODE TESTS RESULT OUT OF RANGE REFERENCE UNITS LAB L300.4150 11.7-14.9 SECONDS Normal PROTIME 13.4 LAB L300.4200 Normal INR 1.0 Performed By: #### L300.3900, L300.4310 #### [facility] [address] [place], [address] PARTIAL THROMBOPLAST Collected: 06/19/2018 Status: F Source: [facility] TIME 8:34 AM [facility] REPOSITORY TYPE CODE TESTS RESULT OUT OF RANGE REFERENCE UNITS LAB L300.4310 24.1-36.2 Seconds Normal PTT 28.4 Performed By: #### L300.3900, L300.4310 #### [facility] [address] [place], [place], [address] 12 LEAD EKG PERFORMED Observed: 06/19/2018 Status: F Source: [facility] BY [facility] 7:44 AM [facility] REPOSITORY [facility] [address] [place] [address] 12 Lead EKG performed by [facility] 06/19/18 0741 MR#: [id number] Acct: [id number] Name: LISA MARQUES Rep #: [id number] : 1965 53 From: Arcenio Mccloud MD Attending Dr: Arcenio Mccloud MD Status: DEP AMB Ordering Dr: Arcenio Mccloud MD Date: 06/19/18 Location: [facility] Sex: M C Admitted: [facility]/12 Lead EKG performed by [facility] ECG Report Interpretation Sinus Rhythm -Nonspecific QRS widening. - T-abnormality - Anterior and inferior ischemia. ABNORMAL Electronically signed on 08/11/2018 at 16:33 by Arcenio Mccloud Software Version 8610 08/11/18 1645 Date Arcenio Mccloud MD CC: Aparna Gutiérrez DO Date Dictated: 06/19/18740 Date Transcribed: 06/19/18740 Crate Maker: CO Signed CARDIOLOGY VISIT Observed: 06/11/2018 Status: F Source: [facility] REPORT 10:48 AM [facility] REPOSITORY [facility] [address] [place] [address] OFFICE VISIT Date of Service: 06/10/18 MR#: [id number] Acct: [id number] Name: LISA MARQUES Rep #: [id number] : 1965 Provider: Arcenio Mccloud MD Age/Sex: 53/M Location: [facility] Status: Signed HPI HPI Chief Complaint: Initial [...] PCP ref'd for abn echo AND stress Rn Clinical Resource Required: No Accompanied by: Is patient in pain?: No Allergies calcipotriene [From Dovonex] Allergy (Severe, Verified 06/10/18 10:57) rash, burning bacitracin [From Neosporin (rcv-ulu-fdfzx)] Allergy (Verified 06/10/18 10:57) Rash neomycin [From Neosporin (wgy-jim-ofamd)] Allergy (Verified 06/10/18 10:57) Rash polymyxin B [From Neosporin (fgp-ymx-cxqks)] Allergy (Verified 06/10/18 10:57) Rash Medications Losartan Potassium [Cozaar] 100 mg PO DAILY 12/07/16 [History Confirmed 06/05/18] cholecalciferol (vitamin D3) 2,000 unit tablet 4,000 unit PO DAILY tab 06/05/18 [History Confirmed 06/05/18] fluticasone 50 mcg/actuation nasal spray,suspension 2 spray INTRANASAL DAILY 06/05/18 [History Confirmed 06/05/18] meloxicam 15 mg tablet 15 mg PO DAILY PRN 06/10/18 [History Confirmed 06/10/18] [facility] Medical History Incomplete left bundle branch block [...] vein stripping (Resolved 2016) Family History Father Valera' lung Mother Lupus Psoriatic arthritis Brother Psoriatic arthritis Social History Smoking Status: Never smoker alcohol intake: never caffeine: Yes Type: coffee Number of servings: 3 ROS Const Const: Positive for other (Dr. Gutiérrez sent pt for stress AND echo d/t abn ekg: stressok, poss prev inf [place]); negative for fatigue, weakness, difficulty sleeping, frequent [...] arise Plan Detail Follow Up 1 Year (r) Coding Level of Care Code Off vis,new,level 4 Diagnoses Abnormal echocardiogram R93.1 Essential hypertension I10 Hyperlipidemia E78.5 Coding Level of Care Code Off vis,new,level 4 Diagnoses Abnormal echocardiogram R93.1 Essential hypertension I10 Hyperlipidemia E78.5 06/11/18 1048 <Electronically signed by Arcenio Mccloud MD> Date Arcenio Mccloud MD Cosigner Signature: Date (if applicable) CC: Aparna Fast DO STRESS REPORT Observed: 05/29/2018 Status: F Source: [place] 5:10 PM [facility] REPOSITORY [facility] Cardiovascular Services [address] [place] [address] MR#: [id number] Acct: [id number] Name: LISA MARQUES Rep #: [id number] : 1965 53 From: Arcenio Mccloud MD Primary Care: Brock MCCLAINAparna Status: REG CLI Ordering Dr: Meghan: Petrona Robbins Stress Test Report Pharmacologic myocardial perfusion stress [...] DO Date Dictated: 05/29/181705 Date Transcribed: 05/29/181705 Crate Maker: CO Signed ECHO, COMPLETE W/ Observed: 05/29/2018 Status: F Source: [place] CONTRAST 2:23 PM [facility] REPOSITORY [facility] Cardiovascular Services [address] [place] [address] Echo Complete W/ Contrast 05/29/18950 MR#: [id number] Acct: [id number] Name: LISA MARQUES Rep #: [id number] : 1965 53 From: Diallo Henderson MD Attending Dr: Aparna Gutiérrez DO Status: REG CLI Ordering Dr: Aparna Gutiérrez DO Date: 05/29/18 Location: [facility] Sex: M C Admitted: Reason [...] Weinstein, SOFIA, RVT 05/29/18 1423 Date Diallo Henderson MD CC: Aparna Gutiérrez DO Date Dictated: 05/29/18 0951 Date Transcribed: 05/29/18 1423 Crate Maker: Signed ELBOW MIN 3 VIEWS Observed: 05/22/2018 Status: F Source: [facility] AM [facility] Imaging Services [address] [place] [address] Elbow min 3 Views MR#: [id number] Acct: [id number] Name: LISA MARQUES Rep #: [id number] : 1965 M 53 From: Elieser Cortes MD PCP: Aparna Gutiérrez DO Status: REG CLI Study: Elbow min 3 Views Date of Exam: 05/22/18 Exam# [id number] Ordering Dr: Aparna Gutiérrez DO HISTORY: Right [...] Service support , CC: Aparna Gutiérrez DO Crate Maker: Signed CTA CHEST W/WO Observed: 02/04/2018 Status: F Source: [facility] CONTRAST 12:59 PM [facility] REPOSITORY [facility] Imaging Services [address] [place] [address] CTA Chest W/WO Contrast MR#: [id number] Acct: [id number] Name: LISA MARQUES Rep #: [id number] : 1965 M 52 From: Nikunj Hoskins MD PCP: Aparna Gutiérrez DO Status: REG CLI Study: CTA Chest W/WO Contrast Date of Exam: 02/04/18 Exam# [id number] Ordering Dr: Aparna Gutiérrez DO STUDY: CTA [...] Service support , CC: Aparna Gutiérrez DO Crate Maker: Signed BASIC METABOLIC Collected: 02/04/2018 Status: F Source: [place] PROFILE (BMP) 12:49 PM [facility] REPOSITORY TYPE CODE TESTS RESULT OUT OF [...] GAP 6 Performed By: #### L500.2500 #### [facility] [address] [place], [address] D-DIMER QUANTITATIVE Collected: 02/04/2018 Status: F Source: [place] (DVT/PE) 12:49 PM [facility] REPOSITORY Order Comment: CRITICAL VALUE VERIFIED. CALLED [...] Embolism (PE) Performed By: #### L300.8000 #### [facility] [address] [place], [address] CHEST PA AND LATERAL Observed: 08/29/2017 Status: F Source: [place] 8:19 AM [facility] REPOSITORY [facility] Imaging Services [address] [place] [address] Chest PA and Lateral MR#: [id number] Acct: [id number] Name: LISA MARQUES Rep #: [id number] : 1965 M 52 From: Ernesto Schmitt MD PCP: Aparna Gutiérrez DO Status: REG CLI Study: Chest PA and Lateral Date of Exam: 08/29/17 Exam# [id number] Ordering Dr: Aparna Gutiérrez DO STUDY: X-RAY [...] Ernesto Schmitt MD at 12:41 EST Tel [phone], Service support , CC: Aparna Gutiérrez DO Crate Maker: Signed ALLERGIES ALLERGIES DATE TYPE / CODE NAME / CODE REACTION SEVERITY SOURCE 06/10/2018 Drug neomycin/F866926 Rash Unknown [facility] Allergy/416 775(RXNORM) [facility] 726415(SNOM Repository ED CT) 06/10/2018 Drug bacitracin/F0060 Rash Unknown [place] [facility] Allergy/416 73404(RXNORM) Hospital 789942(SNOM Repository ED CT) 06/10/2018 Drug calcipotriene/F0 rash, burning SV [place] [facility] Allergy/416 94645810(RXNORM) Hospital 763540(SNOM Repository ED CT) 06/10/2018 Drug polymyxin Rash Unknown [place] [facility] Allergy/416 B/M139471893(RXN Hospital 457927(SNOM ORM) Repository ED CT) ENCOUNTERS ENCOUNTERS ADMIT/DISCHARGE ACCOUNT ADMITTING ENCOUNTER LOCATION SOURCE NUMBER CLASS 08/03/2018 2208 Ambulatory Building:[facility] [place] Practices Repository 07/02/2018 [id number] Ambulatory BMSBuilding:B [facility] 0 [facility] Repository 07/02/2018/ [id number] Ambulatory BMSBuilding:W [place] 8 9 [facility] Repository 07/02/2018/ [id number] Ambulatory [place] 8 6 [facility] Hospital ing:CLSP Repository 06/19/2018 [id number] Ambulatory [place] 8 [facility] Hospital ing:LAB Repository 06/19/2018/ [id number] Ambulatory BMSBuilding:B [place] 8 9 [facility] Repository 06/10/2018/ [id number] Ambulatory BMSBuilding:B [place] 8 7 [facility] Repository 06/09/2018 [id number] Ambulatory BMSBuilding:B [place] 7 [facility] Repository 06/05/2018 [id number] Ambulatory BMSBuilding:B [place] 1 [facility] Repository 05/29/2018 [id number] Ambulatory [place] 6 [facility] Hospital ing:CVS Repository 05/29/2018 [id number] Ambulatory BMSBuilding:W [place] 2 [facility] Repository 05/22/2018 [id number] [place]ulatory [place] 4 [facility] Hospital ing:HPRAD Repository 02/04/2018 [id number] Ambulatory [place] 5 [facility] Hospital ing:CT Repository 08/29/2017 [id number] Ambulatory [facility] 0 [facility] Hospital ing:RAD.FUTUR Repository E 08/29/2017 [id number] Ambulatory [place] 1 [facility] ing:HPRAD Repository FUNCTIONAL STATUS FUNCTIONAL STATUS No Functional Status Records FoundEQUIPMENT EQUIPMENT No Equipment Records FoundPAYERS PAYERS ENCOUNTER GUARANTOR PAYER SUBSCRIBER SOURCE 08/03/2018 LISA MEANSB: Primary Susy OHIP Practices [id number] Insurance:Medical WoodDOB: Repository [address] [facility] [id number] [place], [place] Number: [address] [address]Wog: ([phone]) [id number] RdBurbank, [place] Date:6189-39-33Zlkl 38979Prk: 330) (HP)Tel: (330) Name:[facility] Christiano (HP) () [address], [place] [address]QQ: 08/03/2018 Secondary LISACarole MARQUESDOB: [place]IP Practices Insurance:Teaticket [id number] Repository BC/BSPolicy Number: [address] [id number] RdBurbank, [place] Date:2005-03-21442009024Bjq: (670) 2080-83-65Nesy 0890 () Name:[facility] Christiano [address], [place] [address]CV: 08/03/2018 Tertiary LISA MARQUESDOB: [place] Practices Insurance:First [id number] Repository Federal Credit [address] [employer]Policy [address], [place] Number: Effective [address]Lbv: (330) Date: (HP) [id number] Name:[id number], [place] [address]SD: 08/03/2018 Tertiary ILSA MARQUESDOB: [place]IP Practices Insurance:Summa [id number] Repository CarePolicy Number: [id number] [address]B[place], [place] Date:2009-02-18 19769Def: (340) [id number] 08 () Name:[facility] [address], [place] [address]KY: 08/03/2018 Tertiary LISA Seay WOODDOB: [place]IP Practices Insurance:Abdirizak [id number] Repository /[facility] Number: 39 [facility] [id number] RdBurb[place], [place] Date:2012-02-19 - [address]Fre: [phone]) [id number] [phone] () Name:[facility] [address], [place] [address]NE: 07/02/2018 LISA Seay Primary SUSY D [place] [id number] Insurance:MEDICAL WOODDOB: [facility] [id number], [place] Number: Repository [address]Nuk: 330 [id number] [phone] () Date:2451-21-43KK [address] [place] [address]AC: 07/02/2018 Secondary NOT GIVENUNK [place] Insurance:SELF PAY [facility] Number: Effective Repository Date:2018-07-02 07/02/2018 LISA Seay Primary SUSY D [place] [id number] Insurance:MEDICAL WOODDOB: [facility] 6488-31-16WYGRichland, [place] Number: Repository [address]Xrn: 330 [id number] [phone] () Date:7641-61-08LD [address] [place] [address]EV: 07/02/2018 Secondary NOT GIVENUNK [place] Insurance:SELF PAY [facility] Number: Effective Repository Date:2018-07-02 07/02/2018 LISA Seay Primary SUSY D [place] [id number] Insurance:MEDICAL WOODDOB: [facility] 9861-91-75UEER[place]land, [place] Number: Repository [address]Ffp: [phone] [id number] [phone] () Date:9454-31-97AI [address] [address]ZL: 07/02/2018 Secondary NOT GIVENUNK [place] Insurance:SELF PAY [facility] Number: Effective Repository Date:2018-06-17 06/19/2018 LISA Seay Primary SUSY Wallace [place] [id number] Insurance:MEDICAL WOODDOB: [facility] [id number], [place] Number: Repository [address]Cbh: 330 [id number] [phone] () Date:8811-57-52CO [address] [address]SX: 06/19/2018 Secondary NOT GIVENUNK [place] Insurance:SELF PAY [facility] Number: Effective Repository Date:2018-06-19 06/19/2018 LISA Seay Primary SUSY D [place] [id number] Insurance:MEDICAL WOODDOB: [facility] [id number], [place] Number: Repository [address]Oqm: 330 [id number] [phone] () Date:9883-09-36GB [address] [address]MG: 06/19/2018 Secondary NOT GIVENUNK [place] Insurance:SELF PAY [facility] Number: Effective Repository Date:2018-06-19 06/10/2018 LISA Seay Primary SUSY Wallace [place] [id number] Insurance:MEDICAL WOODDOB: [facility] 1921-83-48ZZZRichland, [place] Number: Repository [address]Rci: 330 [id number] [phone] () Date:2565-69-54J[address] [address]NE: 06/10/2018 Secondary NOT GIVENUNK [place] Insurance:SELF PAY [facility] Number: Effective Repository Date:2018-06-10 06/09/2018 LISA Seay Primary SUSY Wallace [place] [id number] Insurance:MEDICAL WOODDOB: [facility] 6409-93-74AYNSun[place], [place] Number: Repository [address]Ixd: 330 [id number] [phone] (HP) Date:5264-95-84LK [address] [address]NG: 06/09/2018 Secondary NOT GIVENUNK [place] Insurance:SELF PAY [facility] Number: Effective Repository Date:2018-06-09 06/05/2018 LISA Seay Primary SUSY D [place] [id number] Insurance:MEDICAL WOODDOB: [facility] [id number], [place] Number: Repository [address]Dpr: 330 [id number] [phone] (HP) Date:5576-65-11WX [address] [address]CA: 06/05/2018 Secondary NOT GIVENUNK [place] Insurance:SELF PAY [facility] Number: Effective Repository Date:2018-06-05 05/29/2018 LISA Seay Primary SUSY D [place] [id number] Insurance:MEDICAL WOODDOB: [facility] 0876-99-51GHDSunset, [place] Number: Repository [address]Zvq: 330 [id number] [phone] () Date:1483-12-35SV [address] [address]FE: 05/29/2018 Secondary NOT GIVENUNK [place] Insurance:SELF PAY [facility] Number: Effective Repository Date:2018-05-22 05/29/2018 LISA Seay Primary SUSY D [place] [id number] Insurance:MEDICAL WOODDOB: [facility] 0461-48-69IMLRichland, [place] Number: Repository [address]Azf: 330 [id number] [phone] (HP) Date:8691-53-17IZ [address] [address]YJ: 05/29/2018 Secondary NOT GIVENUNK [place] Insurance:SELF PAY [facility] Number: Effective Repository Date:2018-05-29 05/22/2018 LISA Seay Primary SUSY Wallace [place] [id number] Insurance:MEDICAL WOODDOB: [facility] 1748-76-79QOYRichland, [place] Number: Repository [address]Foy: 330 [id number] () Date:7031-74-10DU [address] [place] [address]SV: 05/22/2018 Secondary NOT GIVENUNK [place] Insurance:SELF PAY [facility] Number: Effective Repository Date:2018-05-22 02/04/2018 Lisa Seay Primary SUSY Wallace [place] [id number] Insurance:MEDICAL WOODDOB: [facility] 7320-39-88YZKFairfax, [place] Number: Repository [address]Jdm: 330 [id number] [phone] () Date:9451-29-26DI [address] [address]XX: 02/04/2018 Secondary NOT GIVENUNK [place] Insurance:SELF PAY [facility] Number: Effective Repository Date:2018-02-04 08/29/2017 Lisa Seay Primary SUSY Wallace [place] [id number] Insurance:MEDICAL WOODDOB: [facility] 7161-85-28ENBFairfax, [place] Number: Repository [address]Aoe: [id number] [phone] Date:5780-48-59UR [address] () [address] [place] [address]VS: 08/29/2017 Secondary NOT GIVENUNK [place] Insurance:SELF PAY [facility] Number: Effective Repository Date:2017-08-08 08/29/2017 WOOD Primary NOT GIVENUNK [place] [id number] Insurance:SELF PAY [facility] [address]Tdr: Number: Effective Repository [phone] Date:2017-08-29 () SOCIAL HISTORY SOCIAL HISTORY No Social History Records FoundFAMILY HISTORY FAMILY HISTORY No Family History Records FoundPREGNANCY No Status Records FoundADVANCE DIRECTIVES ADVANCE DIRECTIVES No Advanced Directives Records FoundINFORMATION SOURCE INFORMATION SOURCE DATE CREATED AUTHOR AUTHOR'S ORGANIZATION 08/12/2018 OHIP
== END 2018-07-02 11:45 | disposition home or self-care (01) ==
LOC: CLSP 06:49
PROVIDERS: Family Provider Internal Medicine; PCP Internal Medicine; Referring Provider Internal Medicine Cardiovascular Disease; Visit Provider Internal Medicine Cardiovascular Disease
DX: R93.1 Abnormal findings on diagnostic imaging of heart and coronary circulation (principal); R94.39 Abnormal result of other cardiovascular function study; I44.7 Left bundle-branch block, unspecified; I10 Essential (primary) hypertension; E78.5 Hyperlipidemia, unspecified; E66.9 Obesity, unspecified; Z68.41 Body mass index [BMI] 40.0-44.9, adult; G47.33 Obstructive sleep apnea (adult) (pediatric); K57.90 Diverticulosis of intestine, part unspecified, without perforation or abscess without bleeding; L40.9 Psoriasis, unspecified; E55.9 Vitamin D deficiency, unspecified; Z87.19 Personal history of other diseases of the digestive system; Z90.49 Acquired absence of other specified parts of digestive tract; Z79.899 Other long term (current) drug therapy
CPT/HCPCS: 93458; 99152; 99153; J7040; C1769; C1894; Q9967

== ENCOUNTER → 2019-04-24 07:32 | Outpatient (CLI) | payer OTHER, SELFPAY ==
[2018-07-01 10:18] VITALS: BMI 41.8
--- NOTE | 2019-04-24 07:40 | RAD_ITS ---
STUDY: X-RAY - PELVIS AND BILATERAL HIPS REASON FOR EXAM: Male, 54 years old. Bilateral hip pain TECHNIQUE: AP view of the pelvis.? 2 views of the right hip, and 2 views of the left hip were obtained. COMPARISON: None. FINDINGS: Examination is technically limited, in part due to patient's body habitus. Osseous details are poorly seen. Trabeculae cannot be resolved and there is diffuse hyperdense appearance of the bones which is probably artifactual. However, mineralization cannot be assessed. Both hips are intact and located. There are degenerative changes in the superolateral acetabula with accessory ossicles. Lower abdominal soft tissue shadows are unremarkable and there is no intestinal obstruction. RAD/Hips B/L min 2 views w/ Pelvis IMPRESSION: No acute osseous injury of the pelvis/hips. Likely mild acetabular degenerative changes and/or accessory ossicles. Possibility of bilateral labral injury is raised. Technically Limited assessment. Electronically Signed: Giancarlo Delgado, at 19:14 EDT Tel , Service support ,
== END ==
PROVIDERS: Family Provider Internal Medicine; PCP Internal Medicine; Referring Provider Internal Medicine; Visit Provider Internal Medicine
DX: M25.551 Pain in right hip (principal); M25.552 Pain in left hip
CPT/HCPCS: 73521

== ENCOUNTER → 2019-11-05 | Outpatient (CLI) | payer OTHER, SELFPAY ==
[2019-06-10 08:18] VITALS: BMI 41.9
[2019-11-05 14:15] LABS: Absolute Lymphocyte Count 1.81 X10^3/uL (0.83-4.51); Absolute Neutrophil Count 5.4 X10^3/uL (2.0-7.7); Basophil# 0.04 X10^3/uL; Basophil% 0.5 % (0-1); Eosinophil# 0.17 X10^3/uL; Hematocrit 49.6 % (40-54); Hemoglobin 16.3 g/dL (13.0-16.5); Lymphocyte # 1.81 X10^3/ul (4.0); Lymphocyte % 21.6 % (19-41); Mean Corp Hgb Conc 32.9 g/dL (32-36); Mean Corpuscular Hgb 31.8 pg (27.0-32.0); Mean Corpuscular Volume 96.7 fL (80-94); Mean Platelet Vol. 9.8 fl (6.2-12.0); Monocyte# 0.91 X10^3/uL; Monocyte% 10.9 % (0-10); NRBC Flagged by Analyzer 0 % (0-5); Neutrophil # 5.42 X10^3/uL (2.7-7.7); Neutrophil % 64.6 % (47-70); Platelet Count 189 K/mm3 (150-450); RBC Distribution Width CV 12.9 % (11.6-14.6); RBC Distribution Width SD 46.5 fl (35.1-43.9); Red Blood Count 5.13 M/mm3 (4.6-6.2); White Blood Count 8.4 K/mm3 (4.4-11.0)
[2019-11-05 14:27] LABS: AST(SGOT) 32 U/L (15-37); Alanine Aminotransfer ALT/SGPT 54 U/L (16-61); Albumin, Serum 3.4 g/dL (3.2-5.0); Alkaline Phosphatase 84 U/L (45-117); Anion Gap 4 (5-15); BUN 12 mg/dL (7-18); BUN/Creat Ratio 12.8 RATIO (10-20); Calcium,Total 8.8 mg/dL (8.5-10.1); Chloride 103 mmol/L (98-107); Creatinine, Serum 0.93 mg/dL (0.70-1.30); EST Glomerular Filtration Rate 90 mL/min (>60); Est Glom Filt Rate - Afr Amer 109 mL/min (>60); Globulin 3.4 g/dL (2.2-4.2); Glucose 100 mg/dL (74-106); Protein, Total 6.8 g/dL (6.4-8.2); Sodium Level 140 mmol/L (136-145)
== END | disposition home or self-care (01) ==
LOC: LABSPEC 13:59
PROVIDERS: PCP Internal Medicine; Referring Provider Internal Medicine; Visit Provider Internal Medicine
DX: R10.9 Unspecified abdominal pain (principal)
CPT/HCPCS: 80053; 85025

== ENCOUNTER 2020-04-12 07:00 | Outpatient (RCR) | payer OTHER, SELFPAY ==
[2019-06-10 08:18] VITALS: BMI 41.9
--- NOTE | 2020-03-15 07:55 | HP.PTEVAL ---
Patient's Visit Information LISA MARQUES is a 54 year old M referred to Physical Therapy by Dr. Nathan Walker MD with a diagnosis of L hip OA. Date of Evaluation: 03/15/20 Physical Therapist: Nicolas Farrar, PT, ATC - Visit Plan Frequency: 2x /Week Duration: 4-6 Weeks Plan: L hip strengthening, core strengthening, balance and proprio, nustep, and HEP - Subjective Pt reports his L hip has been really sore for 10 months. Pt reports he has had 2 cortisone injections. The coco one really helped, but the last one has not made a difference. Pt reports he needs to have a RANDAL, but wants to have PT in hopes of prolonging it. Pt reports he has had an xray and MRI which revealed he is bone on bone and has a torn ligament in his L hip. Pt reports most of his pain is located in the L groin region. Pt notes he has to assist his L LE with all car transfers. Pt reports he does have a little tingling in his L quad region. sleep difficulty secondary to pain. Pt reports he has difficulty with driving and stair negotiation secondary to pain. 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 5/10 pain at rest, 10/10 pain at worst. - Pain L hip Pain Intensity (Out of 10): 5 Pain Intensity Range: 10 - Objective Neuro: B LE sensation is WNL to light touch. B patellar reflex= 2/3. ROM: L hip is moderately limited in all ROM. R hip is WNL. MMT: L hip is grossly 4-/5 and painful with all testing. R hip 5/5 throughout. Gait: Pt displays an obvious limp of L LE while ambulating. Pt uses a slower cadance while ambulating. Special tests: pos quadrant test - Goals Goal 1:: Decrease L hip pain x 50% to aid with sleep Goal Time Frame: 4-6 Weeks Goal 2:: Increase L hip strength x 1 grade to aid with stair negotiation Goal Time Frame: 4-6 Weeks Goal 3:: Pt will ambulate with a normalized gait pattern without limpin on L LE Goal Time Frame: 4-6 Weeks Goal 4:: I with HEP Goal Time Frame: 4-6 Weeks - Rehabilitation Potential Physical Therapy Diagnosis: L hip pain, weakness, and limited ROM secondary to OA Rehabilitation Potential: Good - Anticipated Interventions Patient/Client Instruction: Educate patient on: Condition, Plan of Care For the Purpose of:: To improve self management Therapeutic Exercise to Include: Strength training, Endurance training, Balance training, Flexibilty training, Active ROM, Dynamic Lumbar Stabilization For the Purpose of:: To decrease pain, To increase ROM, To improve muscle performance and motor function Cryotherapy (ice pack, ice massage): Yes For the Purpose of:: To decrease pain Thank you for the opportunity to evaluate your patient. For Medicare and Medicare HMO plans, please review the plan of care and approve it. It will need to be FAXED BACK to us at [phone] for Medicare purposes. For Medicare only, by signing this I certify the plan of care. Please let me know if there are questions or concerns regarding this plan of care. Physician Signature: Date:
--- NOTE | 2020-04-12 07:28 | HP.PTDCSUM ---
It has been my pleasure to treat LISA MARQUES referred by Dr. Nathan Walker MD, with the diagnosis of L hip OA for a total of 9 visit(s). Discharge Date: Please see the following information for a summary of their discharge status. Subjective: I am only getting worse. My pain is terrible L hip Pain Intensity (Out of 10): 10 Objective/Function: L hip pain is 10/10. Pt still ambulates with an antalgic gait pattern. L LE MMT: 3/5 and painful. Pt is I with HEP Goal 1:: Decrease L hip pain x 50% to aid with sleep Goal Progress: Not Progressing Goal 2:: Increase L hip strength x 1 grade to aid with stair negotiation Goal Progress: Not Progressing Goal 3:: Pt will ambulate with a normalized gait pattern without limpin on L LE Goal Progress: Not Progressing Goal 4:: I with HEP Goal Progress: Goal Met Plan: Discontinue to HEP secondary to lack of progress If there are questions or concerns regarding this patient's physical therapy, please feel free to call me at [phone]. Thank you for the referral of this patient. Sincerely, Nicolas Farrar, PT, ATC
== END 2020-04-12 19:00 | disposition home or self-care (01) ==
LOC: PT 07:00
PROVIDERS: PCP Internal Medicine; Referring Provider Orthopaedic Surgery; Visit Provider Orthopaedic Surgery
DX: M16.12 Unilateral primary osteoarthritis, left hip (principal)
CPT/HCPCS: 97110; 97161; 97164

== ENCOUNTER 2020-07-04 10:00 | Outpatient (RCR) | payer OTHER, SELFPAY ==
[2019-06-10 08:18] VITALS: BMI 41.9
--- NOTE | 2020-04-27 11:08 | HP.PTEVAL ---
Patient's Visit Information LISA MARQUES is a 55 year old M referred to Physical Therapy by Dr. Nathan Walker MD with a diagnosis of L hip OA, L RANDAL. Date of Evaluation: 04/25/20 Physical Therapist: Ayad Banks DPT - Visit Plan Frequency: 2x /Week Duration: 6 Weeks Plan: Plan to inc L hip ROM, inc LLE strength, inc ability to ambulate w/out deviations, and facilitate dec pain. As gait progresses, transitioning from FWW to SC. Interventions to include ROM, stretching, strengthening, gait, and balance while maintaining posterior hip precautions. - Subjective Pt presents for eval 4 days s/p L RANDAL postero-lateral approach. Pt reports having L hip pain beginning around May 2019 and initially tried PT and injections to no avail and decided on L RANDAL. 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 Has been sleeping in a recliner on the first floor since surgery and denies having issues sleeping. Requires 2 SHIRLEY home w/ no HRs, is assisted by and reports no issues when assisted. Ambulates w/ FWW. Uses ice daily for pain and takes Oxycodon PRN. - Pain L ant hip Pain Intensity (Out of 10): 6 Pain Intensity Range: 4, 6 - Objective POSTURE: Dec WB on LLE. WNL elsewhere. PALPATION: WNL. ROM: Dec L hip ROM in all planes, pt reports pain w/ all hip movements. MMT: L hip 3/5 throughout, L knee 4-/5 throughout. WNL elsewhere. NEURO: WNL, denies n/t. GAIT: Ambulates w/ FWW. Displays forward trunk, dec renny, dec R step length. TRANSFERS: Aj-ModA w/ bed mobility, limited in part by pain. Completed 5x [id number] in 19.7. - Goals Goal 1:: LTG: Pt to be I w/ HEP. Goal Time Frame: 4-6 Weeks Goal 2:: STG: Pt will display inc L hip ROM by 10% Goal Time Frame: 2-4 Weeks Goal 3:: LTG: Pt will display inc L hip ROM by 25% Goal Time Frame: 4-6 Weeks Goal 4:: STG: Pt will display inc LLE strength by 1/2 grade. Goal Time Frame: 2-4 Weeks Goal 5:: LTG: Pt will display inc LLE strength by 1 grade. Goal Time Frame: 4-6 Weeks Goal 6:: LTG: Pt will display inc ability to ambulate safely w/out notable deviations. Goal Time Frame: 4-6 Weeks - Rehabilitation Potential Physical Therapy Diagnosis: S/s consistent w/ s/p L RANDAL. Posterior lateral approach. Pt displays dec L hip ROM, dec LLE strength, inc pain, dec ability to safely ambulate w/out deviations, and dec ability to perform regular activities. PT intervention indicated to address stated deficits and inc L hip ROM, inc LLE strength, inc ability to safely ambulate, and facilitate a dec in pain and return to regular activities. Rehabilitation Potential: Good - Anticipated Interventions Patient/Client Instruction: Educate patient on: Condition, Plan of Care, Risk Factors, Benefits of Fitness Program For the Purpose of:: To improve safety, To foster healthy habits, To improve self management, To prevent re-injury Therapeutic Exercise to Include: Strength training, Endurance training, Balance training, Flexibilty training, Gait and locomotor training, Active ROM For the Purpose of:: To decrease pain, To increase ROM, To improve muscle performance and motor function, To increase tolerance to activity/condition/position, To improve ability of physical actions for home/community/work/leisure, To improve gait and locomotor functions, To increase flexibility/ROM, To improve balance Ultrasound (thermal/non thermal): Yes For the Purpose of:: To decrease pain, To improve nutrient delivery to tissue Thank you for the opportunity to evaluate your patient. For Medicare and Medicare HMO plans, please review the plan of care and approve it. It will need to be FAXED BACK to us at [phone] for Medicare purposes. For Medicare only, by signing this I certify the plan of care. Please let me know if there are questions or concerns regarding this plan of care. Physician Signature: Date:
--- NOTE | 2020-06-01 11:16 | HP.OTEVAL_ITS ---
Patient's Visit Information LISA MARQUES is a 55 year old M, referred to Occupational Therapy by Dr. Nathan Walker MD, with a diagnosis of right wrist tenosinovitis (dequervain). Date of Evaluation: 06/01/20 Occupational Therapist: Yanira Flaherty, JUAN CARLOS/Dawood, CHT - Subjective This 55 year old male was seen for OT eval with dx of right wrist Dequervains tenosynovitis. 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 pt is left handed. pt works at [employer]. - Pain right hand 7 Pain Intensity Range: 7, 8 - ROM Wrist: right 25/20 left 55/55 CMC: right 5 left 15 MP: right 45 left 50 IP: right 15 left 50 ROM Comments: right RD 0 [address] left [address] 20 UD 35 - Strength Audit Manager: right unable left 100# Lateral Pinch: right unable left 24# Tripod Pinch: right unable left 20# Tip-to-Tip Pinch: right unable left 10# - Edema Wrist: right 19.5 left 19cm - Sensation Sensation Comments: denies. had right CTR done in past - Quick DASH-Disab of Arm,Shoulder& Hand Quick DASH Score: 93.3325 - Goals Goal:: PT will demo an increase in family medicine chair strength by 20# to increase independent with basic occupations of daily living to return pt to PLOF by D/C. Pt will demo an increase in lateral and tripod pinch by 2# to increase pts independent with opening baggies, containers at PLOF by D/C. Goal:: Pt will demo an increase in wrist ROM equal to unaffected wrist to return pt to PLOF with grooming, dressing and home mtg tasks by D/C. Goal:: Pt will report pain no greater than 1/10 with use of affected hand with BADLs and IADLs by d/c. Goal:: Pt will demo understanding of work/lifting and carry ergonomics to decrease stress on tendons to increase pts independent with ADLs, IADLS and work tasks by d/c. Goal:: Pt will demo understanding of orthosis use and precautions by end of 1st session. Pt will return to clinic for orthosis adjustment. - Rehabilitation General Assessment: pt demo with with right wrist pain, limited ROM and weakness. pt is currently limited with ADLs and IADLs. pt would benefit from skilled OT services 2x week for 4 weeks to decrease pts pain increase pts strength to return to pLOF. Today therapist ed, pt on Dequervairn's and how orthosis to limit thumb and wist would assist in protection of tendon- pt agree to use of orthosis and POC. Rehabilitation Potential: Good - Anticipated Interventions A/AAROM/PROM, Strengthening, Triggerpoint Release, Modalities, Orthoses, Joint Protection/Energy Conservation, Ergonomic Education - Visit Plan Frequency: 2x /Week Duration: 4 Weeks TEXT: Thank you for the opportunity to evaluate your patient. For Medicare and Medicare HMO plans, please review the plan of care and approve it. It will need to be FAXED BACK to us at [phone] for Medicare purposes. Please let me know if there are questions or concerns regarding this plan of care. Physician Signature: Date:
--- NOTE | 2020-06-09 10:25 | HP.PTREVAL ---
Dr. Nathan Walker MD, It has been my pleasure to treat LISA MARQUES over the last 12 visits for L hip OA, L RANDAL (04/21/20). Please see the progress note below for an update on the physical therapy plan of care! Subjective: Pt saw his doctor yesterday and said that he is doing well overall and rescheduled to return to doctor in 6 weeks. Doctor removed his restrictions but told him to take it easy. Objective/Function: ROM: L hip flex 96 deg, ext 5 deg, abd 12 deg. Abd limited by pain. MMT: L hip flex 4-/5, ext 4+/5, abd 3+/5. Able to complete 5 SLR w/ quad lag, no pain. Gait: Negotiates stairs w/ LHR and reciprocal pattern. Noted weakness when ascending w/ LLE, no pain. Ambulated 1000' w/ no AD, noted slight dec in L stance phase w/ slight L lateral lean during stance phase. Reports having no pain w/ ambulation. Uses a SPC when ambulating outside. Pt is doing well overall and is progressing well. Plan Plan: Cont to progress strength exs. Goals Goal 1:: LTG: Pt to be I w/ HEP. Goal Time Frame: 4-6 Weeks Goal 2:: STG: Pt will display inc L hip ROM by 10% Goal Time Frame: 2-4 Weeks Goal 3:: LTG: Pt will display inc L hip ROM by 25% Goal Time Frame: 4-6 Weeks Goal 4:: STG: Pt will display inc LLE strength by 1/2 grade. Goal Time Frame: 2-4 Weeks Goal 5:: LTG: Pt will display inc LLE strength by 1 grade. Goal Time Frame: 4-6 Weeks Goal 6:: LTG: Pt will display inc ability to ambulate safely w/out notable deviations. Goal Time Frame: 4-6 Weeks Anticipated Interventions Patient/Client Instruction: Educate patient on: Condition, Plan of Care, Risk Factors, Benefits of Fitness Program For the Purpose of:: To improve safety, To foster healthy habits, To improve self management, To prevent re-injury Therapeutic Exercise to Include: Strength training, Endurance training, Balance training, Flexibilty training, Gait and locomotor training, Active ROM For the Purpose of:: To decrease pain, To increase ROM, To improve muscle performance and motor function, To increase tolerance to activity/condition/position, To improve ability of physical actions for home/community/work/leisure, To improve gait and locomotor functions, To increase flexibility/ROM, To improve balance Ultrasound (thermal/non thermal): Yes For the Purpose of:: To decrease pain, To improve nutrient delivery to tissue Please do not hesitate to contact me at [phone] by phone or if you have questions or concerns regarding this new plan of care! Sincerely, CLEVE AkbarT
--- NOTE | 2020-06-13 13:50 | HP.OTDCSUM ---
It has been my pleasure to treat LISA MARQUES under orders from Dr. Nathan Walker MD, for the diagnosis of right wrist tenosinovitis (dequervain) for a total of 4 visit(s). Please see the following information for a summary of their discharge status. 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 right lateral pinch 24#. right tripod pinch 18#. right tip pinch 20#. right wrist 50/45. foream WNL. pt has made great gains in strength and reports little to no pain with ADLs pt can be d/c at this time as he met functional goals. pt to use wrist ergo with working and ice if he irritates his wrist- return in orthosis if wrist becomes sore when he returns to work and return to dr. pt demo understanding. Patient Goals: Decrease Pain, Use Hand/Wrist/Arm Normally Again Goal:: PT will demo an increase in accounting teacher strength by 20# to increase independent with basic occupations of daily living to return pt to PLOF by D/C. Pt will demo an increase in lateral and tripod pinch by 2# to increase pts independent with opening baggies, containers at PLOF by D/C. Goal:: Pt will demo an increase in wrist ROM equal to unaffected wrist to return pt to PLOF with grooming, dressing and home mtg tasks by D/C. Goal:: Pt will report pain no greater than 1/10 with use of affected hand with BADLs and IADLs by d/c. Goal:: Pt will demo understanding of work/lifting and carry ergonomics to decrease stress on tendons to increase pts independent with ADLs, IADLS and work tasks by d/c. Goal:: Pt will demo understanding of orthosis use and precautions by end of 1st session. Pt will return to clinic for orthosis adjustment. Plan: d/c Discharge Comments: pt was seen for 4 OT visits with report of 90% better. Pt has been performing ROM and isometric ex. therapy used US and orthosis to decrease pain. today pt reports min to no pain and out of his orthosis 90% of the time. pt has met OT goals and is D/C. If there are questions or concerns regarding this patient's occupational therapy, please fell free to call me at [phone]. Thank you for the referral of this patient. Sincerely, Yanira Flaherty, OTR/L, CHT
--- NOTE | 2020-07-04 10:30 | HP.PTDCSUM ---
It has been my pleasure to treat LISA MARQUES referred by Dr. Nathan Walker MD, with the diagnosis of L hip OA, L RANDAL (04/21/20) for a total of 20 visit(s). Discharge Date: 07/04/20 Please see the following information for a summary of their discharge status. Subjective: Pt. reports being 90% better overall. I am so much better. Pt. reports no issues. 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 He is to follow up with physician in early July. L ant hip Pain Intensity (Out of 10): 0 % Improvement: 90 Objective/Function: ROM: Pt. has great ROM of his L hip, no issues with testing. MMT: L hip- flexion 38.8#, abd 33.2#; L knee- ext 50.0#, flexion 49.3#. GAIT: Pt. completed 6 min walk test at 1578feet with minimal issues. Normal gait pattern noted. TU.9 sec Goal 1:: LTG: Pt to be I w/ HEP. Goal Progress: Goal Met Goal 2:: STG: Pt will display inc L hip ROM by 10% Goal Progress: Goal Met Goal 3:: LTG: Pt will display inc L hip ROM by 25% Goal Progress: Goal Met Goal 4:: STG: Pt will display inc LLE strength by 1/2 grade. Goal Progress: Goal Met Goal 5:: LTG: Pt will display inc LLE strength by 1 grade. Goal Progress: Goal Met Goal 6:: LTG: Pt will display inc ability to ambulate safely w/out notable deviations. Goal Progress: Goal Met Plan: Pt. to be DC to HEP at this point in time. Discharge Comments: Pt. did very well with PT. He is having no symptoms and his functional mobility is great. He is weaning in to outside work without issues currently. He plans to wean into work after seeing physician in Jul. Pt. will be DC to HEP at this point in time. If there are questions or concerns regarding this patient's physical therapy, please feel free to call me at [phone]. Thank you for the referral of this patient. Sincerely, Ayad Banks DPT
== END 2020-07-04 12:43 | disposition home or self-care (01) ==
LOC: PT 10:00
PROVIDERS: PCP Internal Medicine; Referring Provider Orthopaedic Surgery; Visit Provider Orthopaedic Surgery
DX: M16.12 Unilateral primary osteoarthritis, left hip (principal); M65.4 Radial styloid tenosynovitis [de Quervain]
CPT/HCPCS: 97035; 97110; 97140; 97161; 97164; 97166; 97530; 97760

== ENCOUNTER 2021-04-11 15:34 | Outpatient (CLI) | payer OTHER, SELFPAY ==
[2021-04-11 15:59] VITALS: BP 138/70; PULSE 81; RESP 16; TEMP 36.9; O2SAT 97; BMI 40.6
[2021-04-11] MEDS: 0.9% Saline Lock 10 ML Syringe IV (16:03)
[2021-04-11 16:40] VITALS: BP 134/74; PULSE 73; RESP 18; TEMP 36.6; O2SAT 96
[2021-04-11 17:40] VITALS: BP 133/71; PULSE 70; RESP 16; TEMP 36.6; O2SAT 98
== END 2021-04-11 17:40 | disposition home or self-care (01) ==
LOC: ICUOUT 15:34 → MS3 15:35
PROVIDERS: PCP Internal Medicine; Referring Provider Nurse Practitioner Acute Care; Visit Provider Nurse Practitioner Acute Care
DX: Z23 Encounter for immunization (principal); U07.1 COVID-19
CPT/HCPCS: J7050; M0245; Q0245; A4216

== ENCOUNTER 2021-09-26 10:06 | Outpatient (CLI) | payer OTHER, SELFPAY ==
[2021-09-26 10:33] LABS: Troponin-I HS 6 pg/mL (3.0-78.0)
== END 2021-09-26 23:59 | disposition home or self-care (01) ==
LOC: LABSPEC 10:08
PROVIDERS: PCP Internal Medicine; Visit Provider Internal Medicine
DX: I44.7 Left bundle-branch block, unspecified (principal)
CPT/HCPCS: 84484

== ENCOUNTER 2021-10-17 10:49 | Outpatient (CLI) | payer OTHER, SELFPAY ==
--- NOTE | 2021-10-17 10:55 | ECHOCS_ITS ---
Reason For Study: LBBB Procedure This was a 2D Doppler, Color Flow transthoracic echocardiogram. The study was technically difficult. Exam performed in department. Left Ventricle Normal LV size. Left ventricular systolic function is normal. The estimated ejection fraction is 55 %. Stage 1 diastolic dysfunction. No regional wall motion abnormalities noted. Right Ventricle Normal RV size. Normal systolic function. Atria Normal left atrium. Normal right atrium. Mitral Valve Mitral valve not well visualized. Tricuspid Valve Normal tricuspid valve. Aortic Valve Trisinus/trileaflet aortic valve. Pulmonic Valve Normal pulmonic valve. Great Vessels Normal aortic root. The pulmonary artery is normal size. Normal inferior vena cava. Pericardium/Pleural No pericardial effusion. Medication 22 gauge I.V. with prn adaptor inserted into right arm. Diluted definity 3ml given slow IV push to enhance endocardial definition. Performed a rapid injection of agitated mix of 9 cc saline and 1cc air to assess for atrial septal defect. MMode/2D Measurements & Calculations LVIDd: 4.9 cm IVSd: 1.0 cm Ao root diam: 3.4 cm LVIDs: 3.5 cm LVPWd: 1.0 cm RVDd: 4.1 cm FS: 29.0 % LAV(MOD-bp): 53.7 ml LVAd ap2: 40.0 cm2 SV(MOD-sp2): 82.8 ml LAV(MOD-bp) Indexed: 21.9 ml/m2 LVLd ap2: 9.2 cm LAV(MOD-sp2): 55.6 ml EDV(MOD-sp2): 143.0 ml LAV(MOD-sp4): 52.2 ml EDV(sp2-el): 146.7 ml LVAs ap2: 24.2 cm2 LVLs ap2: 8.1 cm ESV(MOD-sp2): 60.2 ml ESV(sp2-el): 61.6 ml EF(MOD-sp2): 57.9 % LA A4 area: 19.5 cm2 LA dimension(2D): 3.6 cm RA A4 area: 15.9 cm2 Time Measurements MV dec time: 0.25 sec Doppler Measurements & Calculations MV E max aftab: 64.1 cm/sec Lat Peak E' Aftab: 11.1 cm/sec Med Peak E' Aftab: 8.1 cm/sec MV A max aftab: 71.5 cm/sec E/E' lat: 5.8 E/E' med: 7.9 MV E/A: 0.90 Ao V2 max: 122.4 cm/sec LV V1 max: 108.9 cm/sec Ao max P.0 mmHg LV V1 max P.7 mmHg ECHO/Echo Complete W/ Contrast Interpretation Summary Normal LV size. Left ventricular systolic function is normal. The estimated ejection fraction is 55 %. Stage 1 diastolic dysfunction. Contrast injection was performed. Ordering Physician: Aparna Gutiérrez Referring Physician: Aparna Gutiérrez Performed By: Micki Kimble RDCS
== END 2021-10-17 23:59 | disposition home or self-care (01) ==
LOC: CVS 10:54
PROVIDERS: PCP Internal Medicine; Referring Provider Internal Medicine; Visit Provider Internal Medicine
DX: I44.7 Left bundle-branch block, unspecified (principal)
CPT/HCPCS: 93306; Q9957; A4216; C8929

== ENCOUNTER 2021-10-31 12:33 | Outpatient (CLI) | payer OTHER, SELFPAY ==
[2021-10-31 08:04] VITALS: BP 139/67; PULSE 60; RESP 18; TEMP 36.8; TEMP 36.9; O2SAT 95; BMI 35.6
--- NOTE | 2021-10-31 12:40 | CT_ITS ---
STUDY: CT CHEST WITHOUT CONTRAST REASON FOR EXAM: Male, 56 years old. Coronary artery screening. Over read examination. RADIATION DOSAGE (If Supplied By Facility): CTDIvol = ( 12.19 ) mGy, DLP = ( 219.42 ) mGycm TECHNIQUE: Transaxial imaging was performed without intravenous contrast administration. . Individualized dose optimization techniques were used for this CT. COMPARISON: None. FINDINGS: Scattered bilateral calcified granulomas in both lungs. There is no demonstrated pleural abnormality. Normal heart and pericardium. Coronary artery calcification Calcified hilar and mediastinal lymph nodes in keeping with the granulomatous disease.. Normal enhanced and unenhanced pulmonary arteries. Normal aorta arch and descending thoracic aorta. Normal osseous structures. There is no demonstrated abnormality of the visualized upper abdomen. CT/Limited Chest CT w/CCTA IMPRESSION: Calcification of the coronary arteries. Calcified bilateral pulmonary granulomas as well as calcified mediastinal and hilar lymphadenopathy. Electronically Signed: Ernesto Schmitt MD at 14:07 EDT ,
--- NOTE | 2021-10-31 17:13 | CA.SCORE ---
Calcium Scoring Date of Study:: 10/31/21 Coronary Calcium Scoring: High-resolution Computed Tomographic imaging of the chest was performed on 10/31/2021 with particular attention paid to the coronary arteries. Images from the examination were analyzed for the presence and extent of coronary artery calcification , using coronary calcium quantification software. The patient tolerated the procedure well and there were no complications. The results of the coronary calcification analysis are provided below. Findings Coronary Artery Left Main (LM): 0 Left Anterior Descending (LAD): 1,172 Left Circumflex (LCX): 185 Right Coronary Artery (RCA): 292 Total Agatston Score: 1,649 Percentile Ranking: According to prepublished reference data greater than 90% of people of the same gender and/or similar age had the same and/or lower scores Calcium Scoring Interpretation: 0 No identifiable atherosclerotic plaque. Very low cardiovascular disease risk. <5% chance of presence coronary artery disease A Negative Examination 1-10 Minimal Plaque burden. Significant coronary artery disease very unlikely. 11-100 Mild plaque burden. Likely mild or minimal coronary atherosclerosis. 101-400 Moderate plaque burden Moderate non-obstructive coronary artery disease highly likely. Over 400 Extensive plaque burden. High likelihood of at least one significant coronary stenosis (>50% diameter) Calcium Score: >400 High likelihood of at least one significant coronary stenosis Conclusion: Continue cardiovascular evaluation and care as deemed appropriate. This note was generated using a voice recognition system and there may be incorrect words, spelling or punctuation that were not noted when reviewing the office note prior to saving.
== END 2021-10-31 23:59 | disposition home or self-care (01) ==
LOC: CT 12:37
PROVIDERS: PCP Internal Medicine; Referring Provider Internal Medicine; Visit Provider Internal Medicine
DX: I44.7 Left bundle-branch block, unspecified (principal)
CPT/HCPCS: 75571; 76380

== ENCOUNTER → 2021-11-28 | Outpatient (CLI) | payer OTHER, SELFPAY ==
--- NOTE | 2021-11-28 09:17 | STRESSREP_ITS ---
Stress Test Report Date: 11-28-2021 Procedure: Pharmacologic stress nuclear imaging study Indications: Left bundle branch block; abnormal coronary calcium score Consent: Per the patient Procedure: The patient underwent pharmacologic (Regadenoson 0.4mg ) evaluation with a peak heart rate of 98 beats per minute (59%predicted maximal heart rate) and a peak b lood pressure of 126/70 mmHg. The baseline ECG demonstrated sinus rhythm; left bundle branch block. The peak pharmacologic ECG demonstrated no obvious ECG changes. There were no cardiac dysrhythmias pretest, during pharmacologic infusion, or recovery. There was no complaint of chest discomfort during pharmacologic infusion or recovery. The examination was discontinued secondary to completion of protocol. Impression: 1. Pharmacologic (Regadenoson) evaluation 2. Peak pharmacologic ECG with continued left bundle branch block with no obvious ECG changes. 3. There were no cardiac dysrhythmias pretest, during pharmacologic infusion, or recovery. 4. Nuclear images pending Myocardial perfusion imaging study: Technique: The patient was injected with 14.8 millicuries of technetium 99m Cardiolite and subsequently rest SPECT Cardiolite nuclear imaging was obtained in the horizontal long, vertical long, and short axis views. The patient underwent pharmacologic (Regadenoson) evaluation with a peak heart rate of 98 beats per minute (59% percent predicted maximal heart rate) and a peak blood pressure of 126/70 mmHg. The patient was injected with 44.7 millicuries of technetium 99m Cardiolite and subsequently stress SPECT Cardiolite nuclear imaging was obtained in the horizontal long, vertical long, and short axis views. A gated Cardiolite study at peak stress was obtained. Interpretation: Rest and stress SPECT Cardiolite nuclear imaging status post realignment, normalization, and attenuation correction demonstrate the appearance of a small area of diminished myocardial perfusion/tracer uptake near the lateral apical segments which appears to be somewhat more prominent at rest as opposed to stress. There is end systolic thickening and brightening. The gated Cardiolite study demonstrates myocardial thickening and inward wall motion. The reported LVEF is 50%. Impression: 1. Rest and stress SPECT currently nuclear imaging demonstrate myocardial perfusion changes near the lateral apical segments being somewhat more prominent at rest as opposed to stress appearing compatible with a combination of shifting soft tissue attenuation/artifact and physiologic apical thinning with no myocardial perfusion changes considered diagnostic for associated stress-induced myocardial ischemia. 2. The gated Cardiolite study reports an LVEF of 50%. This note was generated with [employer] software. It may contain incorrect words, spelling, and punctuation that were not noted in checking the note before signing.
== END | disposition home or self-care (01) ==
LOC: CVS 06:01
PROVIDERS: PCP Internal Medicine; Referring Provider Nurse Practitioner Gerontology; Visit Provider Nurse Practitioner Gerontology
DX: I44.7 Left bundle-branch block, unspecified (principal); R93.1 Abnormal findings on diagnostic imaging of heart and coronary circulation
CPT/HCPCS: 78452; 93017; A9500; A4216; J2785

== ENCOUNTER → 2023-02-18 | Outpatient (CLI) | payer OTHER, SELFPAY ==
--- NOTE | 2023-02-18 10:12 | CT_ITS ---
STUDY: CT BRAIN WITHOUT CONTRAST REASON FOR EXAM: Male, 57 years old. Headache, STAT R/O BLEED RADIATION DOSAGE (If Supplied By Facility): CTDIvol = ( 44.99 ) mGy, DLP = ( 812.98 ) mGycm TECHNIQUE: Transaxial CT imaging of the brain was performed without administration of intravenous contrast material. Individualized dose optimization techniques were used for this CT. COMPARISON: No relevant priors. FINDINGS: Normal soft tissue structures. Normal calvarium. Normal size ventricles and extra-axial spaces for the patient''s age. Normal white matter tracts of the cerebral hemispheres. Normal basal ganglia and thalami. Normal brainstem. Normal cerebellum. There is no intracranial hemorrhage. There are no findings of an acute ischemic infarction. Mucosal thickening of the maxillary sinus bilaterally. Partial opacification of the ethmoid sinuses as well as the right sphenoid sinus. Mucosal thickening of the left sphenoid sinus. CT/Brain/Head without Contrast IMPRESSION: Partial opacification of the ethmoid sinuses and sphenoid sinus as well as mucosal thickening of the maxillary sinuses. Electronically Signed: Ernesto Schmitt MD at 10:38 EDT ,
== END | disposition home or self-care (01) ==
PROVIDERS: PCP Internal Medicine; Referring Provider Internal Medicine; Visit Provider Internal Medicine
DX: R51.9 Headache, unspecified (principal)
CPT/HCPCS: 70450

== ENCOUNTER → 2024-06-04 | Outpatient (CLI) | payer OTHER, SELFPAY ==
--- NOTE | 2024-06-10 12:47 | STRESSREP_ITS ---
Stress Test Report Date: 06/04/2024 Procedure: Pharmacologic stress nuclear imaging study Indications: History of CAD Consent: Per the patient Procedure: The patient underwent pharmacologic (Regadenoson 0.4mg ) evaluation with a peak heart rate of 100 beats per minute (61%predicted maximal heart rate) and a peak blood pressure of 138/70 mmHg. The baseline ECG demonstrated sinus rhythm with left bundle branch block. The peak pharmacologic ECG demonstrated no diagnostic changes. There were no cardiac dysrhythmias pretest, during pharmacologic infusion, or recovery. There was no complaint of chest discomfort during pharmacologic infusion or recovery. The patient was injected with 15.0 millicuries of technetium 99m Cardiolite and subsequently rest SPECT Cardiolite nuclear imaging was obtained in the horizontal long, vertical long, and short axis views. The patient underwent pharmacologic (Regadenoson) evaluation. The patient was injected with 44.7 millicuries of technetium 99m Cardiolite and subsequently stress SPECT Cardiolite nuclear imaging was obtained in the horizontal long, vertical long, and short axis views. A gated Cardiolite study at peak stress was obtained. The examination was stopped secondary to completion of protocol. Rest and stress SPECT Cardiolite nuclear imaging status post realignment, normalization, and attenuation correction demonstrate a moderate-sized fixed apical defect with no reversibility with pharmacological stress. Apical hypokinesis. Generalized hypokinesis. The reported LVEF is 43%. Impression: 1. Pharmacologic (Regadenoson) evaluation 2. Peak pharmacologic ECG with no diagnostic changes secondary to underlying left bundle branch block. 3. There were no cardiac dysrhythmias pretest, during pharmacologic infusion, or recovery. 5. Fixed apical defect consistent with prior infarction. 6. The gated Cardiolite study reports an LVEF of 43%. This note was generated with [employer]ation software. It may contain incorrect words, spelling, and punctuation that were not noted in checking the note before signing.
== END | disposition home or self-care (01) ==
LOC: CVS 06:15
PROVIDERS: PCP Internal Medicine; Referring Provider Internal Medicine; Visit Provider Internal Medicine
DX: I25.10 Atherosclerotic heart disease of native coronary artery without angina pectoris (principal)
CPT/HCPCS: 78452; 93017; A9500; A4216; J2785

== ENCOUNTER 2024-06-22 07:00 | Outpatient (RCR) | payer OTHER, SELFPAY | END 2024-06-22 19:00 | disposition home or self-care (01) | LOC: PT 07:00 | PROVIDERS: PCP Internal Medicine; Referring Provider Orthopaedic Surgery; Visit Provider Orthopaedic Surgery | DX: M16.11 Unilateral primary osteoarthritis, right hip (principal) | CPT/HCPCS: 97110; 97140; 97161; 97530 ==

== ENCOUNTER 2024-06-23 12:48 | Outpatient (CLI) | payer OTHER, SELFPAY ==
--- NOTE | 2024-06-23 12:51 | ECHOCS_ITS ---
Reason For Study: ABNORMAL CV FUNCTION STUDY Procedure This was a 2D Doppler, Color Flow transthoracic echocardiogram. The study was technically difficult. Contrast injection was performed. Due to body habitus. Exam performed in department. Left Ventricle Mildly dilated left ventricle. The estimated ejection fraction is 30 %. Stage 2 diastolic dysfunction. There is moderate to severe global hypokinesis of the left ventricle. Right Ventricle Normal RV size. Normal systolic function. Atria The left and right atria are normal. No doppler evidence for ASD. Mitral Valve There is no mitral valve stenosis. Trivial mitral valve insufficiency. Tricuspid Valve There is no tricuspid stenosis. Unable to estimate RV systolic pressure due to inadequate jet, pulmonary artery pressure probably normal. Aortic Valve Trisinus/trileaflet aortic valve. There is no aortic stenosis. No aortic valve insufficiency. Pulmonic Valve There is no pulmonic valvular stenosis. No pulmonic valve insufficiency. Great Vessels Normal aortic root. Pericardium/Pleural No pericardial effusion. Medication 22 gauge I.V. with prn adaptor inserted into right arm. Diluted definity 3.5ml given slow IV push to enhance endocardial definition. MMode/2D Measurements & Calculations LVIDd: 5.5 cm IVSd: 1.2 cm LVOT diam: 2.5 cm LVIDs: 4.2 cm LVPWd: 1.1 cm RVDd: 4.2 cm FS: 23.8 % LVOT area: 4.8 cm2 Ao root diam: 3.4 cm asc Aorta Diam: 3.5 cm LAV(MOD-bp): 81.9 ml LA dimension: 3.5 cm LAV(MOD-bp) Indexed: 32.9 ml/m2 LAV(MOD-sp2): 65.8 ml LAV(MOD-sp4): 87.5 ml SV(MOD-sp4): 96.9 ml SV(sp4-el): 97.9 ml LVAd ap4: 45.6 cm2 LVLd ap4: 9.9 cm SI(MOD-sp4): 39.0 ml/m2 EDV(MOD-sp4): 177.3 ml EDV(sp4-el): 178.8 ml LVAs ap4: 28.8 cm2 LVLs ap4: 8.7 cm ESV(MOD-sp4): 80.4 ml ESV(sp4-el): 80.9 ml EF(MOD-sp4): 54.7 % EF(sp4-el): 54.7 % LA A4 area: 26.7 cm2 RA A4 area: 16.0 cm2 TAPSE: 1.7 cm Time Measurements MV dec time: 0.18 sec Doppler Measurements & Calculations MV E max aftab: 52.1 cm/sec Lat Peak E' Aftab: 10.2 cm/sec Med Peak E' Aftab: 6.9 cm/sec MV A max aftab: 82.9 cm/sec E/E' lat: 5.1 E/E' med: 7.5 MV E/A: 0.63 MV V2 max: 90.9 cm/sec MV P1/2t max aftab: 61.9 cm/sec Ao V2 max: 118.2 cm/sec MV max P.3 mmHg MV P1/2t: 58.1 msec Ao max P.6 mmHg MV V2 mean: 49.7 cm/sec MV dec slope: 311.7 cm/sec2 Ao V2 mean: 83.8 cm/sec MV mean P.1 mmHg MVA(P1/2t): 3.8 cm2 Ao mean P.2 mmHg MV V2 VTI: 20.7 cm Ao V2 VTI: 25.0 cm MVA(VTI): 4.6 cm2 AV (velocity ratio): 0.78 VIVEK(I,D): 3.8 cm2 VIVEK(V,D): 4.0 cm2 LV V1 max: 98.8 cm/sec SV(LVOT): 94.8 ml PA V2 max: 140.0 cm/sec LV V1 max P.9 mmHg LV V1 mean P.3 mmHg LV V1 mean: 69.7 cm/sec LV V1 VTI: 19.6 cm ECHO/Echo Complete W/ Contrast Interpretation Summary The estimated ejection fraction is 30 %. Stage 2 diastolic dysfunction. There is moderate to severe global hypokinesis of the left ventricle. Trivial mitral valve insufficiency. Ordering Physician: Aparna Gutiérrez Referring Physician: Aparna Gutiérrez; Niko Steiner Performed By: Rama Isaac RDCS, RVT
== END 2024-06-23 23:59 | disposition home or self-care (01) ==
LOC: CVS 12:51
PROVIDERS: PCP Internal Medicine; Referring Provider Internal Medicine; Visit Provider Internal Medicine
DX: R94.39 Abnormal result of other cardiovascular function study (principal)
CPT/HCPCS: 93306; Q9957; A4216; C8929

== ENCOUNTER → 2024-06-25 | Outpatient (CLI) | payer OTHER, SELFPAY ==
--- NOTE | 2024-06-25 14:25 | RAD_ITS ---
INDICATION: for heart cath EXAMINATION/TECHNIQUE: X-RAY - XR Chest 2 Views COMPARISON: Prior study dated: 09/27/2022 FINDINGS: LINES/DEVICES: None. LUNGS: No consolidation. A few calcified granulomata in both lungs. No pneumothorax. MEDIASTINUM: Unremarkable. CARDIAC SILHOUETTE: Not enlarged. BONES AND SOFT TISSUES: No acute abnormalities. RAD/Chest PA and Lateral IMPRESSION: No evidence of active intrathoracic disease. Evidence of previous granulomatous disease. Electronically Signed: Tabitha Thornton MD at 8:03 EST ,
[2024-06-25 15:28] LABS: Absolute Lymphocyte Count 1.72 X10^3/uL (0.83-4.51); Basophil# 0.05 X10^3/uL; Basophil% 0.6 % (0-1); Eosinophil# 0.21 X10^3/uL; Eosinophils% 2.6 % (0-5); Hematocrit 46.5 % (40-54); Hemoglobin 14.9 g/dL (13.0-16.5); Lymphocyte # 1.72 X10^3/ul (0.83-4.51); Lymphocyte % 21.5 % (19-41); Mean Corpuscular Hgb 31.8 pg (27.0-32.0); Mean Corpuscular Volume 99.1 fL (80-94); Monocyte# 0.99 X10^3/uL; Monocyte% 12.4 % (0-10); NRBC Flagged by Analyzer 0 % (0-5); Neutrophil # 4.99 X10^3/uL (2.7-7.7); Neutrophil % 62.4 % (47-70); Platelet Count 210 K/mm3 (150-450); RBC Distribution Width CV 13.4 % (11.6-14.6); RBC Distribution Width SD 49.1 fl (35.1-43.9); Red Blood Count 4.69 M/mm3 (4.6-6.2)
[2024-06-25 16:31] LABS: Anion Gap 2 (5-15); BUN 22 mg/dL (7-18); BUN/Creat Ratio 22.8 RATIO (10-20); Calcium,Total 9.5 mg/dL (8.5-10.1); Chloride 107 mmol/L (98-107); Creatinine, Serum 0.97 mg/dL (0.70-1.30); EST Glomerular Filtration Rate 85 mL/min (>60); Est Glom Filt Rate - Afr Amer 103 mL/min (>60); Glucose 94 mg/dL (74-106); Potassium 4.9 mmol/L (3.5-5.1); Sodium Level 140 mmol/L (136-145)
[2024-07-05 10:58] LABS: Hemoglobin A1c 5.9 % (3.8-5.6)
== END | disposition home or self-care (01) ==
LOC: LAB 14:09
PROVIDERS: Internal Medicine Cardiovascular Disease; PCP Internal Medicine; Referring Provider Physician Assistant Medical; Visit Provider Physician Assistant Medical
DX: Z01.810 Encounter for preprocedural cardiovascular examination (principal); R93.1 Abnormal findings on diagnostic imaging of heart and coronary circulation
CPT/HCPCS: 36415; 71046; 80048; 83036; 85025

== ENCOUNTER 2024-07-05 07:18 | Day surgery (SDC) | payer OTHER, SELFPAY ==
[2024-07-02 09:54] VITALS: BMI 37.0
--- NOTE | 2024-07-05 09:18 | CL.D_ITS ---
Patient Name: LISA MARQUES Study Date: 07/05/2024 Performing: Arcenio Mccloud MD Ht: 73 inches 185.42 cm : 1965 Wt: 281 lbs 127.46 kg Age: 59 Gender: male BSA: 2.49 PROCEDURE(S) PERFORMED DC01-([id number])LHC/COR/LV CLINICAL PROFILE AND INDICATIONS Indications: Suspected CAD Heart Failure: None Stress/Imaging Coronary Calcium Score: Yes Calcium Score: 1200Calcium Score: 1200 CAD Presentations: Symptom unlikely to be ischemic. CONCLUSIONS Nonobstructive coronary disease. Coronary calcification noted in the LAD and left circumflex system. Cardiomyopathy with estimated ejection fraction of 35% and left bundle branch block. RECOMMENDATIONS Aggressive risk factor modification and medical therapy. DESCRIPTION OF PROCEDURE The patient arrived to the procedure lab. The risks and benefits of the procedure as well as a full description of our services here and current unavailability of surgical backup were fully explained to the patient and/or their significant other prior to the catheterization. The Timeout was completed, verifying the correct patient and procedure. The patient's procedural site was prepped and draped in the usual fashion. Local anesthetic was given subcutaneously to right radial region with Lidocaine 2%. Using a modified Seldinger technique, arterial access was obtained via the right radial artery, a 6Fr sheath was inserted. Right Coronary Artery selective angiography was then performed in multiple views using a 5 Fr. 4.0 [place] catheter. Left Coronary Artery selective angiography was performed in multiple views using a 5 Fr. 4.0 [place] catheter. Left Ventriculography was performed in ENGLISH projection using a 5 Fr. Pigtail catheter. LV to AO pullback pressures were then recorded.The arterial sheath was pulled and a TR Band was applied for hemostasis CORONARY ANGIOGRAPHY DOMINANCE: Right Dominant LEFT HEART ASSESSMENT Left Ventricular Ejection Fraction: by LV Gram 35 % Global Hypokinesis - Moderate Depressed Left Ventricular systolic function LEFT MAIN: Angiographically normal LEFT ANTERIOR DESCENDING ARTERY: Moderate calcification, Mild luminal irregularities less than 30% CIRCUMFLEX ARTERY: Nondominant but large vessel with a large first obtuse marginal branch with no significant stenosis in the ostium of the AV groove branch which gives of a second obtuse marginal branch in the AV groove branch proper having a 60% stenotic lesion. RIGHT CORONARY ARTERY: Mild luminal irregularities less than 30% COMPLICATIONS No Complications PROCEDURE MEDICATIONS Versed 1 mg IV Fentanyl 50 mcg IV Oxygen: 2 L/min via nasal cannula Heparin given IA 07/05/2024 08:56:41 Verapamil 2.5mg, Ntg 200mcgs, 2000 units of Heparin given IA 07/05/2024 08:56:41 SUMMARY OF HEMODYNAMIC DATA Time AIR REST ECG 07:35:19 AO 107/67 (84) SA 08:57:04 LV 120/-5, 6 09:03:45 LV 114/-1, 3 09:03:53 LV 114/1, 8 09:04:30 LV 110/0, 9 09:04:39 LVp 110/-5, 7 09:04:45 AOp 126/64 (88) 09:04:52 09:16:44 Signed By Arcenio Mccloud MD On 07/05/2024 09:17:48 Arcenio Mccloud MD
== END 2024-07-05 11:00 | disposition home or self-care (01) ==
PROVIDERS: PCP Internal Medicine; Referring Provider Internal Medicine Cardiovascular Disease; Visit Provider Internal Medicine Cardiovascular Disease
DX: R93.1 Abnormal findings on diagnostic imaging of heart and coronary circulation (principal); I25.10 Atherosclerotic heart disease of native coronary artery without angina pectoris; I44.7 Left bundle-branch block, unspecified; I10 Essential (primary) hypertension; Z99.89 Dependence on other enabling machines and devices; E78.2 Mixed hyperlipidemia
CPT/HCPCS: 93458; 99152; Q9967; C1769; C1894

== ENCOUNTER → 2024-07-07 | Outpatient (CLI) | payer OTHER, SELFPAY ==
[2024-07-07 10:33] LABS: Microalbumin,Random Urine 6.7 mg/L (NO RANGE EST.); Microalbumin:Creatinine Ratio 4.3 mg/g CRE (<30 mg/g CRE)
== END | disposition home or self-care (01) ==
LOC: LAB 08:39
PROVIDERS: PCP Internal Medicine; Referring Provider Internal Medicine Cardiovascular Disease; Visit Provider Internal Medicine Cardiovascular Disease
DX: R93.1 Abnormal findings on diagnostic imaging of heart and coronary circulation (principal)
CPT/HCPCS: 82043; 82570

== ENCOUNTER → 2024-07-30 | Outpatient (CLI) | payer OTHER, SELFPAY ==
[2024-07-30 12:21] LABS: Potassium 4.4 mmol/L (3.5-5.1)
== END | disposition home or self-care (01) ==
LOC: LABSPEC 12:05
PROVIDERS: PCP Internal Medicine; Visit Provider Internal Medicine
DX: E87.5 Hyperkalemia (principal)
CPT/HCPCS: 84132

== ENCOUNTER 2024-09-15 08:30 | Outpatient (RCR) | payer OTHER, SELFPAY ==
--- NOTE | 2024-08-10 15:39 | HP.PTEVAL_ITS ---
Patient's Visit Information Visit Information Visit Information: LISA MARQUES is a 59 year old M referred to Physical Therapy by Dr. Nathan Walker MD with a diagnosis of R primary hip OA s/p RANDAL 08/02/24. Date of Evaluation: 08/10/24 Physical Therapist: Scott Yeager, DPT, OCS, CSCS Visit Plan Frequency: 2x /Week Duration: 2 Months Plan: 2x/week for 6 weeks: Pt is WBAT R and currently uses wh walker. IE: SLR to 3x10, AP, QS, GS all 15x 3x/day, precautions reviewed for post hip, use ice machine and careful with activity. Treat with: R hip ROM within precautions, HS and quad rollout and stretch, strength R hip, general LE strength, gait training and stair training. ice as needed, scar massage if needed. Educate on progressions of HEP. Subjective Subjective: 08/02/[address] Walker, posterior incision. Prior was grinding and painful and hard to walk and would give out for 5+ months. Since surgery has minimal pain. Tylenol takes care fo it and 2/10 at most. Took oxy today. Sleeping in recliner and pretty good but wants to get up stairs to bed. Lives with in two story on main right now. Went to basement with railing to the shower using L only. HEP: SLR, AP, QS, GS No trouble. Precautions: no bedning past 90, no twisting, Has help to get shoes and scoks on. Puts on pants with grabber. bathroom mostly I, helps clean. Shower in basement I. using walker with wh to get around. 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 Will be off 3 months. hobbies: Fair board. Missed a meeting or two. Spending day moving feet, TV. No regualr ex. Pain R hip lateral: Pain Intensity (Out of 10): 1 Pain Intensity Range: 0 and 2 Objective Objective: 76# ext seated R and 36# flexion r 4 degrees ext to 90 flexion firm at both ends passively. Rotations not tested. Incision i posterior R and appears dry under dressing, no obvious scarring or fluid stasis today. 15 second TUG with wh walker. knee AROM B 0-120 ankles WFL good strength at ankles and knees 5/5, no pain B. L hip strerngth 4/5 abd and ext and 4+ flexion. walking with wh walker with short L step length but mod I, R foot slightly turned in but can correct without discomfort. Walks without AD with more antalgia R and worse L step length but I. steps with L only one rail up and down. trasnfer bed and chair I, manages R leg appropriately. SLR without lag when cued, tends to lag on R though. Verbalizes precautions today without cueing in his own way. Balance/Special Test Scores WOMAC Total Score: 24 WOMAC Percentatge: 75.0000 Goals Goal 1:: walk with no AD without gait deviations community Goal Time Frame: 4-6 Weeks Goal 2:: steps reciprocally without railing without pain Goal Time Frame: 4-6 Weeks Goal 3:: Pain 0/10 R hip and b ack to 90% activities at home Goal Time Frame: 4-6 Weeks Goal 4:: Plan to return to work including stepping into large machinery Goal Time Frame: 4-6 Weeks Goal 5:: WOMAC score 8 or less Goal Time Frame: 4-6 Weeks Goal 6:: I appropriate HEP to limit future problems Goal Time Frame: 4-6 Weeks Rehabilitation Potential Physical Therapy Diagnosis: R hip weakness, lack ROM and discomfort limiting comfortable function. Rehabilitation Potential: Excellent Anticipated Interventions Patient/Client Instruction: Educate patient on: Condition and Plan of Care For the Purpose of:: To decrease pain, To increase ROM, To improve nutrient delivery to tissue, To improve muscle performance and motor function, To incre ase tolerance to activity/condition/position, To improve ability of physical actions for home/community/work/leisure and To improve gait and locomotor functions Therapeutic Exercise to Include: Strength training, Postural training, Flexibilty training, Passive ROM and Active ROM For the Purpose of:: To decrease pain, To increase ROM, To improve nutrient delivery to tissue, To improve muscle performance and motor function, To increase tolerance to activity/condition/position, To improve ability of physical actions for home/community/work/leisure and To improve gait and locomotor functions Manual Therapy Techniques to Include: Scar massage, Passive ROM and Soft tissue mobilization For the Purpose of:: To decrease pain, To increase ROM, To improve ability to perform ADL's and To increase tolerance to activity/condition/position Cryotherapy (ice pack, ice massage): Yes For the Purpose of:: To decrease pain and To decrease swelling/inflammation Text: Thank you for the opportunity to evaluate your patient. For Medicare and Medicare HMO plans, please review the plan of care and approve it. It will need to be FAXED BACK to us at [phone] for Medicare purposes. For Medicare only, by signing this I certify the plan of care. Please let me know if there are questions or concerns regarding this plan of care. Physician Signature: ____Date:
--- NOTE | 2024-09-15 09:24 | HP.PTDCSUM ---
Discharge Summary D/C summary: It has been my pleasure to treat LISA MARQUES referred by Dr. Nathan Walker MD, with the diagnosis of R primary hip OA s/p RANDAL 08/02/24 for a total of 12 visit(s). Discharge Date: 09/15/24 Please see the following information for a summary of their discharge status. Subjective Subjective: Still hard to put R shoe on. Walking well, maybe slight limp if sits too long. Stairs are OK. pain is not an issue. Sleep is fine. Back to doctor 10/19/24, Feels like he can work on it himself. No concerns with HEP . Will go to shop a little bit this week. Pain R hip lateral: Pain Intensity (Out of 10): 0 Overall Improvement % Improvement: 90 Objective Objective/Function: 86# ext, 50# flexion in sitting 10-90 MARCIAL M R hip 8 sec TUG 16 inch step up easily today with one rail Walking well without antalgia. Steps reciprocal without a rail. Goals Goal 1:: walk with no AD without gait deviations community Goal Progress: Goal Met Goal 2:: steps reciprocally without railing without pain Goal Progress: Goal Met Goal 3:: Pain 0/10 R hip and b ack to 90% activities at home Goal Progress: Goal Met Goal 4:: Plan to return to work including stepping into large machinery Goal Progress: Goal Met Goal 5:: WOMAC score 8 or less Goal Progress: Goal Met Goal 6:: I appropriate HEP to limit future problems Goal Progress: Goal Met Plan Plan: d/c to HEP D/C Information Discharge Comments: Will continue HEP until doctor f/u and call if questions. Plan to return to work after doctor f/u in October which is appropriate at this point. d/c sentence: If there are questions or concerns regarding this patient's physical therapy, please feel free to call me at [phone]. Thank you for the referral of this patient. Sincerely, Scott Yeager, DPT, OCS, CSCS Balance/Gait/Functional tests Balance/Special Test Scores Functional Gait Assessment Score: 26 % Disability: 13.3400 WOMAC Total Score: 6 WOMAC Percentage: 93.7500 Improvement % Improvement: 90
== END 2024-09-15 19:00 | disposition home or self-care (01) ==
LOC: PT 08:30
PROVIDERS: PCP Internal Medicine; Referring Provider Orthopaedic Surgery; Visit Provider Orthopaedic Surgery
DX: Z96.641 Presence of right artificial hip joint (principal)
CPT/HCPCS: 97110; 97161; 97164; 97530

== ENCOUNTER → 2024-11-17 | Outpatient (CLI) | payer OTHER, SELFPAY ==
--- NOTE | 2024-11-17 07:57 | ECHOLC_ITS ---
Reason For Study Reason For Study: CHF Procedure This was a limited 2D transthoracic echocardiogram. The study was technically difficult. Contrast injection was performed. Exam performed in department. Left Ventricle Normal LV size. Mild concentric left ventricular hypertrophy. Left ventricular systolic function is lower limits of normal. Septal motion consistent with bundle branch block. The estimated ejection fraction is 54 %. Right Ventricle Normal RV size. Normal systolic function. Atria Normal left atrium. The right atrium is moderately enlarged. Mitral Valve Normal mitral valve. Tricuspid Valve Normal tricuspid valve. Aortic Valve Trisinus/trileaflet aortic valve. Great Vessels Normal aortic root. Pericardium/Pleural No pericardial effusion. Medication 22 gauge I.V. with prn adaptor inserted into right arm. Diluted definity 2.0ml given slow IV push to enhance endocardial definition. MMode/2D Measurements & Calculations LVIDd: 5.1 cm IVSd: 1.3 cm Ao root diam: 3.7 cm LVIDs: 3.6 cm LVPWd: 1.3 cm FS: 28.0 % LAV(MOD-bp): 94.2 ml LVAd ap4: 46.3 cm2 LVAd ap2: 42.7 cm2 LAV(MOD-bp) Indexed: 38.2 ml/m2 LVLd ap4: 10.2 cm LVLd ap2: 9.9 cm LAV(MOD-sp2): 87.6 ml EDV(MOD-sp4): 178.2 ml EDV(MOD-sp2): 156.1 ml LAV(MOD-sp4): 95.7 ml EDV(sp4-el): 178.6 ml EDV(sp2-el): 155.9 ml LVAs ap4: 28.6 cm2 LVAs ap2: 25.1 cm2 LVLs ap4: 8.5 cm LVLs ap2: 8.3 cm ESV(MOD-sp4): 81.2 ml ESV(MOD-sp2): 64.5 ml ESV(sp4-el): 81.9 ml ESV(sp2-el): 64.2 ml EF(MOD-sp4): 54.4 % EF(MOD-sp2): 58.7 % EF(sp4-el): 54.1 % SV(MOD-sp4): 97.0 ml SV(MOD-sp2): 91.6 ml SV(sp4-el): 96.7 ml SI(MOD-sp4): 39.3 ml/m2 SI(MOD-sp2): 37.1 ml/m2 LA A4 area: 27.6 cm2 LA dimension(2D): 4.4 cm RA A4 area: 20.7 cm2 ECHO/Echo Limited w/Contrast Interpretation Summary Normal LV size. Left ventricular systolic function is lower limits of normal. The right atrium is moderately enlarged. Mild concentric left ventricular hypertrophy. The estimated ejection fraction is 54 %. Septal motion consistent with bundle branch block. Contrast injection was performed. Ordering Physician: Niko Steiner Referring Physician: Aparna Gutiérrez Performed By: Rama Isaac, SOFIA, RVT
== END | disposition home or self-care (01) ==
LOC: CVS 07:53
PROVIDERS: PCP Internal Medicine; Referring Provider Nurse Practitioner Family; Visit Provider Nurse Practitioner Family
DX: R93.1 Abnormal findings on diagnostic imaging of heart and coronary circulation (principal); I51.7 Cardiomegaly
CPT/HCPCS: 93308; Q9957; A4216; C8924

== ENCOUNTER → 2025-05-20 | Outpatient (CLI) | payer OTHER, SELFPAY ==
[2025-05-20 10:38] LABS: Hematocrit 49.4 % (40-54); Hemoglobin 16.2 g/dL (13.0-16.5); Immature Granulocytes Count 0.020 X10^3/uL (0.0-0.0); Mean Corp Hgb Conc 32.8 g/dL (32-36); Mean Corpuscular Volume 97.6 fL (80-94); Mean Platelet Vol. 10.2 fl (6.2-12.0); NRBC Flagged by Analyzer 0 % (0-5); Platelet Count 196 K/mm3 (150-450); RBC Distribution Width CV 13.5 % (11.6-14.6); RBC Distribution Width SD 49.5 fl (35.1-43.9); Red Blood Count 5.06 M/mm3 (4.6-6.2); White Blood Count 7.7 K/mm3 (4.4-11.0)
[2025-05-20 10:50] LABS: Creatinine, Urine (random) 117.00 mg/dL (39.00-259.00)
[2025-05-20 11:35] LABS: AST(SGOT) 25 U/L (<=37); Alanine Aminotransfer ALT/SGPT 18 U/L (<=46); Albumin, Serum 4.1 g/dL (3.5-5.0); Alkaline Phosphatase 82 U/L (40-129); Anion Gap 9 (5-15); BUN 17 mg/dL (4-19); BUN/Creat Ratio 19.5 RATIO (10-20); Calcium,Total 9.5 mg/dL (7.6-11.0); Carbon Dioxide 27.3 mmol/L (21.0-32.0); Chloride 102 mmol/L (98-108); Cholesterol 128 mg/dL (<=200); Globulin 3.4 g/dL (2.2-4.2); Glucose 100 mg/dL (70-99); Low Density Lipoprotein Calc. 79 mg/dL; Potassium 5.1 mmol/L (3.3-5.1); Triglycerides 76 mg/dL; Very Low Density Lipoprotein 15 mg/dL (5-40); Vitamin D,25 Hydroxy 38.1 ng/mL (30-100); cholesterol:hdl ratio screen 3.74
[2025-05-20 17:52] LABS: Microalbumin,Random Urine < 12.0 mg/L (<20 mg/L)
== END | disposition home or self-care (01) ==
LOC: MTLAB 07:02
PROVIDERS: PCP Internal Medicine; Referring Provider Internal Medicine; Visit Provider Internal Medicine
DX: R73.09 Other abnormal glucose (principal); E78.00 Pure hypercholesterolemia, unspecified; I10 Essential (primary) hypertension; E55.9 Vitamin D deficiency, unspecified
CPT/HCPCS: 36415; 80053; 80061; 82043; 82306; 82570; 83036; 85025